=== PATIENT | male | born 1955 | race Caucasian/White ===

== ENCOUNTER → 2017-09-13 15:01 | Outpatient (POV) | payer MEDICARE, MEDICAID, SELFPAY ==
[2017-09-13 15:23] VITALS: BP 139/64; PULSE 82; RESP 20; TEMP 36.1; O2SAT 98; BMI 36.5
[2017-09-13 15:30] VITALS: BP 139/61; PULSE 82; RESP 20
[2017-09-13 15:32] VITALS: BP 140/70; PULSE 82; RESP 22
--- NOTE | 2017-09-13 15:32 | HMH.PMPROC ---
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 He is currently going treatment for his throat cancer. He is having some increasing pain. We will refill his pump and increase his infusion today. He is currently on 1.5 mg per day of intrathecal Dilaudid. We will increase him to 1.8 mg per day and leave PA boluses the same at 0.075 mg up to 3 times a day with a 3 hour lockout. He does have a normal gait. Motor strength of the lower extremities is 5/5. There is no gross sensory deficit. Procedure Details:: Informed consent was obtained and the risks and benefits of the procedure was explained to the patient. The patient was taken to the procedure room. The pump was interrogated. The area over the pump was prepped using ChloraPrep. The pump was accessed with a 22-gauge needle. Approximately 3 mL's of the intrathecal solution was withdrawn and discarded. The pump was then refilled with 20 mL's of intrathecal intrathecal Dilaudid 5 mg/mL. The pump was interrogated and the infusion was increased to 1.8 mg per day. PA boluses remain the same at 0.75 mg up to 3 times a day with a 3 hour lockout. The patient tolerated the procedure well with no complication. Plan and Disposition:: We will follow-up with this patient at his next pump refill. If he has any problems or questions he is to call me back in the pain clinic.
[2017-09-13 15:40] VITALS: BP 139/65; PULSE 80; RESP 20
== END ==
PROVIDERS: Family Provider Emergency Medicine; PCP Physician Assistant; Visit Provider Anesthesiology
DX: M46.1 Sacroiliitis, not elsewhere classified (principal)
CPT/HCPCS: 99212

== ENCOUNTER 2017-09-20 15:49 | Emergency (ER) | payer MEDICARE, MEDICAID, SELFPAY ==
[2017-09-20 16:06] VITALS: BP 150/98; PULSE 78; RESP 20; TEMP 36.7; O2SAT 94; BMI 41.8
[2017-09-20 16:26] VITALS: BP 169/78; PULSE 74; RESP 18; TEMP 36.7; O2SAT 100
[2017-09-20 16:28] LABS: Microscopic, Urine URINE MICROSCOPIC (MICROSCOPIC)
[2017-09-20 16:29] LABS: Appearance,Urine CLEAR (Clear); Bilirubin,Urine Negative (Negative); Blood, Urine Negative (Negative); Color,Urine YELLOW (Yellow); Glucose,Urine (UA) Negative (Negative); Ketones,Urine Negative (Negative); Leukocyte Esterase,Urine Negative (Negative); Nitrate,Urine Negative (Negative); PH,Urine 6.5 (5.0-8.5); Protein,Urine Negative (Negative); Specific Gravity, Urine <= 1.005 (1.005-1.030); Urobilinogen,Urine 0.2 EU/dl (0.2)
[2017-09-20 17:54] LABS: Basophils % 0.5 % (0.1-2.0); Eosinophils # 0.2 K/mm3 (0.0-0.4); Eosinophils % 2.2 % (0.1-12.0); Hematocrit 37.5 % (42.0-52.0); Hemoglobin 12.4 g/dL (14.1-18.0); Lymphocytes # 1.4 K/mm3 (0.7-4.5); Lymphocytes % 20.8 K/mm3 (10-50); Mean Corpuscular Hemoglobin 28.5 pg (27.0-31.2); Mean Corpuscular Volume 86.4 fl (80-94); Mean Platelet Volume 7.8 fl (7.4-10.4); Monocytes # 0.1 K/mm3 (0.1-1.0); Monocytes % 1.7 % (1.7-9.3); Neutrophils # 4.9 K/mm3 (1.8-7.8); Neutrophils % 74.8 % (37.0-80.0); Platelet Count 273 K/mm3 (142-424); Red Blood Count 4.33 M/mm3 (4.60-6.20); Red Cell Distribution Width 14.9 % (11.5-17.5); White Blood Count 6.6 K/mm3 (4.8-10.8)
[2017-09-20 18:00] LABS: Alanine Aminotransferase 33 U/L (12-78); Albumin Level 3.6 gm/dL (3.4-5.0); Alkaline Phosphatase 95 U/L (46-116); Anion Gap 12.4 mEq/L (5-15); Aspartate Amino Transferase 18 U/L (15-37); Bilirubin,Total 0.2 mg/dL (0.2-1.0); Blood Urea Nitrogen 15 mg/dL (7-18); Calcium 8.4 mg/dL (8.5-10.1); Carbon Dioxide 31 mmol/L (21.0-32.0); Chloride 101 mmol/L (98-107); Creatinine Clearance Estimated 82 mL/min (0-300); Creatinine,Serum 0.89 mg/dL (0.70-1.30); Estimated Glomerular Filt Rate 87 ml/min (>60); GFR (African American) 105 ML/MIN (>60); Globulin 3.5 gm/dl (1.3-3.2); Glucose 132 mg/dL (74-106); Potassium 3.4 mmoL/L (3.5-5.1); Sodium 141 mmol/L (136-145); Total Protein,Serum 7.1 gm/dL (6.4-8.2)
[2017-09-20 18:10] LABS: Lactic Acid 0.5 mmol/L (0.4-2.0)
--- NOTE | 2017-09-20 18:49 | HMH.EDGENADL ---
ED Disposition Clinical Impression: Malaise Pharyngitis Qualifiers: Pharyngitis/tonsillitis etiology: unspecified etiology Qualified Code(s): J02.9 - Acute pharyngitis, unspecified Disposition: Home, Self-Care Condition on Discharge: Good Instructions: DI for Pharyngitis/Tonsillopharyngitis -- Adult Additional Instructions: fluids and call your oncologist in am Prescriptions: Fluconazole [Diflucan 100mg tablet] 100 mg PO DAILY #7 tab Referrals: Isatu Wylie PA [Primary Care Provider] - - Critical Care Critical Care Time: No Attestation: On 09/20/17, the high probability of a clinically significant, sudden or life threatening deterioration of the following system(s) required my full and direct attention, intervention and personal management. The time I documented below is in addition to time spent performing reported procedures but includes the following listed in this critical care notation. Medical Decision Making - Medical Records Medical records reviewed: Yes: I reviewed the patient's medical records. Vital Signs: 09/20/17 16:06 09/20/17 16:26 09/20/17 19:14 Temperature 98.0 F 98.0 F Temperature Source Oral Oral Pulse Rate [Left Ulnar] 78 74 74 Respiratory Rate 20 18 16 Blood Pressure [Right Arm] 150/98 169/78 144/91 Blood Pressure Mean [Right Arm] 115 108 108 Blood Pressure Source [Right Arm] Automatic Cuff Automatic Cuff Blood Pressure Position [Right Arm] Sitting Sitting 02 Sat by Pulse Oximetry 94 L 100 97 Oxygen Delivery Method Room Air Room Air Room Air - Lab Data Lab results reviewed: Yes: I reviewed the patient's lab results. Lab Results 09/20/17 16:25: Urine Color Yellow, Urine Appearance Clear, Urine pH 6.5, Ur Specific [place] <= 1.005, Urine Protein Negative, Urine Glucose (UA) Negative, Urine Ketones Negative, Urine Blood Negative, Urine Nitrate Negative, Urine Bilirubin Negative, Urine Urobilinogen 0.2, Ur Leukocyte Esterase Negative, Urine RBC None, Urine WBC None, Ur Squamous Epith Cells None, Urine Bacteria None 09/20/17 16:25: Influenza Type A Ag Negative, Influenza Type B Ag Negative 09/20/17 17:30: WBC 6.6, RBC 4.33 L, Hgb 12.4 L, Hct 37.5 L, MCV 86.4, MCH 28.5, MCHC 33.0, RDW 14.9, Plt Count 273, MPV 7.8, Neut % (Auto) 74.8, Lymph % (Auto) 20.8, [place] % (Auto) 1.7, Eos % (Auto) 2.2, Baso % (Auto) 0.5, Neut # (Auto) 4.9, Lymph # (Auto) 1.4, [place] # (Auto) 0.1, Eos # (Auto) 0.2, Baso # (Auto) 0.0 09/20/17 17:30: Sodium 141, Potassium 3.4 L, Chloride 101, Carbon Dioxide 31, Anion Gap 12.4, BUN 15, Creatinine 0.89, Estimated Creat Clear 82, Estimated GFR 87, Est GFR ( Amer) 105, Glucose 132 H, Calcium 8.4 L, Total Bilirubin 0.2, AST 18, ALT 33, Alkaline Phosphatase 95, Total Protein 7.1, Albumin 3.6, Globulin 3.5 H, Albumin/Globulin Ratio 1.0 L 09/20/17 17:30: Lactic Acid 0.5 Result diagrams: 09/20/17 17:30 09/20/17 17:30 Orders (Tests/Meds): ED MEDICATIONS Generic Name Dose Route Start Last Admin Trade Name Freq PRN Reason Stop Dose Admin Sodium Chloride 1,000 mls @ 999 mls/hr 09/20/17 19:15 09/20/17 19:09 Sod Chloride 0.9% 1000ml Bag IV 09/20/17 20:15 999 mls/hr .Q1H1M CARLIE Administration ORDERS Category Date Time Status Chest XR 2 view (NOT portable) [XR chest 2V] Stat Exams 09/20/17 18:51 Taken Blood Culture Stat Micro 09/20/17 17:30 Received - Radiology Data #1 Image(s): Chest Image Reviewed: Yes I reviewed the patient's radiology image Preliminary Findings: Normal/NAD - [place] Inquiry Pt receiving controlled substance: No General Adult HPI - General Chief complaint: Weakness Stated complaint: Body chills, confusion, sob Time Seen by Provider: 09/20/17 18:49 Mode of Arrival: Family Vehicle Source of Information: Patient, Relative, Medical Record Limitations: No Limitations Description of Symptoms (Recalled from ER Triage Doc. by RN): PT C/O SOB,CHILLS, WEAKNESS, SWOLLEN LEGS. - History of Present Illne
--- NOTE | 2017-09-20 18:51 | XR_ITS ---
XR chest 2V HISTORY: Weakness, Hodgkin's lymphoma, leg swelling ITS.REASON: weakness ORDERING PHYSICIAN: Arash James MD PATIENT AGE: 62 years COMPARISON: 02/04/2017 FINDINGS: The cardiomediastinal silhouette and pulmonary vascularity are within normal limits. The lungs are clear without infiltrates, suspicious nodules, or pleural effusions. Left upper extremity PICC line is present with the tip in the region of the superior vena cava. No acute bony abnormalities. IMPRESSION: No acute finding
--- NOTE | 2017-09-20 18:52 | ED_ITS ---
ED Disposition Clinical Impression: Malaise Pharyngitis Qualifiers: Pharyngitis/tonsillitis etiology: unspecified etiology Qualified Code(s): J02.9 - Acute pharyngitis, unspecified Disposition: Home, Self-Care Condition on Discharge: Good Instructions: DI for Pharyngitis/Tonsillopharyngitis -- Adult Additional Instructions: fluids and call your oncologist in am Prescriptions: Fluconazole [Diflucan 100mg tablet] 100 mg PO DAILY #7 tab Referrals: Isatu Wylie PA [Primary Care Provider] - - Critical Care Critical Care Time: No Attestation: On 09/20/17, the high probability of a clinically significant, sudden or life threatening deterioration of the following system(s) required my full and direct attention, intervention and personal management. The time I documented below is in addition to time spent performing reported procedures but includes the following listed in this critical care notation. Medical Decision Making - Medical Records Medical records reviewed: Yes: I reviewed the patient's medical records. Vital Signs: 09/20/17 16:06 09/20/17 16:26 09/20/17 19:14 Temperature 98.0 F 98.0 F Temperature Source Oral Oral Pulse Rate [Left Ulnar] 78 74 74 Respiratory Rate 20 18 16 Blood Pressure [Right Arm] 150/98 169/78 144/91 Blood Pressure Mean [Right Arm] 115 108 108 Blood Pressure Source [Right Arm] Automatic Cuff Automatic Cuff Blood Pressure Position [Right Arm] Sitting Sitting 02 Sat by Pulse Oximetry 94 L 100 97 Oxygen Delivery Method Room Air Room Air Room Air - Lab Data Lab results reviewed: Yes: I reviewed the patient's lab results. Lab Results 09/20/17 16:25: Urine Color Yellow, Urine Appearance Clear, Urine pH 6.5, Ur Specific [place] <= 1.005, Urine Protein Negative, Urine Glucose (UA) Negative, Urine Ketones Negative, Urine Blood Negative, Urine Nitrate Negative, Urine Bilirubin Negative, Urine Urobilinogen 0.2, Ur Leukocyte Esterase Negative, Urine RBC None, Urine WBC None, Ur Squamous Epith Cells None, Urine Bacteria None 09/20/17 16:25: Influenza Type A Ag Negative, Influenza Type B Ag Negative 09/20/17 17:30: WBC 6.6, RBC 4.33 L, Hgb 12.4 L, Hct 37.5 L, MCV 86.4, MCH 28.5 , MCHC 33.0, RDW 14.9, Plt Count 273, MPV 7.8, Neut % (Auto) 74.8, Lymph % (Auto ) 20.8, [place] % (Auto) 1.7, Eos % (Auto) 2.2, Baso % (Auto) 0.5, Neut # (Auto) 4.9, Lymph # (Auto) 1.4, [place] # (Auto) 0.1, Eos # (Auto) 0.2, Baso # (Auto) 0.0 09/20/17 17:30: Sodium 141, Potassium 3.4 L, Chloride 101, Carbon Dioxide 31, Anion Gap 12.4, BUN 15, Creatinine 0.89, Estimated Creat Clear 82, Estimated GFR 87, Est GFR ( Amer) 105, Glucose 132 H, Calcium 8.4 L, Total Bilirubin 0.2, AST 18, ALT 33, Alkaline Phosphatase 95, Total Protein 7.1, Albumin 3.6, Globulin 3.5 H, Albumin/Globulin Ratio 1.0 L 09/20/17 17:30: Lactic Acid 0.5 Result diagrams: 09/20/17 17:30 09/20/17 17:30 Orders (Tests/Meds): ED MEDICATIONS Generic Name Dose Route Start Last Admin Trade Name Freq PRN Reason Stop Dose Admin Sodium Chloride 1,000 mls @ 999 mls/hr 09/20/17 19:15 09/20/17 19:09 Sod Chloride 0.9% 1000ml Bag IV 09/20/17 20:15 999 mls/hr .Q1H1M CARLIE Administration ORDERS Category Date Time Status Chest XR 2 view (NOT portable) [XR chest 2V] Stat Exams 09/20/17 18:51 Taken Blood Culture Stat Micro 09/20/17 17:30 Received - Radiology Data #1 Image(
[2017-09-20 19:14] VITALS: BP 144/91; PULSE 74; RESP 16; O2SAT 97
== END 2017-09-20 20:10 | disposition home or self-care (01) ==
PROVIDERS: Emergency Provider Emergency Medicine; Family Provider Emergency Medicine; PCP Physician Assistant
DX: J02.9 Acute pharyngitis, unspecified (principal); M54.5 Low back pain; F41.9 Anxiety disorder, unspecified; I10 Essential (primary) hypertension; E78.5 Hyperlipidemia, unspecified; E03.9 Hypothyroidism, unspecified; Z87.891 Personal history of nicotine dependence
CPT/HCPCS: 71046; 80053; 81001; 83605; 85025; 87040; 87275; 87276; 96365; 99284

== ENCOUNTER 2017-10-06 07:19 | Emergency (ER) | payer MEDICARE, MEDICAID, SELFPAY ==
[2017-10-06 07:25] VITALS: BP 133/102; PULSE 106; RESP 22; TEMP 36.4; O2SAT 99; BMI 40.6
--- NOTE | 2017-10-06 07:33 | XR_ITS ---
XR chest 2V HISTORY: ITS.REASON: shortness of air ORDERING PHYSICIAN: Arash James MD PATIENT AGE: 62 years COMPARISON: 09/20/2017 FINDINGS: The cardiomediastinal silhouette and pulmonary vascularity are within normal limits. The lungs are clear without infiltrates, suspicious nodules, or pleural effusions. Left upper extremity PICC line is present as before No acute bony abnormalities. IMPRESSION: No change with no acute finding
--- NOTE | 2017-10-06 07:40 | PC.NURSE ---
labs obtained by peripheal stick and sent to lab by allison
--- NOTE | 2017-10-06 08:03 | HMH.EDGENADL ---
ED Disposition Clinical Impression: Chest pain, atypical Disposition: Home, Self-Care Condition on Discharge: Good Instructions: DI for Atypical Chest Pain Additional Instructions: Additional instructions for CHEST PAIN: See your physician as soon as possible for further evaluation. Return immediately if worsening chest pain, vomiting, shortness of breath, fever, coughing of blood. 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 The time I documented below is in addition to time spent performing reported procedures but includes the following listed in this critical care notation. Medical Decision Making Vital Signs: 10/06/17 07:25 10/06/17 11:40 Temperature 97.5 F L 98.1 F Temperature Source Oral Oral Pulse Rate 87 Pulse Rate [Right Brachial] 106 H Respiratory Rate 22 20 Blood Pressure 128/22 Blood Pressure [Right Arm] 133/102 Blood Pressure Mean [Right Arm] 112 Blood Pressure Source [Right Arm] Automatic Cuff Blood Pressure Position Sitting Blood Pressure Position [Right Arm] Sitting 02 Sat by Pulse Oximetry 99 Oxygen Delivery Method Room Air Room Air - Lab Data Lab Results 10/06/17 07:30: WBC 6.6, RBC 4.24 L, Hgb 12.5 L, Hct 36.7 L, MCV 86.7, MCH 29.5, MCHC 34.0, RDW 15.5, Plt Count 342, MPV 8.1, Neut % (Auto) 76.6, Lymph % (Auto) 15.8, [place] % (Auto) 2.5, Eos % (Auto) 4.8, Baso % (Auto) 0.3, Neut # (Auto) 5.0, Lymph # (Auto) 1.0, [place] # (Auto) 0.2, Eos # (Auto) 0.3, Baso # (Auto) 0.0 10/06/17 07:30: Sodium 137, Potassium 3.5, Chloride 97 L, Carbon Dioxide 32, Anion Gap 11.5, BUN 22 H, Creatinine 1.12, Estimated Creat Clear 132, Estimated GFR 66, Est GFR ( Amer) 80, Glucose 187 H, Calcium 8.8, Total Bilirubin 0.4, AST 13 L, ALT 30, Alkaline Phosphatase 85, Total Creatine Kinase 32 L, CK-MB (CK-2) < 0.5, CK-MB (CK-2) Rel Index 1.6, Troponin I < 0.02, Total Protein 7.5, Albumin 3.4, Globulin 4.1 H, Albumin/Globulin Ratio 0.8 L 10/06/17 07:30: Lactic Acid 1.9 10/06/17 07:30: B-Natriuretic Peptide 15 10/06/17 07:30: Influenza Type A Ag Negative, Influenza Type B Ag Negative 10/06/17 10:12: Troponin I < 0.02 Result diagrams: 10/06/17 07:30 10/06/17 07:30 Orders (Tests/Meds): ED MEDICATIONS Discontinued Medications Generic Name Dose Route Start Last Admin Trade Name Freq PRN Reason Stop Dose Admin Ketorolac Tromethamine 30 mg 10/06/17 11:16 10/06/17 11:30 Toradol 30mg/Ml Vial IV 10/06/17 11:17 30 mg ONCE ONE Administration ORDERS Category Date Time Status Blood Culture Stat Micro 10/06/17 07:30 Received ECG Request by /Carmen Stat Y 10/06/17 11:09 Stop Req - Radiology Data #1 Image(s): Chest Image Reviewed: Yes I reviewed the patient's radiology results Preliminary Findings: Normal/NAD PICC line present. No change from prior. - CT Data CT Scan: Chest Time Received: 10:[address] Reviewed: Yes: I have viewed the radiologist's interpretation Findings Narrative: No PE. Mildly prominent right hilar lymph node, nonspecific. - ECG Data Tracing #1 EKG interpreted by Asif Taylor MD: Rhythm: sinus Rate: 92 [place]: normal Ectopy: none Conduction: normal ST Segment Changes: Nonspecific T Wave Changes: Nonspecific Q Waves: none No evidence of acute ischemia or injury Prior electrocardiagrams reviewed. No change from prior tracings. Tracing #2 EKG #2 interpreted by Asif Taylor MD: Rhythm: sinus Rate: 100 [place]: normal Ectopy: none Conduction: normal ST Segment Changes: Nonspecific T Wave Changes: Nonspeci
--- NOTE | 2017-10-06 08:06 | ED_ITS ---
ED Disposition Clinical Impression: Chest pain, atypical Disposition: Home, Self-Care Condition on Discharge: Good Instructions: DI for Atypical Chest Pain Additional Instructions: Additional instructions for CHEST PAIN: See your physician as soon as possible for further evaluation. Return immediately if worsening chest pain, vomiting, shortness of breath, fever, coughing of blood. 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 The time I documented below is in addition to time spent performing reported procedures but includes the following listed in this critical care notation. Medical Decision Making Vital Signs: 10/06/17 07:25 10/06/17 11:40 Temperature 97.5 F L 98.1 F Temperature Source Oral Oral Pulse Rate 87 Pulse Rate [Right Brachial] 106 H Respiratory Rate 22 20 Blood Pressure 128/22 Blood Pressure [Right Arm] 133/102 Blood Pressure Mean [Right Arm] 112 Blood Pressure Source [Right Arm] Automatic Cuff Blood Pressure Position Sitting Blood Pressure Position [Right Arm] Sitting 02 Sat by Pulse Oximetry 99 Oxygen Delivery Method Room Air Room Air - Lab Data Lab Results 10/06/17 07:30: WBC 6.6, RBC 4.24 L, Hgb 12.5 L, Hct 36.7 L, MCV 86.7, MCH 29.5 , MCHC 34.0, RDW 15.5, Plt Count 342, MPV 8.1, Neut % (Auto) 76.6, Lymph % (Auto ) 15.8, [place] % (Auto) 2.5, Eos % (Auto) 4.8, Baso % (Auto) 0.3, Neut # (Auto) 5.0, Lymph # (Auto) 1.0, [place] # (Auto) 0.2, Eos # (Auto) 0.3, Baso # (Auto) 0.0 10/06/17 07:30: Sodium 137, Potassium 3.5, Chloride 97 L, Carbon Dioxide 32, Anion Gap 11.5, BUN 22 H, Creatinine 1.12, Estimated Creat Clear 132, Estimated GFR 66, Est GFR ( Amer) 80, Glucose 187 H, Calcium 8.8, Total Bilirubin 0.4, AST 13 L, ALT 30, Alkaline Phosphatase 85, Total Creatine Kinase 32 L, CK- MB (CK-2) < 0.5, CK-MB (CK-2) Rel Index 1.6, Troponin I < 0.02, Total Protein 7.5, Albumin 3.4, Globulin 4.1 H, Albumin/Globulin Ratio 0.8 L 10/06/17 07:30: Lactic Acid 1.9 10/06/17 07:30: B-Natriuretic Peptide 15 10/06/17 07:30: Influenza Type A Ag Negative, Influenza Type B Ag Negative 10/06/17 10:12: Troponin I < 0.02 Result diagrams: 10/06/17 07:30 10/06/17 07:30 Orders (Tests/Meds): ED MEDICATIONS Discontinued Medications Generic Name Dose Route Start Last Admin Trade Name Freq PRN Reason Stop Dose Admin Ketorolac Tromethamine 30 mg 10/06/17 11:16 10/06/17 11:30 Toradol 30mg/Ml Vial IV 10/06/17 11:17 30 mg ONCE ONE Administration ORDERS Category Date Time Status Blood Culture Stat Micro 10/06/17 07:30 Received ECG Request by /Carmen Stat Y 10/06/17 11:09 Stop Req - Radiology Data #1 Image(s): Chest Image Reviewed: Yes I reviewed the patient's radiology results Preliminary Findings: Normal/NAD PICC line present. No change from prior. - CT Data CT Scan: Chest Time Received: 10:[address] Reviewed: Yes: I have viewed the radiologist's
[2017-10-06 08:07] LABS: Lactic Acid 1.9 mmol/L (0.4-2.0)
[2017-10-06 08:17] LABS: Alanine Aminotransferase 30 U/L (12-78); Albumin Level 3.4 gm/dL (3.4-5.0); Albumin/Globulin Ratio 0.8 (1.1-1.8); Alkaline Phosphatase 85 U/L (46-116); Anion Gap 11.5 mEq/L (5-15); Aspartate Amino Transferase 13 U/L (15-37); Bilirubin,Total 0.4 mg/dL (0.2-1.0); Blood Urea Nitrogen 22 mg/dL (7-18); Calcium 8.8 mg/dL (8.5-10.1); Carbon Dioxide 32 mmol/L (21.0-32.0); Chloride 97 mmol/L (98-107); Creatine Kinase 32 U/L (39-308); Creatinine Clearance Estimated 132 mL/min (0-300); Creatinine,Serum 1.12 mg/dL (0.70-1.30); Estimated Glomerular Filt Rate 66 ml/min (>60); GFR (African American) 80 ML/MIN (>60); Globulin 4.1 gm/dl (1.3-3.2); Glucose 187 mg/dL (74-106); Potassium 3.5 mmoL/L (3.5-5.1); Sodium 137 mmol/L (136-145); Total Protein,Serum 7.5 gm/dL (6.4-8.2); Troponin I < 0.02 ng/ml (0.00-0.06)
[2017-10-06 08:18] LABS: CKMB Relative Index 1.6 U/L (0-4.0); Creatine Kinase MB < 0.5 mg/ml (0.0-3.6)
--- NOTE | 2017-10-06 08:36 | CT_ITS ---
CT angio chest HISTORY: ITS.REASON: CHEST PAIN ,SOA, CANCER PATIENT, ORDERING PHYSICIAN: Asif Taylor MD PATIENT AGE: 62 years TECHNIQUE: Axial images obtained following the administration of 75 mL of Isovue 370 . Sagittal, and coronal reformatted images are also generated and reviewed. COMPARISON: None FINDINGS: No evidence of pulmonary embolus or aortic aneurysm. No mediastinal mass. Small node is present in the right hilum 2 x 2 centimeters there are small nodes in the subcarinal region. No lobar consolidation or collapse. Calcified granulomas present in the left upper lobe. Calcified nodes are present in the louise. Mild atelectatic change is present in the bases. No effusions or infiltrates. Upper abdominal images are unremarkable. IMPRESSION: No acute finding. No evidence of pulmonary embolus. Mildly prominent right hilar lymph node nonspecific
[2017-10-06 08:47] LABS: Basophils % 0.3 % (0.1-2.0); Eosinophils # 0.3 K/mm3 (0.0-0.4); Eosinophils % 4.8 % (0.1-12.0); Hematocrit 36.7 % (42.0-52.0); Hemoglobin 12.5 g/dL (14.1-18.0); Lymphocytes % 15.8 K/mm3 (10-50); Mean Corpuscular Hemoglobin 29.5 pg (27.0-31.2); Mean Corpuscular Volume 86.7 fl (80-94); Mean Platelet Volume 8.1 fl (7.4-10.4); Monocytes # 0.2 K/mm3 (0.1-1.0); Monocytes % 2.5 % (1.7-9.3); Neutrophils % 76.6 % (37.0-80.0); Platelet Count 342 K/mm3 (142-424); Red Blood Count 4.24 M/mm3 (4.60-6.20); Red Cell Distribution Width 15.5 % (11.5-17.5); White Blood Count 6.6 K/mm3 (4.8-10.8)
[2017-10-06 10:38] LABS: Troponin I < 0.02 ng/ml (0.00-0.06)
[2017-10-06 11:40] VITALS: BP 128/22; PULSE 87; RESP 20; TEMP 36.7; O2SAT 96
== END 2017-10-06 11:41 | disposition home or self-care (01) ==
PROVIDERS: Emergency Provider Emergency Medicine; Family Provider Emergency Medicine; PCP Physician Assistant
DX: R07.89 Other chest pain (principal); I10 Essential (primary) hypertension; E78.5 Hyperlipidemia, unspecified; E03.9 Hypothyroidism, unspecified; Z79.899 Other long term (current) drug therapy; Z87.891 Personal history of nicotine dependence
CPT/HCPCS: 71046; 71275; 80053; 82550; 82553; 83605; 83880; 84484; 85025; 87040; 87275; 87276; 93005; 93041; 96372; 96374; 99284

== ENCOUNTER → 2017-10-15 15:54 | Day surgery (SDC) | payer MEDICARE, MEDICAID, SELFPAY ==
[2017-10-15 16:07] VITALS: BP 115/83; PULSE 83; RESP 18; TEMP 36.8; O2SAT 94; BMI 41.1
--- NOTE | 2017-10-15 16:30 | HMH.PMPROC ---
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 He is currently undergoing treatment for his cancer. He has completed chemotherapy and is starting radiation. He is doing well with his intrathecal Dilaudid pain pump. He is currently at 1.8 mg per day. We will refill his pump today. He does have an antalgic gait. Motor strength of the upper and lower extremities is 5/5. There is no gross sensory deficit. He is needing some pain medication to help with his pain related to his cancer. We will increase his intrathecal Dilaudid infusion to 2 mg per day. Also we will start him on Honey[place]w 7.5 mg 1 tablet 2 times daily. His [place] and urine drug screen have all been appropriate. Procedure Details:: Pain pump refill Informed consent was obtained and the risks and benefits of the procedure was explained to the patient. The patient was taken to the procedure room. The pump was interrogated. The area over the pump was prepped using ChloraPrep. The pump was accessed with a 22-gauge needle. Approximately 7 mL's of the intrathecal solution was withdrawn and discarded. The pump was then refilled with 20 mL's of intrathecal Dilaudid 10 mg/mL. The pump was interrogated and the infusion was increased to 2 mg per day. The patient tolerated the procedure well with no complication. Plan and Disposition:: We will follow-up with him in 1 month to reassess his symptoms. We will also give him a prescription today for Honey[place]w 7.5 mg 2 times daily. His oncologist is also writing him Xanax to undergo his treatment for his cancer.
[2017-10-15 16:38] VITALS: BP 135/82; PULSE 72; RESP 18; O2SAT 96
[2017-10-15 16:40] VITALS: BP 141/84; PULSE 80; RESP 20; O2SAT 96
[2017-10-15 17:00] VITALS: BP 137/74; PULSE 68; RESP 20; TEMP 36.6; O2SAT 95
== END ==
PROVIDERS: Family Provider Emergency Medicine; PCP Physician Assistant; Visit Provider Anesthesiology
DX: M51.16 Intervertebral disc disorders with radiculopathy, lumbar region (principal); M96.1 Postlaminectomy syndrome, not elsewhere classified; C14.0 Malignant neoplasm of pharynx, unspecified
CPT/HCPCS: 62370

== ENCOUNTER → 2017-12-06 10:55 | Outpatient (REF) | payer MEDICARE, MEDICAID, SELFPAY ==
[2017-12-06 14:02] LABS: Basophils % 0.4 % (0.1-2.0); Eosinophils # 0.4 K/mm3 (0.0-0.4); Eosinophils % 3.5 % (0.1-12.0); Hematocrit 37.3 % (42.0-52.0); Hemoglobin 11.6 g/dL (14.1-18.0); Lymphocytes # 1.1 K/mm3 (0.7-4.5); Lymphocytes % 10.9 K/mm3 (10-50); Mean Corpuscular HGB Conc 31.1 g/dL (31.8-35.4); Mean Corpuscular Hemoglobin 29.5 pg (27.0-31.2); Mean Corpuscular Volume 94.8 fl (80-94); Mean Platelet Volume 7.7 fl (7.4-10.4); Monocytes # 0.7 K/mm3 (0.1-1.0); Monocytes % 7.1 % (1.7-9.3); Neutrophils # 7.7 K/mm3 (1.8-7.8); Neutrophils % 78.1 % (37.0-80.0); Platelet Count 496 K/mm3 (142-424); Red Blood Count 3.93 M/mm3 (4.60-6.20); Red Cell Distribution Width 15.3 % (11.5-17.5); White Blood Count 9.9 K/mm3 (4.8-10.8)
[2017-12-06 15:02] LABS: Alanine Aminotransferase 21 U/L (12-78); Albumin Level 3.7 gm/dL (3.4-5.0); Alkaline Phosphatase 102 U/L (46-116); Anion Gap 13.5 mEq/L (5-15); Aspartate Amino Transferase 17 U/L (15-37); Bilirubin,Total 0.3 mg/dL (0.2-1.0); Blood Urea Nitrogen 15 mg/dL (7-18); Calcium 9.3 mg/dL (8.5-10.1); Carbon Dioxide 28 mmol/L (21.0-32.0); Chloride 100 mmol/L (98-107); Chol/HDL Ratio 6.9 (1-3.5); Cholesterol 221 mg/dL (140-200); Creatinine,Serum 0.95 mg/dL (0.70-1.30); Estimated Glomerular Filt Rate 80 ml/min (>60); GFR (African American) 97 ML/MIN (>60); Globulin 3.7 gm/dl (1.3-3.2); Glucose 96 mg/dL (74-106); HDL Cholesterol 32 mg/dL (27-67); LDL Cholesterol 144 mg/dL (0-130); Potassium 4.5 mmoL/L (3.5-5.1); Sodium 137 mmol/L (136-145); T4 (Thyroxine) 12.6 ug/dl (4.7-13.3); Thyroid Stimulating Hormone 3.36 uIU/ml (0.358-3.740); Total Protein,Serum 7.4 gm/dL (6.4-8.2); Triglycerides 224 mg/dL (30-200); VLDL Cholesterol 45 mg/dL (0-40)
[2017-12-06 15:21] LABS: Hemoglobin A1C 5.9 % (0.0-7.0)
[2017-12-08 06:44] LABS: PSA, Free 0.13 ng/mL; Prostate Specific Ag 0.9 ng/mL (0.0-4.0)
== END ==
LOC: LAB 10:55
PROVIDERS: Visit Provider Physician Assistant
DX: E04.9 Nontoxic goiter, unspecified (principal); E16.2 Hypoglycemia, unspecified; E78.5 Hyperlipidemia, unspecified; R73.9 Hyperglycemia, unspecified; N40.0 Benign prostatic hyperplasia without lower urinary tract symptoms
CPT/HCPCS: 80053; 80061; 83036; 84153; 84154; 84436; 84443; 85025

== ENCOUNTER → 2017-12-14 10:38 | Outpatient (CLI) | payer MEDICARE, MEDICAID, SELFPAY ==
[2017-12-14 11:26] LABS: Amphetamine/Metha Screen,Urine Negative ng/mL (<1000); Barbiturates Screen,Urine Negative ng/mL (<200); Benzodiazepines Screen,Urine Negative ng/mL (200); Cannabinoid Screen,Urine Negative ng/mL (<50); Cocaine Screen,Urine Negative ng/g (<300); Methadone Screen,Urine Negative ng/mL (<300); Opiate Screen,Urine Positive ng/mL (<300); Phencyclidine Screen,Urine Negative ng/mL (<25)
[2017-12-22 17:13] LABS: Codeine Negative (Cutoff=100); Hydrocodone Positive (.); Hydromorphone Positive (.); Morphine Negative (Cutoff=100)
[2017-12-23 14:45] LABS: Opiates Positive (.)
== END ==
PROVIDERS: Visit Provider Clinical Nurse Specialist Family Health
DX: Z79.899 Other long term (current) drug therapy (principal)
CPT/HCPCS: 80305; 80361; 80365; G0480

== ENCOUNTER 2017-12-21 12:57 | Day surgery (SDC) | payer MEDICARE, MEDICAID, SELFPAY ==
[2017-12-21 13:08] VITALS: BP 154/95; PULSE 85; RESP 18; TEMP 36.4; O2SAT 94; BMI 36.5
--- NOTE | 2017-12-21 13:26 | HMH.PMPROC ---
- Procedure Date: 12/21/17 Time: 13:35 Anesthesiologist:: Mary Vivas APRN Complications:: None Pre-procedure Diagnosis:: Degenerative disc disease along spine with postlaminectomy syndrome of the lumbar spine, throat cancer Post-procedure Diagnosis:: Same Indications for Procedure:: Patient is a pleasant 62-year-old white male who presents today for intrathecal pain pump refill. Patient currently going at 2 mg of Dilaudid a day. Patient states that he is doing all right with this. Patient was receiving [place] prescription however due to failed urine drug screen we are unable to continue to prescribe this. Patient understands. Patient rates his pain a 5 out of 10 today. Patient denies any side effects to his intrathecal pain pump. Change his concentration today to 10 mg/mL of Dilaudid. 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 The patient was taken to the procedure room where noninvasive monitoring was placed including noninvasive blood pressure cuff and pulse oximeter. Patient's pump was interrogated. The area over the pump was cleansed with chlorhexidine as a cleansing solution. In sterile fashion the pump was accessed with a 22-gauge needle. Approximately 6 mL's were removed of the pump solution and discarded appropriately. The pump was then refilled with 20 mL's of Dilaudid 10 mg/mL. The infusion rate was increased from 2 g a day to 2.4 mg per day. The needle was withdrawn and a bandage was placed over the puncture site. the patient tolerated the procedure well. Plan and Disposition:: I will follow up with this patient at his next pain pump refill. Patient has been instructed to call the office if he has any issues prior to this. Again patient failed urine drug screen and we will not be able to provide oral medications to him. This note was dictated using voice recognition software and may contain errors or omissions
--- NOTE | 2017-12-21 13:30 | P.PCN_ITS ---
- Procedure Date: 12/21/17 Time: 13:35 Anesthesiologist:: Mary Vivas APRN Complications:: None Pre-procedure Diagnosis:: Degenerative disc disease along spine with postlaminectomy syndrome of the lumbar spine, throat cancer Post-procedure Diagnosis:: Same Indications for Procedure:: Patient is a pleasant 62-year-old white male who presents today for intrathecal pain pump refill. Patient currently going at 2 mg of Dilaudid a day. Patient states that he is doing all right with this. Patient was receiving Ponce prescription however due to failed urine drug screen we are unable to continue to prescribe this. Patient understands. Patient rates his pain a 5 out of 10 today. Patient denies any side effects to his intrathecal pain pump. Change his concentration today to 10 mg/mL of Dilaudid. Physical Exam General: Alert and oriented x3, no acute distress, pleasant and cooperative, [ on room air] Lungs: Resps E/U, Symmetrical chest expansion, Eyes: PERRL Musculoskeletal: Flexion and extension of lumbar spine somewhat guarded secondary to pain, deep tendon reflexes normal, strength in upper and lower extremities [5/5], [abnormal gait noted] Neurological: speech clear, chief solution architect equal, no gross sensory deficits Procedure Details:: Informed consent was obtained and the risk and benefits of the procedure were explained to the patient. The patient was taken to the procedure room where noninvasive monitoring was placed including noninvasive blood pressure cuff and pulse oximeter. Patient's pump was interrogated. The area over the pump was cleansed with chlorhexidine as a cleansing solution. In sterile fashion the pump was accessed with a 22-gauge needle. Approximately 6 mL's were removed of the pump solution and discarded appropriately. The pump was then refilled with 20 mL's of Dilaudid 10 mg/mL. The infusion rate was increased from 2 g a day to 2.4 mg per day. The needle was withdrawn and a bandage was placed over the puncture site. the patient tolerated the procedure well. Plan and Disposition:: I will follow up with this patient at his next pain pump refill. Patient has been instructed to call the office if he has any issues prior to this. Again patient failed urine drug screen and we will not be able to provide oral medications to him. This note was dictated using voice recognition software and may contain errors or omissions
[2017-12-21 13:33] VITALS: BP 131/86; PULSE 82; RESP 18; O2SAT 97
[2017-12-21 13:34] VITALS: BP 140/95; PULSE 83; RESP 18; O2SAT 97
[2017-12-21 13:46] VITALS: BP 130/80; PULSE 82; RESP 18; TEMP 36.7; O2SAT 98
== END 2017-12-21 13:49 | disposition home or self-care (01) ==
LOC: SC.PAINP 12:58
PROVIDERS: Family Provider Emergency Medicine; PCP Physician Assistant; Visit Provider Clinical Nurse Specialist Family Health
DX: M51.36 Other intervertebral disc degeneration, lumbar region (principal); M96.1 Postlaminectomy syndrome, not elsewhere classified; C14.0 Malignant neoplasm of pharynx, unspecified
CPT/HCPCS: 62370

== ENCOUNTER → 2018-04-18 15:34 | Outpatient (REF) | payer MEDICARE, MEDICAID, SELFPAY ==
[2018-04-18 18:43] LABS: Basophils % 0.5 % (0.1-2.0); Eosinophils # 0.4 K/mm3 (0.0-0.4); Eosinophils % 5.1 % (0.1-12.0); Hematocrit 38.5 % (42.0-52.0); Hemoglobin 12.4 g/dL (14.1-18.0); Lymphocytes # 1.7 K/mm3 (0.7-4.5); Lymphocytes % 21.9 K/mm3 (10-50); Mean Corpuscular HGB Conc 32.3 g/dL (31.8-35.4); Mean Corpuscular Hemoglobin 28.1 pg (27.0-31.2); Mean Platelet Volume 8.8 fl (7.4-10.4); Monocytes # 0.6 K/mm3 (0.1-1.0); Monocytes % 7.8 % (1.7-9.3); Neutrophils # 5.1 K/mm3 (1.8-7.8); Neutrophils % 64.6 % (37.0-80.0); Platelet Count 319 K/mm3 (142-424); Red Blood Count 4.43 M/mm3 (4.60-6.20); Red Cell Distribution Width 15.3 % (11.5-17.5); White Blood Count 7.8 K/mm3 (4.8-10.8)
[2018-04-18 19:05] LABS: Alanine Aminotransferase 17 U/L (12-78); Albumin Level 3.7 gm/dL (3.4-5.0); Alkaline Phosphatase 94 U/L (46-116); Anion Gap 15.6 mEq/L (5-15); Aspartate Amino Transferase 15 U/L (15-37); Bilirubin,Total 0.3 mg/dL (0.2-1.0); Blood Urea Nitrogen 12 mg/dL (7-18); Calcium 8.6 mg/dL (8.5-10.1); Carbon Dioxide 27 mmol/L (21.0-32.0); Chloride 100 mmol/L (98-107); Chol/HDL Ratio 5.5 (1-3.5); Cholesterol 187 mg/dL (140-200); Creatinine,Serum 1.05 mg/dL (0.70-1.30); Estimated Glomerular Filt Rate 72 ml/min (>60); GFR (African American) 87 ML/MIN (>60); Globulin 3.6 gm/dl (1.3-3.2); Glucose 88 mg/dL (74-106); HDL Cholesterol 34 mg/dL (27-67); LDL Cholesterol 110 mg/dL (0-130); Potassium 3.6 mmoL/L (3.5-5.1); Sodium 139 mmol/L (136-145); T4 (Thyroxine) 13.2 ug/dl (4.7-13.3); Thyroid Stimulating Hormone 1.47 uIU/ml (0.358-3.740); Total Protein,Serum 7.3 gm/dL (6.4-8.2); Triglycerides 216 mg/dL (30-200); VLDL Cholesterol 43 mg/dL (0-40)
== END ==
LOC: LAB 15:34
PROVIDERS: Visit Provider Physician Assistant
DX: E03.9 Hypothyroidism, unspecified (principal); K59.00 Constipation, unspecified; I10 Essential (primary) hypertension; E78.5 Hyperlipidemia, unspecified
CPT/HCPCS: 80053; 80061; 84436; 84443; 85025

== ENCOUNTER → 2018-09-06 14:30 | Outpatient (CLI) | payer MEDICARE, MEDICAID, SELFPAY ==
[2018-09-09 11:17] LABS: Chlordiazepoxide None Detected ug/mL (0.1-0.9)
[2018-09-09 17:15] LABS: Acetone Negative % (0.000-0.010); Butalbital None Detected ug/mL (1-10); Diazepam None Detected ug/mL (0.1-0.9); Ethanol Negative % (0.000-0.010); Isopropanol Negative % (0.000-0.010); Pentobarbital None Detected ug/mL (1-5)
== END ==
PROVIDERS: Visit Provider Clinical Nurse Specialist Family Health
DX: M51.16 Intervertebral disc disorders with radiculopathy, lumbar region (principal); M96.1 Postlaminectomy syndrome, not elsewhere classified; Z79.899 Other long term (current) drug therapy
CPT/HCPCS: 36415; 80306

== ENCOUNTER → 2018-10-18 11:13 | Outpatient (POV) | payer MEDICARE, MEDICAID, SELFPAY ==
[2018-10-18 11:31] VITALS: BP 142/79; PULSE 60; RESP 18; O2SAT 98; BMI 33.7
--- NOTE | 2018-10-18 11:35 | HMH.PAINSOAP ---
[facility] Pain Management SOAP Note Subjective:: Patient is a pleasant 63-year-old white male who presents today for discussion in regards to his left calf pain. Patient had an injury to his muscle in that area several years back. Since then been having pain and palpable trigger points. Patient has had intra-articular knee injections with little to no relief of this specific pain. I believe that he may benefit from a trigger point injection at this site. Patient has an intrathecal infusion and he is doing well with this at this time for his back pain. ROS General: no recent weight change, no fever, no sleep disturbances Respiratory: no cough, no shortness of air, no recurring pulmonary infections Cardiovascular/Peripheral Vascular: No chest pain, No palpitations, no edema, no shortness of breath. Gastrointestinal: no incontinence, normal bowel movements reported Genitourinary: no incontinence Musculoskeletal: Myofascial pain Psychiatric: normal mood/ affect Neurological: [denies weakness in extremities], [denies balance issues] Objective:: Physical Exam General: Alert and oriented x3, no acute distress, pleasant and cooperative, [on room air] Lungs: Resps E/U, Symmetrical chest expansion, Eyes: PERRL Musculoskeletal: Flexion and extension of lumbar spine somewhat guarded secondary to pain, deep tendon reflexes normal, strength in upper and lower extremities [5/5], [abnormal gait noted] palpable trigger point left lateral aspect of calf muscle Neurological: speech clear, 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 Patient's been instructed to call the office if he has any issues prior to his next appointment. I will follow-up with patient after his injection Dr. Parsons has reviewed this note and agrees with this plan of care. This note was dictated using voice recognition software and may contain errors or omissions
--- NOTE | 2018-10-18 11:38 | P.CONS_ITS ---
[facility] Pain Management SOAP Note Subjective:: Patient is a pleasant 63-year-old white male who presents today for discussion in regards to his left calf pain. Patient had an injury to his muscle in that area several years back. Since then been having pain and palpable trigger points. Patient has had intra-articular knee injections with little to no relief of this specific pain. I believe that he may benefit from a trigger point injection at this site. Patient has an intrathecal infusion and he is doing well with this at this time for his back pain. ROS General: no recent weight change, no fever, no sleep disturbances Respiratory: no cough, no shortness of air, no recurring pulmonary infections Cardiovascular/Peripheral Vascular: No chest pain, No palpitations, no edema, no shortness of breath. Gastrointestinal: no incontinence, normal bowel movements reported Genitourinary: no incontinence Musculoskeletal: Myofascial pain Psychiatric: normal mood/ affect Neurological: [denies weakness in extremities], [denies balance issues] Objective:: Physical Exam General: Alert and oriented x3, no acute distress, pleasant and cooperative, [on room air] Lungs: Resps E/U, Symmetrical chest expansion, Eyes: PERRL Musculoskeletal: Flexion and extension of lumbar spine somewhat guarded secondary to pain, deep tendon reflexes normal, strength in upper and lower extremities [5/5], [abnormal gait noted] palpable trigger point left lateral aspect of calf muscle Neurological: speech clear, 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 Patient's been instructed to call the office if he has any issues prior to his next appointment. I will follow-up with patient after his injection Dr. Parsons has reviewed this note and agrees with this plan of care. This note was dictated using voice recognition software and may contain errors or omissions
== END ==
PROVIDERS: PCP Emergency Medicine; Visit Provider Clinical Nurse Specialist Family Health
DX: M51.16 Intervertebral disc disorders with radiculopathy, lumbar region (principal); M96.1 Postlaminectomy syndrome, not elsewhere classified
CPT/HCPCS: 99213

== ENCOUNTER → 2018-12-20 17:48 | Outpatient (CLI) | payer MEDICARE, MEDICAID, SELFPAY ==
[2018-12-20 18:43] LABS: Basophils # 0.1 K/mm3 (0-0.2); Basophils % 0.8 % (0.1-2.0); Eosinophils # 0.5 K/mm3 (0.0-0.4); Hematocrit 37.8 % (42.0-52.0); Hemoglobin 12.7 g/dL (14.1-18.0); Lymphocytes # 1.6 K/mm3 (0.7-4.5); Lymphocytes % 20.4 % (10-50); Mean Corpuscular HGB Conc 33.6 g/dL (31.8-35.4); Mean Corpuscular Hemoglobin 29.4 pg (27.0-31.2); Mean Corpuscular Volume 87.5 fl (80-94); Mean Platelet Volume 8.2 fl (7.4-10.4); Monocytes # 0.5 K/mm3 (0.1-1.0); Monocytes % 6.8 % (1.7-9.3); Platelet Count 301 K/mm3 (142-424); Red Blood Count 4.32 M/mm3 (4.60-6.20); Red Cell Distribution Width 14.7 % (11.5-17.5); White Blood Count 7.6 K/mm3 (4.8-10.8)
[2018-12-20 19:35] LABS: Alanine Aminotransferase 15 U/L (12-78); Albumin Level 3.7 gm/dL (3.4-5.0); Alkaline Phosphatase 113 U/L (46-116); Anion Gap 14.8 mEq/L (5-15); Aspartate Amino Transferase 11 U/L (15-37); Bilirubin,Total 0.2 mg/dL (0.2-1.0); Blood Urea Nitrogen 25 mg/dL (7-18); Calcium 8.6 mg/dL (8.5-10.1); Carbon Dioxide 28 mmol/L (21.0-32.0); Chloride 102 mmol/L (98-107); Creatinine,Serum 0.83 mg/dL (0.70-1.30); Estimated Glomerular Filt Rate 94 ml/min (>60); Free T4 (Free Thyroxine) 1.31 ng/dl (0.76-1.46); GFR (African American) 113 ML/MIN (>60); Globulin 3.6 gm/dl (1.3-3.2); Glucose 93 mg/dL (74-106); Potassium 3.8 mmoL/L (3.5-5.1); Sodium 141 mmol/L (136-145); T4 (Thyroxine) 11.2 ug/dl (4.7-13.3); Thyroid Stimulating Hormone 1.14 uIU/ml (0.358-3.740); Total Protein,Serum 7.3 gm/dL (6.4-8.2)
== END ==
PROVIDERS: Visit Provider Nurse Practitioner Family
DX: R53.83 Other fatigue (principal)
CPT/HCPCS: 80053; 84436; 84439; 84443; 85025

== ENCOUNTER 2019-01-24 13:56 | Day surgery (SDC) | payer MEDICARE, MEDICAID, SELFPAY ==
[2019-01-24 13:58] VITALS: BP 149/80; PULSE 72; RESP 20; O2SAT 98; BMI 33.5
--- NOTE | 2019-01-24 14:04 | HMH.PMPROC ---
- Procedure Date: 01/24/19 Time: 14:04 Anesthesiologist:: Mary Vivas APRN Complications:: None Pre-procedure Diagnosis:: Degenerative disc disease lumbar spine with lumbar radiculopathy Post-procedure Diagnosis:: Same Indications for Procedure:: Is a pleasant 63-year-old white male who presents today for intrathecal pain pump refill and reprogram. Patient is currently on a Dilaudid infusion 5 mg/day. We will be changing his concentration today he rates his pain a 6 out of 10. He is using PRP to help with his knee pain he states he is doing well with it. [facility] reviewed and appropriate [facility] #[id number] Physical Exam General: Alert and oriented x3, no acute distress, pleasant and cooperative, [on room air] Lungs: Resps E/U, Symmetrical chest expansion, Eyes: PERRL Musculoskeletal: Flexion and extension of lumbar spine somewhat guarded secondary to pain, deep tendon reflexes normal, strength in upper and lower extremities [5/5], [abnormal gait noted] Neurological: speech clear, range operator equal, no gross sensory deficits Procedure Details:: Informed consent was obtained and the risk and benefits of the procedure were explained to the patient. The patient was taken to the procedure room where noninvasive monitoring was placed including noninvasive blood pressure cuff and pulse oximeter. Patient's pump was interrogated. The area over the pump was cleansed with chlorhexidine as a cleansing solution. In sterile fashion the pump was accessed with a 22-gauge needle. Approximately 2 mL's were removed of the pump solution and discarded appropriately. The pump was then refilled with 20 mL's of Dilaudid 25 mg/ml. The needle was withdrawn and a bandage was placed over the puncture site. The infusion rate was reprogrammed to increase him to 6 mg a day. The patient tolerated the procedure well. Plan and Disposition:: I will follow-up with the patient at his next intrathecal pain pump refill and reprogram. He has been told to call the office if he has any issues prior to his next appointment. Dr. Parsons has reviewed this note and agrees with this plan of care. This note was dictated using voice recognition software and may contain errors or omissions
[2019-01-24 14:05] VITALS: BP 156/83; PULSE 65; RESP 18; O2SAT 97
[2019-01-24 14:11] VITALS: BP 155/87; PULSE 65; RESP 18; O2SAT 98
--- NOTE | 2019-01-24 14:20 | P.PCN_ITS ---
- Procedure Date: 01/24/19 Time: 14:04 Anesthesiologist:: Mary Vivas APRN Complications:: None Pre-procedure Diagnosis:: Degenerative disc disease lumbar spine with lumbar radiculopathy Post-procedure Diagnosis:: Same Indications for Procedure:: Is a pleasant 63-year-old white male who presents today for intrathecal pain pump refill and reprogram. Patient is currently on a Dilaudid infusion 5 mg/day. We will be changing his concentration today he rates his pain a 6 out of 10. He is using PRP to help with his knee pain he states he is doing well with it. [facility] reviewed and appropriate [facility] #[id number] Physical Exam General: Alert and oriented x3, no acute distress, pleasant and cooperative, [on room air] Lungs: Resps E/U, Symmetrical chest expansion, Eyes: PERRL Musculoskeletal: Flexion and extension of lumbar spine somewhat guarded secondary to pain, deep tendon reflexes normal, strength in upper and lower extremities [5/5], [abnormal gait noted] Neurological: speech clear, breaker layer equal, no gross sensory deficits Procedure Details:: Informed consent was obtained and the risk and benefits of the procedure were explained to the patient. The patient was taken to the procedure room where noninvasive monitoring was placed including noninvasive blood pressure cuff and pulse oximeter. Patient's pump was interrogated. The area over the pump was cleansed with chlorhexidine as a cleansing solution. In sterile fashion the pump was accessed with a 22-gauge needle. Approximately 2 mL's were removed of the pump solution and discarded appropriately. The pump was then refilled with 20 mL's of Dilaudid 25 mg/ml. The needle was withdrawn and a bandage was placed over the puncture site. The infusion rate was reprogrammed to increase him to 6 mg a day. The patient tolerated the procedure well. Plan and Disposition:: I will follow-up with the patient at his next intrathecal pain pump refill and reprogram. He has been told to call the office if he has any issues prior to his next appointment. Dr. Parsons has reviewed this note and agrees with this plan of care. This note was dictated using voice recognition software and may contain errors or omissions
[2019-01-24 14:25] VITALS: BP 151/92; PULSE 63; RESP 18; O2SAT 98
== END 2019-01-24 14:26 | disposition home or self-care (01) ==
LOC: SC.PAINP 13:57
PROVIDERS: PCP Emergency Medicine; Visit Provider Clinical Nurse Specialist Family Health
DX: M51.16 Intervertebral disc disorders with radiculopathy, lumbar region (principal)
CPT/HCPCS: 62370

== ENCOUNTER → 2019-05-17 07:53 | Outpatient (CLI) | payer MEDICARE, SELFPAY ==
--- NOTE | 2019-05-17 07:54 | CA_ITS ---
APPROVED REPORT EXAM: Comprehensive 2D, Doppler, and color-flow Echocardiogram Office Support Assistant: Tanya Ohara RVT Ht: 5 ft 11 in Wt: 231lbs BSA: 2.24 BP: 120/66 mmHg Indications: Edema, Palpitations, Hyperlipidemia, Hypertension 2D Dimensions IVSd 1.30 cm M: 0.6-1.2 LVEF (Visual) 83.50 % PWd 1.40 cm M: 0.6 - 1.2 LVDd 3.50 cm M: 4.2 - 5.9 LVDs 1.70 cm M: 2.5 - 4.0 LVOT 2.50 cm (M/F) 1.5-2.5 M-Mode Dimensions LA Diam 3.40 cm (1.9-4.0) LVDd 7.00 cm (3.5-5.7) Ao Diam 3.20 cm (2.0-3.7) LVDs 5.20 cm (3.5-5.7) AV Cusp 2.80 cm (1.5-2.6) IVSd 1.00 cm (0.6-1.1) PWd 0.70 cm (0.6-1.1) EF (Teich) 49.00% FS 25.70% EDV (Teich) 255.00 mL ESV (Teich) 130.00 mL LV Diastology E/A Ratio 0.7 MED E' 11.20 (< 7 cm/sec) E'/MED E' Ratio 8.40 (>14) LAT E' 9.94 (<10 cm/sec) E/LAT E' Ratio 9.50 (>14) Aortic Valve AoV Peak Carlos Manuel. 142.00 (50-130 cm/s) AO Peak GR. 8.00 mmHg Mitral Valve MV E Max Carlos Manuel. 94.30 (40-130 cm/s) MV A Velocity 129.00 (40-130 cm/s) E/A Ratio 0.70 Pulmonary Valve PA Accel Time 116.00 (>120 msec) Tricuspid Valve TR P. Velocity 254.00 cm/s Left Ventricle Left atrium is mildly enlarged, left ventricle is normal size, mild concentric left ventricular hypertrophy, visually estimated ejection fraction 55% with no regional wall motion abnormality. Grade 1 diastolic dysfunction seen without tissue Doppler evidence of raise left atrial pressure. Right Ventricle Right atrium and right ventricle are normal size and contractility. Aortic Valve Aortic valve is minimally thickened and fibrosed, there is no aortic stenosis aortic insufficiency. Mitral Valve Mitral valve is grossly normal, there is no mitral stenosis, there is mild mitral regurgitation Tricuspid Valve Tricuspid valve is grossly normal, there is mild tricuspid regurgitation, tricuspid regurgitation jet velocity is inadequate for calculation of the right ventricular systolic pressure. Pulmonic Valve Pulmonic valve is poorly visualized. Great Vessels Aortic root is normal size. Pericardium No significant pericardial effusion noted. Conclusion 1. Mildly low left atrium, normal left ventricular size, mild concentric left ventricular hypertrophy, visually estimated ejection fraction 55% with no regional wall motion abnormality, grade 1 diastolic dysfunction seen without tissue Doppler evidence of raise left atrial pressure. 2. Mild mitral and tricuspid regurgitation. 3. No significant pericardial effusion noted. Electronically signed by : Yaakov Melo, 05/19/2019 12:17:52
== END ==
PROVIDERS: PCP Physician Assistant; Visit Provider Physician Assistant
DX: R60.0 Localized edema (principal)
CPT/HCPCS: 93306

== ENCOUNTER → 2019-05-18 08:02 | Outpatient (POV) | payer MEDICARE, SELFPAY ==
[2019-05-18 08:32] VITALS: BP 135/89; PULSE 77; RESP 18; O2SAT 98; BMI 32.2
--- NOTE | 2019-05-18 08:49 | HMH.PAINSOAP ---
[facility] Pain Management SOAP Note Subjective:: Date of service 08/28/2018 Patient is a pleasant 63-year-old male who presents today for complaints of left knee pain. Patient has had ongoing knee pain in 6 months. He says he routinely gets intra-articular injections to his knees for increased pain. He says that he gets about 90% relief up to 2 months following the injections. Patient says he is having difficulty ambulating, along with prolonged standing. Patient says that after the injections, he is able to ambulate for longer. He describes his pain as chronic, constant, and a dull ache. Patient is currently on antibiotic therapy for bilateral lower extremities. He says that he has 3 days left buttocks. Patient would like to pursue therapy with prolong relief. Patient says he does not want to continue to take a lot of steroids. Patient does rate his pain a 7 out of 10. Review of Systems General: No recent weight changes, no fever, no sleep disturbances Respiratory: No cough, no shortness of air, no recurring pulmonary infections Cardiovascular/peripheral vascular: No chest pain, no palpitations, no edema, no shortness of breath Gastrointestinal: No new onset incontinence, normal bowel movements reported Genitourinary: No new onset incontinence Musculoskeletal: Left knee pain Psychiatric: Normal mood/affect Neurological: [Denies weakness in extremities], [denies balance issues] Objective:: Physical exam General: Alert and oriented x3, no acute distress, pleasant and cooperative, [on room air] Lungs: Respirations even and unlabored, symmetrical chest expansion Eyes: PERRL Musculoskeletal: Range of motion to left leg somewhat guarded secondary to pain, deep tendon reflexes normal, strength in upper and lower extremities [5/5], [abnormal gait noted] Neurological: Speech clear, color blender equal, no gross sensory deficit Integumentary: Redness, edema noted to bilateral lower extremities Assessment:: Left knee pain Plan:: The patient has had numerous intra-articular injections in the past. He would like to pursue other injection therapies for pain relief. We will schedule patient for a left knee genicular block with Dr. Parsons. Patient is using ice and heat therapies, along with anti-inflammatories. He has also continue with a home stretching program. We will see the patient back in clinic following his appointment with Dr. harmon and reassess his symptoms at that time. The patient has been instructed to contact the clinic if he has any concerns before that appointment. Dr. Parsons has reviewed this note and agrees with this plan of care. This note was dictated using voice recognition software and make contain errors or omissions. [facility] History Medical History: Reports:: Anxiety, Cancer, Hyperlipidemia, Hypertension, Palpitations Denies:: Diabetes Mellitus Type 1, Diabetes Mellitus Type 2, MRSA, Pulmonary Embolism, Seizures, Transient Ischemic Attacks (TIA) *Have you ever received a pneumonia vaccine?: Yes *Have you received a flu vaccine this season?: Yes Other Medical History: Reports: Hypothyroidism. Denies: Blood Transfusion Reaction Laterality Cases: Other Surgeries: Yes: No Previous Surgery, Cancer Surgery, Cardiac Catheterization, Colonoscopy, Other Amputation: No Fractures: No - *Social History Smoking Status: Current every day smoker Tobacco Type: cigarettes # Packs/Day (cigarettes): 1 Alcohol Intake: never Substance Use Type: denies use, marijuana *Occupational Status:: employed Housing: apartment Household Members: spouse *Travel in the last 8 weeks: None - Psychiatric History Pschychiatric History:: Reports:: Anxiety Family Hx:: Thyroid Disorder, Coronary Artery Disease, Diabetes
--- NOTE | 2019-05-18 08:52 | P.CONS_ITS ---
[facility] Pain Management SOAP Note Subjective:: Date of service 08/28/2018 Patient is a pleasant 63-year-old male who presents today for complaints of left knee pain. Patient has had ongoing knee pain in 6 months. He says he routinely gets intra-articular injections to his knees for increased pain. He says that he gets about 90% relief up to 2 months following the injections. Patient says he is having difficulty ambulating, along with prolonged standing. Patient says that after the injections, he is able to ambulate for longer. He describes his pain as chronic, constant, and a dull ache. Patient is currently on antibiotic therapy for bilateral lower extremities. He says that he has 3 days left buttocks. Patient would like to pursue therapy with prolong relief. Patient says he does not want to continue to take a lot of steroids. Patient does rate his pain a 7 out of 10. Review of Systems General: No recent weight changes, no fever, no sleep disturbances Respiratory: No cough, no shortness of air, no recurring pulmonary infections Cardiovascular/peripheral vascular: No chest pain, no palpitations, no edema, no shortness of breath Gastrointestinal: No new onset incontinence, normal bowel movements reported Genitourinary: No new onset incontinence Musculoskeletal: Left knee pain Psychiatric: Normal mood/affect Neurological: [Denies weakness in extremities], [denies balance issues] Objective:: Physical exam General: Alert and oriented x3, no acute distress, pleasant and cooperative, [on room air] Lungs: Respirations even and unlabored, symmetrical chest expansion Eyes: PERRL Musculoskeletal: Range of motion to left leg somewhat guarded secondary to pain, deep tendon reflexes normal, strength in upper and lower extremities [5/5], [abnormal gait noted] Neurological: Speech clear, 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 He would like to pursue other injection therapies for pain relief. We will schedule patient for a left knee genicular block with Dr. Parsons. Patient is using ice and heat therapies, along with anti-inflammatories. He has also continue with a home stretching program. We will see the patient back in clinic following his appointment with Dr. harmon and reassess his symptoms at that time. The patient has been instructed to contact the clinic if he has any concerns before that appointment. Dr. Parsons has reviewed this note and agrees with this plan of care. This note was dictated using voice recognition software and make contain errors or omissions. [facility] History Medical History: Reports:: Anxiety, Cancer, Hyperlipidemia, Hypertension, Palpitations Denies:: Diabetes Mellitus Type 1, Diabetes Mellitus Type 2, MRSA, Pulmonary Embolism, Seizures, Transient Ischemic Attacks (TIA) *Have you ever received a pneumonia vaccine?: Yes *Have you received a flu vaccine this season?: Yes Other Medical History: Reports: Hypothyroidism. Denies: Blood Transfusion Reaction Laterality Cases: Other Surgeries: Yes: No Previous Surgery, Cancer Surgery, Cardiac Catheterization, Colonoscopy, Other Amputation: No Fractures: No - *Social History Smoking Status: Current every day smoker Tobacco Type: cigarettes # Packs/Day (cigarettes): 1 Alcohol Intake: never Substance Use Type: denies use, marijuana *Occupational Status:: employed Housing: apartment Household Members: spouse *Travel in the last 8 weeks: None
== END ==
PROVIDERS: PCP Physician Assistant; Visit Provider Clinical Nurse Specialist Family Health
DX: M25.562 Pain in left knee (principal)
CPT/HCPCS: 99212

== ENCOUNTER → 2019-06-05 09:05 | Outpatient (CLI) | payer MEDICARE, SELFPAY ==
--- NOTE | 2019-06-05 09:10 | XR_ITS ---
PROCEDURE: XR KNEE RT 4V CLINICAL INDICATION: Knee pain COMPARISON: [id number] KNEE-4 OR 5 VIEWS-LT from 11/22/2014 [id number] KNEE-4 OR 5 VIEWS-RT from 11/22/2014 [id number] KNEE-4 OR 5 VIEWS-LT from 03/03/2017 [id number] KNEE-4 OR 5 VIEWS-RT from 03/03/2017 FINDINGS: There are moderate to severe osteoarthritic changes of the medial compartment slightly worse than when compared to the previous study. Moderate osteoarthritic changes are present at the patellofemoral joint and lateral compartment. No fracture or dislocation. There are 2 small calcific densities along the posterior and medial aspect of the proximal tibial area and could be due to loose bodies within and a Luis's cyst or soft tissue calcifications. There is a small suprapatellar effusion IMPRESSION: Moderate to severe osteoarthritic changes slightly worse at the medial compartment Dictated by: Venkat Waller MD 06/05/2019 11:00 Electronically signed by Venkat Waller MD in [place] 06/05/2019 11:00
--- NOTE | 2019-06-05 09:10 | XR_ITS ---
PROCEDURE: XR KNEE LT 4V CLINICAL INDICATION: Knee pain Lateral knee pain COMPARISON: [id number] KNEE-4 OR 5 VIEWS-LT from 11/22/2014 [id number] KNEE-4 OR 5 VIEWS-RT from 11/22/2014 [id number] KNEE-4 OR 5 VIEWS-LT from 03/03/2017 [id number] KNEE-4 OR 5 VIEWS-RT from 03/03/2017 FINDINGS: Severe osteoarthritic changes are present at the medial compartment with moderate to severe osteoarthritis at the lateral compartment and patellofemoral joint. No fracture or dislocation. 2.5 x 1.5 cm loose body is present along the posterior and medial aspect of the knee joint. Other findings:No fracture or dislocation IMPRESSION: Overall no significant change in the severe osteoarthritic changes with spurring and prominent loose body versus soft tissue calcification. Dictated by: Venkat Waller MD 06/05/2019 11:44 Electronically signed by Venkat Waller MD in [place] 06/05/2019 11:44
== END ==
PROVIDERS: PCP Emergency Medicine; Visit Provider Orthopaedic Surgery
DX: M25.562 Pain in left knee (principal); M25.561 Pain in right knee
CPT/HCPCS: 73564

== ENCOUNTER → 2019-07-31 15:35 | Outpatient (CLI) | payer MEDICARE, MEDICAID, SELFPAY ==
[2019-07-31 19:04] LABS: Amphetamine/Metha Screen,Urine Negative ng/mL (<1000); Barbiturates Screen,Urine Negative ng/mL (<200); Benzodiazepines Screen,Urine Negative ng/mL (<200); Cannabinoid Screen,Urine Negative ng/mL (<50); Cocaine Screen,Urine Negative ng/mL (<300); Methadone Screen,Urine Negative ng/mL (<300); Opiate Screen,Urine Negative ng/mL (<300); Phencyclidine Screen,Urine Negative ng/mL (<25)
[2019-08-07 02:38] LABS: Opiates Negative (Cutoff=100)
== END ==
PROVIDERS: Visit Provider Clinical Nurse Specialist Family Health
DX: Z79.899 Other long term (current) drug therapy (principal)
CPT/HCPCS: 80305; 80361; 80365; G0480

== ENCOUNTER → 2020-01-08 09:26 | Outpatient (CLI) | payer MEDICARE, MEDICAID, SELFPAY ==
[2020-01-08 10:03] LABS: Basophils % 0.3 % (0.1-2.0); Eosinophils # 0.4 K/mm3 (0.0-0.4); Eosinophils % 3.3 % (0.1-12.0); Hematocrit 41.5 % (42.0-52.0); Hemoglobin 13.5 g/dL (14.1-18.0); Mean Corpuscular HGB Conc 32.7 g/dL (31.8-35.4); Mean Corpuscular Hemoglobin 29.2 pg (27.0-31.2); Mean Corpuscular Volume 89.3 fl (80-94); Mean Platelet Volume 8.2 fl (7.4-10.4); Monocytes # 0.9 K/mm3 (0.1-1.0); Monocytes % 7.5 % (1.7-9.3); Neutrophils # 8.3 K/mm3 (1.8-7.8); Neutrophils % 71.9 % (37.0-80.0); Platelet Count 275 K/mm3 (142-424); Red Blood Count 4.64 M/mm3 (4.60-6.20); Red Cell Distribution Width 14.6 % (11.5-17.5); White Blood Count 11.6 K/mm3 (4.8-10.8)
[2020-01-08 11:09] LABS: Anion Gap 10.9 mEq/L (5-15); Blood Urea Nitrogen 19 mg/dl (9-20); Calcium 9.3 mg/dl (8.4-10.2); Carbon Dioxide 25 mmol/L (22.0-30.0); Chloride 105 mmol/L (98-107); Estimated Glomerular Filt Rate 85 ml/min (>60); GFR (African American) 103 ML/MIN (>60); Glucose 90 mg/dl (74-100); Potassium 3.9 mmoL/L (3.5-5.1); Sodium 137 mmol/L (136-145)
[2020-01-10 11:02] LABS: Covid-19 Nasal PCR Sendout Lex NOT DETECTED
== END ==
PROVIDERS: Visit Provider Surgery
DX: Z01.818 Encounter for other preprocedural examination (principal); M51.36 Other intervertebral disc degeneration, lumbar region
CPT/HCPCS: 36415; 80048; 80053; 85025; U0004

== ENCOUNTER 2020-01-10 06:04 | Day surgery (SDC) | payer MEDICARE, MEDICAID, SELFPAY ==
--- NOTE | 2020-01-05 13:08 | SUR.PREOP ---
01/05/2020 @ 1300--PHONE CALL MADE TO PATIENT. PATIENT UNDERSTANDS THAT LAB WORK AND COVID TESTING NEEDS TO BE COMPLETED @ 0900 ON 01/08/2020. PATIENT UNDERSTANDS IF LAB WORK AND COVID-19 TESTS ARE NOT COMPLETED BY 12PM ON THAT DATE, THE SURGERY SCHEDULED WILL BE CANCELLED AND RESCHEDULED FOR ANOTHER TIME.
[2020-01-09 10:45] VITALS: BMI 35.6
[2020-01-10] VITALS (14 sets, daily range): BP systolic 92–144; BP diastolic 48–90; PULSE 65–88; RESP 15–21; TEMP 36.4–37.4; O2SAT 92–100
--- NOTE | 2020-01-10 07:06 | P.PN_ITS ---
[facility] Anesthesia Checklist - Patient Identification Patient Identification: Arm Band, Verbal (Name & ) - Structural Data Admitted From: Home Planned Operative Procedure/s: Removal of IT pain pump generator Consent for Planned Operative Procedure(s) Verified: Yes Verified Documents: Surgical Consent, History and Physical - NPO Status Verified Time NPO: 21:00 - Chart Verification Results Verified: CBC, BMP - Additional verifications Anesthesia Reactions: No Hx Blood Transfusions: No Blood Transfusion Reaction: No - Airway Assessment C-Spine Mobility Assessed: Yes TMJ Mobility Assessed: Yes Dentition: Edentulous - Neurological Assessment Level of Consciousness: Awake, Alert, Appropriate, Follows Commands Hx Seizures: No Numbness or tingling in extremities: No - Anesthesia Plan Anesthesia Risk discussed: Yes Anesthesia Plan: Verified ASA Class: III Anesthesia Type: General (LMA) [facility] History I have reviewed the patient's past medical history: Yes Medical History: Reports:: Anxiety, Cancer (non-hodkins lymphoma), Hyperlipidemia, Hypertension, Palpitations Denies:: Diabetes Mellitus Type 1, Diabetes Mellitus Type 2, Internal Pacemaker, MRSA, Pulmonary Embolism, Seizures, Transient Ischemic Attacks (TIA) *Have you ever received a pneumonia vaccine?: Yes *Have you received a flu vaccine this season?: Yes Other Medical History: Reports: Arthritis, Hypothyroidism. Denies: Blood Transfusion Reaction Comment:: obesity, GEORGES refused CPAP Anesthesia experience/problems:: none Laterality Cases: Left: Arthroscopy Knee, Bilateral: Carpal Tunnel Release, Tonsillectomy, Other Other Surgeries: Yes: Cancer Surgery, Cardiac Catheterization, Colonoscopy, Other. No: Pacemaker Amputation: No Fractures: No - *Social History Educational Level: Attended High School Smoking Status: Current every day smoker Tobacco Type: cigarettes # Packs/Day (cigarettes): 2 Alcohol Intake: never Substance Use Type: marijuana *Occupational Status:: employed Housing: house Household Members: spouse *Travel in the last 8 weeks: None - Psychiatric History Pschychiatric History:: Reports:: Anxiety Family Hx:: Unable to obtain
--- NOTE | 2020-01-10 08:07 | HMH.ANESI ---
[facility] Anesthesia Record Part I Intake, IV Amount: 700 Estimated blood loss (mL): 5 Urine output (mL): 0 Blood Pressure: 92/49 SaO2: 92 Pulse Rate: 72 Respiratory Rate: 16 Temperature: 98 F Patient is:: Drowsy, Stable Stable to PACU at:: 08:00
--- NOTE | 2020-01-10 08:49 | P.OP_ITS ---
Date of procedure: 01/10/20 Pre-op Diagnosis:: Desires removal of pain pump generator Post-op Diagnosis:: Same Procedure performed:: Explantation of pain pump generator Surgeon:: Keith Perdue MD BUSINESS LIAISON OFFICER:: Tyshawn Miranda, Alcides Smith, Kiko Garcia, Keaton Mayen, Boubacar Anesthesia: LMA Estimated blood loss (mL): 5 Operative findings:: Normal placement of pump Operative note:: Once adequate general anesthesia was obtained utilizing an LMA the patient was placed on his side and the area around the pump was prepped and draped in sterile fashion. Incision was made over the generator and carried down through skin and subcutaneous tissues. Generator was delivered from the incision without difficulty. Catheter divided and ligated with a silk ligature. Pocket was irrigated with antibiotic solution. Locally and incised the skin with 1% Xylocaine with epinephrine. Subcutaneous tissues closed with 2-0 Vicryl and ski n closed arm stitches of 4-0 nylon. Wound VAC dressing applied to wound as well as a binder. The patient taught procedure well taken recovery room stimulation. Upon recovery the patient be discharged home follow-up in the pain clinic in 1 week. Antibiotic x1 week per protocol. The patient tolerated procedure well Condition: stable Disposition: PACU Complications:: None
--- NOTE | 2020-01-10 16:08 | HMH.ANESII ---
[facility] Anesthesia Record Part II Discharge Time: 08:43 Destination: Surgical Day Care (OP Surgery) PACU nurse assessment reviewed?: Yes Patient Condition:: Good Anesthesia Complications:: None Swallowing reflex intact?: Yes Cyanosis?: No Blood Pressure: 119/72 Pulse Rate: 66 Temperature: 97.8 F Mental Status: Alert & Oriented Pain level:: 0 Nausea and/or vomitting:: None Intake, IV Amount: 0
== END 2020-01-10 09:50 | disposition home or self-care (01) ==
LOC: OR 06:06
PROVIDERS: PCP Physician Assistant; Visit Provider Surgery
DX: Z45.1 Encounter for adjustment and management of infusion pump (principal); T85.615A Breakdown (mechanical) of other nervous system device, implant or graft, initial encounter; M51.16 Intervertebral disc disorders with radiculopathy, lumbar region; F41.9 Anxiety disorder, unspecified; E78.5 Hyperlipidemia, unspecified; I10 Essential (primary) hypertension; R00.2 Palpitations; E03.9 Hypothyroidism, unspecified; M19.90 Unspecified osteoarthritis, unspecified site; Z87.39 Personal history of other diseases of the musculoskeletal system and connective tissue; Z72.0 Tobacco use; Z85.72 Personal history of non-Hodgkin lymphomas
CPT/HCPCS: 62365; 96374; J2405; J3370

== ENCOUNTER 2020-01-17 18:52 | Emergency (ER) | payer MEDICARE, MEDICAID, SELFPAY ==
[2020-01-17 19:01] VITALS: PULSE 89; RESP 18; TEMP 36.7; O2SAT 98; BMI 38.7
[2020-01-17 19:11] VITALS: BP 180/90; PULSE 89; RESP 18; TEMP 36.7; O2SAT 98
--- NOTE | 2020-01-17 19:11 | HMH.EDUTC ---
[facility] Disposition Clinical Impression: Encounter for management of wound VAC Disposition: Home, Self-Care Condition on Discharge: Good Instructions: How to Care for a Surgical Wound-Stitches Additional Instructions: Follow up with Dr. Parsons tomorrow as scheduled. Referrals: Arash James MD [Primary Care Provider] - Time of Disposition: 19:15 Medical Decision Making - Medical Records Medical records reviewed: No: I reviewed the patient's medical records. - [place] Inquiry Pt receiving controlled substance: No Vital Signs: 01/17/20 19:01 01/17/20 19:11 Temperature 98.0 F 98.0 F Temperature Source Oral Pulse Rate 89 Pulse Rate [Right] 89 Respiratory Rate 18 18 Blood Pressure 180/90 H 02 Sat by Pulse Oximetry 98 Oxygen Delivery Method Room Air Medical Decision Narrative: I called and discussed this case with Dr. Parsons. He is agreeable to leaving the wound vac off and seeing him as scheduled in his office tomorrow. [facility] HPI - General Stated complaint: pAIN PUMP,PULLED OUT Time Seen by Provider: 01/17/20 19:05 Mode of Arrival: Ambulatory Source of Information: Patient Limitations: No Limitations Description of Symptoms (Recalled from Triage Doc. by RN): PATIENT ACCIDENTALLY PULLED WOUND VAC OFF OF PAIN PUMP SITE TODAY HEENT Symptoms (Recalled from RN notes): No Resp Symptoms (Recalled from RN notes): No Skin Symptoms (Recalled from RN notes): Yes MS Symptoms (Recalled from RN notes): No Functional Status (Recalled from RN notes): WNL - History of Present Illness Provider Complaint: He has an implanted pain pump removed from his back on 01/[address] Parsons. A wound vac was placed over the removal site. He states that today he was walking and he tripped and the wound vac tubing got caught in a tree and it ripped the tubing off of the occlusive dressing. He was due to have the wound vac removed tomorrow in Dr. Parsons's office. - Related Data Previous Rx's Medication Instructions Recorded amlodipine 10 mg tablet 10 mg PO DAILY #90 tab 12/25/19 diazepam 2 mg tablet 2 mg PO QHS PRN #30 tab 12/25/19 gabapentin 400 mg capsule 400 mg PO TID 30 Days #90 cap 12/25/19 ketorolac 10 mg tablet 10 mg PO TID PRN 5 Days #15 tab 12/25/19 levothyroxine 200 mcg tablet 200 mcg PO DAILY #90 tab 12/25/19 pravastatin 80 mg tablet 80 mg PO QHS #90 tab 12/25/19 Sulfamethoxazole/Trimethoprim 1 each PO BID #10 tab 01/10/20 [Bactrim DS tablet] Allergies Allergy/AdvReac Type Severity Reaction Status Date / Time escitalopram [From Lexapro] Allergy Severe Hallucinati Verified 01/10/20 06:17 ng morphine [MORPHINE] Allergy Unknown RASH ON Verified 01/10/20 06:17 LEGS - Worker's Comp Is this a Worker's Comp case?: No [facility] History - Hepatitis A Screen Drug use history?: No High risk sexual behaviors?: No History of sexually transmitted infection?: No Currently employed?: No Childcare worker?: No Do you have indoor plumbing?: Yes Do you have electricity?: Yes Attestation statement:: This patient has been screened for Hepatitis A risk factors. I have reviewed the patient's past medical history: Yes Medical History: Reports:: Anxiety, Cancer (non-hodkins lymphoma), Hyperlipidemia, Hypertension, Palpitations Denies:: Diabetes Mellitus Type 1, Diabetes Mellitus Type 2, Internal Pacemaker, MRSA, Pulmonary Embolism, Seizures, Transient Ischemic Attacks (TIA) Other Medical History: Reports: Arthritis, Hypothyroidism. Denies: Blood Transfusion Reaction Comment: obesity, GEOR[place]ES refused CPAP Laterality Cases: Left: Arthroscopy Knee, Bilateral: Carpal Tunnel Release, Tonsillectomy, Other Other Surgeries: Yes: No Previous Surgery, Cancer Surgery, Cardiac Catheterization, Colonoscopy, Other. No: Pacemaker Amputation: No Fractures: No Comment: Back surgery x2, Lt knee cyst removal, Lt forearm, vasectomy, pain pump, tonsillar cancer. - Social History Smoking Status: Current every day smoker Tobacco Type: ciga
--- NOTE | 2020-01-17 19:12 | PC.NURSE ---
OK'D BY DR. NGUYEN TO LEAVE WOUND VAC OFF. DRESSING REMOVED, CLEAN NON-STICK DRESSING REAPPLIED. PATIENT INSTRUCTED TO GO TO DR. NGUYEN TOMORROW TO HAVE STITCHES REMOVED AND RETURN WOUND VAC.
== END 2020-01-17 19:18 | disposition home or self-care (01) ==
PROVIDERS: Emergency Provider Nurse Practitioner Family; PCP Emergency Medicine
DX: T85.9XXA Unspecified complication of internal prosthetic device, implant and graft, initial encounter (principal); W01.198A Fall on same level from slipping, tripping and stumbling with subsequent striking against other object, initial encounter; M51.16 Intervertebral disc disorders with radiculopathy, lumbar region; I10 Essential (primary) hypertension; E03.9 Hypothyroidism, unspecified; F17.210 Nicotine dependence, cigarettes, uncomplicated; E78.5 Hyperlipidemia, unspecified
CPT/HCPCS: G0463; 99201

== ENCOUNTER → 2020-01-18 10:59 | Outpatient (POV) | payer MEDICARE, MEDICAID, SELFPAY ==
[2020-01-18 12:05] VITALS: BP 112/98; PULSE 83; RESP 18; TEMP 36.9; O2SAT 99; BMI 37.9
--- NOTE | 2020-01-18 12:53 | HMH.PAINSOAP ---
[facility] Pain Management SOAP Note Subjective:: Patient is a pleasant 64-year-old white male who presents today for follow-up. Patient recently underwent removal of pain pump generator. He reports to not gotten any relief from his intrathecal therapy. He is being treated for low back pain with lumbar radiculopathy symptoms. Patient says that since having the intrathecal pump removed he has 0 out of 10 pain today. He does report to have intermittent low back pain that is at baseline of 3 out of 10.. He is here for follow-up today after explant. Patient is requesting a physical therapy consult to help with stretching and any residual pain he may develop. He is also here for assessment of incision site. Review of Systems General: No recent weight changes, no fever, no sleep disturbances Respiratory: No cough, no shortness of air, no recurring pulmonary infections Cardiovascular/peripheral vascular: No chest pain, no palpitations, no edema, no shortness of breath Gastrointestinal: No new onset incontinence, normal bowel movements reported Genitourinary: No new onset incontinence Musculoskeletal: Intermittent low back pain Psychiatric: Normal mood/affect Neurological: [Denies weakness in extremities], [denies balance issues] Objective:: Physical exam General: Alert and oriented x3, no acute distress, pleasant and cooperative, [on room air] Lungs: Respirations even and unlabored, symmetrical chest expansion Eyes: PERRL Musculoskeletal: Flexion and extension of lumbar spine somewhat guarded secondary to pain, deep tendon reflexes normal, strength in upper and lower extremities [5/5], [abnormal gait noted] Neurological: Speech clear, search marketing specialist equal, no gross sensory deficit Assessment:: Degenerative disc disease lumbar spine with lumbar radiculopathy symptoms Plan:: Overall the patient is doing well following explant of his intrathecal pump. We will plan to see the patient back in the clinic in 3 weeks to remove his sutures. His incision is well approximated, with no edema no redness no drainage noted to the site. He sue are intact. Patient has been instructed to contact clinic if he has any concerns before his next appointment. The patient and I specifically discussed risk factors for COVID19. These risks include, but are not limited to age greater than 60, heart or lung disease, diabetes, immunosuppression, and travel. We also discussed NSAIDs may worsen COVID19 infection or symptoms. Patient should not use NSAIDs to treat COVID19 signs or symptoms. Patient was also informed that any type of corticosteroid of any form (oral or injection) will decrease the patient's immune system response and may increase the likelihood of COVID19 infection [address] symptoms[address]. Parsons has reviewed this note and agrees with this plan of care. This note was dictated using voice recognition software and make contain errors or omissions. [facility] History I have reviewed the patient's past medical history: Yes Medical History: Reports:: Anxiety, Cancer (non-hodkins lymphoma), Hyperlipidemia, Hypertension, Palpitations Denies:: Diabetes Mellitus Type 1, Diabetes Mellitus Type 2, Internal Pacemaker, MRSA, Pulmonary Embolism, Seizures, Transient Ischemic Attacks (TIA) *Have you ever received a pneumonia vaccine?: Yes *Have you received a flu vaccine this season?: Yes Other Medical History: Reports: Arthritis, Hypothyroidism. Denies: Blood Transfusion Reaction Laterality Cases: Left: Arthroscopy Knee, Bilateral: Carpal Tunnel Release, Tonsillectomy, Other Other Surgeries: Yes: No Previous Surgery, Cancer Surgery, Cardiac Catheterization, Colonoscopy, Other. No: Pacemaker Amputation: No Fractures: No - *Social History Smoking Status: Current every day smoker Tobacco Type: cigarettes # Packs/Day (cigarettes): 2 Alcohol Intake: never Substance Use Type: marijuana *Occupational Status:: other Housing: house Household Members: spouse *Travel in the last 8
== END ==
PROVIDERS: PCP Emergency Medicine; Visit Provider Clinical Nurse Specialist Family Health
DX: M51.16 Intervertebral disc disorders with radiculopathy, lumbar region (principal)
CPT/HCPCS: 99212

== ENCOUNTER → 2020-01-30 11:05 | Outpatient (POV) | payer MEDICARE, MEDICAID, SELFPAY ==
[2020-01-30 12:18] VITALS: BP 132/85; PULSE 75; RESP 18; TEMP 36.6; O2SAT 98; BMI 35.6
--- NOTE | 2020-01-30 12:48 | HMH.PAINSOAP ---
[facility] Pain Management SOAP Note Subjective:: Patient is a pleasant 64-year-old white male who presents today for follow-up. Patient had a removal of his intrathecal pain pump generator. Patient rates his pain a 5 out of 10 today. He has intermittent low back pain with a baseline of 3 out of 10. He is continuing to work. Patient's stitches have been removed there is no sign symptoms of infection overall patient doing well ROS General: no recent weight change, no fever, no sleep disturbances Respiratory: no cough, no shortness of air, no recurring pulmonary infections Cardiovascular/Peripheral Vascular: No chest pain, No palpitations, no edema, no shortness of breath. Gastrointestinal: no new onset incontinence, normal bowel movements reported Genitourinary: no new onset incontinence Musculoskeletal: Back pain Psychiatric: normal mood/ affect Neurological: [denies new onset weakness in extremities], [denies new onset balance issues] Objective:: Physical Exam General: Alert and oriented x3, no acute distress, pleasant and cooperative, [on room air] Lungs: Resps E/U, Symmetrical chest expansion, Eyes: PERRL Musculoskeletal: Flexion and extension of lumbar spine somewhat guarded secondary to pain, deep tendon reflexes normal, strength in upper and lower extremities [5/5], [abnormal gait noted] Neurological: speech clear, bevel operator equal, no gross sensory deficits Assessment:: degenerative disc disease lumbar spine with lumbar radiculopathy Plan:: We will follow-up with the patient in 3 to 4 weeks reassess his symptoms at that time he has been instructed to call the office if he has any issues prior to his next appointment. Dr. Parsons has reviewed this note and agrees with this plan of care. This note was dictated using voice recognition software and may contain errors or omissions [facility] History I have reviewed the patient's past medical history: Yes Medical History: Reports:: Anxiety, Cancer (non-hodkins lymphoma), Hyperlipidemia, Hypertension, Palpitations Denies:: Diabetes Mellitus Type 1, Diabetes Mellitus Type 2, Internal Pacemaker, MRSA, Pulmonary Embolism, Seizures, Transient Ischemic Attacks (TIA) *Have you ever received a pneumonia vaccine?: Yes *Have you received a flu vaccine this season?: Yes Other Medical History: Reports: Arthritis, Hypothyroidism. Denies: Blood Transfusion Reaction Laterality Cases: Left: Arthroscopy Knee, Bilateral: Carpal Tunnel Release, Tonsillectomy, Other Other Surgeries: Yes: No Previous Surgery, Cancer Surgery, Cardiac Catheterization, Colonoscopy, Other. No: Pacemaker Amputation: No Fractures: No - *Social History Smoking Status: Current every day smoker Tobacco Type: cigarettes # Packs/Day (cigarettes): 2 Alcohol Intake: never Substance Use Type: marijuana *Occupational Status:: other Housing: house Household Members: spouse *Travel in the last 8 weeks: None - Psychiatric History Pschychiatric History:: Reports:: Anxiety Family Hx:: Unable to obtain
== END ==
PROVIDERS: PCP Emergency Medicine; Visit Provider Clinical Nurse Specialist Family Health
DX: M51.16 Intervertebral disc disorders with radiculopathy, lumbar region (principal)
CPT/HCPCS: 99212

== ENCOUNTER → 2020-02-09 12:48 | Outpatient (CLI) | payer MEDICARE, MEDICAID, SELFPAY ==
[2020-02-09 13:11] LABS: Basophils # 0.1 K/mm3 (0-0.2); Basophils % 0.5 % (0.1-2.0); Eosinophils # 0.4 K/mm3 (0.0-0.4); Eosinophils % 4.2 % (0.1-12.0); Hematocrit 40.1 % (42.0-52.0); Hemoglobin 13.7 g/dL (14.1-18.0); Lymphocytes # 1.3 K/mm3 (0.7-4.5); Mean Corpuscular HGB Conc 34.2 g/dL (31.8-35.4); Mean Corpuscular Volume 90.6 fl (80-94); Mean Platelet Volume 8.9 fl (7.4-10.4); Monocytes # 0.7 K/mm3 (0.1-1.0); Monocytes % 7.5 % (1.7-9.3); Neutrophils % 73.9 % (37.0-80.0); Platelet Count 236 K/mm3 (142-424); Red Blood Count 4.43 M/mm3 (4.60-6.20); Red Cell Distribution Width 14.5 % (11.5-17.5); White Blood Count 9.4 K/mm3 (4.8-10.8)
[2020-02-09 13:47] LABS: Alanine Aminotransferase 15 U/L (12-78); Albumin Level 3.9 g/dl (3.5-5.0); Albumin/Globulin Ratio 1.3 (1.1-1.8); Alkaline Phosphatase 119 U/L (38-126); Anion Gap 11.5 mEq/L (5-15); Aspartate Amino Transferase 24 U/L (17-59); Bilirubin,Total 0.3 mg/dl (0.2-1.3); Blood Urea Nitrogen 20 mg/dl (9-20); Calcium 8.8 mg/dl (8.4-10.2); Carbon Dioxide 26 mmol/L (22.0-30.0); Chloride 103 mmol/L (98-107); Chol/HDL Ratio 4.8 (1-3.5); Cholesterol 188 mg/dl (140-200); Estimated Glomerular Filt Rate 75 ml/min (>60); GFR (African American) 91 ML/MIN (>60); Glucose 131 mg/dl (74-100); HDL Cholesterol 39 mg/dl (40-60); Potassium 3.5 mmoL/L (3.5-5.1); Sodium 137 mmol/L (136-145); Total Protein,Serum 6.9 g/dl (6.3-8.2); Triglycerides 281 mg/dl (30-150); VLDL Cholesterol 56 mg/dL (0-40)
[2020-02-09 14:03] LABS: Free T4 (Free Thyroxine) 1.67 ng/dl (0.78-2.19)
[2020-02-09 14:19] LABS: Thyroid Stimulating Hormone 0.21 uIU/mL (0.465-4.68)
== END ==
PROVIDERS: Visit Provider Emergency Medicine
DX: I10 Essential (primary) hypertension (principal); E03.9 Hypothyroidism, unspecified; E78.5 Hyperlipidemia, unspecified
CPT/HCPCS: 80053; 80061; 84439; 84443; 85025

== ENCOUNTER → 2020-02-13 16:49 | Outpatient (CLI) | payer MEDICARE, MEDICAID, SELFPAY ==
[2020-02-13 19:56] LABS: Hemoglobin A1C 5.9 % (4.0-6.0)
== END ==
PROVIDERS: Visit Provider Physician Assistant
DX: R73.9 Hyperglycemia, unspecified (principal)
CPT/HCPCS: 36415; 83036

== ENCOUNTER → 2020-02-29 11:34 | Outpatient (POV) | payer MEDICARE, MEDICAID, SELFPAY ==
[2020-02-29 11:42] VITALS: BP 152/88; PULSE 70; RESP 18; TEMP 36.8; O2SAT 98; BMI 36.2
--- NOTE | 2020-02-29 11:55 | HMH.PAINSOAP ---
[facility] Pain Management SOAP Note Subjective:: Patient is a pleasant 64-year-old white male who presents today for follow-up. He is complaining of bilateral knee pain. Patient says that he did follow-up with Dr. Soliz and also a surgeon in [facility] for his knee pain. He did undergo imaging and was told that he would need injective therapy and was not a surgical candidate at this time. Patient believes that he should undergo bilateral knee surgery, however. He does rate his pain an 8 out of 10 today. Patient would like to discuss injections with us today and any other therapies that would be available for his knee pain. Patient says the pain is worse with standing and walking. He says the pain is getting to the point that it is now radiating below his knees with ambulation. Patient has undergone physical therapy in the past and continues with a home stretching program. He uses ice and heat therapies. Review of Systems General: No recent weight changes, no fever, no sleep disturbances Respiratory: No cough, no shortness of air, no recurring pulmonary infections Cardiovascular/peripheral vascular: No chest pain, no palpitations, no edema, no shortness of breath Gastrointestinal: No new onset incontinence, normal bowel movements reported Genitourinary: No new onset incontinence Musculoskeletal: Bilateral knee pain Psychiatric: Normal mood/affect Neurological: [Denies weakness in extremities], [denies balance issues] Objective:: Physical exam General: Alert and oriented x3, no acute distress, pleasant and cooperative, [on room air] Lungs: Respirations even and unlabored, symmetrical chest expansion Eyes: PERRL Musculoskeletal: Flexion and extension of lumbar spine somewhat guarded secondary to pain, deep tendon reflexes normal, strength in upper and lower extremities [5/5], [abnormal gait noted] Neurological: Speech clear, local sales associate equal, no gross sensory deficit Assessment:: Bilateral knee pain, osteoarthritis bilateral knees Plan:: We will schedule the patient for bilateral intra-articular knee injections. The patient I did discuss if he does get relief with the injections he may be a candidate for RFA of his knees. We will plan to see him back after his injections to reassess his symptoms. He has been instructed to contact the clinic if he has any concerns before his next appointment. The patient and I specifically discussed risk factors for COVID19. These risks include, but are not limited to age greater than 60, heart or lung disease, diabetes, immunosuppression, and travel. We also discussed NSAIDs may worsen COVID19 infection or symptoms. Patient should not use NSAIDs to treat COVID19 signs or symptoms. Patient was also informed that any type of corticosteroid of any form (oral or injection) will decrease the patient's immune system response and may increase the likelihood of COVID19 infection and symptoms. Given the risks and benefits of the injection, the patient would like to proceed with the injections. Dr. Parsons has reviewed this note and agrees with this plan of care. This note was dictated using voice recognition software and make contain errors or omissions. [facility] History I have reviewed the patient's past medical history: Yes Medical History: Reports:: Anxiety, Cancer, Hyperlipidemia, Hypertension, Palpitations Denies:: Diabetes Mellitus Type 1, Diabetes Mellitus Type 2, Internal Pacemaker, MRSA, Pulmonary Embolism, Seizures, Transient Ischemic Attacks (TIA) *Have you ever received a pneumonia vaccine?: Yes *Have you received a flu vaccine this season?: Yes Other Medical History: Reports: Arthritis, Hypothyroidism. Denies: Blood Transfusion Reaction Laterality Cases: Left: Arthroscopy Knee, Bilateral: Carpal Tunnel Release, Tonsillectomy, Other Other Surgeries: Yes: No Previous Surgery, Cancer Surgery, Cardiac Catheterization, Cardiac Surgery, Colonoscopy, Other. No: Pacemaker Amputation: No Fractu
== END ==
PROVIDERS: PCP Emergency Medicine; Visit Provider Clinical Nurse Specialist Family Health
DX: M17.0 Bilateral primary osteoarthritis of knee (principal)
CPT/HCPCS: 99212

== ENCOUNTER 2020-03-08 12:32 | Day surgery (SDC) | payer MEDICARE, MEDICAID, SELFPAY ==
[2020-03-08 12:54] VITALS: BP 203/104; PULSE 68; RESP 18; TEMP 36.8; O2SAT 97; BMI 35.2
--- NOTE | 2020-03-08 13:02 | HMH.PMPROC ---
- Procedure Date: 03/08/20 Time: 13:02 Anesthesiologist:: Hans Parsnos MD Complications:: None Pre-procedure Diagnosis:: Bilateral knee pain with degenerative osteoarthritis both knees Post-procedure Diagnosis:: Same Indications for Procedure:: This patient is a pleasant 64-year-old white male who we are treating for bilateral knee pain. He was told he was not a surgical candidate. We will do bilateral intra-articular knee injections today to help him with his pain symptoms. Procedure Details:: Bilateral knee injections Informed consent was obtained risk and benefits of the procedure was planed to the patient. Patient was taken to the procedure room. Both knees were prepped using fluoroscopy. A 25-gauge needle was used first medially then laterally to inject 10 mL bupivacaine 0.25% Depo-Medrol 40 mg into each knee. Patient tolerated the procedure well with no complications. Plan and Disposition:: We will follow-up with him in 2 weeks. Will reevaluate symptoms at that time. If these do not give him long-term relief he may be a candidate for genicular nerve blocks followed by RFA
[2020-03-08 13:08] VITALS: BP 174/76; PULSE 63; RESP 20; O2SAT 96
[2020-03-08 13:10] VITALS: BP 178/80; PULSE 68; RESP 20; O2SAT 96
--- NOTE | 2020-03-08 13:11 | PC.NURSE ---
Addendum entered by Maureen Rojo RN 03/08/20 13:21: Discuussed S/S darrickke, SANCHEZ, dizziness. Instructed pt to monitor own BP and report high readings to MD. Instructed pt to take BP meds as soon as got them refilled, verbalized that he would. Verbalized understanding to all info. Original Note: BP 203/104. Pt says been out of BP and cholesterol meds for 2 weeks. TC to [facility] office to request refills. To be refilled. Instructed pt to pickers material handlers new scripts this afternoon. Verbalized understanding.
[2020-03-08 13:17] VITALS: BP 184/101; PULSE 79; RESP 18; O2SAT 99
== END 2020-03-08 13:21 | disposition home or self-care (01) ==
LOC: SC.PAINP 12:33
PROVIDERS: PCP Emergency Medicine; Visit Provider Anesthesiology
DX: M17.0 Bilateral primary osteoarthritis of knee (principal); I10 Essential (primary) hypertension; E78.5 Hyperlipidemia, unspecified; J44.9 Chronic obstructive pulmonary disease, unspecified; F41.9 Anxiety disorder, unspecified; F32.9 Major depressive disorder, single episode, unspecified; Z72.0 Tobacco use; Z85.72 Personal history of non-Hodgkin lymphomas; Z87.39 Personal history of other diseases of the musculoskeletal system and connective tissue; Z79.899 Other long term (current) drug therapy; Z88.5 Allergy status to narcotic agent; Z88.8 Allergy status to other drugs, medicaments and biological substances
CPT/HCPCS: 20610; 77002; J1030

== ENCOUNTER → 2020-03-28 11:45 | Outpatient (POV) | payer MEDICARE, MEDICAID, SELFPAY ==
--- NOTE | 2020-03-28 12:15 | HMH.PAINSOAP ---
[facility] Pain Management SOAP Note Subjective:: Patient is a pleasant 64-year-old white male who presents today for follow-up after bilateral intra-articular knee injections. Patient says that he did get about 4 days of relief following the injections. He says he was more functional. He has followed up with Dr. Soliz regarding possible knee replacements, however, patient does have a history of cancer and says that he was told that he is not a surgical candidate for his knees at this time. Patient did discuss possible geniculate blocks in the past for his knees. He would like to proceed with the blocks. Does rate his pain a 6 out of 10 today. He has difficulty ambulating due to the pain in his knees. He does a lot of walking throughout the day due to his job. His pain is worse in his right knee today. Review of Systems General: No recent weight changes, no fever, no sleep disturbances Respiratory: No cough, no shortness of air, no recurring pulmonary infections Cardiovascular/peripheral vascular: No chest pain, no palpitations, no edema, no shortness of breath Gastrointestinal: No new onset incontinence, normal bowel movements reported Genitourinary: No new onset incontinence Musculoskeletal: Bilateral knee pain Psychiatric: Normal mood/affect Neurological: [Denies weakness in extremities], [denies balance issues] Objective:: Physical exam General: Alert and oriented x3, no acute distress, pleasant and cooperative, [on room air] Lungs: Respirations even and unlabored, symmetrical chest expansion Eyes: PERRL Musculoskeletal: Flexion and extension of lumbar spine somewhat guarded secondary to pain, deep tendon reflexes normal, strength in upper and lower extremities [5/5], [abnormal gait noted] Neurological: Speech clear, green building design specialist equal, no gross sensory deficit Assessment:: Osteoarthritis bilateral knees, bilateral knee pain Plan:: We will schedule the patient for a right geniculate knee block. He is not on any anticoagulation therapy. If the patient gets relief after his right knee, we will proceed to the left knee geniculate block. We will see him back in the clinic after his block to reassess his symptoms. He has been instructed to contact the clinic if he has any concerns for his next appointment. The patient and I specifically discussed risk factors for COVID19. These risks include, but are not limited to age greater than 60, heart or lung disease, diabetes, immunosuppression, and travel. We also discussed NSAIDs may worsen COVID19 infection or symptoms. Patient should not use NSAIDs to treat COVID19 signs or symptoms. Patient was also informed that any type of corticosteroid of any form (oral or injection) will decrease the patient's immune system response and may increase the likelihood of COVID19 infection [address] symptoms[address] Dr. Parsons has reviewed this note and agrees with this plan of care. This note was dictated using voice recognition software and make contain errors or omissions. [facility] History I have reviewed the patient's past medical history: Yes Medical History: Reports:: Anxiety, Cancer (non hodgkins), Hyperlipidemia, Hypertension, Palpitations Denies:: Diabetes Mellitus Type 1, Diabetes Mellitus Type 2, Internal Pacemaker, MRSA, Pulmonary Embolism, Seizures, Transient Ischemic Attacks (TIA) *Have you ever received a pneumonia vaccine?: No *Have you received a flu vaccine this season?: No Other Medical History: Reports: Arthritis, Hypothyroidism. Denies: Blood Transfusion Reaction Laterality Cases: Left: Arthroscopy Knee, Bilateral: Carpal Tunnel Release, Tonsillectomy, Other Other Surgeries: Yes: No Previous Surgery, Cancer Surgery, Cardiac Catheterization, Cardiac Surgery, Colonoscopy, Other. No: Pacemaker Amputation: No Fractures: No - *Social History Smoking Status: Current every day smoker Tobacco Type: cigarettes # Packs/Day (cigarettes): 2 Alcohol Intake: never Substance Use Type: marijuana *Occu
[2020-03-28 12:35] VITALS: BP 165/79; PULSE 79; RESP 18; O2SAT 98; BMI 34.8
== END ==
PROVIDERS: PCP Emergency Medicine; Visit Provider Clinical Nurse Specialist Family Health
DX: M17.0 Bilateral primary osteoarthritis of knee (principal)
CPT/HCPCS: 99212

== ENCOUNTER 2020-04-12 14:46 | Day surgery (SDC) | payer MEDICARE, MEDICAID, SELFPAY ==
[2020-04-12 14:50] VITALS: BP 130/79; PULSE 83; RESP 18; TEMP 36.9; O2SAT 97; BMI 35.8
[2020-04-12 15:09] VITALS: BP 140/78; PULSE 74; RESP 18
--- NOTE | 2020-04-12 15:10 | P.PCN_ITS ---
- Procedure Date: 04/12/20 Time: 15:18 Anesthesiologist:: Hans Parsons MD Complications:: None Pre-procedure Diagnosis:: Right knee pain with degenerative osteoarthritis Post-procedure Diagnosis:: Same Indications for Procedure:: Patient is a pleasant 64-year-old white male who we are treating for bilateral knee pain. He does have degenerative osteoarthritis of both knees. He is not a candidate for total knee replacement. We will do a right knee genicular nerve blocks today, superior lateral, superior medial, inferior medial genicular nerve blocks. Procedure Details:: Right knee genicular block Informed consent was obtained and the risk and benefits of the procedure was explained to the patient. The patient was taken to the procedure room. The lef t knee was prepped using ChloraPrep. I placed 22-gauge needles into the area of the right superior medial genicular nerve, right superior lateral genicular nerve and right inferior medial genicular nerve. Needle placement was confirmed in AP and lateral views with dye. We then injected bupivacaine 0.25% 3 mL's and Depo-Medrol 25 mg into each area of the right superior medial genicular nerve, right superior lateral genicular nerve and right inferior medial genicular nerve. Patient tolerated the procedure well with no complications. Plan and Disposition:: We will follow-up with him in 2 weeks. Will reevaluate symptoms at that time. If these are successful he may be a candidate for genicular nerve RFA. We will plan on left genicular nerve block if he does well with his right knee.
[2020-04-12 15:14] VITALS: BP 142/77; PULSE 74; RESP 18; O2SAT 98
[2020-04-12 15:27] VITALS: BP 141/83; PULSE 77; RESP 20; O2SAT 97
== END 2020-04-12 15:28 | disposition home or self-care (01) ==
LOC: SC.PAINP 14:46
PROVIDERS: PCP Emergency Medicine; Visit Provider Anesthesiology
DX: M17.11 Unilateral primary osteoarthritis, right knee (principal); I10 Essential (primary) hypertension; Z72.0 Tobacco use; E78.5 Hyperlipidemia, unspecified; J44.9 Chronic obstructive pulmonary disease, unspecified; E03.9 Hypothyroidism, unspecified; C81.90 Hodgkin lymphoma, unspecified, unspecified site; F41.9 Anxiety disorder, unspecified; Z88.6 Allergy status to analgesic agent; Z88.8 Allergy status to other drugs, medicaments and biological substances; Z79.899 Other long term (current) drug therapy
CPT/HCPCS: 64454; J1040; Q9966

== ENCOUNTER → 2020-06-18 08:59 | Outpatient (CLI) | payer MEDICARE, MEDICAID, SELFPAY ==
--- NOTE | 2020-06-18 09:04 | FL_ITS ---
PROCEDURE: FL BARIUM SWALLOW CLINICAL INDICATION: Dysphagia COMPARISON: No exams were available for comparison TECHNIQUE: In the upright position the patient was observed to swallow barium in both the AP and lateral view. The cervical esophagus was examined under fluoroscopy with images obtained. The patient was then placed prone in the right anterior oblique position and was observed to swallow barium with Valsalva technique . FLUOROSCOPY TIME: 1 minutes FINDINGS: There was no evidence of aspiration. There was normal peristalsis. No annular constricting lesions. There is a small sliding hiatal hernia. No constricting Schatzki's ring. There is persistent small filling defect in the anterior aspect of the cervical esophagus consistent with a small soft Jewel web. IMPRESSION: Small sliding hiatal hernia. Small anterior cervical esophageal web Dictated by: Venkat Waller MD 06/18/2020 16:48 Venkat Waller MD in [place] 06/18/2020 16:48
== END ==
PROVIDERS: PCP Physician Assistant; Visit Provider Physician Assistant
DX: R13.10 Dysphagia, unspecified (principal)
CPT/HCPCS: 74220

== ENCOUNTER → 2020-06-20 10:31 | Outpatient (CLI) | payer MEDICARE, MEDICAID, SELFPAY ==
--- NOTE | 2020-06-20 | CA_ITS ---
APPROVED REPORT Exam: Pharmacologic Technologist: Vannessa Raza, Ht: 5 ft 11 in Wt: 284 lbs BSA: 2.45 m2 HR: 71 bpm BP: 147/80 mmHg Medical History Medications: Furosemide (LASIX),,,,, Gabapentin,,,,, Diazepam,,,,, Aldactone,,,,, LevothROXINE,,,,, AtrovASTATIN,,,,, Omepazole,,,,, Metoprol,,,,, Stress Test Details Test: LEXISCAN HR Resting HR: 70 bpm Max Heart Rate (APMHR): 156 bpm Max HR Achieved: 85 bpm Target HR (85% APMHR): 132 bpm % of APMHR: 54 Recovery HR: 75 bpm BP Resting BP: 147/80 mmHg Max BP: 147/80 mmHg Recovery BP: 142.0/80.0 mmHg ECG Clinical Exercise duration: 04:00 min Highest Stage Achieved: Exercise capacity: 1.0 METs Stress ECG Conclusion Resting EKG: NSR, NS ST abns inferiorly and laterally Symptoms: Brief SOA, No CP, malaise, stomach discomfort Arrhythmias/Ectopy: None ST-T changes: No significant changes Conclusion: Unremarkable Lexiscan stress, Myoview images reported separately Electronically signed by : Yaakov Melo, 06/20/2020 14:52:07
--- NOTE | 2020-06-20 10:31 | CA_ITS ---
APPROVED REPORT EXAM: Comprehensive 2D, Doppler, and color-flow Echocardiogram Harness Installer: Tanya Ohara RVT Ht: 5 ft 11 in Wt: 284lbs BSA: 2.45 BP: 165/89 mmHg Indications: angina,cad,cp,smoker,palps,nguyen,htn,hld 2D Dimensions LVOT 2.09 cm (M/F) 1.5-2.5 M-Mode Dimensions RVDd 3.51 cm (0.9-2.6) LA Diam 4.43 cm (1.9-4.0) LVDd 5.33 cm (3.5-5.7) Ao Diam 2.97 cm (2.0-3.7) LVDs 3.65 cm (3.5-5.7) IVSd 0.66 cm (0.6-1.1) PWd 0.89 cm (0.6-1.1) EF (Teich) 58.90% FS 31.50% EDV (Teich) 137.10 mL ESV (Teich) 56.30 mL LV Diastology E Decel Time 260.00 (160-240 msec) E/A Ratio 0.7 MED E' 7.70 (< 7 cm/sec) E'/MED E' Ratio 9.25 (>14) LAT E' 12.00 (<10 cm/sec) E/LAT E' Ratio 5.93 (>14) Mitral Valve MV E Max Carlos Manuel. 71.00 (40-130 cm/s) MV A Velocity 100.00 (40-130 cm/s) E/A Ratio 0.71 MV Decel. Time 260.00 (160-240 ms) MV PHT 76.00 ms Pulmonary Valve PV Peak Velocity 79.00 (50-150 cm/s) Left Ventricle Left atrium is mildly enlarged, left ventricle is normal size, mild concentric left ventricular hypertrophy, visually estimated ejection fraction 55% with no regional wall motion abnormality, grade 1 diastolic dysfunction seen without tissue Doppler evidence of raise left atrial pressure, endocardial surfaces are poorly visualized. Right Ventricle Right atrium and right ventricle are mildly enlarged with normal contractility. Aortic Valve Aortic valve is minimally thickened and fibrosed, there is no aortic stenosis or aortic insufficiency. Mitral Valve Mitral valve is grossly normal, there is mild mitral regurgitation. Tricuspid Valve Tricuspid valve grossly normal, there is mild tricuspid regurgitation, tricuspid regurgitation jet velocity is inadequate for calculation of the right ventricular systolic pressure. Pulmonic Valve Pulmonic valve is poorly visualized. Great Vessels Aortic root is normal size. Pericardium No significant pericardial effusion noted. Conclusion 1. Mild biatrial enlargement, normal left ventricular size, mild concentric left ventricular hypertrophy, visually estimated ejection fraction 55% with no regional wall motion abnormality, grade 1 diastolic dysfunction seen without tissue Doppler evidence of raise left atrial pressure. 2. Mildly enlarged right ventricle with normal contractility. 3. Mild mitral and tricuspid regurgitation. 4. No significant pericardial effusion noted. Electronically signed by : Yaakov Melo, 06/20/2020 16:10:17
--- NOTE | 2020-06-20 11:01 | NM_ITS ---
APPROVED REPORT Exam: Nuclear Stress Test Indication: Chest pain, SOB, Fatigue, HTN, High cholesterol, Tobacco use, Family history Patient Location: Outpatient Stress Tech: Alla Figueroankson [place] Tech:Deanna Savage, MICHAELT, RT (R)(N) Ht: 5 ft 11 in Wt: 284 lbs HR: 71 bpm BP: 147/80 mmHg BSA: 2.45 m2 BMI: 39.6 History: Chest pain, SOB, Fatigue, HTN, High cholesterol, Tobacco use, Family history Procedure: Patient received a 0.4 mg of intravenous Lexiscan, resting heart rate 71 bpm, resting blood pressure 147/80 mmHg, with Lexiscan maximum heart rate achived was 85 bpm which is Less than 85 % of the maximum predicted heart rate and blood pressure was 122/71 mmHg. With Lexiscan, patient denied any complaint of chest pain. Electrocardiogram Resting electrocardiogram showed sinus rhythm, with Lexiscan less than 1.[address] segment depression noted from the baseline EKG. The EKG portion of the Lexiscan Myoview is nondiagnostic. Cardiac Stress and Resting SPECT Images: Cardiac Stress and Resting SPECT images were obtained using technetium 99m Myoview 32.5 mCi stress and 10.92 mCi at rest. Gated SPECT for analysis of segmental wall motion and calculation of the ejection fraction also done. Prone images were also obtained. Cardiac stress and resting SPECT images show uniform myocardial activity without segmental perfusion abnormality, computer derived ejection fraction is 56% with no regional wall motion abnormality, right ventricle is mildly enlarged with normal contractility. Conclusion: 1. The EKG portion of the Lexiscan Myoview is nondiagnostic. 2. No scintigraphic evidence of reversible ischemia seen, computer derived ejection fraction 56% with no regional wall motion abnormality, right ventricle is mildly enlarged with normal contractility. 3. Normal Lexiscan Myoview study. Electronically signed by : Yaakov Melo, 06/20/2020 14:58:59
--- NOTE | 2020-06-20 12:48 | HMH.ITSHM ---
Current Home Medications as stated by this patient Sean Pierson or patient accounting representative. []ATORVASTATIN OMEPRAZOLE DIAZEPAM SPIRONOLACTONE FUROSEMIDE METOPROLOL GABAPENTIN LEVOTHYROXINE
== END ==
PROVIDERS: PCP Physician Assistant; Visit Provider Internal Medicine Cardiovascular Disease
DX: E78.5 Hyperlipidemia, unspecified (principal); I10 Essential (primary) hypertension; R06.00 Dyspnea, unspecified; R60.0 Localized edema; I25.10 Atherosclerotic heart disease of native coronary artery without angina pectoris
CPT/HCPCS: 78452; 93306; A9502; J2785

== ENCOUNTER → 2020-07-25 08:45 | Outpatient (CLI) | payer MEDICARE, SELFPAY ==
[2020-07-25 09:05] LABS: Chloride 103 mmol/L (98-107); Potassium 3.6 mmoL/L (3.5-5.1); Sodium 141 mmol/L (136-145)
[2020-07-25 09:08] LABS: Anion Gap 9.6 mEq/L (5-15); Blood Urea Nitrogen 23 mg/dl (9-20); Carbon Dioxide 32 mmol/L (22.0-30.0); Estimated Glomerular Filt Rate 61 ml/min (>60); GFR (African American) 74 ML/MIN (>60)
[2020-07-25 09:09] LABS: Calcium 7.5 mg/dl (8.4-10.2); Glucose 122 mg/dl (74-100)
[2020-07-25 09:18] LABS: NT Pro Brain Natriuretic Pep. 101 pg/mL (0-125)
== END ==
PROVIDERS: Visit Provider Internal Medicine Cardiovascular Disease
DX: R07.9 Chest pain, unspecified; R06.00 Dyspnea, unspecified; R60.0 Localized edema; E78.5 Hyperlipidemia, unspecified; I10 Essential (primary) hypertension; I20.9 Angina pectoris, unspecified
CPT/HCPCS: 36415; 80048; 83880

== ENCOUNTER → 2020-09-26 16:54 | Outpatient (CLI) | payer MEDICARE, MEDICAID, SELFPAY ==
[2020-09-26 17:12] LABS: Basophils # 0.1 K/mm3 (0-0.2); Basophils % 0.8 % (0.1-2.0); Eosinophils # 0.4 K/mm3 (0.0-0.4); Eosinophils % 4.3 % (0.1-12.0); Hematocrit 43.2 % (42.0-52.0); Hemoglobin 13.6 g/dL (14.1-18.0); Lymphocytes # 1.7 K/mm3 (0.7-4.5); Lymphocytes % 20.4 % (10-50); Mean Corpuscular HGB Conc 31.6 g/dL (31.8-35.4); Mean Corpuscular Hemoglobin 27.7 pg (27.0-31.2); Mean Corpuscular Volume 87.7 fl (80-94); Mean Platelet Volume 8.4 fl (7.4-10.4); Monocytes # 0.7 K/mm3 (0.1-1.0); Monocytes % 8.1 % (1.7-9.3); Neutrophils # 5.5 K/mm3 (1.8-7.8); Neutrophils % 66.3 % (37.0-80.0); Platelet Count 293 K/mm3 (142-424); Red Blood Count 4.93 M/mm3 (4.60-6.20); Red Cell Distribution Width 14.7 % (11.5-17.5); White Blood Count 8.3 K/mm3 (4.8-10.8)
[2020-09-26 17:17] LABS: Alanine Aminotransferase 49 U/L (12-78); Albumin Level 4.3 g/dl (3.5-5.0); Albumin/Globulin Ratio 1.2 (1.1-1.8); Alkaline Phosphatase 138 U/L (38-126); Anion Gap 11.6 mEq/L (5-15); Aspartate Amino Transferase 45 U/L (17-59); Bilirubin,Total 0.4 mg/dl (0.2-1.3); Blood Urea Nitrogen 23 mg/dl (9-20); Calcium 9.2 mg/dl (8.4-10.2); Carbon Dioxide 30 mmol/L (22.0-30.0); Chloride 104 mmol/L (98-107); Chol/HDL Ratio 5.5 (1-3.5); Cholesterol 166 mg/dl (140-200); Estimated Glomerular Filt Rate 55 ml/min (>60); GFR (African American) 67 ML/MIN (>60); Globulin 3.5 g/dL (1.3-3.2); Glucose 113 mg/dl (74-100); HDL Cholesterol 30 mg/dl (40-60); Potassium 4.6 mmoL/L (3.5-5.1); Sodium 141 mmol/L (136-145); Total Protein,Serum 7.8 g/dl (6.3-8.2); Triglycerides 250 mg/dl (30-150); VLDL Cholesterol 50 mg/dL (0-40)
[2020-09-26 17:28] LABS: Direct LDL Cholesterol 96.48 mg/dL (100-129)
[2020-09-26 17:48] LABS: Prostate Specific Ag Screen 0.7 ng/ml (0.0-4.0); Thyroid Stimulating Hormone 0.18 uIU/mL (0.465-4.68)
== END ==
PROVIDERS: Visit Provider Physician Assistant
DX: E03.9 Hypothyroidism, unspecified (principal); E78.5 Hyperlipidemia, unspecified; M48.062 Spinal stenosis, lumbar region with neurogenic claudication; R73.9 Hyperglycemia, unspecified; Z12.5 Encounter for screening for malignant neoplasm of prostate; I20.9 Angina pectoris, unspecified; R06.00 Dyspnea, unspecified
CPT/HCPCS: 80053; 80061; 84439; 84443; 85025; G0103

== ENCOUNTER → 2020-10-11 08:37 | Outpatient (CLI) | payer MEDICARE, MEDICAID, SELFPAY ==
--- NOTE | 2020-10-11 08:37 | MR_ITS ---
PROCEDURE: MR LUMBAR SPINE WO CON CLINICAL INDICATION: neurogenic claudication Neck pain, history of multiple lumbar surgeries. Previous pain pump that was removed 1 year ago. COMPARISON: MR ASSOCIATE QUALITY ENGINEER/O MRI-L-SPINE W/O from 01/11/2015 CT ABDPELW/O CT ABD PELVIS W/O CONTRAST from 02/03/2016 TECHNIQUE: Standard multiplanar multiecho sequences are performed without contrast. 3-D MIP and myelographic images are also rendered and reviewed FINDINGS: There is straightening of the normal lordosis of the lumbar spine which is more pronounced than CT from 2016 which suggests muscle spasm. There are no focal areas of malalignment. There are scattered degenerative signal changes. No suspicious area of abnormal signal. The vertebral bodies demonstrate normal height and otherwise normal signal intensity. There is severe L5-S1 disc space narrowing. Remaining disc spaces are normal. Spinal cord terminates at a normal level with a normal appearance of the conus. Minimal visualization of the surrounding structures is normal. L1-2: Normal, no significant degenerative change or narrowing. L2-3: Mild diffuse endplate osteophyte disc bulge. No additional degenerative change or significant narrowing. L3-4: No significant degenerative change or narrowing. L4-5: There is mild diffuse endplate osteophyte disc bulge. No significant narrowing of the spinal canal. There is degenerative change of the facet joints. There is moderate narrowing of the left neural foramen. There is mild right foraminal narrowing. L5-S1: There is right posterior lateral prominent diffuse endplate osteophyte which contributes to narrowing of the right neural foramen. There is moderate bilateral foraminal narrowing. There is a superficial fluid collection at the L4-5 level, likely a postsurgical seroma. IMPRESSION: 1. Scattered degenerative change and foraminal narrowing. 2. Superficial soft tissue fluid collection. Dictated by: Idalia Luis MD 10/11/2020 12:58 Idalia Luis MD in [place] 10/11/2020 12:58
== END ==
PROVIDERS: PCP Physician Assistant; Visit Provider Physician Assistant
DX: M48.062 Spinal stenosis, lumbar region with neurogenic claudication (principal)
CPT/HCPCS: 72148; 76376

== ENCOUNTER → 2020-10-28 11:19 | Outpatient (POV) | payer MEDICARE, MEDICAID, SELFPAY ==
[2020-10-28 11:30] VITALS: BP 142/71; PULSE 77; RESP 18; O2SAT 99; BMI 37.9
--- NOTE | 2020-10-28 12:03 | HMH.PAINSOAP ---
[facility] Pain Management SOAP Note Subjective:: Patient is a pleasant 65-year-old white male here today as a referral from Dr. Isatu Wylie's office. With complaint of low back, hip and bilateral knee pain. He has been seen in our in the past for back injections as well as bilateral knee injections. Today he is complaining of lateral hip, groin pain as well as numbness to the left thigh. 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 He rates his pain today a 7 out of 10. He continues to have increasing pain in the left hip as well as groin and low back. ROS General: no recent weight change, no fever, no sleep disturbances Respiratory: no cough, no shortness of air, no recurring pulmonary infections Cardiovascular/Peripheral Vascular: No chest pain, No palpitations, no edema, no shortness of breath. Gastrointestinal: no new onset incontinence, normal bowel movements reported Genitourinary: no new onset incontinence Musculoskeletal: Back, bilateral hip, and numbness to left thigh Psychiatric: normal mood/ affect, [denies depression], [denies anxiety] Neurological: [denies new onset weakness in extremities], [denies new onset balance issues] Objective:: Physical Exam General: Alert and oriented x3, no acute distress, pleasant and cooperative, [on room air] Lungs: Resps E/U, Symmetrical chest expansion, [CTA bilateral] Eyes: PERRL Musculoskeletal: Flexion and extension of lumbar spine somewhat guarded secondary to pain, deep tendon reflexes normal, strength in upper and lower extremities [5/5], [abnormal gait noted] also did Patrick's, compression, distraction exam bilaterally, tenderness with palpation over bilateral SI joint Neurological: speech clear, supervisor grounds equal, no gross sensory deficits Assessment:: Generative disc disease lumbar spine, bilateral sacroiliitis, osteoarthritis bilateral knees Plan:: Since his symptoms relate with SI joint inflammation, recommend bilateral SI joint injections. Procedure, risks, benefits were all discussed with the patient, he would like to proceed with the injections. For the bilateral knee pain we will prescribe diclofenac 75 mg twice daily. He is welcome to contact the clinic prior to his injection appointment if he has any concerns. Dr. Parsons has reviewed this note and agrees with this plan of care. This note was dictated using voice recognition software and may contain errors or omissions [facility] History I have reviewed the patient's past medical history: Yes Medical History: Reports:: Anxiety, Cancer, Hyperlipidemia, Hypertension, Palpitations Denies:: Diabetes Mellitus Type 1, Diabetes Mellitus Type 2, Internal Pacemaker, MRSA, Pulmonary Embolism, Seizures, Transient Ischemic Attacks (TIA) *Have you ever received a pneumonia vaccine?: Yes *Have you received a flu vaccine this season?: Yes Other Medical History: Reports: Arthritis, Hypothyroidism. Denies: Blood Transfusion Reaction Laterality Cases: Left: Arthroscopy Knee, Bilateral: Carpal Tunnel Release, Tonsillectomy, Other Other Surgeries: Yes: No Previous Surgery, Cancer Surgery, Cardiac Catheterization, Cardiac Surgery, Colonoscopy, Other. No: Pacemaker Amputation: No Fractures: No - *Social History Smoking Status: Current every day smoker Tobacco Type: cigarettes # Packs/Day (cigarettes): 2 Alcohol Intake: never Substance Use Type: former substance user *Occupational Status:: other Housing: house Household Members: spouse *Travel in the last 8 weeks: None - Psychiatric History Pschychiatric History:: Reports:: Anxiety Family Hx:: Cancer
== END ==
PROVIDERS: PCP Physician Assistant; Visit Provider Clinical Nurse Specialist Family Health
DX: M51.16 Intervertebral disc disorders with radiculopathy, lumbar region (principal); M46.1 Sacroiliitis, not elsewhere classified; M17.0 Bilateral primary osteoarthritis of knee
CPT/HCPCS: 99212; G0463

== ENCOUNTER 2020-11-01 11:53 | Day surgery (SDC) | payer MEDICARE, MEDICAID, SELFPAY ==
[2020-11-01 12:25] VITALS: BP 144/74; PULSE 54; RESP 18; TEMP 36.7; O2SAT 98; BMI 38.3
[2020-11-01 13:07] VITALS: BP 155/78; PULSE 85; RESP 18; O2SAT 98
[2020-11-01 13:08] VITALS: BP 158/78; PULSE 85; RESP 18; O2SAT 99
--- NOTE | 2020-11-01 13:09 | HMH.PMPROC ---
- Procedure Date: 11/01/20 Time: 13:09 Anesthesiologist:: Hans Parsons MD Complications:: None Pre-procedure Diagnosis:: Sacroiliitis Post-procedure Diagnosis:: Same Indications for Procedure:: Patient is a pleasant 65-year-old white male who we are treating for bilateral hip pain. He is tender over both SI joints. He has a positive Patrick's test bilaterally. He has a positive SI joint compression test bilaterally. Has a positive distraction test bilaterally. We will do bilateral SI joint injections under fluoroscopy today to help him with his pain symptoms. Procedure Details:: B/L SI joint injection under fluoroscopy Informed consent was obtained and the risks and benefits of the procedure was explained to the patient. The patient was taken to the procedure room and placed prone on the procedure table. The patient was prepped using ChloraPrep. The skin and subcutaneous tissues overlying the SI joints were anesthetized using lidocaine. I placed a 22-gauge needle first in the left SI joint and second in the right SI joint. Needle placement was confirmed with dye. After this we injected 5 mL bupivacaine 0.25% and Depo-Medrol 40 mg into each SI joint. Patient tolerated the procedure well with no complication. Plan and Disposition:: We will follow-up with him in 2 weeks. Will reevaluate symptoms at that time.
[2020-11-01 13:14] VITALS: BP 143/56; PULSE 50; RESP 20; O2SAT 98
== END 2020-11-01 13:15 | disposition home or self-care (01) ==
LOC: SC.PAINP 11:58
PROVIDERS: PCP Physician Assistant; Visit Provider Anesthesiology
DX: M46.1 Sacroiliitis, not elsewhere classified (principal); I25.10 Atherosclerotic heart disease of native coronary artery without angina pectoris; I10 Essential (primary) hypertension; E78.5 Hyperlipidemia, unspecified; K21.9 Gastro-esophageal reflux disease without esophagitis; Z72.0 Tobacco use; N40.0 Benign prostatic hyperplasia without lower urinary tract symptoms; E07.9 Disorder of thyroid, unspecified; Z88.5 Allergy status to narcotic agent; Z88.8 Allergy status to other drugs, medicaments and biological substances; Z79.899 Other long term (current) drug therapy
CPT/HCPCS: 27096; G0260; J1030; Q9966

== ENCOUNTER → 2020-11-04 14:30 | Outpatient (CLI) | payer MEDICARE, MEDICAID, SELFPAY ==
--- NOTE | 2020-11-04 14:38 | XR_ITS ---
PROCEDURE: XR KNEE RT 3V CLINICAL INDICATION: PATRICIA KNEE PAIN COMPARISON: CR [id number] KNEE-4 OR 5 VIEWS-LT from 03/03/2017 CR [id number] KNEE-4 OR 5 VIEWS-RT from 03/03/2017 CR XR KNEE RT 4V from 06/05/2019 CR XR KNEE LT 4V from 06/05/2019 FINDINGS: There are moderate to severe osteoarthritic changes the medial compartment with mild osteoarthritis of lateral compartment and patellofemoral joint. Fracture or dislocation. No lytic or blastic change. Coarse calcifications in the proximal area not significantly changed IMPRESSION: Moderate to severe osteoarthritis. Dictated by: Veknat Waller MD 11/04/2020 16:06 Venkat Waller MD in [place] 11/04/2020 16:06
--- NOTE | 2020-11-04 14:38 | XR_ITS ---
PROCEDURE: XR KNEE LT 3V CLINICAL INDICATION: PATRICIA KNEE PAIN COMPARISON: CR [id number] KNEE-4 OR 5 VIEWS-LT from 03/03/2017 CR [id number] KNEE-4 OR 5 VIEWS-RT from 03/03/2017 CR XR KNEE RT 4V from 06/05/2019 CR XR KNEE LT 4V from 06/05/2019 FINDINGS: There are moderate to severe osteoarthritic changes of the medial significantly changed. Osteoarthritis lateral and patellofemoral joint. A 2 cm partially calcified soft tissue density is present in the popliteal region and may be due to a loose body within a Luis's cyst. Density of this loose body is somewhat less than when compared to the previous exam. The overall size is not significantly changed. IMPRESSION: Moderate to severe osteoarthritis not significantly changed. Popliteal fossa soft tissue calcification once again noted which may represent a loose body within a Luis's cyst. Overall density of the loose body is less on today's exam which is of questionable clinical significance Dictated by: Venkat Waller MD 11/04/2020 16:08 Venkat Waller MD in [place] 11/04/2020 16:08
== END ==
PROVIDERS: PCP Emergency Medicine; Visit Provider Clinical Nurse Specialist Family Health
DX: M25.561 Pain in right knee (principal); M25.562 Pain in left knee
CPT/HCPCS: 73562

== ENCOUNTER → 2020-11-28 14:17 | Outpatient (POV) | payer MEDICARE, MEDICAID, SELFPAY ==
[2020-11-28 14:42] VITALS: BP 153/71; PULSE 65; RESP 18; O2SAT 98; BMI 36.8
--- NOTE | 2020-11-28 15:14 | HMH.PAINSOAP ---
[facility] Pain Management SOAP Note Subjective:: Pleasant 65-year-old white male who presents today for follow-up after bilateral SI joint injections. He is doing much better however his knees are bothering him. He did not get his Orth appointment stating that he cannot afford to have surgery at this time. He does want to move forward with bilateral intra-articular knee injections he states he had this in the past with good relief. He rates his pain today an 8 out of 10. He is failed over 6 weeks of medication management and conservative therapy. ROS General: no recent weight change, no fever, no sleep disturbances Respiratory: no cough, no shortness of air, no recurring pulmonary infections Cardiovascular/Peripheral Vascular: No chest pain, No palpitations, no edema, no shortness of breath. Gastrointestinal: no new onset incontinence, normal bowel movements reported Genitourinary: no new onset incontinence Musculoskeletal: Bilateral knee pain Psychiatric: normal mood/ affect Neurological: [denies new onset weakness in extremities], [denies new onset balance issues] Objective:: Physical Exam General: Alert and oriented x3, no acute distress, pleasant and cooperative, [on room air] Lungs: Resps E/U, Symmetrical chest expansion, Eyes: PERRL Musculoskeletal: Range of motion bilateral knees somewhat guarded secondary to pain, deep tendon reflexes normal, strength in upper and lower extremities [5/5], [abnormal gait noted] Neurological: speech clear, consultant in ergonomics and safety equal, no gross sensory deficits Assessment:: Bilateral knee osteoarthritis Plan:: We will plan a bilateral intra-articular knee injections for the patient. Patient's been instructed to call the office if he has any issues prior to his next appointment. Dr. Parsons has reviewed this note and agrees with this plan of care. This note was dictated using voice recognition software and may contain errors or omissions [facility] History I have reviewed the patient's past medical history: Yes Medical History: Reports:: Anxiety, Coronary Artery Disease, Hyperlipidemia, Hypertension, Palpitations Denies:: Cancer, Diabetes Mellitus Type 1, Diabetes Mellitus Type 2, Internal Pacemaker, MRSA, Pulmonary Embolism, Seizures, Transient Ischemic Attacks (TIA) *Have you ever received a pneumonia vaccine?: No *Have you received a flu vaccine this season?: Yes Other Medical History: Reports: Arthritis, Hypothyroidism, Thyroid Disease. Denies: Blood Transfusion Reaction Laterality Cases: Left: Arthroscopy Knee, Bilateral: Carpal Tunnel Release, Tonsillectomy, Other Other Surgeries: Yes: No Previous Surgery, Cancer Surgery, Cardiac Catheterization, Cardiac Surgery, Colonoscopy, Other (pain pump removal,S-1-L5 sx). No: Pacemaker Amputation: No Fractures: No - *Social History Smoking Status: Current every day smoker Tobacco Type: cigarettes # Packs/Day (cigarettes): 1 Alcohol Intake: never Substance Use Type: former substance user *Occupational Status:: employed Housing: house Household Members: spouse *Travel in the last 8 weeks: None - Psychiatric History Pschychiatric History:: Reports:: Anxiety Family Hx:: Cancer
== END ==
PROVIDERS: PCP Physician Assistant; Visit Provider Clinical Nurse Specialist Family Health
DX: M17.0 Bilateral primary osteoarthritis of knee (principal)
CPT/HCPCS: 99212; G0463

== ENCOUNTER 2020-12-06 11:24 | Day surgery (SDC) | payer MEDICARE, MEDICAID, SELFPAY ==
[2020-12-06 11:27] VITALS: BP 99/49; PULSE 75; RESP 20; TEMP 36.4; O2SAT 96; BMI 36.5
--- NOTE | 2020-12-06 11:38 | HMH.PMPROC ---
- Procedure Date: 12/06/20 Time: 11:38 Anesthesiologist:: Hans Parsons MD Complications:: None Pre-procedure Diagnosis:: Bilateral knee pain. Degenerative osteoarthritis both knees Post-procedure Diagnosis:: Same Indications for Procedure:: This patient is a pleasant 65-year-old white male who we are treating for bilateral knee pain with degenerative osteoarthritis of both knees. We will do bilateral intra-articular knee injections today to see if this gives him relief of his pain symptoms. Procedure Details:: Bilateral intra-articular knee injection Informed consent was obtained the risk and benefits of the procedure were explained the patient. Patient was taken the procedure room. Both knees were prepped using ChloraPrep. 25-gauge needle was used first medially then laterally to inject 10 mL bupivacaine 0.25% and Depo-Medrol 40 mg into each knee. We used total of 80 mg Depo-Medrol for both knees. Patient tolerated procedure well with no complications. Plan and Disposition:: We will follow-up with him in 2 weeks. Will reevaluate symptoms at that time.
[2020-12-06 11:42] VITALS: BP 142/78; PULSE 85; RESP 18; O2SAT 98
[2020-12-06 11:43] VITALS: BP 148/89; PULSE 85; RESP 18; O2SAT 98
[2020-12-06 11:46] VITALS: BP 120/77; PULSE 77; RESP 20; O2SAT 96
== END 2020-12-06 11:47 | disposition home or self-care (01) ==
LOC: SC.PAINP 11:27
PROVIDERS: PCP Physician Assistant; Visit Provider Anesthesiology
DX: M17.0 Bilateral primary osteoarthritis of knee (principal); F41.9 Anxiety disorder, unspecified; E03.9 Hypothyroidism, unspecified; G47.33 Obstructive sleep apnea (adult) (pediatric); I25.10 Atherosclerotic heart disease of native coronary artery without angina pectoris; I10 Essential (primary) hypertension; E78.5 Hyperlipidemia, unspecified; J44.9 Chronic obstructive pulmonary disease, unspecified; K21.9 Gastro-esophageal reflux disease without esophagitis; Z88.5 Allergy status to narcotic agent; Z88.8 Allergy status to other drugs, medicaments and biological substances; Z72.0 Tobacco use
CPT/HCPCS: 20610; J1030

== ENCOUNTER → 2020-12-16 08:47 | Outpatient (POV) | payer MEDICARE, MEDICAID, SELFPAY ==
[2020-12-16 09:01] VITALS: BP 140/75; PULSE 53; RESP 18; O2SAT 98; BMI 36.5
--- NOTE | 2020-12-16 09:14 | HMH.PAINSOAP ---
[facility] Pain Management SOAP Note Subjective:: Patient is a pleasant 65-year-old white male who presents today for follow-up after bilateral intra-articular knee injections. Patient rates his pain today an 8 out of 10. Patient did not get much relief from his injections. Patient is finally wanting to move forward with a potential knee replacement. Patient has been seen by Ortho at [facility] however he is interested in a second opinion. We will set him to for second opinion. ROS General: no recent weight change, no fever, no sleep disturbances Respiratory: no cough, no shortness of air, no recurring pulmonary infections Cardiovascular/Peripheral Vascular: No chest pain, No palpitations, no edema, no shortness of breath. Gastrointestinal: no new onset incontinence, normal bowel movements reported Genitourinary: no new onset incontinence Musculoskeletal: Bilateral knee pain Psychiatric: normal mood/ affect Neurological: [denies new onset weakness in extremities], [denies new onset balance issues] Objective:: Physical Exam General: Alert and oriented x3, no acute distress, pleasant and cooperative, [on room air] Lungs: Resps E/U, Symmetrical chest expansion, Eyes: PERRL Musculoskeletal: Range of motion bilateral knees guarded secondary to pain, deep tendon reflexes normal, strength in upper and lower extremities [5/5], [abnormal gait noted] Neurological: speech clear, respiratory tech equal, no gross sensory deficits Assessment:: Degenerative osteoarthritis bilateral knee Plan:: We will send the patient to for consultation in regards to potential knee replacement. Patient's been instructed to call the office if he has any issues prior to his next appointment if he has any issues. We will follow up with the patient after his consultation. Dr. Parsons has reviewed this note and agrees with this plan of care. This note was dictated using voice recognition software and may contain errors or omissions [facility] History I have reviewed the patient's past medical history: Yes Medical History: Reports:: Anxiety, Coronary Artery Disease, Hyperlipidemia, Hypertension, Palpitations Denies:: Cancer, Diabetes Mellitus Type 1, Diabetes Mellitus Type 2, Internal Pacemaker, MRSA, Pulmonary Embolism, Seizures, Transient Ischemic Attacks (TIA) *Have you ever received a pneumonia vaccine?: Yes *Have you received a flu vaccine this season?: Yes Other Medical History: Reports: Arthritis, Hypothyroidism, Thyroid Disease. Denies: Blood Transfusion Reaction Laterality Cases: Left: Arthroscopy Knee, Bilateral: Carpal Tunnel Release, Tonsillectomy, Other Other Surgeries: Yes: No Previous Surgery, Cancer Surgery, Cardiac Catheterization, Cardiac Surgery, Colonoscopy, Other (pain pump removal,S-1-L5 sx). No: Pacemaker Amputation: No Fractures: No - *Social History Smoking Status: Current every day smoker Tobacco Type: cigarettes # Packs/Day (cigarettes): 1 Alcohol Intake: never Substance Use Type: former substance user *Occupational Status:: employed Housing: house Household Members: spouse *Travel in the last 8 weeks: None - Psychiatric History Pschychiatric History:: Reports:: Anxiety Family Hx:: Cancer
== END ==
PROVIDERS: PCP Physician Assistant; Visit Provider Clinical Nurse Specialist Family Health
DX: M17.0 Bilateral primary osteoarthritis of knee (principal)
CPT/HCPCS: 99212; G0463

== ENCOUNTER → 2021-02-03 08:10 | Outpatient (POV) | payer MEDICARE, MEDICAID, SELFPAY ==
[2021-02-03 08:20] VITALS: BP 198/86; PULSE 61; RESP 18; O2SAT 97; BMI 37.6
--- NOTE | 2021-02-03 08:24 | HMH.PAINSOAP ---
[facility] Pain Management SOAP Note Subjective:: Patient is a 65-year-old white male who presents today for follow-up. He is being treated for bilateral knee pain. He does have degenerative osteoarthritis bilateral knees. Patient has been seen in the clinic in the past for knee pain and did undergo injective therapy. He was referred out to orthopedics with [facility] as well as [facility]. Dr. Conn did recommend bilateral knee replacements, however, the patient has decided to defer on surgery. Patient does have a history of having a pain pump for which he had severe constipation and as result had the pump removed. He is requesting physical therapy to aid in his chronic back pain and his bilateral knee pain. He is also requesting bilateral intra-articular knee injections. Patient has had these in the past and is gotten between 2 to 3 weeks of relief up to 70 to 80%. Review of Systems General: No recent weight changes, no fever, no sleep disturbances Respiratory: No cough, no shortness of air, no recurring pulmonary infections Cardiovascular/peripheral vascular: No chest pain, no palpitations, no edema, no shortness of breath Gastrointestinal: No new onset incontinence, normal bowel movements reported Genitourinary: No new onset incontinence Musculoskeletal: Bilateral knee pain Psychiatric: Normal mood/affect Neurological: [Denies weakness in extremities], [denies balance issues] Objective:: Physical exam General: Alert and oriented x3, no acute distress, pleasant and cooperative, [on room air] Lungs: Respirations even and unlabored, symmetrical chest expansion Eyes: PERRL Musculoskeletal: Flexion and extension of bilateral lower extremities somewhat guarded secondary to pain, deep tendon reflexes normal, strength in upper and lower extremities [4/5], [abnormal gait noted] Neurological: Speech clear, banking services clerk equal, no gross sensory deficit Assessment:: Degenerative osteoarthritis bilateral knees, bilateral knee pain Plan:: We will schedule the patient for bilateral intra-articular knee injections. We will also send the patient for physical therapy. We will see him back in the clinic after his bilateral knee injections to reevaluate his symptoms. Risks and benefits of the procedure have been explained to the patient. Patient would like to proceed with the procedure. Patient has been instructed to contact the clinic with any concerns before the next appointment. Dr. Robles has reviewed this note and agrees with this plan of care. This note was dictated using voice recognition software and make contain errors or omissions. [facility] History I have reviewed the patient's past medical history: Yes Medical History: Reports:: Anxiety, Coronary Artery Disease, Hyperlipidemia, Hypertension, Palpitations Denies:: Cancer, Diabetes Mellitus Type 1, Diabetes Mellitus Type 2, Internal Pacemaker, MRSA, Pulmonary Embolism, Seizures, Transient Ischemic Attacks (TIA) *Have you ever received a pneumonia vaccine?: Yes *Have you received a flu vaccine this season?: Yes Other Medical History: Reports: Arthritis, Hypothyroidism, Thyroid Disease. Denies: Blood Transfusion Reaction Laterality Cases: Left: Arthroscopy Knee, Bilateral: Carpal Tunnel Release, Tonsillectomy, Other Other Surgeries: Yes: No Previous Surgery, Cancer Surgery, Cardiac Catheterization, Cardiac Surgery, Colonoscopy, Other (pain pump removal,S-1-L5 sx). No: Pacemaker Amputation: No Fractures: No - *Social History Smoking Status: Current every day smoker Tobacco Type: cigarettes # Packs/Day (cigarettes): 1 Alcohol Intake: never Substance Use Type: former substance user *Occupational Status:: employed Housing: house Household Members: spouse *Travel in the last 8 weeks: None - Psychiatric History Pschychiatric History:: Reports:: Anxiety Family Hx:: Cancer
== END ==
PROVIDERS: Visit Provider Clinical Nurse Specialist Family Health
DX: M17.0 Bilateral primary osteoarthritis of knee (principal)
CPT/HCPCS: 99212; G0463

== ENCOUNTER → 2021-02-03 11:43 | Outpatient (CLI) | payer MEDICARE, MEDICAID, SELFPAY ==
[2021-02-03 12:18] LABS: Basophils % 0.4 % (0.1-2.0); Eosinophils # 0.4 K/mm3 (0.0-0.4); Eosinophils % 4.3 % (0.1-12.0); Hemoglobin 13.1 g/dL (14.1-18.0); Lymphocytes # 1.9 K/mm3 (0.7-4.5); Lymphocytes % 19.5 % (10-50); Mean Corpuscular HGB Conc 33.6 g/dL (31.8-35.4); Mean Corpuscular Hemoglobin 30.1 pg (27.0-31.2); Mean Corpuscular Volume 89.5 fl (80-94); Mean Platelet Volume 8.3 fl (7.4-10.4); Monocytes # 0.5 K/mm3 (0.1-1.0); Monocytes % 5.4 % (1.7-9.3); Neutrophils # 6.7 K/mm3 (1.8-7.8); Neutrophils % 70.3 % (37.0-80.0); Platelet Count 220 K/mm3 (142-424); Red Blood Count 4.36 M/mm3 (4.60-6.20); Red Cell Distribution Width 16.4 % (11.5-17.5); White Blood Count 9.6 K/mm3 (4.8-10.8)
[2021-02-03 13:31] LABS: Alanine Aminotransferase 23 U/L (12-78); Albumin Level 3.9 g/dl (3.5-5.0); Albumin/Globulin Ratio 1.4 (1.1-1.8); Alkaline Phosphatase 101 U/L (38-126); Anion Gap 12.1 mEq/L (5-15); Aspartate Amino Transferase 31 U/L (17-59); Bilirubin,Total 0.4 mg/dl (0.2-1.3); Blood Urea Nitrogen 20 mg/dl (9-20); Calcium 8.1 mg/dl (8.4-10.2); Carbon Dioxide 26 mmol/L (22.0-30.0); Chloride 110 mmol/L (98-107); Chol/HDL Ratio 3.8 (1-3.5); Cholesterol 132 mg/dl (140-200); Estimated Glomerular Filt Rate 85 ml/min (>60); GFR (African American) 102 ML/MIN (>60); Globulin 2.8 g/dL (1.3-3.2); Glucose 85 mg/dl (74-100); HDL Cholesterol 35 mg/dl (40-60); Potassium 4.1 mmoL/L (3.5-5.1); Sodium 144 mmol/L (136-145); Total Protein,Serum 6.7 g/dl (6.3-8.2); Triglycerides 63 mg/dl (30-150); VLDL Cholesterol 13 mg/dL (0-40)
[2021-02-03 13:43] LABS: Direct LDL Cholesterol 76.55 mg/dL (100-129)
[2021-02-03 13:48] LABS: 25-OH Vitamin D, Total 41.6 ng/mL (30-100)
[2021-02-03 14:22] LABS: Vitamin B12 314 pg/mL (239-931)
[2021-02-03 15:16] LABS: Amphetamine/Metha Screen,Urine Negative ng/ml (<1000); Barbiturates Screen,Urine Negative ng/ml (<200)
[2021-02-03 15:17] LABS: Benzodiazepines Screen,Urine Positive ng/ml (<200); Cannabinoid Screen,Urine Negative ng/ml (<50)
[2021-02-03 15:18] LABS: Cocaine Screen,Urine Negative ng/ml (<300)
[2021-02-03 15:19] LABS: Methadone Screen,Urine Negative ng/ml (<300); Opiate Screen,Urine Negative ng/ml (<300)
[2021-02-03 15:20] LABS: Phencyclidine Screen,Urine Negative ng/ml (<25)
[2021-02-04 04:08] LABS: Testosterone,Total 444 ng/dL (264-916)
[2021-02-04 14:06] LABS: Thyroid Stimulating Hormone 0.15 uIU/mL (0.465-4.68)
== END ==
PROVIDERS: Internal Medicine Cardiovascular Disease; Visit Provider Physician Assistant
DX: M51.16 Intervertebral disc disorders with radiculopathy, lumbar region; R53.83 Other fatigue; Z79.899 Other long term (current) drug therapy; R21 Rash and other nonspecific skin eruption; E55.9 Vitamin D deficiency, unspecified
CPT/HCPCS: 80053; 80061; 80305; 82306; 82607; 84403; 84443; 85025; 99212; G0463

== ENCOUNTER 2021-02-10 08:56 | Outpatient (RCR) | payer MEDICARE, MEDICAID, SELFPAY ==
--- NOTE | 2021-02-10 09:56 | HMH.PTOPEV ---
PT Outpatient Evaluation Rehab PT Outpatient Evaluation Start: 02/10/21 09:18 Freq: Status: Active Protocol: Document 02/10/21 09:18 ISATU (Rec: 02/10/21 09:30 ISATU [id number]) Electronically Signed By Luis Roa, PT 02/10/21 09:18 Outpatient Therapy Subjective History Subjective History Pt reports h/o chronic bilateral knee pain for ~20+ yrs. Pt reports Xrays have revealed severe OA in both knees, 'injections have helped some, but I'm trying to hold off on replacements'. Pt reports prolonged standing and walking are very painful. Chief Complaint Pain,Stiff,Swelling,Weakness Symptom Type Ache,Throb,Sharp,Dull Symptoms Relieved By Rest/Positioning,OTC Meds Symptoms Aggravated By Standing,Physical Activity, Walking Prior Functional Limitations Standing,Squatting,Walking, Stairs Current Functional Limitations Standing,Squatting,Walking, Stairs Symptom Description Constant but Variable Level of pain today (0-10) 7 Pain scale - at its best (0-10) 6 Pain scale - at its worst (0-10) 9 Hip/Knee Eval Gait Observation General Gait Pattern Observation Antalgic Gait Assistive Device Assistive Devices None / NA Palpation Tenderness bilateral Knee Palpation Finding Tenderness Knee Palpation Overall Comment jt line globally 3/4 MMT Hip Flexion Strength Grade 4 Good Hip Abduction Strength Grade 4- Good- Hip Adduction Strength Grade 4- Good- Hip Extension Strength Grade 4- Good- Hip External Rotation Strength Grade 4- Good- Hip Internal Rotation Strength Grade 4 Good Knee Extension Strength Grade 4 Good Knee Flexion Strength Grade 4- Good- ROM Knee Flexion Active Range of Motion ( 3-125 degrees) Knee ROM Limitations Soft Tissue Tightness,Bony Restriction,Pain Special Tests Knee Valgus Stress Test Negative Left,Negative Right Knee Varus Stress Test Negative Left,Negative Right Knee Frida Test Negative Left,Negative Right Outpatient Therapy Assessment Impairments Problems/Impairmments Palpation Tenderness,Impaired Range of Motion,Impaired Strength,Impaired Gait Pattern ,Impaired Walking,Impaired Standing,Impaired Household Care,Impaired Stair Climbing, Impa
== END 2021-02-10 08:58 | disposition home or self-care (01) ==
LOC: PT 08:56
PROVIDERS: PCP Physician Assistant; Visit Provider Clinical Nurse Specialist Family Health
DX: M25.562 Pain in left knee (principal); M25.561 Pain in right knee; M54.5 Low back pain
CPT/HCPCS: 97163

== ENCOUNTER → 2021-02-14 09:05 | Day surgery (SDC) | payer MEDICARE, MEDICAID, SELFPAY ==
[2021-02-14 09:13] VITALS: BP 148/83; PULSE 52; RESP 20; TEMP 36.6; O2SAT 96; BMI 38.3
[2021-02-14 10:01] VITALS: BP 146/90; PULSE 52; RESP 20; O2SAT 96
--- NOTE | 2021-02-14 11:13 | HMH.PMPROC ---
- Procedure Date: 02/14/21 Time: 11:13 Anesthesiologist:: Stephanie Robles MD Complications:: None Pre-procedure Diagnosis:: Knee osteoarthritis, bilateral knee pain Post-procedure Diagnosis:: Same Indications for Procedure:: Is a very pleasant 65-year-old male with bilateral knee pain related to bilateral knee osteoarthritis. He has been undergoing multiple intra-articular corticosteroid injections to the bilateral knees with appropriate pain relief. He states that he has been getting pretty good long-term relief however more recently he states that they are typically lasting for about a week or week and a half. He has trialed and failed conservative treatment including oral pain medications, home stretching program, and other injection therapies such as viscosupplementation. The plan for today is for him to undergo intra-articular corticosteroid injections to bilateral knees Procedure Details:: Bilateral intra-articular knee injection Informed consent was obtained the risk and benefits of the procedure were explained the patient. Patient was taken the procedure room. Both knees were prepped using ChloraPrep. 25-gauge needle was used first medially then laterally to inject 10 mL bupivacaine 0.25% and Depo-Medrol 40 mg into each knee. We used total of 80 mg Depo-Medrol for both knees. Patient tolerated procedure well with no complications. Plan and Disposition:: We will follow-up with this patient in 2 weeks. Will reevaluate pain symptoms at that time. Discussed with the patient that if he gets short-term pain relief with these corticosteroid injections again we may consider switching to doing repeat intra-articular steroid injections to bilateral knees under fluoroscopy. Also has undergone lumbar epidural steroid injections for degenerative disc disease with lumbar radiculopathy symptoms in the past with significant pain relief, he did 90% for a 2-3 months. He reports that his neck low back pain is returning. I discussed with him that we can evaluate his chronic low back as well as the next visit and should he desire we can can schedule him for repeat lumbar epidural steroid injections.
== END | disposition home or self-care (01) ==
PROVIDERS: PCP Physician Assistant; Visit Provider Anesthesiology Pain Medicine
DX: M17.0 Bilateral primary osteoarthritis of knee (principal); E03.9 Hypothyroidism, unspecified; I25.10 Atherosclerotic heart disease of native coronary artery without angina pectoris; E78.5 Hyperlipidemia, unspecified; R00.2 Palpitations; I10 Essential (primary) hypertension; G47.33 Obstructive sleep apnea (adult) (pediatric); M19.90 Unspecified osteoarthritis, unspecified site; F41.9 Anxiety disorder, unspecified; Z72.0 Tobacco use; Z88.5 Allergy status to narcotic agent; Z88.8 Allergy status to other drugs, medicaments and biological substances
CPT/HCPCS: 20610; 77002; J1030

== ENCOUNTER → 2021-03-03 12:28 | Outpatient (CLI) | payer MEDICARE, MEDICAID, OTHER, SELFPAY ==
[2021-03-03 13:17] LABS: Basophils # 0.1 K/mm3 (0-0.2); Basophils % 0.7 % (0.1-2.0); Eosinophils # 0.5 K/mm3 (0.0-0.4); Hematocrit 39.9 % (42.0-52.0); Hemoglobin 13.4 g/dL (14.1-18.0); Lymphocytes # 1.6 K/mm3 (0.7-4.5); Lymphocytes % 17.8 % (10-50); Mean Corpuscular HGB Conc 33.5 g/dL (31.8-35.4); Mean Corpuscular Volume 89.7 fl (80-94); Mean Platelet Volume 8.3 fl (7.4-10.4); Monocytes # 0.6 K/mm3 (0.1-1.0); Monocytes % 6.1 % (1.7-9.3); Neutrophils # 6.5 K/mm3 (1.8-7.8); Neutrophils % 70.4 % (37.0-80.0); Platelet Count 210 K/mm3 (142-424); Red Blood Count 4.45 M/mm3 (4.60-6.20); Red Cell Distribution Width 15.4 % (11.5-17.5); White Blood Count 9.2 K/mm3 (4.8-10.8)
[2021-03-03 13:52] LABS: Chloride 110 mmol/L (98-107)
[2021-03-03 13:53] LABS: Potassium 4.2 mmoL/L (3.5-5.1); Sodium 143 mmol/L (136-145)
[2021-03-03 13:55] LABS: Alanine Aminotransferase 18 U/L (12-78); Albumin Level 3.7 g/dl (3.5-5.0); Albumin/Globulin Ratio 1.4 (1.1-1.8); Alkaline Phosphatase 98 U/L (38-126); Anion Gap 13.2 mEq/L (5-15); Aspartate Amino Transferase 22 U/L (17-59); Bilirubin,Total 0.3 mg/dl (0.2-1.3); Blood Urea Nitrogen 19 mg/dl (9-20); Carbon Dioxide 24 mmol/L (22.0-30.0); Estimated Glomerular Filt Rate 67 ml/min (>60); GFR (African American) 81 ML/MIN (>60); Globulin 2.7 g/dL (1.3-3.2); Total Protein,Serum 6.4 g/dl (6.3-8.2)
[2021-03-03 13:56] LABS: Calcium 7.8 mg/dl (8.4-10.2); Chol/HDL Ratio 5.1 (1-3.5); Cholesterol 192 mg/dl (140-200); Glucose 110 mg/dl (74-100); HDL Cholesterol 38 mg/dl (40-60); Triglycerides 118 mg/dl (30-150); VLDL Cholesterol 24 mg/dL (0-40)
[2021-03-03 14:26] LABS: Thyroid Stimulating Hormone 0.04 uIU/mL (0.465-4.68)
[2021-03-05 12:33] LABS: Peripheral Smear Review Scanned Result
== END ==
PROVIDERS: Visit Provider Physician Assistant
DX: C81.90 Hodgkin lymphoma, unspecified, unspecified site (principal); I20.9 Angina pectoris, unspecified; R40.0 Somnolence
CPT/HCPCS: 36415; 80053; 80061; 84443; 85025

== ENCOUNTER → 2021-03-06 13:53 | Outpatient (POV) | payer MEDICARE, MEDICAID, SELFPAY ==
[2021-03-06 14:17] VITALS: BP 142/70; PULSE 76; RESP 18; O2SAT 96; BMI 38.3
--- NOTE | 2021-03-06 16:59 | HMH.PAINSOAP ---
[facility] Pain Management SOAP Note Subjective:: Patient is a 65-year-old white male who presents today for follow-up after intra-articular bilateral knee injections. Patient says that he got excellent relief with the injections, up to 90% relief and is still getting relief. He is complaining today, however, bilateral low back pain and bilateral buttock and groin pain. He says the pain does radiate into his bilateral hips and legs. He has undergone bilateral SI injections in the past and is gotten between 70 to 80% relief. He says he had those injections approximately 8 months ago. The pain has now returned. He says that he has tried physical therapy in the past which did not give him much relief. He has also tried oral pain medications, home stretching, and other injections. He says that the bilateral SI injections do give him significant relief. He would like to undergo repeat injections. He is tender to palpation to bilateral SI joints today with a positive Patrick's, compression, distraction test. Review of Systems General: No recent weight changes, no fever, no sleep disturbances Respiratory: No cough, no shortness of air, no recurring pulmonary infections Cardiovascular/peripheral vascular: No chest pain, no palpitations, no edema, no shortness of breath Gastrointestinal: No new onset incontinence, normal bowel movements reported Genitourinary: No new onset incontinence Musculoskeletal: Low back pain with radiation into bilateral groin bilateral hips and bilateral legs Psychiatric: Normal mood/affect Neurological: [Denies weakness in extremities], [denies balance issues] Objective:: Physical exam General: Alert and oriented x3, no acute distress, pleasant and cooperative, [on room air] Lungs: Respirations even and unlabored, symmetrical chest expansion Eyes: PERRL Musculoskeletal: Flexion and extension of [], lumbar spine somewhat guarded secondary to pain, deep tendon reflexes normal, strength in upper and lower extremities [5/5], [abnormal gait noted], positive Patrick's test, positive distraction test, positive compression test Neurological: Speech clear, mirror polisher equal, no gross sensory deficit Assessment:: Sacroiliitis bilateral, low back pain Plan:: We will schedule the patient for bilateral SI joint injections. He has had these injections in the past and got significant relief. He will continue with home stretching. We will see him back in clinic after his SI injections for reevaluation of symptoms. Patient does have a positive Patrick's, compression, distraction test along with tenderness to bilateral SI joints. Risks and benefits of the procedure have been explained to the patient. Patient would like to proceed with the procedure. Possible side effects of corticosteroids have been discussed with the patient. Patient has been instructed to contact the clinic with any concerns before the next appointment. Dr. Parsons has reviewed this note and agrees with this plan of care. This note was dictated using voice recognition software and make contain errors or omissions. [facility] History I have reviewed the patient's past medical history: Yes Medical History: Reports:: Anxiety, Cancer, Coronary Artery Disease, Diabetes Mellitus Type 2, Hyperlipidemia, Hypertension, Palpitations Denies:: Diabetes Mellitus Type 1, Internal Pacemaker, MRSA, Pulmonary Embolism, Seizures, Transient Ischemic Attacks (TIA) *Have you ever received a pneumonia vaccine?: Yes *Have you received a flu vaccine this season?: Yes Other Medical History: Reports: Arthritis, Hypothyroidism, Thyroid Disease. Denies: Blood Transfusion Reaction Laterality Cases: Left: Arthroscopy Knee, Bilateral: Carpal Tunnel Release, Tonsillectomy, Other Other Surgeries: Yes: No Previous Surgery, Cancer Surgery, Cardiac Catheterization, Cardiac Surgery, Colonoscopy, EGD, Other. No: Pacemaker Amputation: No Fractures: No - *Social History Smoking Status: Current every day sm
== END ==
PROVIDERS: PCP Physician Assistant; Visit Provider Clinical Nurse Specialist Family Health
DX: M46.1 Sacroiliitis, not elsewhere classified (principal); M54.5 Low back pain
CPT/HCPCS: 99212; G0463

== ENCOUNTER 2021-03-21 11:42 | Day surgery (SDC) | payer MEDICARE, MEDICAID, SELFPAY ==
[2021-03-21 11:48] VITALS: BP 135/76; PULSE 76; RESP 18; TEMP 36.4; O2SAT 98; BMI 38.3
[2021-03-21 12:20] VITALS: BP 123/75; PULSE 64; RESP 18; O2SAT 96
[2021-03-21 12:28] VITALS: BP 119/95; PULSE 57; RESP 18; O2SAT 96
[2021-03-21 12:50] VITALS: BP 137/72; PULSE 59; RESP 20; O2SAT 98
--- NOTE | 2021-03-21 12:54 | HMH.PMPROC ---
- Procedure Date: 03/21/21 Time: 12:55 Anesthesiologist:: Stephanie Robles MD Complications:: None Pre-procedure Diagnosis:: Bilateral sacroiliitis, chronic low back pain, chronic bilateral hip pain Post-procedure Diagnosis:: Same Indications for Procedure:: Patient is a very pleasant 65-year-old white male who presents today with chronic low back pain and chronic hip pain bilaterally related to the above diagnosis. He has trialed and failed conservative treatment including oral pain medication and home stretching program for greater than 6 weeks. He has previously undergone bilateral SI joint injections in the past and reports 70 to 80% pain relief for approximately 6 months. He states that the pain has since returned and would like repeat injections. Of note, he also has undergone bilateral intra-articular knee injections and states that he got 90% pain relief that is ongoing. The plan for today is for the patient to undergo repeat bilateral SI joint injections under fluoroscopy. Procedure Details:: B/L SI joint injection under fluoroscopy Informed consent was obtained and the risks and benefits of the procedure was explained to the patient. The patient was taken to the procedure room and placed prone on the procedure table. The patient was prepped using ChloraPrep. The skin and subcutaneous tissues overlying the SI joints were anesthetized using lidocaine. I placed a 22-gauge needle first in the left SI joint and second in the right SI joint. Needle placement was confirmed with dye. After this we injected 5 mL bupivacaine 0.25% and Depo-Medrol 40 mg into each SI joint. Patient tolerated the procedure well with no complication. Plan and Disposition:: We will follow-up with this patient in 2 weeks. Will reevaluate pain symptoms at that time.
== END 2021-03-21 12:50 | disposition home or self-care (01) ==
LOC: SC.PAINP 11:45
PROVIDERS: PCP Physician Assistant; Visit Provider Anesthesiology Pain Medicine
DX: M46.1 Sacroiliitis, not elsewhere classified (principal); M54.5 Low back pain; G89.29 Other chronic pain; M25.551 Pain in right hip; M25.552 Pain in left hip
CPT/HCPCS: 27096; G0260; J1030; Q9966

== ENCOUNTER → 2021-05-12 08:47 | Outpatient (CLI) | payer MEDICARE, MEDICAID, SELFPAY ==
--- NOTE | 2021-05-12 08:48 | FL_ITS ---
PROCEDURE: FL BARIUM SWALLOW CLINICAL INDICATION: dysphagia COMPARISON: No exams were available for comparison TECHNIQUE: In the upright position the patient was observed to swallow barium in both the AP and lateral view. The cervical esophagus was examined under fluoroscopy with images obtained. The patient was then placed prone in the right anterior oblique position and was observed to swallow barium with Valsalva technique . FLUOROSCOPY TIME: 1.34 minutes FINDINGS: There was no evidence of aspiration. There was normal peristalsis. No filling defects or mucosal abnormalities. No masses or strictures. There is a small sliding hiatal hernia. No obvious esophageal webs IMPRESSION: Small sliding hiatal hernia otherwise negative barium swallow. Dictated by: Venkat Waller MD 05/12/2021 12:48 Venkat Waller MD in OV 05/12/2021 12:48
== END ==
PROVIDERS: PCP Physician Assistant; Visit Provider Physician Assistant
DX: R13.10 Dysphagia, unspecified (principal)
CPT/HCPCS: 74220

== ENCOUNTER → 2021-05-20 12:51 | Outpatient (POV) | payer MEDICARE, MEDICAID, SELFPAY ==
[2021-05-20 13:05] VITALS: BP 137/96; PULSE 70; RESP 18; O2SAT 97; BMI 37.6
--- NOTE | 2021-05-20 13:15 | HMH.PAINSOAP ---
[facility] Pain Management SOAP Note Subjective:: Patient is a 65-year-old white male who presents today for follow-up. He has been treated for bilateral sacroiliitis and bilateral hip pain. He has undergone bilateral SI joint injections on 03/21/2021. Patient has a history of having an intrathecal pain pump for which he had complications and has advised explanted. He is complaining today of low back pain with radiation into bilateral buttock and hips as well as bilateral knee pain. He does report that his on 04/25/2021 due to sarcoidosis and lung disease. He says that he has had increased pain since then. He rates his pain a 8 out of 10. Patient says the pain is worse to his bilateral knees at this time in comparison to his low back. He has tried and failed conservative therapies of physical therapy for more than 6 weeks and continued home stretching. He has also tried oral medications with no significant relief. He does use ice and heat therapies. He also uses [id number] topical remedies for pain. Review of Systems General: No recent weight changes, no fever, no sleep disturbances Respiratory: No cough, no shortness of air, no recurring pulmonary infections Cardiovascular/peripheral vascular: No chest pain, no palpitations, no edema, no shortness of breath Gastrointestinal: No new onset incontinence, normal bowel movements reported Genitourinary: No new onset incontinence Musculoskeletal: Low back pain with radiation into bilateral buttock, hips, and bilateral knees Psychiatric: [Normal mood/affect] Neurological: [Denies weakness in extremities], [denies balance issues] Objective:: Physical exam General: Alert and oriented x3, no acute distress, pleasant and cooperative, [on room air] Lungs: Respirations even and unlabored, symmetrical chest expansion Eyes: PERRL Musculoskeletal: Flexion and extension of lumbar [spine] and bilateral lower extremities somewhat guarded secondary to pain, [antalgic gait noted], positive Patrick's, distraction, compression test, positive Jack's test Neurological: Speech clear, [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 He also has a positive Jack's test. He is complaining, however, and his worst pain being bilateral knees. We will schedule the patient for bilateral intra-articular knee injections. Following these injections he will likely need to undergo repeat bilateral SI joint injections. We will see him back afterwards for reevaluation of symptoms. He will continue with ice and heat therapies as well as home stretching. Possible side effects of corticosteroids have been discussed with the patient. Risks and benefits of the procedure have been explained to the patient. Patient would like to proceed with the procedure. Patient has been instructed to contact the clinic with any concerns before the next appointment. Dr. Parsons has reviewed this note and agrees with this plan of care. This note was dictated using voice recognition software and make contain errors or omissions. [facility] History Medical History: Reports:: Anxiety, Cancer, Coronary Artery Disease, Diabetes Mellitus Type 2, Hyperlipidemia, Hypertension, Palpitations Denies:: Diabetes Mellitus Type 1, Internal Pacemaker, MRSA, Pulmonary Embolism, Seizures, Transient Ischemic Attacks (TIA) *Have you ever received a pneumonia vaccine?: No *Have you received a flu vaccine this season?: No Other Medical History: Reports: Arthritis, Hypothyroidism, Thyroid Disease. Denies: Blood Transfusion Reaction Laterality Cases: Left: Arthroscopy Knee, Bilateral: Carpal Tunnel Release, Tonsillectomy, Other Other Surgeries: Yes: No Previous Surgery, Cancer Surgery, Cardiac Catheterization, Cardiac Surgery, Colonoscopy, EGD, Other. No: Pacemaker A
== END ==
PROVIDERS: PCP Emergency Medicine; Visit Provider Clinical Nurse Specialist Family Health
DX: M46.1 Sacroiliitis, not elsewhere classified (principal); M17.0 Bilateral primary osteoarthritis of knee; M54.5 Low back pain; G89.29 Other chronic pain
CPT/HCPCS: 99212; G0463

== ENCOUNTER 2021-06-02 11:21 | Emergency (ER) | payer MEDICARE, MEDICAID, SELFPAY ==
[2021-06-02 11:23] VITALS: BP 141/83; PULSE 72; RESP 20; TEMP 36.8; O2SAT 98; BMI 34.5
--- NOTE | 2021-06-02 11:37 | XR_ITS ---
PROCEDURE: XR CHEST PORTABLE CLINICAL HISTORY: cough COMPARISON: CR CXR CHEST(2 VIEWS-NOT PORTABLE) from 02/04/2017 CR CXR2V XR chest 2V from 09/20/2017 CR CXR2V XR chest 2V from 10/06/[address] angio chest from 10/06/2017 FINDINGS: There is mild cardiomegaly without failure. Minimal atelectatic change left lung base. The remaining lungs are clear. No acute bony abnormalities. IMPRESSION: Minimal left basilar atelectasis Dictated by: Venkat Waller MD 06/02/2021 12:27 Venkat Waller MD in [place] 06/02/2021 12:27
--- NOTE | 2021-06-02 11:38 | CT_ITS ---
PROCEDURE INFORMATION: Exam: CT Angiography Head With Contrast, Arteries Exam date and time: 06/02/2021 11:38 AM Age: 65 years old Clinical indication: Vertigo; Additional info: Dizzy, vertigo TECHNIQUE: Imaging protocol: Computed tomography angiography of the head with intravenous contrast. 3D rendering (Not supervised by radiologist): MIP and/or 3D reconstructed images were created by the technologist. Radiation optimization: All CT scans at this facility use at least one of these dose optimization techniques: automated exposure control; mA and/or kV adjustment per patient size (includes targeted exams where dose is matched to clinical indication); or iterative reconstruction. Contrast material: ISOVUE; Contrast volume: 100 ml; Contrast route: INTRAVENOUS (IV); COMPARISON: CT HEAD/BRAIN WO CON 06/02/2021 12:40 PM FINDINGS: ANTERIOR CIRCULATION: Right internal carotid artery: Atherosclerotic calcifications are seen involving the right cavernous internal carotid artery. There is no significant stenosis. Right middle cerebral artery: Unremarkable. No occlusion or significant stenosis. No aneurysm. Right anterior cerebral artery: Unremarkable. No occlusion or significant stenosis. No aneurysm. Left internal carotid artery: Atherosclerotic calcifications are seen involving the left cavernous internal carotid artery. There is no significant stenosis. Left middle cerebral artery: Unremarkable. No occlusion or significant stenosis. No aneurysm. Left anterior cerebral artery: Unremarkable. No occlusion or significant stenosis. No aneurysm. POSTERIOR CIRCULATION: Right vertebral artery: Unremarkable. No occlusion or significant stenosis. No aneurysm. Left vertebral artery: Unremarkable. No occlusion or significant stenosis. No aneurysm. Basilar artery: Unremarkable. No occlusion or significant stenosis. No aneurysm. Right posterior cerebral artery: A dominant right posterior cerebral artery is present. There is no stenosis. Left posterior cerebral artery: There is persistent origin of the left posterior cerebral artery. There is no significant stenosis. Veins: The venous sinuses are patent. Brain: No definite mass, mass effect, or midline shift. Cerebral ventricles: No ventriculomegaly. Bones/joints: Unremarkable. No acute fracture. Soft tissues: Unremarkable. IMPRESSION: 1. No acute abnormality. No large vessel occlusion. 2. Chronic findings as discussed above.
--- NOTE | 2021-06-02 11:38 | CT_ITS ---
PROCEDURE INFORMATION: Exam: CT Angiography Neck With Contrast Exam date and time: 06/02/2021 11:38 AM Age: 65 years old Clinical indication: Vertigo; Additional info: Dizzy, vertigo TECHNIQUE: Imaging protocol: Computed tomography angiography of the neck with contrast. 3D rendering (Not supervised by radiologist): MIP and/or 3D reconstructed images were created by the technologist. Radiation optimization: All CT scans at this facility use at least one of these dose optimization techniques: automated exposure control; mA and/or kV adjustment per patient size (includes targeted exams where dose is matched to clinical indication); or iterative reconstruction. Contrast material: ISOVUE; Contrast volume: 100 ml; Contrast route: INTRAVENOUS (IV); COMPARISON: RF FL BARIUM SWALLOW 05/12/2021 9:14 AM FINDINGS: Right common carotid artery: No stenosis. No dissection or occlusion. Right internal carotid artery: Calcified and noncalcified atherosclerotic plaque is present within the proximal/mid right internal carotid artery. This is causing approximately 35% stenosis of the proximal right internal carotid artery. Right external carotid artery: No occlusion or stenosis of the origin. Left common carotid artery: No stenosis. No dissection or occlusion. Left internal carotid artery: Mild calcified and noncalcified atherosclerotic plaque is present at the left carotid bifurcation and within the proximal left internal carotid artery. There is less than 10% stenosis. Left external carotid artery: No occlusion or stenosis of the origin. Right vertebral artery: The proximal right vertebral artery is obscured by adjacent dense venous contrast. The remaining right vertebral artery is unremarkable. Left vertebral artery: No stenosis. No dissection or occlusion. Aorta: Atherosclerotic calcifications are noted within the aortic arch. Soft tissues: Normal. No significant soft tissue swelling. Bones/joints: No acute fracture. Lungs: Calcified granulomas are present in the left upper lobe. IMPRESSION: 1. No acute abnormality. 2. Chronic findings as discussed above. REFERENCES: NASCET CRITERIA. The degree of internal carotid artery stenosis is based on NASCET criteria. Normal is no stenosis. Mild is less than 50% stenosis. Moderate is 50-69% stenosis. Severe is 70% to 99% stenosis. Total occlusion is no detectable patent lumen.
--- NOTE | 2021-06-02 12:10 | HMH.EDGENADL ---
ED Disposition Clinical Impression: BPV (benign positional vertigo) Qualifiers: Laterality: unspecified laterality Qualified Code(s): H81.10 - Benign paroxysmal vertigo, unspecified ear Disposition: Home, Self-Care Condition on Discharge: Good Instructions: DI for Vertigo Prescriptions: Meclizine HCl 25 mg PO BID #20 tab Transmission Status: Pending to [id number] Referrals: Arash James MD [Primary Care Provider] - - Critical Care Critical Care Time: No Attestation: On 06/02/21, the high probability of a clinically significant, sudden or life threatening deterioration of the following system(s) required my full and direct attention, intervention and personal management. The time I documented below is in addition to time spent performing reported procedures but includes the following listed in this critical care notation. Medical Decision Making - Medical Records Medical records reviewed: Yes: I reviewed the patient's medical records. - [place] Inquiry Pt receiving controlled substance: No Vital Signs: 06/02/21 11:23 Temperature 98.3 F Temperature Source Oral Pulse Rate [Radial] 72 Respiratory Rate 20 Blood Pressure [Right Arm] 141/83 H Blood Pressure Mean [Right Arm] 102 Blood Pressure Position [Right Arm] Sitting 02 Sat by Pulse Oximetry 98 Oxygen Delivery Method Room Air - Lab Data Lab Results 06/02/21 12:10: WBC 9.9, RBC 4.37 L, Hgb 13.6 L, Hct 41.3 L, MCV 94.4 H, MCH 31.1, MCHC 32.9, RDW 15.0, Plt Count 231, MPV 8.3, Neut % (Auto) 77.0, Lymph % (Auto) 10.6, [place] % (Auto) 6.3, Eos % (Auto) 5.2, Baso % (Auto) 0.8, Neut # (Auto) 7.6, Lymph # (Auto) 1.1, [place] # (Auto) 0.6, Eos # (Auto) 0.5 H, Baso # (Auto) 0.1 06/02/21 12:10: Sodium 140, Potassium 3.9, Chloride 104, Carbon Dioxide 29, Anion Gap 10.9, BUN 24 H, Creatinine 1.10, Estimated Creat Clear 113, Estimated GFR 67, Est GFR ( Amer) 81, Glucose 93, Calcium 7.2 L, Troponin I < 0.01, TSH 0.19 L Result diagrams: 06/02/21 12:10 06/02/21 12:10 Orders (Tests/Meds): ED MEDICATIONS Discontinued Medications Generic Name Dose Route Start Last Admin Trade Name Devyn PRN Reason Stop Dose Admin Iopamidol 100 ml 06/02/21 12:54 06/02/21 12:55 Iopamidol-370 (76%);100ml Bottle IV 06/02/21 12:55 100 ml ONCE ONE Administration Meclizine HCl 25 mg 06/02/21 11:38 06/02/21 12:26 Meclizine 25mg Tablet PO 06/02/21 11:39 25 mg ONCE ONE Administration Sodium Chloride 40 ml 06/02/21 12:54 06/02/21 12:55 0.9 % Sodium Chloride 50 Ml Vial IV 06/02/21 12:55 40 ml ONCE ONE Administration Sodium Chloride 10 ml 06/02/21 12:54 06/02/21 12:55 Sodium Chloride 0.9% 10ml Syr (Rad Only) IV 06/02/21 12:55 10 ml ONCE ONE Administration ORDERS Category Date Time Status Troponin I Q3H Lab 06/02/21 14:45 Ordered Troponin I Q3H Lab 06/02/21 17:45 Ordered - Radiology Data #1 Image(s): Chest Image Reviewed: Yes I reviewed the patient's radiology results, Yes I reviewed the patient's radiology image, Yes I have reviewed radiologist's interpretation Preliminary Findings: Normal/NAD, No Fracture Seen - CT Data CT Scan: Head, C-Spine Time Received: 14:[address] Reviewed: Yes: I have reviewed the patient's CT results, I have viewed the radiologist's interpretation Findings Narrative: IMPRESSION: 1. No acute abnormality. No large vessel occlusion. 2. Chronic findings as discussed above. IMPRESSION: 1. No acute intracranial abnormality. 2. [place] Stroke Program Early CT Score (ASPECTS) = 10 - Reevaluation(s) Time: 14:08 Reevaluation #1: On reevaluation, patient is feeling much better. Repeat neurologic exam is normal. Patient is able to tolerate oral intake without any discomfort. I do believe his vertigo appears to be positional and peripheral in nature. Patient be discharged with short course of medications. Needs follow-up with PCP in 48 hours. Given strict return precau
[2021-06-02 12:16] LABS: Basophils # 0.1 K/mm3 (0-0.2); Basophils % 0.8 % (0.1-2.0); Eosinophils # 0.5 K/mm3 (0.0-0.4); Eosinophils % 5.2 % (0.1-12.0); Hematocrit 41.3 % (42.0-52.0); Hemoglobin 13.6 g/dL (14.1-18.0); Lymphocytes # 1.1 K/mm3 (0.7-4.5); Lymphocytes % 10.6 % (10-50); Mean Corpuscular HGB Conc 32.9 g/dL (31.8-35.4); Mean Corpuscular Hemoglobin 31.1 pg (27.0-31.2); Mean Corpuscular Volume 94.4 fl (80-94); Mean Platelet Volume 8.3 fl (7.4-10.4); Monocytes # 0.6 K/mm3 (0.1-1.0); Monocytes % 6.3 % (1.7-9.3); Neutrophils # 7.6 K/mm3 (1.8-7.8); Platelet Count 231 K/mm3 (142-424); Red Blood Count 4.37 M/mm3 (4.60-6.20); White Blood Count 9.9 K/mm3 (4.8-10.8)
--- NOTE | 2021-06-02 12:22 | CT_ITS ---
PROCEDURE INFORMATION: Exam: CT Head Without Contrast Exam date and time: 06/02/2021 12:22 PM Age: 65 years old Clinical indication: Dizziness; Additional info: Vertigo TECHNIQUE: Imaging protocol: Computed tomography of the head without contrast. Radiation optimization: All CT scans at this facility use at least one of these dose optimization techniques: automated exposure control; mA and/or kV adjustment per patient size (includes targeted exams where dose is matched to clinical indication); or iterative reconstruction. COMPARISON: [facility] CTA-HEAD 02/18/2015 9:30 AM FINDINGS: Brain: There is no acute intracranial hemorrhage, cerebral edema, or midline shift. A chronic lacunar infarct is noted within the right basal ganglia. Cerebral ventricles: No hydrocephalus. Paranasal sinuses: There is no acute sinusitis. Mastoid air cells: Visualized mastoid air cells are well aerated. Orbital cavity: Unremarkable as visualized. Bones/joints: No acute fracture. Soft tissues: Unremarkable. IMPRESSION: 1. No acute intracranial abnormality. 2. [place] Stroke Program Early CT Score (ASPECTS) = 10
[2021-06-02 12:25] LABS: Anion Gap 10.9 mEq/L (5-15); Blood Urea Nitrogen 24 mg/dl (9-20); Calcium 7.2 mg/dl (8.4-10.2); Carbon Dioxide 29 mmol/L (22.0-30.0); Chloride 104 mmol/L (98-107); Creatinine Clearance Estimated 113 mL/min (50-200); Estimated Glomerular Filt Rate 67 ml/min (>60); GFR (African American) 81 ML/MIN (>60); Glucose 93 mg/dl (74-100); Potassium 3.9 mmoL/L (3.5-5.1); Sodium 140 mmol/L (136-145)
[2021-06-02 12:39] LABS: Troponin I < 0.01 ng/ml (0.00-0.034)
[2021-06-02 12:56] LABS: Thyroid Stimulating Hormone 0.19 uIU/mL (0.465-4.68)
--- NOTE | 2021-06-02 14:01 | PC.NURSE ---
pt up to restroom
[2021-06-02 14:15] VITALS: BP 145/74; PULSE 74; RESP 16; TEMP 36.6; O2SAT 98
== END 2021-06-02 14:16 | disposition home or self-care (01) ==
PROVIDERS: Emergency Provider Emergency Medicine; PCP Emergency Medicine
DX: H81.10 Benign paroxysmal vertigo, unspecified ear (principal); E11.9 Type 2 diabetes mellitus without complications; E78.5 Hyperlipidemia, unspecified; I10 Essential (primary) hypertension; E03.9 Hypothyroidism, unspecified; F17.210 Nicotine dependence, cigarettes, uncomplicated; Z79.899 Other long term (current) drug therapy
CPT/HCPCS: 70450; 70496; 70498; 71045; 80048; 84443; 84484; 85025; 99282; Q9967

== ENCOUNTER 2021-06-06 13:04 | Day surgery (SDC) | payer MEDICARE, SELFPAY ==
[2021-06-06 13:26] VITALS: BP 146/86; PULSE 65; RESP 18; TEMP 36.4; O2SAT 97; BMI 36.6
[2021-06-06 13:53] VITALS: BP 110/79; PULSE 60; RESP 18; O2SAT 97
[2021-06-06 13:55] VITALS: BP 127/82; PULSE 64; RESP 18; O2SAT 97
--- NOTE | 2021-06-06 14:01 | HMH.PMPROC ---
- Procedure Date: 06/06/21 Time: 14:01 Anesthesiologist:: Hans Parsons MD Complications:: None Pre-procedure Diagnosis:: Bilateral knee pain with degenerative osteoarthritis Post-procedure Diagnosis:: Same Indications for Procedure:: Patient is a pleasant 65-year-old white male who we have been treating for low back pain and bilateral knee pain. Pain is worse in both knees. He presents today for bilateral intra-articular knee injections to help him with his bilateral knee pain. Procedure Details:: Bilateral knee injection intra-articular Informed consent was obtained risk and benefits of the procedure were explained to the patient. Patient was taken the procedure room. Both knees were prepped using ChloraPrep. A 25-gauge needle was used first medially then laterally to inject 10 mL bupivacaine 0.25% and Depo-Medrol 40 mg into each knee. We used a total of 80 mg Depo-Medrol for both knees. Patient tolerated the procedure well with no complications. Plan and Disposition:: Follow-up with him in 2 weeks. Will reevaluate symptoms at that time.
[2021-06-06 14:12] VITALS: BP 138/81; PULSE 63; RESP 20; O2SAT 98
== END 2021-06-06 14:13 | disposition home or self-care (01) ==
LOC: SC.PAINP 13:06
PROVIDERS: PCP Emergency Medicine; Visit Provider Anesthesiology
DX: M17.0 Bilateral primary osteoarthritis of knee (principal); E03.9 Hypothyroidism, unspecified; I25.10 Atherosclerotic heart disease of native coronary artery without angina pectoris; E78.5 Hyperlipidemia, unspecified; R00.2 Palpitations; I10 Essential (primary) hypertension; E11.9 Type 2 diabetes mellitus without complications; G47.33 Obstructive sleep apnea (adult) (pediatric); F41.9 Anxiety disorder, unspecified; Z72.0 Tobacco use; J44.9 Chronic obstructive pulmonary disease, unspecified; K21.9 Gastro-esophageal reflux disease without esophagitis
CPT/HCPCS: 20610; J1040

== ENCOUNTER → 2021-06-19 09:46 | Outpatient (POV) | payer MEDICARE, SELFPAY ==
[2021-06-19 10:06] VITALS: BP 172/96; PULSE 70; RESP 18; O2SAT 96; BMI 36.5
--- NOTE | 2021-06-19 10:37 | HMH.PAINSOAP ---
[facility] Pain Management SOAP Note Subjective:: Patient is a 65-year-old male who presents today for follow-up. The patient was last seen in the clinic on 06/06/2021 and underwent bilateral intra-articular knee injections at that time. Patient says he got little relief with those injections. He is continuing to have significant pain in his knees. He is complaining of worsening pain today, however, to his low back area and into his bilateral groin and buttock. He has had bilateral SI joint injections in the past and gets approximately 80 to 90% relief for greater than 2 to 3 months. He does rate his pain an 8 out of 10 today. The pain is worse with standing and walking and does improve with sitting. The patient is continuing with home stretching. Is also continuing with anti-inflammatories. The patient has tried failed conservative therapies of physical therapy for more than 6 weeks in the past and ice and heat therapies. Review of Systems General: No recent weight changes, no fever, no sleep disturbances Respiratory: No cough, no shortness of air, no recurring pulmonary infections Cardiovascular/peripheral vascular: No chest pain, no palpitations, no edema, no shortness of breath Gastrointestinal: No new onset incontinence, normal bowel movements reported Genitourinary: No new onset incontinence Musculoskeletal: Low back pain with radiation into bilateral buttock and groin Psychiatric: [Normal mood/affect] Neurological: [Denies weakness in extremities], [denies balance issues] Objective:: Physical exam General: Alert and oriented x3, no acute distress, pleasant and cooperative Lungs: Respirations even and unlabored, symmetrical chest expansion Eyes: PERRL Musculoskeletal: Flexion and extension of lumbar [spine] somewhat guarded secondary to pain, [antalgic gait noted], positive Patrick's test, positive distraction test, positive compression test, positive Gaenslen test, positive Derrick test, positive Jack's test Neurological: Speech clear, no gross sensory deficit Assessment:: Sacroiliitis bilateral, bilateral knee pain, osteoarthritis bilateral knees Plan:: We will schedule the patient for bilateral SI joint injections and plan to see him back afterwards for reevaluation of symptoms. He is not diabetic. Following the SI injections, he may benefit from genicular blocks in his knees. He says that he does not want an orthopedic referral. He has been told in the past that he is not likely a candidate for surgical intervention. We will see him back after his SI injections for reevaluation symptoms. Possible side effects of corticosteroids have been discussed with the patient. Risks and benefits of the procedure have been explained to the patient. Patient would like to proceed with the procedure. Patient has been instructed to contact the clinic with any concerns before the next appointment. Dr. Parsons has reviewed this note and agrees with this plan of care. This note was dictated using voice recognition software and make contain errors or omissions. [facility] History I have reviewed the patient's past medical history: Yes Medical History: Reports:: Anxiety, Coronary Artery Disease, Diabetes Mellitus Type 2, Hyperlipidemia, Hypertension, Palpitations Denies:: Cancer, Diabetes Mellitus Type 1, Internal Pacemaker, MRSA, Pulmonary Embolism, Seizures, Transient Ischemic Attacks (TIA) *Have you ever received a pneumonia vaccine?: Yes *Have you received a flu vaccine this season?: Yes Other Medical History: Reports: Arthritis, Hypothyroidism, Thyroid Disease. Denies: Blood Transfusion Reaction Laterality Cases: Left: Arthroscopy Knee, Bilateral: Carpal Tunnel Release, Tonsillectomy, Other Other Surgeries: Yes: No Previous Surgery, Cancer Surgery, Cardiac Catheterization, Cardiac Surgery, Colonoscopy, EGD, Other. No: Pacemaker Amputation: No Fractures: No - *Social History Smoking Status: Current every day smoker Tobacco Type
== END ==
PROVIDERS: Visit Provider Clinical Nurse Specialist Family Health
DX: M46.1 Sacroiliitis, not elsewhere classified (principal); M17.0 Bilateral primary osteoarthritis of knee
CPT/HCPCS: 99212; G0463

== ENCOUNTER 2021-06-27 10:54 | Day surgery (SDC) | payer MEDICARE, MEDICAID, SELFPAY ==
[2021-06-27 11:07] VITALS: BP 178/86; PULSE 62; RESP 18; TEMP 35.4; O2SAT 98; BMI 36.2
[2021-06-27 11:35] VITALS: BP 168/85; PULSE 66; RESP 18; O2SAT 98
[2021-06-27 11:36] VITALS: BP 168/85; RESP 18; O2SAT 96
--- NOTE | 2021-06-27 11:40 | HMH.PMPROC ---
- Procedure Date: 06/27/21 Time: 11:40 Anesthesiologist:: Hans Parsons MD Complications:: None Pre-procedure Diagnosis:: Sacroiliitis Post-procedure Diagnosis:: Same Indications for Procedure:: Patient is a pleasant 65-year-old white male who we are treating for bilateral hip pain. He is tender over both SI joints. He does have a positive Patrick's test bilaterally. He is positive Derrick test bilaterally. Is positive SI joint compression test bilaterally. He previously had SI joint injections and gets 80 to 90% relief in pain symptoms for 2 to 3 months. Procedure Details:: B/L SI joint injection under fluoroscopy Informed consent was obtained and the risks and benefits of the procedure was explained to the patient. The patient was taken to the procedure room and placed prone on the procedure table. The patient was prepped using ChloraPrep. The skin and subcutaneous tissues overlying the SI joints were anesthetized using lidocaine. I placed a 22-gauge needle first in the left SI joint and second in the right SI joint. Needle placement was confirmed with dye. After this we injected 5 mL bupivacaine 0.25% and Depo-Medrol 40 mg into each SI joint. Patient tolerated the procedure well with no complication. Plan and Disposition:: We will follow-up with him in 2 weeks. Will reevaluate symptoms at that time.
[2021-06-27 11:50] VITALS: BP 172/81; PULSE 57; RESP 20; O2SAT 99
== END 2021-06-27 11:50 | disposition home or self-care (01) ==
LOC: SC.PAINP 10:55
PROVIDERS: PCP Emergency Medicine; Visit Provider Anesthesiology
DX: M46.1 Sacroiliitis, not elsewhere classified (principal); E78.5 Hyperlipidemia, unspecified; I10 Essential (primary) hypertension; G47.33 Obstructive sleep apnea (adult) (pediatric); E11.9 Type 2 diabetes mellitus without complications; E03.9 Hypothyroidism, unspecified; F41.9 Anxiety disorder, unspecified; Z72.0 Tobacco use; I25.10 Atherosclerotic heart disease of native coronary artery without angina pectoris; K21.9 Gastro-esophageal reflux disease without esophagitis; F32.9 Major depressive disorder, single episode, unspecified; Z88.6 Allergy status to analgesic agent
CPT/HCPCS: 27096; G0260; J1040; Q9966

== ENCOUNTER → 2021-08-11 12:49 | Outpatient (POV) | payer MEDICARE, MEDICAID, SELFPAY ==
[2021-08-11 12:55] VITALS: BP 164/80; PULSE 64; RESP 18; O2SAT 96; BMI 22.3
--- NOTE | 2021-08-11 13:25 | HMH.PAINSOAP ---
[facility] Pain Management SOAP Note Subjective:: Patient is a 65-year-old white male who presents today for bilateral knee pain. He has been seen in the clinic in the past for bilateral SI joint injections and got up to 70 to 80% relief. He has had injections in the past to bilateral SI joints with 2 to 3 months of relief. Today, he is complaining of bilateral knee pain rating his pain a 9 out of 10. He is having difficulty standing and walking due to pain in bilateral knees. The patient was seen by Dr. Soliz in the past and was informed that he is not a knee replacement candidate due to a history of cancer?non-Hodgkin's lymphoma. Patient says he would like to discuss possible knee replacements if the knee injections do not give him significant relief. He has had bilateral knee hospital injections in the past which gave him 2 to 3 months of relief. He does continue with home stretching has tried and failed physical therapy for more than 6 weeks in the past. He has tried anti-inflammatories with minimal relief. He is not diabetic and is not on any anticoagulation therapy. Review of Systems General: No recent weight changes, no fever, no sleep disturbances Respiratory: No cough, no shortness of air, no recurring pulmonary infections Cardiovascular/peripheral vascular: No chest pain, no palpitations, no edema, no shortness of breath Gastrointestinal: No new onset incontinence, normal bowel movements reported Genitourinary: No new onset incontinence Musculoskeletal: Bilateral knee pain right worse with standing walking, swelling bilateral knees Psychiatric: [Normal mood/affect] Neurological: [Denies weakness in extremities], [denies balance issues] Objective:: Physical exam General: Alert and oriented x3, no acute distress, pleasant and cooperative Lungs: Respirations even and unlabored, symmetrical chest expansion Eyes: PERRL Musculoskeletal: Flexion and extension of bilateral knees somewhat guarded secondary to pain, [antalgic gait noted],generalized swelling bilateral knees Neurological: Speech clear, no gross sensory deficit Assessment:: Osteoarthritis bilateral knees, bilateral knee pain Plan:: We will schedule patient for bilateral intra-articular knee injections. He has had these injections in the past and has gotten significant relief. He will continue with home stretching and anti-inflammatories. We will see him back in clinic afterwards for further evaluation. Possible side effects of corticosteroids have been discussed with the patient. Risks and benefits of the procedure have been explained to the patient. Patient would like to proceed with the procedure. Patient has been instructed to contact the clinic with any concerns before the next appointment. Dr. Parsons has reviewed this note and agrees with this plan of care. This note was dictated using voice recognition software and make contain errors or omissions. [facility] History I have reviewed the patient's past medical history: Yes Medical History: Reports:: Anxiety, Coronary Artery Disease, Hyperlipidemia, Hypertension, Palpitations Denies:: Cancer, Diabetes Mellitus Type 1, Diabetes Mellitus Type 2, Internal Pacemaker, MRSA, Pulmonary Embolism, Seizures, Transient Ischemic Attacks (TIA) *Have you ever received a pneumonia vaccine?: Yes *Have you received a flu vaccine this season?: Yes Other Medical History: Reports: Arthritis, Hypothyroidism, Thyroid Disease. Denies: Blood Transfusion Reaction Laterality Cases: Left: Arthroscopy Knee, Bilateral: Carpal Tunnel Release, Tonsillectomy, Other Other Surgeries: Yes: No Previous Surgery, Cancer Surgery, Cardiac Catheterization, Cardiac Surgery, Colonoscopy, EGD, Other. No: Pacemaker Amputation: No Fractures: No - *Social History Smoking Status: Current every day smoker Tobacco Type: cigarettes # Packs/Day (cigarettes): 1 Alcohol Intake: never Substance Use Type: former substance user *Occupational Status:: e
== END ==
PROVIDERS: Visit Provider Clinical Nurse Specialist Family Health
DX: M17.0 Bilateral primary osteoarthritis of knee (principal)
CPT/HCPCS: 99212; G0463

== ENCOUNTER 2021-09-19 11:04 | Day surgery (SDC) | payer MEDICARE, SELFPAY ==
[2021-09-19 11:17] VITALS: BP 148/106; PULSE 52; RESP 18; TEMP 36.8; O2SAT 98
[2021-09-19 11:50] VITALS: BP 145/68; PULSE 74; RESP 18; O2SAT 97
[2021-09-19 11:51] VITALS: PULSE 89; RESP 18; O2SAT 97
--- NOTE | 2021-09-19 11:52 | HMH.PMPROC ---
- Procedure Date: 09/19/21 Time: 11:52 Anesthesiologist:: Hans Parsons MD Complications:: None Pre-procedure Diagnosis:: Degenerative osteoarthritis bilateral knees with bilateral knee pain. Post-procedure Diagnosis:: Same Indications for Procedure:: Patient is a pleasant 66-year-old white male who we are treating for bilateral knee pain. He has degenerative osteoarthritis of both knees. Left is greater than right. We will plan on bilateral intra-articular injections to both knees today to help him with his pain symptoms. Procedure Details:: Intra-articular knee injection bilateral Informed consent was obtained risk and benefits of the procedure were explained to the patient. Patient was taken the procedure room. Both knees were prepped using ChloraPrep. A 25-gauge needle was used first medially then laterally to inject 10 mL bupivacaine 0.25% and Depo-Medrol 40 mg into each knee. Patient tolerated the procedure well with no complications. Plan and Disposition:: We will refer him to Dr. Tao for evaluation of his bilateral knee pain. We will follow-up with him in 2 weeks. Will reevaluate his symptoms at that time.
[2021-09-19 11:53] VITALS: BP 178/100; PULSE 61; RESP 20; O2SAT 99
== END 2021-09-19 11:54 | disposition home or self-care (01) ==
LOC: SC.PAINP 11:08
PROVIDERS: PCP Physician Assistant; Visit Provider Anesthesiology
DX: M17.0 Bilateral primary osteoarthritis of knee (principal); I25.10 Atherosclerotic heart disease of native coronary artery without angina pectoris; E78.5 Hyperlipidemia, unspecified; R00.2 Palpitations; I10 Essential (primary) hypertension; G47.33 Obstructive sleep apnea (adult) (pediatric); E03.9 Hypothyroidism, unspecified; Z72.0 Tobacco use
CPT/HCPCS: 20610; J1040

== ENCOUNTER → 2021-10-13 11:10 | Outpatient (POV) | payer MEDICARE, SELFPAY ==
[2021-10-13 11:39] VITALS: BP 186/83; PULSE 67; RESP 18; O2SAT 96; BMI 35.5
--- NOTE | 2021-10-13 13:06 | P.CONS_ITS ---
[facility] Pain Management SOAP Note Subjective:: Patient is a very pleasant 66-year-old white male who presents today for follow- up. He is currently being treated for bilateral knee pain related to degenerative osteoarthritis. He recently underwent bilateral intra-articular knee injections on September 19, 2021 and states that he got 50 to 60% pain relief for few weeks. However, he states that the pain has since returned. He states that the left knee is significantly more painful than the right knee. He states that he has been recommended by his orthopedic surgeon to undergo total knee replacements however he would like to hold off for as long as possible. He rates his pain today as a 8 out of 10. Objective:: General: Alert and oriented x3, no acute distress, pleasant and cooperative Lungs: Resps E/U, symmetric chest expansion Eyes: PERRL Musculoskeletal: limited flexion and extension of the lumbar spine secondary to pain. Deep tendon reflexes were normal in bilateral lower extremities. Motor exam was grossly intact in the bilateral lower extremities, antalgic gait noted. Medial greater than lateral joint line tenderness to palpation in both knees. 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 We will schedule him for the left diagnostic genicular nerve block #1 to be performed under fluoroscopy in the next 2 to 3 weeks. We will subsequently get to him for the right genicular nerve block injections as well. [place] #[id number] was reviewed and appropriate. ORT was performed on this patient and the patient was deemed to be low risk. [facility] History Medical History: Reports:: Anxiety, Cancer (throat), Coronary Artery Disease, Hyperlipidemia, Hypertension, Palpitations Denies:: Diabetes Mellitus Type 1, Diabetes Mellitus Type 2, Internal Pacemaker, MRSA, Pulmonary Embolism, Seizures, Transient Ischemic Attacks (TIA) *Have you ever received a pneumonia vaccine?: Yes *Have you received a flu vaccine this season?: Yes Other Medical History: Reports: Arthritis, Hypothyroidism, Thyroid Disease. Denies: Blood Transfusion Reaction Laterality Cases: Left: Arthroscopy Knee, Bilateral: Carpal Tunnel Release, Tonsillectomy, Other Other Surgeries: Yes: No Previous Surgery, Cancer Surgery, Cardiac Catheterization, Cardiac Surgery, Colonoscopy, EGD, Other. No: Pacemaker Amputation: No Fractures: No - *Social History Smoking Status: Current every day smoker Tobacco Type: cigarettes # Packs/Day (cigarettes): 2 Alcohol Intake: never Substance Use Type: former substance user *Occupational Status:: unemployed Housing: house Household Members: spouse *Travel in the last 8 weeks: None - Psychiatric History Pschychiatric History:: Reports:: Anxiety Family Hx:: Other
== END ==
PROVIDERS: Visit Provider Anesthesiology Pain Medicine
DX: M17.0 Bilateral primary osteoarthritis of knee (principal)
CPT/HCPCS: 99212; G0463

== ENCOUNTER → 2021-10-22 18:04 | Outpatient (CLI) | payer MEDICARE, SELFPAY ==
[2021-10-22 14:05] LABS: Basophils # 0.1 K/mm3 (0-0.2); Basophils % 0.9 % (0.1-2.0); Eosinophils # 0.4 K/mm3 (0.0-0.4); Hematocrit 45.6 % (42.0-52.0); Hemoglobin 14.4 g/dL (14.1-18.0); Lymphocytes # 1.6 K/mm3 (0.7-4.5); Lymphocytes % 25.8 % (10-50); Mean Corpuscular HGB Conc 31.7 g/dL (31.8-35.4); Mean Corpuscular Hemoglobin 30.5 pg (27.0-31.2); Mean Corpuscular Volume 96.4 fl (80-94); Mean Platelet Volume 9.4 fl (7.4-10.4); Monocytes # 0.5 K/mm3 (0.1-1.0); Monocytes % 8.2 % (1.7-9.3); Neutrophils # 3.7 K/mm3 (1.8-7.8); Neutrophils % 59.2 % (37.0-80.0); Platelet Count 245 K/mm3 (142-424); Red Blood Count 4.73 M/mm3 (4.60-6.20); White Blood Count 6.3 K/mm3 (4.8-10.8)
[2021-10-22 14:15] LABS: Alanine Aminotransferase 22 U/L (12-78); Albumin Level 3.8 g/dl (3.5-5.0); Albumin/Globulin Ratio 1.4 (1.1-1.8); Alkaline Phosphatase 84 U/L (38-126); Anion Gap 9.1 mEq/L (5-15); Aspartate Amino Transferase 40 U/L (17-59); Bilirubin,Total 0.5 mg/dl (0.2-1.3); Blood Urea Nitrogen 19 mg/dl (9-20); Calcium 8.3 mg/dl (8.4-10.2); Carbon Dioxide 27 mmol/L (22.0-30.0); Chloride 110 mmol/L (98-107); Chol/HDL Ratio 5.9 (1-3.5); Cholesterol 223 mg/dl (140-200); Estimated Glomerular Filt Rate 84 ml/min (>60); GFR (African American) 102 ML/MIN (>60); Globulin 2.8 g/dL (1.3-3.2); Glucose 93 mg/dl (74-100); HDL Cholesterol 38 mg/dl (40-60); Potassium 4.1 mmoL/L (3.5-5.1); Sodium 142 mmol/L (136-145); Total Protein,Serum 6.6 g/dl (6.3-8.2); Triglycerides 88 mg/dl (30-150); VLDL Cholesterol 18 mg/dL (0-40)
[2021-10-22 14:26] LABS: Direct LDL Cholesterol 145.31 mg/dL (100-129)
[2021-10-22 14:33] LABS: 25-OH Vitamin D, Total 35.6 ng/mL (30-100)
[2021-10-22 14:46] LABS: Prostate Specific Ag Screen 0.7 ng/ml (0.0-4.0); Thyroid Stimulating Hormone 0.04 uIU/mL (0.465-4.68)
[2021-10-22 15:31] LABS: Amphetamine/Metha Screen,Urine Negative ng/ml (<1000); Benzodiazepines Screen,Urine Positive ng/ml (<200)
[2021-10-22 15:32] LABS: Barbiturates Screen,Urine Negative ng/ml (<200)
[2021-10-22 15:33] LABS: Cannabinoid Screen,Urine Negative ng/ml (<50); Cocaine Screen,Urine Negative ng/ml (<300)
[2021-10-22 15:34] LABS: Methadone Screen,Urine Negative ng/ml (<300); Opiate Screen,Urine Negative ng/ml (<300)
[2021-10-22 15:35] LABS: Phencyclidine Screen,Urine Negative ng/ml (<25)
== END ==
PROVIDERS: Visit Provider Physician Assistant
DX: I20.9 Angina pectoris, unspecified (principal); R40.0 Somnolence; R53.83 Other fatigue; Z12.5 Encounter for screening for malignant neoplasm of prostate; H81.10 Benign paroxysmal vertigo, unspecified ear; I10 Essential (primary) hypertension; Z79.899 Other long term (current) drug therapy; E66.9 Obesity, unspecified; Z68.37 Body mass index [BMI] 37.0-37.9, adult
CPT/HCPCS: 80053; 80061; 80305; 82306; 84443; 85025; G0103

== ENCOUNTER 2021-10-31 10:37 | Day surgery (SDC) | payer MEDICARE, SELFPAY ==
[2021-10-31 10:50] VITALS: BP 152/70; BP 153/72; BP 179/92; PULSE 53; PULSE 54; PULSE 56; RESP 18; RESP 20; TEMP 37.1; O2SAT 96; O2SAT 98; BMI 37.2
[2021-10-31 11:49] VITALS: BP 179/90; PULSE 53; RESP 20; O2SAT 98
--- NOTE | 2021-10-31 12:19 | P.PCN_ITS ---
- Procedure Date: 10/31/21 Time: 12:19 Anesthesiologist:: Hans Parsons MD Complications:: None Pre-procedure Diagnosis:: Right knee pain with degenerative osteoarthritis Post-procedure Diagnosis:: Same Indications for Procedure:: Patient is a pleasant 66-year-old white male who we are treating for bilateral knee pain. He did have bilateral intra-articular injection which helped 50 to 6 0%. He was scheduled to undergo right total knee replacement however he is decided to hold off. He has continued right knee pain. We will do a right genicular nerve block today to see if this gives him some relief of his symptoms. Procedure Details:: Right knee genicular block Informed consent was obtained and the risk and benefits of the procedure was explained to the patient. The patient was taken to the procedure room. The left knee was prepped using ChloraPrep. I placed 22-gauge needles into the area of the right superior medial genicular nerve, right superior lateral genicular nerve and right inferior medial genicular nerve. Needle placement was confirmed in AP and lateral views with dye. We then injected bupivacaine 0.25% 3 mL's and Depo-Medrol 25 mg into each area of the right superior medial genicular nerve, right superior lateral genicular nerve and right inferior medial genicular nerve. Patient tolerated the procedure well with no complications. Plan and Disposition:: We will follow-up with him in 2 weeks. Will reevaluate symptoms at that time. If these do give him great relief he may be candidate for RF ablation to the genicular nerves of the right knee.
== END 2021-10-31 11:50 | disposition home or self-care (01) ==
LOC: SC.PAINP 10:38
PROVIDERS: PCP Physician Assistant; Visit Provider Anesthesiology
DX: M17.11 Unilateral primary osteoarthritis, right knee (principal); I25.10 Atherosclerotic heart disease of native coronary artery without angina pectoris; I10 Essential (primary) hypertension; E78.5 Hyperlipidemia, unspecified; E03.9 Hypothyroidism, unspecified; Z72.0 Tobacco use; J44.9 Chronic obstructive pulmonary disease, unspecified; F41.9 Anxiety disorder, unspecified; Z88.5 Allergy status to narcotic agent; Z88.8 Allergy status to other drugs, medicaments and biological substances
CPT/HCPCS: 64454; J1040; Q9966

== ENCOUNTER → 2021-11-27 14:49 | Outpatient (POV) | payer MEDICARE, SELFPAY ==
[2021-11-27 14:58] VITALS: BP 168/93; PULSE 60; RESP 20; O2SAT 98; BMI 37.9
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
== END ==
PROVIDERS: Visit Provider Student in an Organized Health Care Education/Training Program
DX: M17.0 Bilateral primary osteoarthritis of knee (principal)
CPT/HCPCS: 99212; G0463

== ENCOUNTER 2021-12-04 12:25 | Emergency (ER) | payer MEDICARE, SELFPAY ==
[2021-12-04 12:29] VITALS: BP 164/90; PULSE 67; RESP 16; TEMP 36.7; O2SAT 94; BMI 37.9
--- NOTE | 2021-12-04 12:45 | XR_ITS ---
FINAL REPORT CLINICAL HISTORY: laceration to 4th and 5th digit COMPARISON: August 14, 2019 FINDINGS: 3 views of the right hand were obtained. There is no acute fracture or dislocation. The joint spaces are intact. There is no soft tissue abnormality. IMPRESSION: No acute process. Reviewed, Interpreted and Dictated by Jovanni Broderick MD Transcribed by Israel De La Cruz Authenticated by Jovanni Broderick MD on 12/04/2021 02:20:[address] [facility]
--- NOTE | 2021-12-04 12:46 | PC.NURSE ---
notified rad of xray order
--- NOTE | 2021-12-04 12:51 | PC.NURSE ---
ED MD at
[2021-12-04 13:01] VITALS: BP 149/93
--- NOTE | 2021-12-04 13:16 | PC.NURSE ---
JANELLE CLAUDIO at to suture
--- NOTE | 2021-12-04 13:23 | HMH.EDWNDL ---
ED Disposition Clinical Impression: Laceration of right little finger Qualifiers: Encounter type: initial encounter Damage to nail status: without damage Foreign body presence: without foreign body Qualified Code(s): S61.216A - Laceration without foreign body of right little finger without damage to nail, initial encounter Disposition: Home, Self-Care Condition on Discharge: Good Instructions: DI for Laceration Repair Additional Instructions: Suture removal in 10 days Referrals: Isatu Wylie PA [Primary Care Provider] - - Critical Care Critical Care Time: No Attestation: On 12/04/21, the high probability of a clinically significant, sudden or life threatening deterioration of the following system(s) required my full and direct attention, intervention and personal management. The time I documented below is in addition to time spent performing reported procedures but includes the following listed in this critical care notation. Medical Decision Making - Medical Records Medical records reviewed: Yes: I reviewed the patient's medical records. - [place] Inquiry Pt receiving controlled substance: No Vital Signs: 12/04/21 12:29 Temperature 98.0 F Temperature Source Oral Pulse Rate [Left Radial] 67 Respiratory Rate 16 Blood Pressure [Left Arm] 164/90 H Blood Pressure Mean [Left Arm] 114 Blood Pressure Source [Left Arm] Automatic Cuff Blood Pressure Position [Left Arm] Sitting 02 Sat by Pulse Oximetry 94 L Oxygen Delivery Method Room Air Orders (Tests/Meds): ED MEDICATIONS Discontinued Medications Generic Name Dose Route Start Last Admin Trade Name Freq PRN Reason Stop Dose Admin Ibuprofen 800 mg 12/04/21 12:55 Ibuprofen 400 Mg Tablet PO 12/04/21 12:56 ONCE ONE Tetanus/Reduced Diphtheria/Acell Pertussis 0.5 ml 12/04/21 12:46 Tet/Diphth/Pert-Adult 0.5ml Syringe IM 12/04/21 12:47 .ONCE ONE ORDERS Category Date Time Status XR hand RT min 3V Stat Exams 12/04/21 12:45 Taken - Radiology Data #1 Image(s): Hand Image Reviewed: Yes I reviewed the patient's radiology results, Yes I reviewed the patient's radiology image Preliminary Findings: Normal/NAD, No Fracture Seen - Reevaluation(s) Time: 13:25 Reevaluation #1: Patient tolerated procedure well. No complications. Need suture removal in 10 days. Given strict return precautions. Verbalized understanding. Medical Decision Narrative: 66-year-old male presenting with a laceration to the right hand. Patient will require suture repair. Tetanus updated. Imaging obtained. Wound/Laceration HPI - General Chief Complaint: Wound/Laceration Stated Complaint: right hand finger lacerations Time Seen by Provider: 12/04/21 12:35 Mode of Arrival: Ambulatory Limitations: No Limitations Description of Symptoms (Recalled from ER Triage Doc. by RN): Pt has laceration to R pinky finger with possible nail involvement. Laceration to R ring finger also. Pt reports cut them on a mower motor. Pt reports altered sensation in R pinky finger. - History of Present Illness HPI narrative: 66-year-old male presented to the emergency department with a laceration to his right fingers. Patient states that he was trying to fix his lawnmower when it cut his hand. He was able to move his hand out. He has lacerations to the fifth digit of the right hand. Very superficial in nature. Patient is unsure of his tetanus status. Some mild pain. Denies any other injuries. No headache or change in vision. No focal weakness. No chest pain or shortness of breath. - Related Data Home Medications Medication Instructions Recorded Confirmed Ferrous Sulfate [Slow Fe] 142 mg PO DAILY 03/21/21 10/31/21 Atorvastatin Calcium [Lipitor 10mg 10 mg PO DAILY 10/31/21 10/31/21 Tab] Previous Rx's Medication Instructions Recorded furosemide 40 mg tablet 40 mg PO DAILY #90 tab 08/29/21 losartan 25 mg tablet 25 mg PO ORIN
[2021-12-04 13:30] VITALS: BP 168/99
[2021-12-04 13:35] VITALS: BP 149/93; PULSE 60; RESP 16; TEMP 36.7; O2SAT 94
== END 2021-12-04 13:35 | disposition home or self-care (01) ==
PROVIDERS: Emergency Provider Emergency Medicine; PCP Physician Assistant
DX: S61.216A Laceration without foreign body of right little finger without damage to nail, initial encounter (principal); M51.16 Intervertebral disc disorders with radiculopathy, lumbar region; R00.2 Palpitations; M25.562 Pain in left knee; M25.561 Pain in right knee; R42 Dizziness and giddiness; K59.00 Constipation, unspecified; I10 Essential (primary) hypertension; I25.10 Atherosclerotic heart disease of native coronary artery without angina pectoris; E78.5 Hyperlipidemia, unspecified; E03.9 Hypothyroidism, unspecified; E04.9 Nontoxic goiter, unspecified; G47.33 Obstructive sleep apnea (adult) (pediatric); M19.90 Unspecified osteoarthritis, unspecified site; N40.0 Benign prostatic hyperplasia without lower urinary tract symptoms; E66.9 Obesity, unspecified; F41.9 Anxiety disorder, unspecified; F17.210 Nicotine dependence, cigarettes, uncomplicated; Z79.1 Long term (current) use of non-steroidal anti-inflammatories (NSAID); Z79.899 Other long term (current) drug therapy; Z88.5 Allergy status to narcotic agent; Z88.8 Allergy status to other drugs, medicaments and biological substances; Z68.32 Body mass index [BMI] 32.0-32.9, adult; Z23 Encounter for immunization
CPT/HCPCS: 12001; 73130; 90471; 90715; 99284

== ENCOUNTER 2021-12-05 08:01 | Day surgery (SDC) | payer MEDICARE, SELFPAY ==
[2021-12-05 08:15] VITALS: BP 206/121; PULSE 65; RESP 18; TEMP 36.6; O2SAT 97; BMI 37.9
[2021-12-05 08:44] VITALS: BP 160/78; PULSE 56; RESP 20; O2SAT 97
[2021-12-05 09:03] VITALS: BP 160/78; PULSE 55; RESP 20; O2SAT 96
[2021-12-05 09:05] VITALS: BP 198/98; PULSE 55; RESP 18; O2SAT 97
--- NOTE | 2021-12-05 09:47 | HMH.PMPROC ---
- Procedure Date: 12/05/21 Time: 09:47 Anesthesiologist:: Gerson Terry CRNA Complications:: None Pre-procedure Diagnosis:: osteo arthritis right knee Post-procedure Diagnosis:: Same Indications for Procedure:: Patient is very pleasant 66-year-old white male that responded very well to right genicular diagnostic nerve block. They presents for right genicular nerve RFA. He has done well with genicular nerve blocks and presents for genicular RFA today we will do this today to help with some long-term relief of his pain symptoms Procedure Details:: Right knee genicular RFA superior medial, superior lateral and inferior medial RFA. Informed consent was obtained and the risks and benefits of the procedure were explained to the patient. The patient was taken to the procedure room. The right knee was prepped with ChloraPrep. I placed a 22-gauge needles into the area of the right superior medial genicular nerve right superior lateral genicular nerve and right inferior medial genicular nerve. Needle placement was confirmed in AP views. We then injected bupivacaine quarter percent 2 mL, lidocaine 1% 2 mL, and Depo-Medrol 25 mg into each area. We then burned each nerve at 80 ?C for 4 minutes. The patient tolerated the procedure well with no complications. Plan and Disposition:: We will follow up with the patient in 2 weeks. We will will reevaluate the symptoms at this time
== END 2021-12-05 09:06 | disposition home or self-care (01) ==
LOC: SC.PAINP 08:02
PROVIDERS: PCP Physician Assistant; Visit Provider Nurse Anesthetist, Certified Registered
DX: M17.11 Unilateral primary osteoarthritis, right knee (principal); I25.10 Atherosclerotic heart disease of native coronary artery without angina pectoris; E78.5 Hyperlipidemia, unspecified; I10 Essential (primary) hypertension; R00.2 Palpitations; E03.9 Hypothyroidism, unspecified; Z72.0 Tobacco use; F19.11 Other psychoactive substance abuse, in remission; Z88.5 Allergy status to narcotic agent; Z88.8 Allergy status to other drugs, medicaments and biological substances
CPT/HCPCS: 64624; J1040

== ENCOUNTER 2021-12-15 09:33 | Emergency (ER) | payer MEDICARE, SELFPAY ==
[2021-12-15 09:33] VITALS: BP 141/86; PULSE 76; RESP 18; TEMP 37; O2SAT 99; BMI 35.8
[2021-12-15 10:18] VITALS: BP 141/86; PULSE 76; RESP 18; TEMP 37; O2SAT 99
== END 2021-12-15 10:18 | disposition home or self-care (01) ==
LOC: UTC 09:35
PROVIDERS: Emergency Provider Nurse Practitioner; PCP Physician Assistant
DX: S61.216D Laceration without foreign body of right little finger without damage to nail, subsequent encounter (principal)

== ENCOUNTER 2021-12-18 09:38 | Emergency (ER) | payer MEDICARE, SELFPAY ==
[2021-12-18 10:44] VITALS: BP 141/71; PULSE 68; RESP 18; TEMP 36.6
[2021-12-18 10:47] VITALS: BMI 36.3
== END 2021-12-18 10:48 | disposition home or self-care (01) ==
PROVIDERS: Emergency Provider Nurse Practitioner Family; PCP Physician Assistant
DX: Z48.02 Encounter for removal of sutures (principal); I10 Essential (primary) hypertension; E78.5 Hyperlipidemia, unspecified; E03.9 Hypothyroidism, unspecified; E04.1 Nontoxic single thyroid nodule; N40.0 Benign prostatic hyperplasia without lower urinary tract symptoms; K59.00 Constipation, unspecified; F41.9 Anxiety disorder, unspecified; R42 Dizziness and giddiness; Z85.71 Personal history of Hodgkin lymphoma; B02.29 Other postherpetic nervous system involvement; M51.16 Intervertebral disc disorders with radiculopathy, lumbar region; Z79.1 Long term (current) use of non-steroidal anti-inflammatories (NSAID); Z79.899 Other long term (current) drug therapy; Z88.5 Allergy status to narcotic agent; Z88.8 Allergy status to other drugs, medicaments and biological substances

== ENCOUNTER → 2022-01-13 12:21 | Outpatient (POV) | payer MEDICARE, SELFPAY ==
[2022-01-13 12:51] VITALS: BP 146/63; PULSE 56; RESP 18; TEMP 36.7; O2SAT 95; BMI 40.2
--- NOTE | 2022-01-13 12:57 | HMH.PAINSOAP ---
[facility] Pain Management SOAP Note Subjective:: This patient is a pleasant 66-year-old male who returns our clinic after receiving a right genicular nerve RFA. He reports no relief. Also, reports knee seems to be a little more sore since having the RFA. Patient has a longstanding history of bilateral knee osteoarthritis. Patient informs me today he was told in 1993 that he would need knee replacements sooner than later. I discussed in detail with the patient regarding knee replacements. Gave him all the information that I had regarding this procedure. We will refer him to orthopedics here at [facility]. Patient describes his bilateral knee pain is constant, dull, aching, sharp and stabbing at times. Patient has difficulty ambulating any length of distance. He rates the pain 9/10. Objective:: Patient is awake alert oriented x3. In no acute distress. Flexion-extension lumbar spine normal. Deep tendon reflexes upper and lower extremities normal. Motor strength upper and lower extremities normal. There is no gross sensory deficit. Gait is antalgic due to bilateral knee pain. Assessment:: Degenerative osteoarthritis bilateral knees. Plan:: I will refer the patient to orthopedic surgery at [facility]. [facility] History Medical History: Reports:: Anxiety, Coronary Artery Disease, Hyperlipidemia, Hypertension, Palpitations Denies:: Cancer, Diabetes Mellitus Type 1, Diabetes Mellitus Type 2, Internal Pacemaker, MRSA, Pulmonary Embolism, Seizures, Transient Ischemic Attacks (TIA) *Have you ever received a pneumonia vaccine?: Yes *Have you received a flu vaccine this season?: Yes Other Medical History: Reports: Arthritis, Hypothyroidism, Thyroid Disease. Denies: Blood Transfusion Reaction Laterality Cases: Left: Arthroscopy Knee, Bilateral: Carpal Tunnel Release, Tonsillectomy, Other Other Surgeries: Yes: No Previous Surgery, Cancer Surgery, Cardiac Catheterization, Cardiac Surgery, Colonoscopy, EGD, Other. No: Pacemaker Amputation: No Fractures: No - *Social History Smoking Status: Current every day smoker Tobacco Type: cigarettes # Packs/Day (cigarettes): 1 Alcohol Intake: never Substance Use Type: former substance user *Occupational Status:: employed Housing: house Household Members: spouse *Travel in the last 8 weeks: None - Psychiatric History Pschychiatric History:: Reports:: Anxiety Family Hx:: No significant family history
== END ==
PROVIDERS: Visit Provider Nurse Anesthetist, Certified Registered
DX: M17.0 Bilateral primary osteoarthritis of knee (principal)
CPT/HCPCS: 99212; G0463

== ENCOUNTER → 2022-01-30 08:09 | Outpatient (CLI) | payer MEDICARE, SELFPAY ==
--- NOTE | 2022-01-30 08:15 | XR_ITS ---
FINAL REPORT CLINICAL HISTORY: knee pain/ OA COMPARISON: November 04, 2020 FINDINGS: RIGHT KNEE: 4 views of the right knee obtained. There is no acute fracture or dislocation. There are moderate and severe degenerative changes. There is severe medial compartment narrowing. There are stable mild vascular calcifications seen. There are soft tissue calcifications posteriorly. IMPRESSION: Degenerative change with no acute fracture. Reviewed, Interpreted and Dictated by Westley Marie III, MD Transcribed by Maureen Gordon Authenticated and [facility]
--- NOTE | 2022-01-30 08:15 | XR_ITS ---
FINAL REPORT CLINICAL HISTORY: knee pain/ OA COMPARISON: November 04, 2020 FINDINGS: LEFT KNEE: 4 views of the left knee obtained. There is no acute fracture or dislocation. There are moderate and severe degenerative changes. There is severe medial compartment narrowing. There are stable mild vascular calcifications. IMPRESSION: Stable degenerative changes with no acute fracture Reviewed, Interpreted and Dictated by Westley Marie III, MD Transcribed by Maureen Gordon Authenticated and [facility]
== END ==
PROVIDERS: PCP Emergency Medicine; Visit Provider Orthopaedic Surgery
DX: M25.561 Pain in right knee (principal); M25.562 Pain in left knee
CPT/HCPCS: 73564

== ENCOUNTER → 2022-03-27 09:29 | Outpatient (CLI) | payer MEDICARE, SELFPAY ==
--- NOTE | 2022-03-27 09:40 | ECG_ITS ---
APPROVED REPORT Exam: Resting ECG HR:50 bpm ECG Measurements Heart Rate [address] 175 P 60 QRSd 101 QRS 41 QT 422 T 47 QTc 396 Conclusion SINUS BRADYCARDIA BORDERLINE ECG UNCONFIRMED REPORT Electronically signed by : Alcides Nixon MD 03/28/2022 09:32:33
--- NOTE | 2022-03-27 10:00 | XR_ITS ---
FINAL REPORT CLINICAL HISTORY: PRE OP , SHORT OF BREATH COMPARISON: 06/02/2021 FINDINGS: Two views of the chest were obtained. The heart size and pulmonary vascularity are within normal limits. The mediastinum is normal. There is mild atelectasis or scarring at the left lung base. There is no pneumothorax. The bony thorax is intact. IMPRESSION: Mild atelectasis or scarring at the left lung base. Reviewed, Interpreted and Dictated by Westley Marie III, MD Transcribed by Isabel Aden Authenticated and [facility]
[2022-03-27 10:08] LABS: Basophils # 0.1 K/mm3 (0-0.2); Basophils % 0.8 % (0.1-2.0); Eosinophils # 0.4 K/mm3 (0.0-0.4); Eosinophils % 5.8 % (0.1-12.0); Hematocrit 45.3 % (42.0-52.0); Hemoglobin 13.8 g/dL (14.1-18.0); Lymphocytes # 1.7 K/mm3 (0.7-4.5); Lymphocytes % 21.7 % (10-50); Mean Corpuscular HGB Conc 30.5 g/dL (31.8-35.4); Mean Corpuscular Hemoglobin 29.7 pg (27.0-31.2); Mean Corpuscular Volume 97.3 fl (80-94); Mean Platelet Volume 8.4 fl (7.4-10.4); Monocytes # 0.6 K/mm3 (0.1-1.0); Monocytes % 7.4 % (1.7-9.3); Neutrophils # 4.9 K/mm3 (1.8-7.8); Neutrophils % 64.3 % (37.0-80.0); Platelet Count 226 K/mm3 (142-424); Red Blood Count 4.66 M/mm3 (4.60-6.20); Red Cell Distribution Width 15.2 % (11.5-17.5); White Blood Count 7.6 K/mm3 (4.8-10.8)
[2022-03-27 10:34] LABS: Alanine Aminotransferase 16 U/L (12-78); Albumin Level 3.6 g/dl (3.5-5.0); Albumin/Globulin Ratio 1.3 (1.1-1.8); Alkaline Phosphatase 101 U/L (38-126); Anion Gap 7.9 mEq/L (5-15); Aspartate Amino Transferase 28 U/L (17-59); Blood Urea Nitrogen 18 mg/dl (9-20); Calcium 8.2 mg/dl (8.4-10.2); Carbon Dioxide 30 mmol/L (22.0-30.0); Chloride 108 mmol/L (98-107); Estimated Glomerular Filt Rate 67 ml/min (>60); GFR (African American) 81 ML/MIN (>60); Globulin 2.8 g/dL (1.3-3.2); Glucose 80 mg/dl (74-100); Potassium 3.9 mmoL/L (3.5-5.1); Sodium 142 mmol/L (136-145); Total Protein,Serum 6.4 g/dl (6.3-8.2)
[2022-03-27 10:35] LABS: Bilirubin,Total < 0.1 mg/dl (0.2-1.3)
== END ==
PROVIDERS: PCP Emergency Medicine; Visit Provider Orthopaedic Surgery
DX: H81.10 Benign paroxysmal vertigo, unspecified ear (principal); M17.0 Bilateral primary osteoarthritis of knee; Z01.810 Encounter for preprocedural cardiovascular examination
CPT/HCPCS: 36415; 71046; 80053; 85025; 93005

== ENCOUNTER → 2022-03-29 14:18 | Outpatient (CLI) | payer MEDICARE, SELFPAY | PROVIDERS: PCP Emergency Medicine; Visit Provider Orthopaedic Surgery | DX: M17.0 Bilateral primary osteoarthritis of knee (principal); Z01.812 Encounter for preprocedural laboratory examination; Z20.822 Contact with and (suspected) exposure to COVID-19 | CPT/HCPCS: C9803; U0003; U0005 ==

== ENCOUNTER 2022-03-31 09:01 | Observation (INO) | payer MEDICARE, SELFPAY ==
[2022-03-26 13:27] VITALS: BMI 36.3
[2022-03-31] VITALS (21 sets, daily range): BP systolic 114–181; BP diastolic 56–92; PULSE 50–70; RESP 16–20; TEMP 36.2–43; O2SAT 96–99; BMI 36.8
[2022-03-31 06:50] LABS: Coronavirus 19, PCR Not Detected (NotDetected); Influenza A, PCR Not Detected (NotDetected); Influenza B, PCR Not Detected (NotDetected)
--- NOTE | 2022-03-31 08:44 | P.PN_ITS ---
[facility] Anesthesia Checklist - Structural Data Admitted From: Home (=) Consent for Planned Operative Procedure(s) Verified: Yes Verified Documents: Surgical Consent, Pathology Report - Additional verifications Anesthesia Reactions: Yes (slow to awaken) Hx Blood Transfusions: No Blood Transfusion Reaction: No [facility] History Medical History: Reports:: Anxiety, Coronary Artery Disease, Hyperlipidemia, Hypertension, Palpitations Denies:: Cancer, Diabetes Mellitus Type 1, Diabetes Mellitus Type 2, Internal Pacemaker, MRSA, Pulmonary Embolism, Seizures, Transient Ischemic Attacks (TIA) *Have you ever received a pneumonia vaccine?: Yes *Have you received a flu vaccine this season?: Yes Other Medical History: Reports: Arthritis, Hypothyroidism, Thyroid Disease. Denies: Blood Transfusion Reaction Laterality Cases: Left: Arthroscopy Knee, Bilateral: Carpal Tunnel Release, Tonsillectomy, Other Other Surgeries: Yes: No Previous Surgery, Cancer Surgery, Cardiac Catheterization, Cardiac Surgery, Colonoscopy, EGD, Other. No: Pacemaker Amputation: No Fractures: No - *Social History Last grade of school completed: 9th or 10th Smoking Status: Current every day smoker Tobacco Type: cigarettes # Packs/Day (cigarettes): 1 Alcohol Intake: never Substance Use Type: former substance user *Occupational Status:: employed Housing: house Household Members: spouse *Travel in the last 8 weeks: None - Psychiatric History Pschychiatric History:: Reports:: Anxiety Family Hx:: No significant family history
--- NOTE | 2022-03-31 08:48 | HMH.ANESCL ---
[facility] Anesthesia Checklist - Structural Data Admitted From: Direct Admit Consent for Planned Operative Procedure(s) Verified: Yes Verified Documents: Surgical Consent - Additional verifications Anesthesia Reactions: Yes (slow to awaken) Hx Blood Transfusions: No Blood Transfusion Reaction: No Cephalosporin Allergy: No Previous Colonoscopy: Yes (diverticulosis) - Cardiovascular Assessment Heart Sounds: S1 & S2 Pulse Strength: Strong Pulse Rhythm: Regular Peripheral Edema: No - Neurological Assessment Level of Consciousness: Alert, Appropriate, Follows Commands Hx Seizures: No Numbness or tingling in extremities: No [facility] History Medical History: Reports:: Anxiety, Coronary Artery Disease, Hyperlipidemia, Hypertension, Palpitations Denies:: Cancer, Diabetes Mellitus Type 1, Diabetes Mellitus Type 2, Internal Pacemaker, MRSA, Pulmonary Embolism, Seizures, Transient Ischemic Attacks (TIA) *Have you ever received a pneumonia vaccine?: Yes *Have you received a flu vaccine this season?: Yes Other Medical History: Reports: Arthritis, Hypothyroidism, Thyroid Disease. Denies: Blood Transfusion Reaction Laterality Cases: Left: Arthroscopy Knee, Bilateral: Carpal Tunnel Release, Tonsillectomy, Other Other Surgeries: Yes: No Previous Surgery, Cancer Surgery, Cardiac Catheterization, Cardiac Surgery, Colonoscopy, EGD, Other. No: Pacemaker Amputation: No Fractures: No - *Social History Last grade of school completed: 9th or 10th Smoking Status: Current every day smoker Tobacco Type: cigarettes # Packs/Day (cigarettes): 1 Alcohol Intake: never Substance Use Type: former substance user *Occupational Status:: employed Housing: house Household Members: spouse *Travel in the last 8 weeks: None - Psychiatric History Pschychiatric History:: Reports:: Anxiety Family Hx:: No significant family history
--- NOTE | 2022-03-31 09:55 | XR_ITS ---
FINAL REPORT CLINICAL HISTORY: post op COMPARISON: January 30, 2022 FINDINGS: Three views of the right knee reveal no evidence of fracture or dislocation. Postoperative changes are seen from right knee arthroplasty. There is soft tissue air. Posterior soft tissue calcifications of uncertain etiology are stable. IMPRESSION: Post knee arthroplasty without evidence of complication. Reviewed, Interpreted and Dictated by Westley Marie III, MD Transcribed by Israel De La Cruz Authenticated and [facility]
--- NOTE | 2022-03-31 10:06 | HMH.OPNOTE ---
Date of procedure: 03/31/22 Pre-op Diagnosis:: Right knee osteoarthritis Post-op Diagnosis:: Right knee osteoarthritis Procedure performed:: Right total knee arthroplasty Surgeon:: Med Hutchinson MD Equipment Service Associate(s):: ARLETTE Craig Anesthesia: spinal Estimated blood loss (mL): 5 Clinical Note:: Mr. Pierson is a very pleasant 66-year-old male with activity limiting right knee pain secondary to osteoarthritis that is affecting his quality of life. History of a left knee scope with no prior history on the right knee. No relief with recent injections by Dr. Parsons. He uses diclofenac gel, gabapentin and tramadol for pain. X-rays in January revealed severe tricompartmental degenerative changes of both knees with complete loss of medial joint space and marginal osteophyte formation with varus deformity. He is in remission from non-Hodgkin's lymphoma. History of peripheral vascular disease. We have counseled him that he needs to quit smoking. We discussed all the risks, benefits alternatives to right total knee replacement and he agrees to proceed. Operative findings:: Right knee severe tricompartmental degenerative changes Operative note:: The patient was seen in the preoperative holding area. The right knee was marked to confirm the correct operative site. He was seen by anesthesia. He received Ancef 2 g IV prophylactic antibiotics within 1 hour of incision time. He was brought back to the operating room. Spinal was performed without difficulty and he was given sedation throughout the case. He was placed in supine position and all bony prominences were well-padded. A bump was placed underneath the right hip. Nonsterile tourniquet applied to the right thigh. Right lower extremity was prepped and draped in usual sterile fashion and timeout performed to confirm right total knee arthroplasty for Sean Pierson. The right lower extremity was exsanguinated with the Esmarch. Tourniquet was inflated to 300 mmHg. With the knee flexed a midline incision was made with a 10 blade scalpel. Adequate hemostasis maintained with Bovie electrocautery. Full-thickness medial and lateral flaps were elevated. We then made a medial parapatellar arthrotomy. The patella was everted. Patella fat pad and anterior femoral fat pads were excised. Marginal osteophytes were removed. Medial release was performed for this varus knee using the Bovie. Z retractors were placed medially and laterally. The distal femur was then drilled and intramedullary distal femoral cutting guide was pinned in place set at 5 degrees valgus cut for a 9-1/2 mm cut. This cut was then made with the oscillating saw. The femur was then sized to a size 7 set at 3 degrees of external rotation. The 4-in-1 cutting guide was pinned in place. Anterior and posterior cuts were made as were the chamfer cuts. Cut bone was removed. We then turned our attention to the tibia. The tibia was subluxed anteriorly. PCL retractor was placed as were medial and lateral Hohmann retractors. We used the extra medullary tibial cutting guide set at 3 degrees posterior slope for the proximal tibial cut. 5 mm of bone was removed from the low medial side and a centimeter from the high lateral side. Medial and lateral menisci were then excised as were the posterior osteophytes. Flexion and extension gaps were then checked and with a 9 mm block we achieved full extension and flexion with excellent alignment. The tibia was sized to a size 6 tibial tray centered off the medial third of the tibial tubercle. The tray was pinned in place. We then impacted the tibial fins. The size 7 trial femur was then placed we made the box cut with the reamer and punch. We trialed with a size 9 poly-, 7 femur and 6 tibia. With these trial components in place we achieved full extension and flexion with excellent alignment and stable throughout. We then turned our attention to the patella. The patella was sized to 26 mm in t
--- NOTE | 2022-03-31 10:32 | PC.NURSE ---
Pt arrived to the floor at this time
--- NOTE | 2022-03-31 10:45 | PC.NURSE ---
Notified Kary about Physician Consult on pt for Dr. James.
--- NOTE | 2022-03-31 11:44 | HMH.OTEV ---
OT Inpatient Evaluation Rehab OT IP Evaluation Start: 03/31/22 10:18 Freq: ONCE Status: Complete Protocol: Document 03/31/22 11:38 ORINFARRAH (Rec: 03/31/22 11:44 PEGABRAHAM [id number]) Rehab OT IP Assessment Subjective History Mr. Pierson is a very pleasant 66-year-old male with activity limiting right knee pain secondary to osteoarthritis that is affecting his quality of life. History of a left knee scope with no prior history on the right knee. No relief with recent injections by Dr. Parsons. He uses diclofenac gel, gabapentin and tramadol for pain. X-rays in January revealed severe tricompartmental degenerative changes of both knees with complete loss of medial joint space and marginal osteophyte formation with varus deformity . He is in remission from non -Hodgkin's lymphoma. History of peripheral vascular disease . We have counseled him that he needs to quit smoking. We discussed all the risks, benefits alternatives to right total knee replacement and he agrees to proceed. Operative findings:: Right knee severe tricompartmental degenerative changes Patient lives alone in 1 story apartment with 1 CHI. Patient was independent with ADLs and fx'l mobility prior to surgery. Patient continues to drive. Patient will have nephew staying with him during healing process. Subjective My legs are still pretty numb but I can try to sit up on the edge of the bed. Instructed Patient on proper hand and foot placement to complete supine->sit @ EOB requiring Min A. Patient
--- NOTE | 2022-03-31 13:32 | P.CONPHA_ITS ---
[facility] Pharmacy VTE Monitoring - Patient Demographics Admission date: 03/31/22 Report Date: 03/31/22 Time: 13:32 Allergies/Adverse Reactions: Patient Allergies escitalopram [From Lexapro] Allergy (Severe, Verified 03/31/22 06:15) Hallucinating morphine [MORPHINE] Allergy (Unknown, Verified 03/31/22 06:15) RASH ON LEGS Height: 1.8 m Weight: 120.004 kg - VTE Risk VTE Risk Level: Moderate Risk Clinical Trial Participant: No - Prophylaxis VTE Prophylaxis Ordered?: Yes Types of VTE Prophylaxis: IPCS Knee High (POST OP)
--- NOTE | 2022-03-31 13:39 | PC.NURSE ---
rounded on patient. no questions noted. new admission this shift. stated he was starting to feel some pain in his knee and requested a pain pill. polar pack in place, resting in bed. encouraged him to ring out as needed
--- NOTE | 2022-03-31 14:04 | HMH.PTEV ---
Physical Therapy Evaluation Rehab PT IP Evaluation Start: 03/31/22 10:25 Freq: .once Status: Active Protocol: Document 03/31/22 13:23 LAINEMARY ANN (Rec: 03/31/22 14:04 LAINEYASMINECLIF [id number]) Subjective/History History History Mr. Pierson is a 66-yo male s/p R TKR 03/31/22. Pt had failed conservative non-surgical intervention for R knee. Pt has history of peripheral vascular disease and is a current smoker Subjective Subjective Pt reports R knee pain post surgery. [facility], and is checked-in on by neighbors nearly every evening. Rehab PT IP Eval Objective Appearance Patient Behavior Appropriate,Cooperative Patient Orientation Person,Place,Year,Situation Difficulty following instructions none Speech Pattern Clear,Appropriate,Coherent Ambulation Patient Able to Ambulate Yes Ambulation Observation IP General Gait Pattern Observation Antalgic Gait Ambulation Distance (feet) 20 Ambulation Assistive Device Rolling Walker Ambulation Ability Contact Guard/Hand Hold, Minimal x 1 (25% assist) Balance Ability to Arise Able, uses arms to help Sitting Balance Steady, safe Standing Balance Steady, wide stance Dynamic Sitting Balance Ability Normal Dynamic Standing Balance Ability Fair Transfers Bed Transfer Ability Supervision/Stand by Sit to Stand Bed Transfer Ability Contact Guard/Hand Hold Pain R knee Pain Intensity 5 ROM RLE PT ROM Status ABN Abnormal ROM Comment AROM 0-90 by MMT RLE PT MMT ABN Abnormal MMT Grade 3/5 in available ROM Rehab PT IP prob,goals,plan Problems Date of Evaluation: 03/31/22 PT IP Problems Transfers,Gait,Balance Rehab Potential Rehab Potential Good Equipment Needs Assistive Devices Rolling / Wheeled Walker Plan PT Intervention Plan Transfers,Gait,Balance,Self care,Safety,Therapeutic Exercise PT Plan Frequency BID Duration LOS Discharge Goals Bed Transfer Ability Independent,Supervision/Stand by Sit to Stand Chair Transfer Ability Independent,Supervision/Stand by
--- NOTE | 2022-03-31 14:31 | SUR.PHASEI ---
0945-Pt to pacu via bed. Very alert and awake talking. It is reported the patient was awake during the majority of his procedure. HOB raised to 20 degrees at pt requested. Warm blanket placed on pt. 1000-R.Feeback @ bs doing block to right leg. Pt is awake and talking. VSS 1005-Xray @ bs for 3 views of the right knee. 1020-detailed report called to Florence DE JESUS. Pt transported via bed to 2nd floor per Errol DE JESUS and Artem DE JESUS. Pt placed on datascope and given pepsi to drink. Son was called and left message about father being out of surgery at pt request. Left in care of Audie DE JESUS. VSS.
--- NOTE | 2022-03-31 15:45 | PC.NURSE ---
PT IS AOX4, ABLE TO MAKE NEEDS KNOWN TO STAFF, IS AWAKE AND ALERT POST OP TOTAL KNEE ARTHROPLASTY. DSG AND POLAR PACK IN PLACE. C/O PAIN X1. WAS MEDICATED PER MAR WITH PRN DILAUDID WITH GOOD EFFECTIVENESS NOTED. DOES NOT REQUIRE O2 SUPPORT. DENIES N/V/D.
--- NOTE | 2022-03-31 22:01 | HMH.HP ---
*Admission Date: 03/31/22 *Chief complaint: knee pain/surg *History of present illness: this patient had recent rt knee replacement surg - pt is very pleasant 66-year-old male with activity limiting right knee pain secondary to osteoarthritis that is affecting his quality of life. History of a left knee scope with no prior history on the right knee. No relief with recent injections by Dr. Parsons. He uses diclofenac gel, gabapentin and tramadol for pain. X-rays in January revealed severe tricompartmental degenerative changes of both knees with complete loss of medial joint space and marginal osteophyte formation with varus deformity. He is in remission from non-Hodgkin's lymphoma. History of peripheral vascular disease. We have counseled him that he needs to quit smoking. We discussed all the risks, benefits alternatives to right total knee replacement and he agrees to proceed. [facility] History I have reviewed the patient's past medical history: Yes Medical History: Reports:: Anxiety, Coronary Artery Disease, Hyperlipidemia, Hypertension, Palpitations Denies:: Cancer, Diabetes Mellitus Type 1, Diabetes Mellitus Type 2, Internal Pacemaker, MRSA, Pulmonary Embolism, Seizures, Transient Ischemic Attacks (TIA) *Have you ever received a pneumonia vaccine?: No *Have you received a flu vaccine this season?: No Other Medical History: Reports: Arthritis, Hypothyroidism, Thyroid Disease. Denies: Blood Transfusion Reaction Laterality Cases: Left: Arthroscopy Knee, Bilateral: Carpal Tunnel Release, Tonsillectomy, Other Other Surgeries: Yes: No Previous Surgery, Cancer Surgery, Cardiac Catheterization, Cardiac Surgery, Colonoscopy, EGD, Other. No: Pacemaker Amputation: No Fractures: No - *Social History Last grade of school completed: 9th or 10th Smoking Status: Current every day smoker Tobacco Type: cigarettes # Packs/Day (cigarettes): 1 Alcohol Intake: never Substance Use Type: former substance user *Occupational Status:: employed Housing: house Household Members: spouse *Travel in the last 8 weeks: None - Psychiatric History Pschychiatric History:: Reports:: Anxiety Family Hx:: No significant family history Review of Systems - Review of Systems Review of systems:: pertinent systems reviewed and negative unless documented below - Constitutional Denies fever(s) - Eyes Denies change in vision - ENT Denies sore throat - *Cardiovascular Denies chest pain at rest - *Respiratory Denies cough - *Gastrointestinal Denies abdominal pain - *Genitourinary Denies urinary frequency - *Musculoskeletal Reports abnormal walking, Reports joint pain, Reports limited joint movement - Integumentary/Breasts Denies rash - *Neurologic Denies localized weakness, Denies seizure-like activity - Psychiatric Denies depression Meds Home Medications Medication Instructions Recorded Confirmed Type furosemide 40 mg tablet 40 mg PO DAILY #90 tab 08/29/21 03/31/22 Rx gabapentin 600 mg tablet 600 mg PO TID #90 tab 12/30/21 03/31/22 Rx atorvastatin 10 mg tablet 10 mg PO DAILY #90 tab 03/02/22 03/31/22 Rx ferrous sulfate 142 mg (45 mg 142 mg PO DAILY #90 tab 03/02/22 03/31/22 Rx iron) tablet,extended release losartan 25 mg tablet 25 mg PO DAILY #90 tab 03/02/22 03/31/22 Rx metoprolol succinate 50 mg 50 mg PO DAILY #90 tab 03/02/22 03/31/22 Rx tablet,extended release 24 hr diazepam 5 mg tablet 5 mg PO BID PRN 03/27/22 03/31/22 History diclofenac sodium 1 % topical gel 2 gm TP QID 03/27/22 03/31/22 History Aspirin [Aspirin EC 325mg Tab] 325 mg PO DAILY #28 tab 03/31/22 Rx Levothyroxine Sodium 100 mcg PO DAILY 03/31/22 03/31/22 History [Levothyroxine 100mcg (0.1MG) Tab] Levothyroxine Sodium [Synthroid 88 mcg PO DAILY 03/31/22 03/31/22 History 88mcg (0.088mg) tablet] Mupirocin [Centany] 1 applic TP TID 03/31/22 03/31/22 History Omeprazole 40 mg PO DAILY 03/31/22 03/31/22 History Oxycodone HCl [Oxycodone 5mg tab 5 mg PO Q4-6H #30
[2022-04-01 03:59] VITALS: BP 155/75; PULSE 64; RESP 16; TEMP 36.8; O2SAT 97
--- NOTE | 2022-04-01 04:08 | PC.NURSE ---
pt has requested pain medication t/o the night, and pain was relieved, see oct. dressing, bandage, and polar pack in place to right knee. c/d/i. he is a&oX4. lung sounds clear t/o. pt remains on RA with o2 sats 96-97% SBP has been 114-155. voids per urinal. no bm so far this shift. SCD thigh-high in place to left leg, removed for skin assessment. call light within reach no needs at this time.
[2022-04-01 04:48] VITALS: BMI 37.2
[2022-04-01 07:06] LABS: Chloride 109 mmol/L (98-107)
[2022-04-01 07:07] LABS: Potassium 3.7 mmoL/L (3.5-5.1); Sodium 136 mmol/L (136-145)
[2022-04-01 07:09] LABS: Basophils % 0.3 % (0.1-2.0); Blood Urea Nitrogen 23 mg/dl (9-20); Creatinine Clearance Estimated 124 mL/min (50-200); Eosinophils # 0.2 K/mm3 (0.0-0.4); Eosinophils % 1.8 % (0.1-12.0); Estimated Glomerular Filt Rate 84 ml/min (>60); GFR (African American) 102 ML/MIN (>60); Hematocrit 36.1 % (42.0-52.0); Hemoglobin 11.5 g/dL (14.1-18.0); Lymphocytes # 0.9 K/mm3 (0.7-4.5); Lymphocytes % 8.2 % (10-50); Mean Corpuscular HGB Conc 31.9 g/dL (31.8-35.4); Mean Corpuscular Hemoglobin 30.6 pg (27.0-31.2); Mean Corpuscular Volume 95.7 fl (80-94); Mean Platelet Volume 8.8 fl (7.4-10.4); Monocytes % 9.5 % (1.7-9.3); Neutrophils # 8.6 K/mm3 (1.8-7.8); Neutrophils % 80.2 % (37.0-80.0); Platelet Count 173 K/mm3 (142-424); Red Blood Count 3.78 M/mm3 (4.60-6.20); Red Cell Distribution Width 15.6 % (11.5-17.5); White Blood Count 10.8 K/mm3 (4.8-10.8)
[2022-04-01 07:10] LABS: Anion Gap 5.7 mEq/L (5-15); Calcium 7.5 mg/dl (8.4-10.2); Carbon Dioxide 25 mmol/L (22.0-30.0); Glucose 129 mg/dl (74-100)
[2022-04-01 08:00] VITALS: BP 156/87; PULSE 77; RESP 17; TEMP 37.3; O2SAT 94
--- NOTE | 2022-04-01 09:30 | HMH.DCSUM ---
General - General Admission date:: 03/31/22 Discharge date: 04/01/22 HPI HPI: this patient had recent rt knee replacement surg - pt is very pleasant 66-year-old male with activity limiting right knee pain secondary to osteoarthritis that is affecting his quality of life. History of a left knee scope with no prior history on the right knee. No relief with recent injections by Dr. Parsons. He uses diclofenac gel, gabapentin and tramadol for pain. X-rays in January revealed severe tricompartmental degenerative changes of both knees with complete loss of medial joint space and marginal osteophyte formation with varus deformity. He is in remission from non-Hodgkin's lymphoma. History of peripheral vascular disease. We have counseled him that he needs to quit smoking. We discussed all the risks, benefits alternatives to right total knee replacement and he agrees to proceed. Hospital Course Hospital Course: 66-year-old male patient with recent rt knee replacement surg - pt is very pleasant 66-year-old male with activity limiting right knee pain secondary to osteoarthritis that is affecting his quality of life. History of a left knee scope with no prior history on the right knee. No relief with recent injections by Dr. Parsons. He uses diclofenac gel, gabapentin and tramadol for pain. X-rays in January revealed severe tricompartmental degenerative changes of both knees with complete loss of medial joint space and marginal osteophyte formation with varus deformity. He is in remission from non-Hodgkin's lymphoma. History of peripheral vascular disease. We have counseled him that he needs to quit smoking. We discussed all the risks, benefits alternatives to right total knee replacement and he agrees to proceed. 03/31/2022 orthopedics performed Right total knee arthroplasty 03/31/2022 right knee x-ray: FINDINGS: Three views of the right knee reveal no evidence of fracture or dislocation. Postoperative changes are seen from right knee arthroplasty. There is soft tissue air. Posterior soft tissue calcifications of uncertain etiology are stable. IMPRESSION: Post knee arthroplasty without evidence of complication. Reviewed, Interpreted and Dictated by Westley Marie III, MD Ortho has seen and recommends: I have discussed the clinical findings and diagnostic imaging with the patient. Overall he is doing well from an orthopedic standpoint this morning and may be discharged when medically appropriate. I have removed his surgical dressings and the surgical incision is healthy and healing well; there is a Dermabond Prineo skin closure system in place, I have given the patient appropriate care instructions. Do not remove the Dermabond Prineo; after showering, pat the incision dry and do not apply any lotions or creams. Continue PT/OT; patient may ambulate weight bearing as tolerated on the right lower extremity. Continue DVT prophylaxis with 325 mg aspirin for 4 weeks postoperatively. Continue rest, ice, elevation, and as needed pain medication. All questions were answered and the patient verbalized a good understanding. We will plan to see him for his first postoperative follow-up visit in the office in approximately 2 weeks; the patient has an appointment scheduled with me on 04/14/2022 at 10:15 AM. Case management team coordinating discharge planning; patient lives alone in a handicap accessible residence, however, expressed that he may have difficulty with transportation to outpatient therapy as he will not be able to drive postoperatively. May benefit from home health services. Continue medical management as per Dr. James's team. 66-year-old male patient resting in bed quietly with eyes open, he reports pain is tolerable level. Dermabond Prineo dressing in place there is no redness, warmth, drainage to right knee incision. He will be discharged home today he reports he has a grandson that will be staying with him and help with his care as
--- NOTE | 2022-04-01 09:45 | SW/DCPLANNER ---
Addendum entered by Marialuisa Justice 04/01/22 11:13: Jesika em/ [facility] stated that services will begin tomorrow. Original Note: The plan for this patient is to discharge home today. PT/OT has recommended home health services at time of discharge. Patient is agreeable to home health services and prefers to use [facility]. Patient information/order has been faxed to [facility]. I will follow up once patient information/order is reviewed.
--- NOTE | 2022-04-01 09:59 | HMH.ORTHPN ---
Subjective Date: 04/01/22 Time: 08:20 Principal diagnosis: s/p right total knee arthroplasty Interval history: Mr. Pierson is a 66-year-old male patient admitted to the inpatient service following an uneventful right primary total knee arthroplasty performed by Dr. Hutchinson yesterday 03/31/2022. Today the patient is postop day #1. This morning he is lying comfortably in bed. He reports some right knee pain as to be expected, he states that he had difficulty sleeping last night. He reports that he has been eating and drinking well denies any episodes of nausea or vomiting. He reports that he ambulated yesterday evening with the assistance of physical therapy using a walker. No history of any fevers, chills, rigors, or distal tingling/numbness. He denies any other symptoms or concerns at this time. PN: Obj Ex Vital signs: Temp Pulse Resp BP Pulse Ox 99.2 F 77 17 156/87 H 94 L 04/01/22 08:00 04/01/22 08:00 04/01/22 08:00 04/01/22 08:00 04/01/22 08:00 - Constitutional no acute distress, cooperative - Routine HEENT Exam Head: Present: normocephalic, atraumatic Eye: Present: EOMI, PERRL ENT: Present: mucous membranes moist - Routine Neck Exam Present: supple, full ROM, trachea midline. Absent: JVD, lymphadenopathy - Routine Respiratory Exam Absent: accessory muscle use, respiratory distress Comments: Symmetric chest movement, able to speak in complete sentences - Routine Cardiovascular Exam Present: RRR Comments: Normal peripheral pulses - Routine Abdominal Exam Present: soft. Absent: tenderness - Routine Extremities Exam Comments: Upon examination of the right knee: Dressings present are clean, dry, and intact. No evidence of drainage or bleeding noted. Out of the dressings, the surgical incision is healthy and healing well. No erythema, induration, purulent drainage, bleeding, or other signs of infection noted. There is a Dermabond Prineo skin closure system in place. Attempted movements of the right knee are painful. Thigh and calf are soft nontender; no clinical evidence of DVT or compartment syndrome noted. Posterior tibial pulse 2+; capillary refill is brisk. Sensation to light touch is grossly intact throughout. Patient is actively mobilizing the foot, ankle, and toes. Diagnostic imaging: Postoperative x-ray performed at [facility] yesterday 03/31/2022 reviewed along with radiologist report. X-ray of the right knee demonstrates a total knee arthroplasty with orthopedic components in satisfactory alignment. No evidence of orthopedic complications noted. Radiologist report is as follows: FINDINGS: Three views of the right knee reveal no evidence of fracture or dislocation. Postoperative changes are seen from right knee arthroplasty. There is soft tissue air. Posterior soft tissue calcifications of uncertain etiology are stable. IMPRESSION: Post knee arthroplasty without evidence of complication. Reviewed, Interpreted and Dictated by Westley Marie III, MD Transcribed by Israel De La Cruz Authenticated and [facility] - Routine Skin Exam Present: intact, warm, normal turgor. Absent: cyanosis, erythema, lesions, jaundice - Routine Neurological Exam Present: alert, oriented X3, CN II-XII intact, moving all extremities, normal tone, normal speech. Absent: sensory deficit, motor deficit, altered mental status - Routine Psychiatric Exam Present: normal affect, cooperative Progress Note: A&P (1) Obesity (BMI 30-39.9) Status: Acute (2) CAD (coronary artery disease) Status: Acute (3) Anxiety Status: Chronic (4) BPH (benign prostatic hyperplasia) Status: Chronic (5) History of Hodgkin's lymphoma Status: Chronic (6) Hypertension Status: Chronic (7) Hypothyroidism Status: Chronic (8) DJD (degenerative joint disease) of knee Status: Acute Assessment a
[2022-04-01 12:00] VITALS: BP 170/87; PULSE 80; RESP 17; TEMP 36.9; O2SAT 96
--- NOTE | 2022-04-02 14:20 | CARE MANAGER ---
Contacted patient related to discharge from the hospital. He states he thinks home health is there now. He did get his medication and is aware of follow up appointments. NEAL Moreno
--- NOTE | 2022-04-03 10:58 | P.PN_ITS ---
[facility] Anesthesia Checklist - Patient Identification Patient Identification: Arm Band - Structural Data Admitted From: Home Planned Operative Procedure/s: Right TKA Consent for Planned Operative Procedure(s) Verified: Yes Verified Documents: Surgical Consent - NPO Status Verified Time NPO: 00:00 - Additional verifications Anesthesia Reactions: Yes (slow to awaken) Hx Blood Transfusions: No Blood Transfusion Reaction: No - Airway Assessment C-Spine Mobility Assessed: Yes TMJ Mobility Assessed: Yes Dentition: Good Dentition - Neurological Assessment Level of Consciousness: Awake, Alert Hx Seizures: No Numbness or tingling in extremities: No - Genitourinary Assessment Voided regional 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 History I have reviewed the patient's past medical history: Yes Medical History: Reports:: Anxiety, Coronary Artery Disease, Hyperlipidemia, Hypertension, Palpitations Denies:: Cancer, Diabetes Mellitus Type 1, Diabetes Mellitus Type 2, Internal Pacemaker, MRSA, Pulmonary Embolism, Seizures, Transient Ischemic Attacks (TIA) *Have you ever received a pneumonia vaccine?: No *Have you received a flu vaccine this season?: No Other Medical History: Reports: Arthritis, Hypothyroidism, Thyroid Disease. Denies: Blood Transfusion Reaction Anesthesia experience/problems:: no problems Laterality Cases: Left: Arthroscopy Knee, Bilateral: Carpal Tunnel Release, Tonsillectomy, Other Other Surgeries: Yes: No Previous Surgery, Cancer Surgery, Cardiac Catheterization, Cardiac Surgery, Colonoscopy, EGD, Other. No: Pacemaker Amputation: No Fractures: No - *Social History Last grade of school completed: 9th or 10th Smoking Status: Current every day smoker Tobacco Type: cigarettes # Packs/Day (cigarettes): 1 Alcohol Intake: never Substance Use Type: former substance user *Occupational Status:: employed Housing: house Household Members: spouse *Travel in the last 8 weeks: None - Psychiatric History Pschychiatric History:: Reports:: Anxiety Family Hx:: No significant family history
--- NOTE | 2022-04-03 11:04 | P.PN_ITS ---
[facility] Anesthesia Record Part I Intake, IV Amount: 300 Estimated blood loss (mL): 30 Urine output (mL): 0 Blood Products used (#): none Blood Pressure: 114/61 SaO2: 96 Pulse Rate: 96 Respiratory Rate: 22 Temperature: 97.4 F Patient is:: Awake, Somnolent
[2022-04-03 11:06] VITALS: BP 114/61; PULSE 96; RESP 22; TEMP 36.3; O2SAT 96
--- NOTE | 2022-04-03 11:47 | P.PN_ITS ---
[facility] Anesthesia Record Part II Discharge Time: 10:20 Destination: Medical Surgical Department PACU nurse assessment reviewed?: Yes Patient Condition:: Good Anesthesia Complications:: None Swallowing reflex intact?: Yes Cyanosis?: No Blood Pressure: 116/60 Pulse Rate: 56 Temperature: 97.7 F Mental Status: Alert & Oriented Pain level:: 0 Nausea and/or vomitting:: None Intake, IV Amount: 0
[2022-04-03 11:48] VITALS: BP 116/60; PULSE 56; TEMP 36.5
== END 2022-04-01 13:32 | disposition home health service (06) ==
LOC: OR 09:03 → 2ND 09:03
PROVIDERS: Admitting Provider Orthopaedic Surgery; PCP Emergency Medicine; Visit Provider Emergency Medicine
PROC: (CPT 27447; principal; 2022-03-31 07:30)
DX: M17.11 Unilateral primary osteoarthritis, right knee (principal); E03.9 Hypothyroidism, unspecified; Z79.899 Other long term (current) drug therapy; I25.10 Atherosclerotic heart disease of native coronary artery without angina pectoris; I10 Essential (primary) hypertension; N40.0 Benign prostatic hyperplasia without lower urinary tract symptoms; F17.200 Nicotine dependence, unspecified, uncomplicated; M25.561 Pain in right knee; Z85.71 Personal history of Hodgkin lymphoma; Z20.822 Contact with and (suspected) exposure to COVID-19
CPT/HCPCS: 27447; G0378; 36415; 73562; 80048; 85025; 86850; 96374; 97110; 97116; 97161; 97165; 97530; C1713; C1776; C9803; J2704; U0003; U0005

== ENCOUNTER 2022-04-06 17:57 | Emergency (ER) | payer MEDICARE, SELFPAY ==
--- NOTE | 2022-04-06 | XR_ITS ---
PROCEDURE INFORMATION: Exam: XR Right Knee Exam date and time: 04/06/22 06:47 PM Age: 66 years old Clinical indication: Pain; Knee; Right; Prior surgery; Surgery date: 3-7 days post-operative; Surgery type: Tkr 03/31/22 TECHNIQUE: Imaging protocol: Radiologic exam of the Right knee. Views: 1 or 2 views. COMPARISON: CR XR KNEE RT 3V 04/06/22 06:24 PM FINDINGS: Bones/joints: Right total knee arthroplasty. Soft tissues: Prepatellar soft tissue swelling. IMPRESSION: 1. Postsurgical changes. 2. Prepatellar soft tissue swelling.
[2022-04-06 17:59] VITALS: BP 116/64; PULSE 82; RESP 20; TEMP 37.2; O2SAT 96; BMI 36.8
[2022-04-06 18:06] VITALS: BP 116/64; PULSE 81; O2SAT 95
--- NOTE | 2022-04-06 18:16 | PC.NURSE ---
ED MD AT BEDSIDE FOR EVALUATION
--- NOTE | 2022-04-06 18:21 | XR_ITS ---
PROCEDURE INFORMATION: Exam: XR Right Knee Exam date and time: 04/06/22 06:24 PM Age: 66 years old Clinical indication: Pain; Knee; Right; Prior surgery; Surgery date: 3-7 days post-operative; Surgery type: Had tkr 03/31/22 TECHNIQUE: Imaging protocol: Radiologic exam of the Right knee. Views: 3 views. COMPARISON: CR XR KNEE RT 3V 03/31/22 09:57 AM FINDINGS: Bones/joints: Right total knee arthroplasty in good position unchanged. Soft tissues: Normal. IMPRESSION: Right total knee arthroplasty in good position unchanged.
--- NOTE | 2022-04-06 18:29 | PC.NURSE ---
PT GOING OVER FOR XRAYS
--- NOTE | 2022-04-06 18:36 | HMH.EDEXTP ---
ED Disposition Clinical Impression: Cellulitis Qualifiers: Site of cellulitis: extremity Site of cellulitis of extremity: lower extremity Laterality: right Qualified Code(s): L03.115 - Cellulitis of right lower limb Disposition: Home, Self-Care Condition on Discharge: Good Instructions: DI for Cellulitis -- Adult Prescriptions: Sulfamethoxazole/Trimethoprim [Bactrim DS tablet] 1 each PO BID #20 tab [facility] Status[email or web address] cephALEXin [Cephalexin 500mg Tab] 500 mg PO QID #40 tab Transmission Status: Pending to [facility] Referrals: Arash James MD [Primary Care Provider] - Med Hutchinson MD [Physician] - - Critical Care Critical Care Time: No Attestation: On 04/06/22, the high probability of a clinically significant, sudden or life threatening deterioration of the following system(s) required my full and direct attention, intervention and personal management. The time I documented below is in addition to time spent performing reported procedures but includes the following listed in this critical care notation. Medical Decision Making - Medical Records Medical records reviewed: Yes: I reviewed the patient's medical records. - [place] Inquiry Pt receiving controlled substance: No Vital Signs: 04/06/22 17:59 04/06/22 18:06 Temperature 98.9 F Temperature Source Oral Pulse Rate 81 Pulse Rate [Radial] 82 Respiratory Rate 20 Blood Pressure 116/64 Blood Pressure [Right Arm] 116/64 Blood Pressure Mean 76 Blood Pressure Mean [Right Arm] 81 Blood Pressure Source [Right Arm] Automatic Cuff Blood Pressure Position [Right Arm] Sitting 02 Sat by Pulse Oximetry 96 95 Oxygen Delivery Method Room Air - Lab Data Lab Results 04/06/22 18:20: WBC 11.3 H, RBC 3.48 L, Hgb 10.4 L, Hct 33.1 L, MCV 95.0 H, MCH 30.0, MCHC 31.5 L, RDW 15.3, Plt Count 402, MPV 8.1, Neut % (Auto) 76.3, Lymph % (Auto) 14.5, [place] % (Auto) 6.4, Eos % (Auto) 2.3, Baso % (Auto) 0.6, Neut # (Auto) 8.6 H, Lymph # (Auto) 1.6, [place] # (Auto) 0.7, Eos # (Auto) 0.3, Baso # (Auto) 0.1 04/06/22 18:20: Sodium 135 L, Potassium 3.5, Chloride 98, Carbon Dioxide 33 H, Anion Gap 7.5, BUN 17, Creatinine 1.00, Estimated Creat Clear 123, Estimated GFR 75, Est GFR ( Amer) 90, Glucose 114 H, Calcium 7.8 L, Total Bilirubin 1.9 H, AST 46, ALT 26, Alkaline Phosphatase 187 H, Total Protein 6.7, Albumin 3.4 L, Globulin 3.3 H, Albumin/Globulin Ratio 1.0 L Result diagrams: 04/06/22 18:20 04/06/22 18:20 Orders (Tests/Meds): ED MEDICATIONS Generic Name Dose Route Start Last Admin Trade Name Freq PRN Reason Stop Dose Admin Ceftriaxone Sodium 1 gm/ 50 mls @ 100 mls/hr 04/06/22 19:30 04/06/22 19:37 Sodium Chloride IV 04/20/22 19:29 100 mls/hr Q24H CARLIE Administration - Radiology Data #1 Image(s): Knee Image Reviewed: Yes I reviewed the patient's radiology results, Yes I reviewed the patient's radiology image, Yes I have reviewed radiologist's interpretation IMPRESSION: Right total knee arthroplasty in good position unchanged. - Reevaluation(s) Time: 19:38 Reevaluation #1: On reevaluation, the patient is feeling better. I do believe his symptoms are consistent with a small seroma and some minor cellulitis of the skin. Patient is nontoxic-appearing. No evidence of sepsis. I did discuss evaluation by orthopedics and observation in the hospital, however the patient declined. He is requesting home antibiotics and dressing changes. We did thoroughly clean the wound and placed a sterile dressing. Patient was placed on dual antibiotic therapy. He is to call his orthopedic surgeon in the morning for a follow-up. He needs reexamination within 48 hours. Given strict return precautions. Verbalized understanding. Medical Decision Narrative: 66-year-old male presented to the emergency department with some right knee pain. Patient had a recent total knee replacement. Findings are consi
[2022-04-06 18:51] LABS: Basophils # 0.1 K/mm3 (0-0.2); Basophils % 0.6 % (0.1-2.0); Eosinophils # 0.3 K/mm3 (0.0-0.4); Eosinophils % 2.3 % (0.1-12.0); Hematocrit 33.1 % (42.0-52.0); Hemoglobin 10.4 g/dL (14.1-18.0); Lymphocytes # 1.6 K/mm3 (0.7-4.5); Lymphocytes % 14.5 % (10-50); Mean Corpuscular HGB Conc 31.5 g/dL (31.8-35.4); Mean Platelet Volume 8.1 fl (7.4-10.4); Monocytes # 0.7 K/mm3 (0.1-1.0); Monocytes % 6.4 % (1.7-9.3); Neutrophils # 8.6 K/mm3 (1.8-7.8); Neutrophils % 76.3 % (37.0-80.0); Platelet Count 402 K/mm3 (142-424); Red Blood Count 3.48 M/mm3 (4.60-6.20); Red Cell Distribution Width 15.3 % (11.5-17.5); White Blood Count 11.3 K/mm3 (4.8-10.8)
[2022-04-06 18:59] LABS: Alanine Aminotransferase 26 U/L (12-78); Albumin Level 3.4 g/dl (3.5-5.0); Alkaline Phosphatase 187 U/L (38-126); Anion Gap 7.5 mEq/L (5-15); Aspartate Amino Transferase 46 U/L (17-59); Bilirubin,Total 1.9 mg/dl (0.2-1.3); Blood Urea Nitrogen 17 mg/dl (9-20); Calcium 7.8 mg/dl (8.4-10.2); Carbon Dioxide 33 mmol/L (22.0-30.0); Chloride 98 mmol/L (98-107); Creatinine Clearance Estimated 123 mL/min (50-200); Estimated Glomerular Filt Rate 75 ml/min (>60); GFR (African American) 90 ML/MIN (>60); Globulin 3.3 g/dL (1.3-3.2); Glucose 114 mg/dl (74-100); Potassium 3.5 mmoL/L (3.5-5.1); Sodium 135 mmol/L (136-145); Total Protein,Serum 6.7 g/dl (6.3-8.2)
[2022-04-06 19:54] VITALS: BP 116/65; PULSE 81; RESP 18; TEMP 36.8; O2SAT 99
[2022-04-06 19:55] VITALS: BP 126/80; PULSE 79; RESP 18; TEMP 37.2; O2SAT 97
== END 2022-04-06 19:56 | disposition home or self-care (01) ==
PROVIDERS: Emergency Provider Emergency Medicine; PCP Emergency Medicine
DX: L03.115 Cellulitis of right lower limb (principal); Z96.651 Presence of right artificial knee joint
CPT/HCPCS: 73560; 73562; 80053; 85025; 96374; 99284; J0696

== ENCOUNTER 2022-04-10 11:17 | Inpatient (IN) | payer MEDICARE, SELFPAY ==
[2022-04-10 11:43] VITALS: BMI 36.8
[2022-04-10 12:00] VITALS: BP 112/77; PULSE 70; RESP 16; TEMP 36.7; O2SAT 98
[2022-04-10 12:17] LABS: Coronavirus 19, PCR Not Detected (NotDetected); Influenza A, PCR Not Detected (NotDetected); Influenza B, PCR Not Detected (NotDetected)
--- NOTE | 2022-04-10 13:05 | CT_ITS ---
FINAL REPORT CLINICAL HISTORY: infection, RT KNEE REPLACEMENT 10 DAYS AGO FINDINGS: CT RIGHT KNEE WITH CONTRAST Axial CT images were performed through the right knee with contrast. Coronal and sagittal reformatted images were submitted. This study was performed with techniques to keep radiation doses as low as reasonably achievable (ALARA). Individualized dose reduction techniques using automated exposure control or adjustment of mA and/or kV according to the patient's size were employed. FINDINGS: There are postoperative changes from knee arthroplasty. There is no acute bony abnormality. There is a moderate amount of joint fluid. There are small foci of air within the joint that may be iatrogenic or from gas-forming organisms. There is prepatellar fluid may represent prepatellar bursitis, seroma, or abscess. There is no abnormal contrast enhancement. IMPRESSION: Moderate joint fluid with small foci of air could be iatrogenic or from gas-forming organisms. Prepatellar fluid may represent prepatellar bursitis, seroma, or abscess. Reviewed, Interpreted and Dictated by Westley Marie III, MD Transcribed by Israel De La Cruz Authenticated and [facility]
[2022-04-10 14:29] LABS: Basophils # 0.1 K/mm3 (0-0.2); Basophils % 0.8 % (0.1-2.0); Eosinophils # 0.4 K/mm3 (0.0-0.4); Eosinophils % 3.9 % (0.1-12.0); Hemoglobin 9.5 g/dL (14.1-18.0); Lymphocytes # 0.9 K/mm3 (0.7-4.5); Lymphocytes % 8.5 % (10-50); Mean Corpuscular HGB Conc 31.7 g/dL (31.8-35.4); Mean Corpuscular Hemoglobin 30.6 pg (27.0-31.2); Mean Corpuscular Volume 96.4 fl (80-94); Mean Platelet Volume 8.8 fl (7.4-10.4); Monocytes # 0.6 K/mm3 (0.1-1.0); Monocytes % 5.8 % (1.7-9.3); Neutrophils # 8.3 K/mm3 (1.8-7.8); Platelet Count 600 K/mm3 (142-424); Red Blood Count 3.11 M/mm3 (4.60-6.20); Red Cell Distribution Width 15.5 % (11.5-17.5); White Blood Count 10.2 K/mm3 (4.8-10.8)
[2022-04-10 14:31] LABS: Alanine Aminotransferase 20 U/L (12-78); Alkaline Phosphatase 133 U/L (38-126); Anion Gap 6.6 mEq/L (5-15); Aspartate Amino Transferase 38 U/L (17-59); Bilirubin,Total 0.6 mg/dl (0.2-1.3); Blood Urea Nitrogen 9 mg/dl (9-20); Calcium 7.2 mg/dl (8.4-10.2); Carbon Dioxide 31 mmol/L (22.0-30.0); Chloride 99 mmol/L (98-107); Creatinine Clearance Estimated 120 mL/min (50-200); Estimated Glomerular Filt Rate 84 ml/min (>60); GFR (African American) 102 ML/MIN (>60); Globulin 3.1 g/dL (1.3-3.2); Glucose 116 mg/dl (74-100); Potassium 3.6 mmoL/L (3.5-5.1); Sodium 133 mmol/L (136-145); Total Protein,Serum 6.1 g/dl (6.3-8.2)
[2022-04-10 14:36] LABS: C-Reactive Protein 69.3 mg/L (0-4)
[2022-04-10 15:56] VITALS: BP 118/62; PULSE 72; RESP 18; TEMP 37.1; O2SAT 94
[2022-04-10 16:25] LABS: Erythrocyte Sedimentation Rate 137 mm/hr (0-20)
--- NOTE | 2022-04-10 18:16 | PC.NURSE ---
Patient admitted, IV 20 LAC, had CT of Knee, pain medication x 1, VSS, A&O x4, Nicotine patch applied, resting with eyes closed, RLE swelling noted, positive pedal pulse, surgical incision has small amount of serosanguinus drainage on kerlex wrap, incision clean and redressed with ABD and Kerlex with tape. Ambulates with standby assitance using walker. Shows no s/s of acute distress noted at this time, call light within reach, bed at lowest level for safety; will continue to monitor.
[2022-04-10 20:00] VITALS: BP 130/66; PULSE 77; RESP 18; TEMP 37.2; O2SAT 94
--- NOTE | 2022-04-10 20:24 | HMH.HP ---
*Admission Date: 04/10/22 *Chief complaint: knee pain *History of present illness: pt with recent knee surg and was seen by ortho today and felt needed to be admitted and have surg in am for possible infection -66-year-old male 10 days status post right total knee arthroplasty with persistent serosanguineous drainage. Duplex ultrasound is negative for DVT. Given his persistent drainage and cellulitis, I plan to have him admitted to the hospital. Anticipate need for seroma evacuation with possible polyethylene liner exchange. I discussed this at length with recon colleague. If arthrotomy is well-healed and no drainage, would not perform polyethylene exchange. If the arthrotomy is not intact, would plan for polyethylene liner exchange as well. N.p.o. at midnight. I spoke to Dr. James who plans to admit him. [facility] History I have reviewed the patient's past medical history: Yes Medical History: Reports:: Anxiety, Coronary Artery Disease, Hyperlipidemia, Hypertension, Palpitations Denies:: Cancer, Diabetes Mellitus Type 1, Diabetes Mellitus Type 2, Internal Pacemaker, MRSA, Pulmonary Embolism, Seizures, Transient Ischemic Attacks (TIA) *Have you ever received a pneumonia vaccine?: Yes *Have you received a flu vaccine this season?: Yes Other Medical History: Reports: Arthritis, Chemotherapy, Hypothyroidism, Thyroid Disease. Denies: Blood Transfusion Reaction Laterality Cases: Left: Arthroscopy Knee, Right: Total Knee Replacement, Bilateral: Carpal Tunnel Release, Tonsillectomy, Other Other Surgeries: Yes: No Previous Surgery, Cancer Surgery, Cardiac Catheterization, Cardiac Surgery, Colonoscopy, EGD, Other. No: Pacemaker Amputation: No Fractures: No - *Social History Last grade of school completed: 9th or 10th Smoking Status: Current every day smoker Tobacco Type: cigarettes # Packs/Day (cigarettes): 1 Alcohol Intake: former Substance Use Type: former substance user *Occupational Status:: retired Housing: apartment Household Members: spouse *Travel in the last 8 weeks: None - Psychiatric History Pschychiatric History:: Reports:: Anxiety Family Hx:: Cancer, Diabetes Review of Systems - Review of Systems Review of systems:: pertinent systems reviewed and negative unless documented below - Constitutional Denies fever(s) - Eyes Denies change in vision - ENT Denies sore throat - *Cardiovascular Denies chest pain - *Respiratory Denies cough - *Gastrointestinal Denies abdominal pain - *Genitourinary Denies side pain - *Musculoskeletal Reports joint pain, Reports joint swelling, Reports limited joint movement - Integumentary/Breasts Denies rash - *Neurologic Denies seizure-like activity - Psychiatric Denies behavioral changes Meds Home Medications Medication Instructions Recorded Confirmed Type furosemide 40 mg tablet 40 mg PO DAILY #90 tab 08/29/21 04/11/22 Rx gabapentin 600 mg tablet 600 mg PO TID #90 tab 12/30/21 04/10/22 Rx losartan 25 mg tablet 25 mg PO DAILY #90 tab 03/02/22 04/10/22 Rx metoprolol succinate 50 mg 50 mg PO DAILY #90 tab 03/02/22 04/10/22 Rx tablet,extended release 24 hr Levothyroxine Sodium 100 mcg PO DAILY 03/31/22 04/10/22 History [Levothyroxine 100mcg (0.1MG) Tab] Levothyroxine Sodium [Synthroid 88 mcg PO DAILY 03/31/22 04/10/22 History 88mcg (0.088mg) tablet] Omeprazole 40 mg PO DAILY 03/31/22 04/10/22 History Potassium Chloride 8 meq PO DAILY 03/31/22 04/10/22 History Atorvastatin Calcium [Lipitor 10mg 10 mg PO HS 04/10/22 04/10/22 History Tab] Oxycodone HCl [Oxycodone 5mg tab 5 mg PO Q4-6H PRN 04/10/22 04/10/22 History (IR)] Rivaroxaban [Xarelto] 10 mg PO DAILY 04/10/22 04/10/22 History Sulfamethoxazole/Trimethoprim 1 each PO BID 04/10/22 04/10/22 History [Bactrim DS tablet] cephALEXin [Cephalexin 500mg Tab] 500 mg PO QID 04/10/22 04/10/22 History diazePAM [Valium 5mg tablets] 5 mg PO BID PRN 04/10/22 04/10/22 History Allergies Allergy
[2022-04-11] VITALS (23 sets, daily range): BP systolic 118–157; BP diastolic 64–87; PULSE 66–88; RESP 12–18; TEMP 36.5–37.2; O2SAT 94–98; BMI 37.8
--- NOTE | 2022-04-11 04:23 | PC.NURSE ---
pt has not rested well this shift, has pain when repositioning, has complained of pain 2 times so far and was treated per OCT, RLE noticeably red and swollen, pedal pulse felt in RLE, pt has been NPO since 0000 in anticipation of surgery this morning
[2022-04-11 07:19] LABS: Chloride 97 mmol/L (98-107); Potassium 3.8 mmoL/L (3.5-5.1); Sodium 132 mmol/L (136-145)
[2022-04-11 07:22] LABS: Alanine Aminotransferase 21 U/L (12-78); Albumin Level 3.2 g/dl (3.5-5.0); Albumin/Globulin Ratio 1.1 (1.1-1.8); Alkaline Phosphatase 137 U/L (38-126); Anion Gap 6.8 mEq/L (5-15); Aspartate Amino Transferase 36 U/L (17-59); Bilirubin,Total 0.5 mg/dl (0.2-1.3); Blood Urea Nitrogen 9 mg/dl (9-20); Carbon Dioxide 32 mmol/L (22.0-30.0); Creatinine Clearance Estimated 123 mL/min (50-200); Estimated Glomerular Filt Rate 75 ml/min (>60); GFR (African American) 90 ML/MIN (>60); Total Protein,Serum 6.2 g/dl (6.3-8.2)
[2022-04-11 07:23] LABS: Calcium 7.4 mg/dl (8.4-10.2); Glucose 129 mg/dl (74-100)
[2022-04-11 07:28] LABS: Basophils # 0.1 K/mm3 (0-0.2); Basophils % 0.9 % (0.1-2.0); Eosinophils # 0.5 K/mm3 (0.0-0.4); Eosinophils % 5.5 % (0.1-12.0); Hematocrit 30.5 % (42.0-52.0); Hemoglobin 9.6 g/dL (14.1-18.0); Lymphocytes % 10.6 % (10-50); Mean Corpuscular HGB Conc 31.3 g/dL (31.8-35.4); Mean Corpuscular Hemoglobin 30.1 pg (27.0-31.2); Mean Corpuscular Volume 96.1 fl (80-94); Mean Platelet Volume 7.8 fl (7.4-10.4); Monocytes # 0.7 K/mm3 (0.1-1.0); Monocytes % 7.1 % (1.7-9.3); Neutrophils # 7.3 K/mm3 (1.8-7.8); Platelet Count 609 K/mm3 (142-424); Red Blood Count 3.18 M/mm3 (4.60-6.20); Red Cell Distribution Width 15.5 % (11.5-17.5); White Blood Count 9.6 K/mm3 (4.8-10.8)
--- NOTE | 2022-04-11 08:28 | HMH.PHAVTE ---
[facility] Pharmacy VTE Monitoring - Patient Demographics Admission date: 04/11/22 Report Date: 04/11/22 Time: 08:28 Allergies/Adverse Reactions: Patient Allergies escitalopram [From Lexapro] Allergy (Severe, Verified 04/10/22 09:01) Hallucinating morphine [MORPHINE] Allergy (Unknown, Verified 04/10/22 09:01) RASH ON LEGS Height: 1.78 m Weight: 119.794 kg Patient Problems: Current Active Problems Obesity (BMI 30-39.9) (Acute) Post op infection (Acute) - VTE Risk Labs: VTE Related Lab Results Hgb 9.6 g/dL (14.1-18.0) L 04/11/22 06:41 Hct 30.5 % (42.0-52.0) L 04/11/22 06:41 Plt Count 609 K/mm3 (142-424) H 04/11/22 06:41 BUN 9 mg/dl (9-20) 04/11/22 06:41 Creatinine 1.00 mg/dl (0.66-1.25) 04/11/22 06:41 Estimated Creat Clear 123 mL/min (50-200) 04/11/22 06:41 VTE Risk Level: Low Risk Clinical Trial Participant: No - Prophylaxis VTE Prophylaxis Ordered?: Yes Types of VTE Prophylaxis: Pharmacological Pharmacologic Type: Other (XARELTO)
--- NOTE | 2022-04-11 09:18 | HMH.PHAINT ---
HOME MEDICATION LIST [facility]IF[facility]
--- NOTE | 2022-04-11 11:18 | HMH.ACPN2 ---
Internal Medicine - PN: Subj *Date: 04/11/22 *Time: 11:35 Interval history: currently npo plan going to surgery later this afternoon ct reviewed bc pending elev crp good sats on ra Exam Vital signs and Labs for Last 24 Hours: Temp Pulse Resp BP Pulse Ox 98.5 F 66 16 157/71 H 96 04/11/22 07:45 04/11/22 07:45 04/11/22 07:45 04/11/22 07:45 04/11/22 07:45 Laboratory Results - last 24 hr 04/10/22 12:00: SARS-CoV-2 (PCR) Not detected, Influenza A Untype (PCR) Not detected, Influenza Type B (PCR) Not detected 04/10/22 12:30: WBC 10.2, RBC 3.11 L, Hgb 9.5 L, Hct 30.0 L, MCV 96.4 H, MCH 30.6, MCHC 31.7 L, RDW 15.5, Plt Count 600 H D, MPV 8.8, Neut % (Auto) 81.0 H, Lymph % (Auto) 8.5 L, [place] % (Auto) 5.8, Eos % (Auto) 3.9, Baso % (Auto) 0.8, Neut # (Auto) 8.3 H, Lymph # (Auto) 0.9, [place] # (Auto) 0.6, Eos # (Auto) 0.4, Baso # (Auto) 0.1 04/10/22 12:30: Sodium 133 L, Potassium 3.6, Chloride 99, Carbon Dioxide 31 H, Anion Gap 6.6, BUN 9, Creatinine 0.90, Estimated Creat Clear 120, Estimated GFR 84, Est GFR ( Amer) 102, Glucose 116 H, Calcium 7.2 L, Total Bilirubin 0.6, AST 38, ALT 20, Alkaline Phosphatase 133 H, C-Reactive Protein 69.3 H, Total Protein 6.1 L, Albumin 3.0 L, Globulin 3.1, Albumin/Globulin Ratio 1.0 L 04/10/22 12:30: ESR 137 H 04/11/22 06:41: WBC 9.6, RBC 3.18 L, Hgb 9.6 L, Hct 30.5 L, MCV 96.1 H, MCH 30.1, MCHC 31.3 L, RDW 15.5, Plt Count 609 H, MPV 7.8, Neut % (Auto) 76.0, Lymph % (Auto) 10.6, [place] % (Auto) 7.1, Eos % (Auto) 5.5, Baso % (Auto) 0.9, Neut # (Auto) 7.3, Lymph # (Auto) 1.0, [place] # (Auto) 0.7, Eos # (Auto) 0.5 H, Baso # (Auto) 0.1 04/11/22 06:41: Sodium 132 L, Potassium 3.8, Chloride 97 L, Carbon Dioxide 32 H, Anion Gap 6.8, BUN 9, Creatinine 1.00, Estimated Creat Clear 123, Estimated GFR 75, Est GFR ( Amer) 90, Glucose 129 H, Calcium 7.4 L, Total Bilirubin 0.5, AST 36, ALT 21, Alkaline Phosphatase 137 H, Total Protein 6.2 L, Albumin 3.2 L, Globulin 3.0, Albumin/Globulin Ratio 1.1 I & O for Last 24 hours: Intake & Output 04/08/22 04/09/22 04/10/22 04/11/22 23:59 23:59 23:59 23:59 Intake Total 2880 / 3120 240 / 240 Output Total 1500 / 1800 640 / 640 Balance 1380 / 1320 -400 / -400 Weight 256 lb 11.2 oz 264 lb 1.6 oz - Constitutional no acute distress - *Routine HEENT Exam Head: Present: normocephalic Eye: Present: EOMI, PERRL ENT: Present: mucous membranes moist - *Routine Neck Exam Present: supple. Absent: lymphadenopathy - *Routine Respiratory Exam Present: CTA bilaterally - *Routine Cardiovascular Exam Present: RRR - *Routine Abdominal Exam Present: soft, normoactive bowel sounds. Absent: tenderness - *Routine Extremities Exam Present: edema, tenderness. Absent: cyanosis - *Routine Skin Exam Present: erythema - *Routine Neurological Exam Present: alert, oriented X3 Assessment and Plan (1) Post op infection Status: Acute Qualifiers: Encounter type: subsequent encounter Postoperative infection type: unspecified type Qualified Code(s): T81.40XD - Infection following a procedure, unspecified, subsequent encounter Category: Medical Code(s): T81.40XA - Infection following a procedure, unspecified, initial encounter (2) Obesity (BMI 30-39.9) Status: Acute Category: Medical Code(s): E66.9 - Obesity, unspecified - Assessment and plan all Dx Assessment and Plan for all problems:: going to or today will initiate broad coverage w/vancomycin and cefepime lovenox post-op discussed with clinical pharmacist
--- NOTE | 2022-04-11 11:44 | HMH.ANESCL ---
[facility] Anesthesia Checklist - Structural Data Admitted From: Inpatient Planned Operative Procedure/s: Left Knee I&D Consent for Planned Operative Procedure(s) Verified: Yes Verified Documents: Surgical Consent - NPO Status Verified Time NPO: 00:00 - Chart Verification Results Verified: CBC - Additional verifications Anesthesia Reactions: Yes (slow to awaken) Hx Blood Transfusions: No Blood Transfusion Reaction: No - Airway Assessment C-Spine Mobility Assessed: Yes TMJ Mobility Assessed: Yes - Neurological Assessment Level of Consciousness: Awake, Appropriate - Anesthesia Plan Anesthesia Risk discussed: Yes ASA Class: III Anesthesia Type: General [facility] History I have reviewed the patient's past medical history: Yes Medical History: Reports:: Anxiety, Coronary Artery Disease, Hyperlipidemia, Hypertension, Palpitations Denies:: Cancer, Diabetes Mellitus Type 1, Diabetes Mellitus Type 2, Internal Pacemaker, MRSA, Pulmonary Embolism, Seizures, Transient Ischemic Attacks (TIA) *Have you ever received a pneumonia vaccine?: Yes *Have you received a flu vaccine this season?: Yes Other Medical History: Reports: Arthritis, Chemotherapy, Hypothyroidism, Thyroid Disease. Denies: Blood Transfusion Reaction Anesthesia experience/problems:: none Laterality Cases: Left: Arthroscopy Knee, Right: Total Knee Replacement, Bilateral: Carpal Tunnel Release, Tonsillectomy, Other Other Surgeries: Yes: No Previous Surgery, Cancer Surgery, Cardiac Catheterization, Cardiac Surgery, Colonoscopy, EGD, Other. No: Pacemaker Amputation: No Fractures: No - *Social History Last grade of school completed: 9th or 10th Smoking Status: Current every day smoker Tobacco Type: cigarettes # Packs/Day (cigarettes): 1 Alcohol Intake: former Substance Use Type: former substance user *Occupational Status:: retired Housing: apartment Household Members: spouse *Travel in the last 8 weeks: None - Psychiatric History Pschychiatric History:: Reports:: Anxiety Family Hx:: Cancer, Diabetes
--- NOTE | 2022-04-11 12:05 | HMH.PHACONS ---
- Pharmacy Consult Date: 04/11/22 Time: 12:06 Referring provider: DR. BRAXTON Reason for Consult:: VANCOMYCIN DOSING Allergies and ADEs:: Allergies Allergy/AdvReac Type Severity Reaction Status Date / Time escitalopram [From Lexapro] Allergy Severe Hallucinati Verified 04/10/22 09:01 ng morphine [MORPHINE] Allergy Unknown RASH ON Verified 04/10/22 09:01 LEGS Home Medications:: Home Medications Medication Instructions Recorded Confirmed Type furosemide 40 mg tablet 40 mg PO DAILY #90 tab 08/29/21 04/11/22 Rx gabapentin 600 mg tablet 600 mg PO TID #90 tab 12/30/21 04/10/22 Rx losartan 25 mg tablet 25 mg PO DAILY #90 tab 03/02/22 04/10/22 Rx metoprolol succinate 50 mg 50 mg PO DAILY #90 tab 03/02/22 04/10/22 Rx tablet,extended release 24 hr Levothyroxine Sodium 100 mcg PO DAILY 03/31/22 04/10/22 History [Levothyroxine 100mcg (0.1MG) Tab] Levothyroxine Sodium [Synthroid 88 mcg PO DAILY 03/31/22 04/10/22 History 88mcg (0.088mg) tablet] Omeprazole 40 mg PO DAILY 03/31/22 04/10/22 History Potassium Chloride 8 meq PO DAILY 03/31/22 04/10/22 History Atorvastatin Calcium [Lipitor 10mg 10 mg PO HS 04/10/22 04/10/22 History Tab] Oxycodone HCl [Oxycodone 5mg tab 5 mg PO Q4-6H PRN 04/10/22 04/10/22 History (IR)] Rivaroxaban [Xarelto] 10 mg PO DAILY 04/10/22 04/10/22 History Sulfamethoxazole/Trimethoprim 1 each PO BID 04/10/22 04/10/22 History [Bactrim DS tablet] cephALEXin [Cephalexin 500mg Tab] 500 mg PO QID 04/10/22 04/10/22 History diazePAM [Valium 5mg tablets] 5 mg PO BID PRN 04/10/22 04/10/22 History Height: 1.78 m Weight: 119.794 kg Laboratory Results:: Laboratory Results - last 24 hr 04/10/22 12:00: SARS-CoV-2 (PCR) Not detected, Influenza A Untype (PCR) Not detected, Influenza Type B (PCR) Not detected 04/10/22 12:30: WBC 10.2, RBC 3.11 L, Hgb 9.5 L, Hct 30.0 L, MCV 96.4 H, MCH 30.6, MCHC 31.7 L, RDW 15.5, Plt Count 600 H D, MPV 8.8, Neut % (Auto) 81.0 H, Lymph % (Auto) 8.5 L, [place] % (Auto) 5.8, Eos % (Auto) 3.9, Baso % (Auto) 0.8, Neut # (Auto) 8.3 H, Lymph # (Auto) 0.9, [place] # (Auto) 0.6, Eos # (Auto) 0.4, Baso # (Auto) 0.1 04/10/22 12:30: Sodium 133 L, Potassium 3.6, Chloride 99, Carbon Dioxide 31 H, Anion Gap 6.6, BUN 9, Creatinine 0.90, Estimated Creat Clear 120, Estimated GFR 84, Est GFR ( Amer) 102, Glucose 116 H, Calcium 7.2 L, Total Bilirubin 0.6, AST 38, ALT 20, Alkaline Phosphatase 133 H, C-Reactive Protein 69.3 H, Total Protein 6.1 L, Albumin 3.0 L, Globulin 3.1, Albumin/Globulin Ratio 1.0 L 04/10/22 12:30: ESR 137 H 04/11/22 06:41: WBC 9.6, RBC 3.18 L, Hgb 9.6 L, Hct 30.5 L, MCV 96.1 H, MCH 30.1, MCHC 31.3 L, RDW 15.5, Plt Count 609 H, MPV 7.8, Neut % (Auto) 76.0, Lymph % (Auto) 10.6, [place] % (Auto) 7.1, Eos % (Auto) 5.5, Baso % (Auto) 0.9, Neut # (Auto) 7.3, Lymph # (Auto) 1.0, [place] # (Auto) 0.7, Eos # (Auto) 0.5 H, Baso # (Auto) 0.1 04/11/22 06:41: Sodium 132 L, Potassium 3.8, Chloride 97 L, Carbon Dioxide 32 H, Anion Gap 6.8, BUN 9, Creatinine 1.00, Estimated Creat Clear 123, Estimated GFR 75, Est GFR ( Amer) 90, Glucose 129 H, Calcium 7.4 L, Total Bilirubin 0.5, AST 36, ALT 21, Alkaline Phosphatase 137 H, Total Protein 6.2 L, Albumin 3.2 L, Globulin 3.0, Albumin/Globulin Ratio 1.1 Medical History: Reports:: Anxiety, Coronary Artery Disease, Hyperlipidemia, Hypertension, Palpitations Denies:: Cancer, Diabetes Mellitus Type 1, Diabetes Mellitus Type 2, Internal Pacemaker, MRSA, Pulmonary Embolism, Seizures, Transient Ischemic Attacks (TIA) Assessment and Plan (1) Post op infection Status: Acute Qualifiers: Encounter type: subsequent encounter Postoperative infection type: unspecified type Qualified Code(s): T81.40XD - Infection following a procedure, unspecified, subsequent encounter Category: Medical Code(s): T81.40XA - Infection following a procedure, unspecified, initial encounter (2) Obesity (BMI 30-39.9) Status: Acute Category: Medical Cod
--- NOTE | 2022-04-11 14:11 | HMH.ORTHOCON ---
*Admission Date: 04/11/22 *Reason for consult:: Right knee surgical site infection, concern for prosthetic joint infection *History of present illness: 66-year-old male 10 days status post right total knee arthroplasty by my partner Dr. Hutchinson, presented to clinic yesterday with redness and drainage from his incision. I had a discussion with him regarding further management. Ultimately, I felt 10 days out from surgery with copious drainage, and minimal him he would benefit from seroma versus hematoma evacuation. He was admitted to the hospital, made NPO. [facility] History Medical History: Reports:: Anxiety, Coronary Artery Disease, Hyperlipidemia, Hypertension, Palpitations Denies:: Cancer, Diabetes Mellitus Type 1, Diabetes Mellitus Type 2, Internal Pacemaker, MRSA, Pulmonary Embolism, Seizures, Transient Ischemic Attacks (TIA) *Have you ever received a pneumonia vaccine?: Yes *Have you received a flu vaccine this season?: Yes Other Medical History: Reports: Arthritis, Chemotherapy, Hypothyroidism, Thyroid Disease. Denies: Blood Transfusion Reaction Anesthesia experience/problems:: none Laterality Cases: Left: Arthroscopy Knee, Right: Total Knee Replacement, Bilateral: Carpal Tunnel Release, Tonsillectomy, Other Other Surgeries: Yes: No Previous Surgery, Cancer Surgery, Cardiac Catheterization, Cardiac Surgery, Colonoscopy, EGD, Other. No: Pacemaker Amputation: No Fractures: No - *Social History Last grade of school completed: 9th or 10th Smoking Status: Current every day smoker Tobacco Type: cigarettes # Packs/Day (cigarettes): 1 Alcohol Intake: former Substance Use Type: former substance user *Occupational Status:: retired Housing: apartment Household Members: spouse *Travel in the last 8 weeks: None - Psychiatric History Pschychiatric History:: Reports:: Anxiety Family Hx:: Cancer, Diabetes Review of Systems - Constitutional Reports fatigue - Eyes Denies change in vision - ENT Denies abnormal hearing - *Cardiovascular Denies chest pain - *Respiratory Denies shortness of breath - *Gastrointestinal Denies abdominal pain - *Genitourinary Denies difficulty urinating - *Musculoskeletal Reports abnormal walking, Reports joint pain - *Neurologic Denies behavioral changes, Denies seizure-like activity Meds Home Medications Medication Instructions Recorded Confirmed Type furosemide 40 mg tablet 40 mg PO DAILY #90 tab 08/29/21 04/11/22 Rx gabapentin 600 mg tablet 600 mg PO TID #90 tab 12/30/21 04/10/22 Rx losartan 25 mg tablet 25 mg PO DAILY #90 tab 03/02/22 04/10/22 Rx metoprolol succinate 50 mg 50 mg PO DAILY #90 tab 03/02/22 04/10/22 Rx tablet,extended release 24 hr Levothyroxine Sodium 100 mcg PO DAILY 03/31/22 04/10/22 History [Levothyroxine 100mcg (0.1MG) Tab] Levothyroxine Sodium [Synthroid 88 mcg PO DAILY 03/31/22 04/10/22 History 88mcg (0.088mg) tablet] Omeprazole 40 mg PO DAILY 03/31/22 04/10/22 History Potassium Chloride 8 meq PO DAILY 03/31/22 04/10/22 History Atorvastatin Calcium [Lipitor 10mg 10 mg PO HS 04/10/22 04/10/22 History Tab] Oxycodone HCl [Oxycodone 5mg tab 5 mg PO Q4-6H PRN 04/10/22 04/10/22 History (IR)] Rivaroxaban [Xarelto] 10 mg PO DAILY 04/10/22 04/10/22 History Sulfamethoxazole/Trimethoprim 1 each PO BID 04/10/22 04/10/22 History [Bactrim DS tablet] cephALEXin [Cephalexin 500mg Tab] 500 mg PO QID 04/10/22 04/10/22 History diazePAM [Valium 5mg tablets] 5 mg PO BID PRN 04/10/22 04/10/22 History Allergies Allergy/AdvReac Type Severity Reaction Status Date / Time escitalopram [From Lexapro] Allergy Severe Hallucinati Verified 04/10/22 09:01 ng morphine [MORPHINE] Allergy Unknown RASH ON Verified 04/10/22 09:01 LEGS Exam Vital signs and Labs for Last 24 Hours: Temp Pulse Resp BP Pulse Ox 98.5 F 66 16 157/71 H 96 04/11/22 07:45 04/11/22 07:45 04/11/22 07:45 04/11/22 07:45 04/11/22 07:45 Laboratory Results - last 24
--- NOTE | 2022-04-11 15:25 | P.OP_ITS ---
Date of procedure: 04/11/22 Pre-op Diagnosis:: Right knee wound dehiscence, hematoma/seroma with concern for surgical site infection, prosthetic joint infection. Post-op Diagnosis:: Same Procedure performed:: 40437: Incision and drainage, right prepatellar hematoma 93833: Wound vacuum-assisted closure Surgeon:: Kenneth Tao JR, MD Anesthesia: GETA Estimated blood loss (mL): 30 Clinical Note:: 66-year-old male with right knee surgical wound dehiscence with persistent drainage 10 days postoperatively. He had elevated CRP. I had a discussion with him regarding further management. After discussion of risk, benefits, alternatives, he wished to proceed with right knee debridement irrigation, possible polyethylene insert exchange. We discussed the risk and benefits of surgery. Risks included but were not limited to pain, bleeding, infection, damage to adjacent structures, need for further surgery, wound healing complications, loss of limb, . Patient expressed verbal consent and written consent was obtained for the above procedure. Operative findings:: No gross purulence in the prepatellar subcutaneous layer. The arthrotomy a ppeared well-healed with no fluid able to be expressed. Operative note:: Patient was identified in preoperative holding. Operative site was marked in indelible ink. History, physical, consent were reviewed and updated. Patient was surrendered to the anesthesia team, taken to the operative suite, placed supine on a well-padded operative table. Ipsilateral hip bump was placed as was a nonsterile thigh tourniquet. Anesthesia was induced. The operative extremity was prepped and draped in the usual sterile fashion. The operative team donned sterile gowns and gloves and a timeout was called. All in attendance agreed regarding the patient's identity, procedure, operative site. Weight-based dose of antibiotics was given prior to incision. I elevated the operative extremity and the tourniquet was inflated to 300 mmHg. I opened his previous incision. There was turbid appearing bloody fluid but no gross purulence in the subcutaneous layer. I took swab specimens of the prepatellar fluid which I sent for culture. I sent what appeared to be hematoma for culture as well. I removed all of the subcutaneous suture, evacuated the hematoma, thoroughly irrigated with Pulsavac, Irrisept, and Pulsavac again. I examined the knee arthrotomy which appeared to be healed. No fluid could be expressed from the knee arthrotomy. After copiously irrigating the wound once again, using a 20- gauge spinal needle, I aspirated the right knee, yielding bloody appearing fluid with no purulence. I sent this for cell count and culture. I closed the wound after leaving a drain exiting superior laterally with 2-0 PDS suture and 2-0 nylon. An incisional wound VAC was placed. This was noted to have good seal. Sterile Sof-Rol and Candido wrap was placed. The knee was left in extension. Polar plaque was applied as well as a knee immobilizer. Counts were correct x2. There were no apparent complications. I was present and scrubbed for the entire case. Condition: stable Disposition: PACU Complications:: None apparent
--- NOTE | 2022-04-11 15:28 | P.PN_ITS ---
[facility] Anesthesia Record Part I Intake, IV Amount: 300 Estimated blood loss (mL): 5 Urine output (mL): 0 Blood Pressure: 134/76 SaO2: 94 Pulse Rate: 88 Respiratory Rate: 18 Temperature: 97.7 F Patient is:: Drowsy Stable to PACU at:: 15:21
--- NOTE | 2022-04-11 16:08 | SUR.PHASEI ---
1550- detailed report called to arabella badillo in [facility]. 1552- pt left in stable condition with arabella badillo on [facility].
--- NOTE | 2022-04-11 17:26 | PC.NURSE ---
PT ALERT X4. C/O PAIN TO R KNEE, RELIEVED BY PRESCRIBED PAIN MEDS. WENT DOWN TO SURGERY AROUND 1420, WASH OUT OF R KNEE. WOUND VAC AND CHAYA DRAIN IN PLACE, DSG CDI TO SURGICAL SITE AND POLAR PACK BROUGHT FROM HOME. SINCE COMING BACK TO FLOOR FROM SURGERY PT HAS BEEN DROWSY AND REPORTS SOME PAIN TO R KNEE, 04/01. VSS. LUNGS CLEAR/DIMINISHED. PT EATING SUPPER, TOLERATING WELL. CB PERSONAL ITEMS WITHIN REACH.
[2022-04-12] VITALS: BP 113/71; PULSE 89; RESP 20; TEMP 37.2; O2SAT 93
[2022-04-12 04:00] VITALS: BP 126/74; PULSE 73; RESP 18; TEMP 36.9; O2SAT 94
--- NOTE | 2022-04-12 04:20 | PC.NURSE ---
Pt is alert and oriented x4, pt has complained of pain three times this shift, treated prn per oct. Pt lung sounds are clear. Pt abdomen is soft and nontender, bowel sounds active. Pt is using urinal independently. Polar pack in place to right knee under knee immobilizer, dressing is CDI. CHAYA drain in place and draining, bright red drainage. Wound vac in place and functioning, no draining noted to the tubing. 2+ pitting edema to RLE. Pt has had no other complaints this shift. Call light in reach and working.
[2022-04-12 04:43] VITALS: BMI 38.9
--- NOTE | 2022-04-12 05:45 | P.PN_ITS ---
Subjective Date: 04/12/22 Time: 05:45 Interval history: Pain improved from preoperatively. He has been resting comfortably. No adverse events. PN: Obj Ex Vital signs: Temp Pulse Resp BP Pulse Ox 98.5 F 73 18 126/74 94 L 04/12/22 04:00 04/12/22 04:00 04/12/22 04:00 04/12/22 04:00 04/12/22 04:00 - Constitutional no acute distress - Routine HEENT Exam Head: Present: normocephalic, atraumatic Eye: Present: EOMI ENT: Present: mucous membranes moist - Routine Neck Exam Present: supple - Routine Respiratory Exam Absent: respiratory distress - Routine Cardiovascular Exam Present: RRR - Routine Abdominal Exam Present: soft. Absent: distended - Detailed Lower Extremity Exam Knee: Right wound (Right lower extremity knee immobilizer/dressing clean, dry, intact. Drain with serosanguineous output. No output from wound vacuum- assisted closure. Palpable dorsalis pedis/posterior tibial pulse. Sensation intact to light touch deep peroneal, superficial peroneal, tibial, sural, saphenous nerve distribution. 5/5 motor function intact to extensor hallicus longus, flexor hallicus longus, tibialis anterior, gastroc/soleus, posterior tibialis, foot eversion.) Progress Note: A&P (1) Post op infection Status: Acute (2) Obesity (BMI 30-39.9) Status: Acute Assessment and Plan for All Diagnoses:: ,66-year-old male with right knee wound dehiscence, hematoma / seroma status post hematoma evacuation, debridement, irrigation, wound vacuum-assisted closure placement April 11, 2022. Plan for nonweightbearing right lower extremity. Plan to keep knee immobilizer in place with wound vacuum-assisted closure for 5 days. We will likely leave drain for that entire time. Plan to follow intraoperative cultures from subcutaneous wound as well as intra-articular aspiration. Both Gram stain demonstrated few gram-positive cocci. If intra-articular aspirate culture is positive, would anticipate need for repeat debridement irrigation with polyethylene insert exchange. Will follow.
[2022-04-12 07:23] LABS: Chloride 100 mmol/L (98-107); Potassium 4.2 mmoL/L (3.5-5.1)
[2022-04-12 07:24] LABS: Basophils # 0.1 K/mm3 (0-0.2); Basophils % 0.6 % (0.1-2.0); Eosinophils # 0.6 K/mm3 (0.0-0.4); Eosinophils % 5.2 % (0.1-12.0); Hematocrit 28.5 % (42.0-52.0); Hemoglobin 9.1 g/dL (14.1-18.0); Lymphocytes # 1.5 K/mm3 (0.7-4.5); Lymphocytes % 12.1 % (10-50); Mean Corpuscular HGB Conc 31.8 g/dL (31.8-35.4); Mean Corpuscular Hemoglobin 30.1 pg (27.0-31.2); Mean Corpuscular Volume 94.6 fl (80-94); Mean Platelet Volume 7.7 fl (7.4-10.4); Monocytes # 0.6 K/mm3 (0.1-1.0); Monocytes % 5.3 % (1.7-9.3); Neutrophils # 9.3 K/mm3 (1.8-7.8); Neutrophils % 76.8 % (37.0-80.0); Platelet Count 634 K/mm3 (142-424); Red Blood Count 3.01 M/mm3 (4.60-6.20); Red Cell Distribution Width 15.5 % (11.5-17.5); White Blood Count 12.1 K/mm3 (4.8-10.8)
[2022-04-12 07:26] LABS: Alanine Aminotransferase 17 U/L (12-78); Albumin Level 2.9 g/dl (3.5-5.0); Alkaline Phosphatase 124 U/L (38-126); Aspartate Amino Transferase 34 U/L (17-59); Bilirubin,Total 0.2 mg/dl (0.2-1.3); Carbon Dioxide 28 mmol/L (22.0-30.0); Globulin 2.9 g/dL (1.3-3.2); Glucose 112 mg/dl (74-100); Total Protein,Serum 5.8 g/dl (6.3-8.2)
[2022-04-12 07:54] VITALS: BP 113/55; PULSE 60; RESP 18; TEMP 36.7; O2SAT 96
[2022-04-12 08:05] LABS: Blood Urea Nitrogen 13 mg/dl (9-20); Creatinine Clearance Estimated 127 mL/min (50-200); Estimated Glomerular Filt Rate 84 ml/min (>60); GFR (African American) 102 ML/MIN (>60)
[2022-04-12 08:09] LABS: Anion Gap 8.2 mEq/L (5-15); Sodium 132 mmol/L (136-145)
--- NOTE | 2022-04-12 11:03 | HMH.ACPN2 ---
Internal Medicine - PN: Subj *Date: 04/12/22 *Time: 11:06 Interval history: resting in relative comfort pain well controlled op note and ortho note reviewed Exam Vital signs and Labs for Last 24 Hours: Temp Pulse Resp BP Pulse Ox 98.0 F 60 18 113/55 L 96 04/12/22 07:54 04/12/22 07:54 04/12/22 07:54 04/12/22 07:54 04/12/22 07:54 Laboratory Results - last 24 hr 04/12/22 07:07: WBC 12.1 H D, RBC 3.01 L, Hgb 9.1 L, Hct 28.5 L, MCV 94.6 H, MCH 30.1, MCHC 31.8, RDW 15.5, Plt Count 634 H, MPV 7.7, Neut % (Auto) 76.8, Lymph % (Auto) 12.1, [place]ren % (Auto) 5.3, Eos % (Auto) 5.2, Baso % (Auto) 0.6, Neut # (Auto) 9.3 H, Lymph # (Auto) 1.5, Barren # (Auto) 0.6, Eos # (Auto) 0.6 H, Baso # (Auto) 0.1 04/12/22 07:07: Sodium 132 L, Potassium 4.2, Chloride 100, Carbon Dioxide 28, Anion Gap 8.2, BUN 13 D, Creatinine 0.90, Estimated Creat Clear 127, Estimated GFR 84, Est GFR ( Amer) 102, Glucose 112 H, Calcium 7.0 L, Total Bilirubin 0.2, AST 34, ALT 17, Alkaline Phosphatase 124, Total Protein 5.8 L, Albumin 2.9 L, Globulin 2.9, Albumin/Globulin Ratio 1.0 L I & O for Last 24 hours: Intake & Output 04/09/22 04/10/22 04/11/22 04/12/22 23:59 23:59 23:59 23:59 Intake Total 2880 / 3120 900 / 900 910 / 910 Output Total 1500 / 1800 890 / 890 3730 / 3730 Balance 1380 / 1320 -2820 / -2820 Weight 256 lb 11.2 oz 264 lb 1.6 oz 271 lb 11.2 oz Microbiology Reports for the Last 24 Hours: Microbiology 04/11/22 14:40 Knee,Right - Abscess Gram Stain - Final 04/11/22 14:40 Knee,Right - Abscess Gram Stain - Final 04/11/22 14:40 Knee,Right - Abscess - Final Not Reportable 04/11/22 14:40 Knee,Right - Abscess - Final Not Reportable 04/11/22 14:40 Knee,Right - Abscess - Final Not Reportable 04/11/22 14:40 Knee,Right - Abscess - Final Not Reportable 04/11/22 14:40 Knee,Right - Abscess - Final Not Reportable 04/11/22 14:40 Knee,Right - Abscess - Final Not Reportable 04/11/22 14:40 Knee,Right - Abscess - Final Not Reportable 04/11/22 14:40 Knee,Right - Abscess - Final Not Reportable 04/11/22 14:40 Knee,Right - Abscess - Final Not Reportable 04/11/22 14:40 Knee,Right - Abscess Gram Stain Comment - Final Not Reportable - Constitutional no acute distress - *Routine HEENT Exam Head: Present: normocephalic Eye: Present: EOMI, PERRL ENT: Present: mucous membranes moist - *Routine Neck Exam Present: supple. Absent: lymphadenopathy - *Routine Respiratory Exam Present: CTA bilaterally - *Routine Cardiovascular Exam Present: RRR - *Routine Abdominal Exam Present: soft, normoactive bowel sounds. Absent: tenderness - *Routine Extremities Exam Present: tenderness - *Routine Skin Exam Present: warm. Absent: rash - *Routine Neurological Exam Present: alert, oriented X3 Assessment and Plan (1) Post op infection Status: Acute Qualifiers: Encounter type: subsequent encounter Postoperative infection type: unspecified type Qualified Code(s): T81.40XD - Infection following a procedure, unspecified, subsequent encounter Category: Medical Code(s): T81.40XA - Infection following a procedure, unspecified, initial encounter (2) Obesity (BMI 30-39.9) Status: Acute Category: Medical Code(s): E66.9 - Obesity, unspecified - Assessment and plan all Dx Assessment and Plan for all problems:: vanc/cefepime pending cultures drain/mobilize per ortho recommendations
[2022-04-12 11:41] VITALS: BP 141/68; PULSE 62; RESP 18; TEMP 37.1; O2SAT 97
[2022-04-12 15:29] VITALS: BP 144/73; PULSE 65; RESP 18; TEMP 37.2; O2SAT 96
--- NOTE | 2022-04-12 17:30 | PC.NURSE ---
SINCE RECEIVING REPORT ON PT, HES DONE WELL, ALERT X4. C/O PAIN X1, RELIEVED BY PRESCRIBED PAIN MEDS AND PROPPING R LEG UP ON PILLOW. POLAR PACK AND DSG CDI TO R KNEE. FAMILY CURRENTLY AT BEDSIDE, CB & PERSONAL ITEMS W/I REACH, NO CONCERNS AT THIS TIME.
[2022-04-12 19:39] VITALS: BP 147/63; PULSE 64; RESP 17; TEMP 37.1; O2SAT 94
[2022-04-13] VITALS (7 sets, daily range): BP systolic 111–142; BP diastolic 66–78; PULSE 61–78; RESP 17–18; TEMP 36.5–37.2; O2SAT 95–97; BMI 35.9
[2022-04-13 05:05] LABS: Basophils # 0.1 K/mm3 (0-0.2); Basophils % 0.7 % (0.1-2.0); Eosinophils # 0.7 K/mm3 (0.0-0.4); Eosinophils % 5.4 % (0.1-12.0); Hematocrit 31.8 % (42.0-52.0); Hemoglobin 9.9 g/dL (14.1-18.0); Lymphocytes # 1.4 K/mm3 (0.7-4.5); Lymphocytes % 11.3 % (10-50); Mean Corpuscular HGB Conc 31.3 g/dL (31.8-35.4); Mean Corpuscular Hemoglobin 30.2 pg (27.0-31.2); Mean Corpuscular Volume 96.7 fl (80-94); Mean Platelet Volume 7.6 fl (7.4-10.4); Monocytes # 0.6 K/mm3 (0.1-1.0); Monocytes % 4.9 % (1.7-9.3); Neutrophils # 9.4 K/mm3 (1.8-7.8); Neutrophils % 77.7 % (37.0-80.0); Red Blood Count 3.29 M/mm3 (4.60-6.20); Red Cell Distribution Width 15.6 % (11.5-17.5); White Blood Count 12.1 K/mm3 (4.8-10.8)
[2022-04-13 05:09] LABS: Platelet Count 717 K/mm3 (142-424)
[2022-04-13 05:26] LABS: Alanine Aminotransferase 22 U/L (12-78); Albumin Level 3.1 g/dl (3.5-5.0); Alkaline Phosphatase 120 U/L (38-126); Anion Gap 6.9 mEq/L (5-15); Aspartate Amino Transferase 31 U/L (17-59); Bilirubin,Total 0.5 mg/dl (0.2-1.3); Blood Urea Nitrogen 11 mg/dl (9-20); Calcium 8.1 mg/dl (8.4-10.2); Carbon Dioxide 29 mmol/L (22.0-30.0); Chloride 100 mmol/L (98-107); Creatinine Clearance Estimated 127 mL/min (50-200); Estimated Glomerular Filt Rate 84 ml/min (>60); GFR (African American) 102 ML/MIN (>60); Globulin 3.1 g/dL (1.3-3.2); Potassium 3.9 mmoL/L (3.5-5.1); Sodium 132 mmol/L (136-145); Total Protein,Serum 6.2 g/dl (6.3-8.2)
--- NOTE | 2022-04-13 05:28 | PC.NURSE ---
Pt has rested intermittently throughout shift. Pt has reported pain x2 to right knee, medicated per MAR with relief. Around 04:00, pt was found to be sitting up on the side of the bed with his wound vac alarming. Pt reported he was getting back in bed from the bathroom. Pt states he walked independently to the bathroom cause he heard his dad yelling for him. When asked orientation questions, Name, , Place, and time, pt was fully alert and orientated. Removed right knee immobilizer, CHAYA drain and wound vac remain in place/ Dressing to right knee is C/D/I, no signs of bleeding present. Pt was aware that he is nonweight bearing to that right leg and never attempted to get up out of the bed until now. Bed alarm on for safety and explained to patient. Pt uses urinal independently. Requires no O2 throughout shift. reported Vanc trough 14.87, Nicole at night watch gave okay to give next dose.
[2022-04-13 05:29] LABS: Glucose 147 mg/dl (74-100)
[2022-04-13 05:31] LABS: Vancomycin,Trough 14.8 ug/mL (5.0-10.0)
--- NOTE | 2022-04-13 06:37 | HMH.ORTHPN ---
Subjective Date: 04/13/22 Time: 06:37 Interval history: Pain is tolerable. Had some confusion overnight, thought he heard his father calling to him while he was sleeping. He stood up, try to leave his bed but was intercepted by nursing. He fortunately did not pull his drain. PN: Obj Ex Vital signs: Temp Pulse Resp BP Pulse Ox 98.3 F 68 18 142/70 H 96 04/13/22 04:00 04/13/22 04:00 04/13/22 04:00 04/13/22 04:00 04/13/22 04:00 - Constitutional no acute distress - Routine HEENT Exam Head: Present: normocephalic, atraumatic Eye: Present: EOMI ENT: Present: mucous membranes moist - Routine Neck Exam Present: supple - Routine Respiratory Exam Absent: respiratory distress - Routine Cardiovascular Exam Present: RRR - Routine Abdominal Exam Present: soft. Absent: distended - Detailed Lower Extremity Exam Knee: Right wound (Right lower extremity knee immobilizer/dressing clean, dry, intact. Drain with serosanguineous output. No output from wound vacuum-assisted closure. Palpable dorsalis pedis/posterior tibial pulse. Sensation intact to light touch deep peroneal, superficial peroneal, tibial, sural, saphenous nerve distribution. 5/5 motor function intact to extensor hallicus longus, flexor hallicus longus, tibialis anterior, gastroc/soleus, posterior tibialis, foot eversion.) Progress Note: A&P (1) Post op infection Status: Acute (2) Obesity (BMI 30-39.9) Status: Acute Assessment and Plan for All Diagnoses:: 66-year-old male with right knee wound dehiscence, hematoma / seroma status post hematoma evacuation, debridement, irrigation, wound vacuum-assisted closure placement April 11, 2022. Plan for nonweightbearing right lower extremity. Plan to keep knee immobilizer in place with wound vacuum-assisted closure for 5 days. We will likely leave drain for that entire time. Plan to follow intraoperative cultures from subcutaneous wound as well as intra-articular aspiration. Both Gram stain demonstrated few gram-positive cocci. At this point I think he would likely benefit from repeat I&D with polyethylene insert exchange. Will discuss with recon specialist and Dr. Hutchinson. Likely surgery tomorrow. NPO at midnight.
--- NOTE | 2022-04-13 09:24 | P.PN_ITS ---
[facility] Anesthesia Record Part II Discharge Time: 15:51 Destination: Second Floor PACU nurse assessment reviewed?: Yes Patient Condition:: Good Anesthesia Complications:: None Swallowing reflex intact?: Yes Cyanosis?: No Blood Pressure: 134/78 Pulse Rate: 78 Temperature: 97.7 F Mental Status: Alert & Oriented Pain level:: 6 Nausea and/or vomitting:: None Intake, IV Amount: 0
[2022-04-13 09:35] LABS: Vancomycin,Peak 30.9 ug/ml (11-39)
--- NOTE | 2022-04-13 10:39 | HMH.PHACONS ---
- Pharmacy Consult Date: 04/13/22 Time: 10:45 Referring provider: DR. BRAXTON Reason for Consult:: VANCOMYCIN LEVELS Allergies and ADEs:: Allergies Allergy/AdvReac Type Severity Reaction Status Date / Time escitalopram [From Lexapro] Allergy Severe Hallucinati Verified 04/10/22 09:01 ng morphine [MORPHINE] Allergy Unknown RASH ON Verified 04/10/22 09:01 LEGS Home Medications:: Home Medications Medication Instructions Recorded Confirmed Type furosemide 40 mg tablet 40 mg PO DAILY #90 tab 08/29/21 04/11/22 Rx gabapentin 600 mg tablet 600 mg PO TID #90 tab 12/30/21 04/10/22 Rx losartan 25 mg tablet 25 mg PO DAILY #90 tab 03/02/22 04/10/22 Rx metoprolol succinate 50 mg 50 mg PO DAILY #90 tab 03/02/22 04/10/22 Rx tablet,extended release 24 hr Levothyroxine Sodium 100 mcg PO DAILY 03/31/22 04/10/22 History [Levothyroxine 100mcg (0.1MG) Tab] Levothyroxine Sodium [Synthroid 88 mcg PO DAILY 03/31/22 04/10/22 History 88mcg (0.088mg) tablet] Omeprazole 40 mg PO DAILY 03/31/22 04/10/22 History Potassium Chloride 8 meq PO DAILY 03/31/22 04/10/22 History Atorvastatin Calcium [Lipitor 10mg 10 mg PO HS 04/10/22 04/10/22 History Tab] Oxycodone HCl [Oxycodone 5mg tab 5 mg PO Q4-6H PRN 04/10/22 04/10/22 History (IR)] Rivaroxaban [Xarelto] 10 mg PO DAILY 04/10/22 04/10/22 History Sulfamethoxazole/Trimethoprim 1 each PO BID 04/10/22 04/10/22 History [Bactrim DS tablet] cephALEXin [Cephalexin 500mg Tab] 500 mg PO QID 04/10/22 04/10/22 History diazePAM [Valium 5mg tablets] 5 mg PO BID PRN 04/10/22 04/10/22 History Height: 1.78 m Weight: 113.85 kg Laboratory Results:: Laboratory Results - last 24 hr 04/13/22 04:40: WBC 12.1 H, RBC 3.29 L, Hgb 9.9 L, Hct 31.8 L, MCV 96.7 H, MCH 30.2, MCHC 31.3 L, RDW 15.6, Plt Count 717 H, MPV 7.6, Neut % (Auto) 77.7, Lymph % (Auto) 11.3, Lares % (Auto) 4.9, Eos % (Auto) 5.4, Baso % (Auto) 0.7, Neut # (Auto) 9.4 H, Lymph # (Auto) 1.4, Lares # (Auto) 0.6, Eos # (Auto) 0.7 H, Baso # (Auto) 0.1 04/13/22 04:40: Sodium 132 L, Potassium 3.9, Chloride 100, Carbon Dioxide 29, Anion Gap 6.9, BUN 11, Creatinine 0.90, Estimated Creat Clear 127, Estimated GFR 84, Est GFR ( Amer) 102, Glucose 147 H D, Calcium 8.1 L, Total Bilirubin 0.5, AST 31, ALT 22 D, Alkaline Phosphatase 120, Total Protein 6.2 L, Albumin 3.1 L, Globulin 3.1, Albumin/Globulin Ratio 1.0 L 04/13/22 04:40: Vancomycin Trough 14.8 H 04/13/22 09:10: Vancomycin Peak 30.9 Medical History: Reports:: Anxiety, Coronary Artery Disease, Hyperlipidemia, Hypertension, Palpitations Denies:: Cancer, Diabetes Mellitus Type 1, Diabetes Mellitus Type 2, Internal Pacemaker, MRSA, Pulmonary Embolism, Seizures, Transient Ischemic Attacks (TIA) Assessment and Plan (1) Post op infection Status: Acute Qualifiers: Encounter type: subsequent encounter Postoperative infection type: unspecified type Qualified Code(s): T81.40XD - Infection following a procedure, unspecified, subsequent encounter Category: Medical Code(s): T81.40XA - Infection following a procedure, unspecified, initial encounter (2) Obesity (BMI 30-39.9) Status: Acute Category: Medical Code(s): E66.9 - Obesity, unspecified - Assessment and plan all Dx Assessment and Plan for all problems:: PATIENT'S VANCOMYCIN TROUGH AND PEAK LEVELS WERE 14.8 MCG/ML AND 30.9 MCG/ML, RESPECTIVELY. RECOMMEND CONTINUING WITH VANCOMYCIN 1750 MG Q12H AT THIS TIME.
--- NOTE | 2022-04-13 12:52 | HMH.ACPN2 ---
Internal Medicine - PN: Subj *Date: 04/14/22 *Time: 06:55 Interval history: pt doing ok but has pain to rt knee - had surg over weekend - surg also today Exam Vital signs and Labs for Last 24 Hours: Temp Pulse Resp BP Pulse Ox 98.9 F 68 17 118/67 95 04/13/22 11:04 04/13/22 11:04 04/13/22 11:04 04/13/22 11:04 04/13/22 11:04 Laboratory Results - last 24 hr 04/13/22 04:40: WBC 12.1 H, RBC 3.29 L, Hgb 9.9 L, Hct 31.8 L, MCV 96.7 H, MCH 30.2, MCHC 31.3 L, RDW 15.6, Plt Count 717 H, MPV 7.6, Neut % (Auto) 77.7, Lymph % (Auto) 11.3, Schleicher % (Auto) 4.9, Eos % (Auto) 5.4, Baso % (Auto) 0.7, Neut # (Auto) 9.4 H, Lymph # (Auto) 1.4, Schleicher # (Auto) 0.6, Eos # (Auto) 0.7 H, Baso # (Auto) 0.1 04/13/22 04:40: Sodium 132 L, Potassium 3.9, Chloride 100, Carbon Dioxide 29, Anion Gap 6.9, BUN 11, Creatinine 0.90, Estimated Creat Clear 127, Estimated GFR 84, Est GFR ( Amer) 102, Glucose 147 H D, Calcium 8.1 L, Total Bilirubin 0.5, AST 31, ALT 22 D, Alkaline Phosphatase 120, Total Protein 6.2 L, Albumin 3.1 L, Globulin 3.1, Albumin/Globulin Ratio 1.0 L 04/13/22 04:40: Vancomycin Trough 14.8 H 04/13/22 09:10: Vancomycin Peak 30.9 I & O for Last 24 hours: Intake & Output 04/11/22 04/12/22 04/13/22 04/14/22 11:59 11:59 11:59 11:59 Intake Total 3120 / 3120 2050 / 2050 1390 / 1390 Output Total 1490 / 1490 4230 / 4230 5485 / 5485 Balance 1630 / 1630 -2180 / -2180 -4095 / -4095 Weight 264 lb 1.6 oz 271 lb 11.2 oz 250 lb 15.94 oz Microbiology Reports for the Last 24 Hours: Microbiology 04/11/22 14:40 Knee,Right - Right Gram Stain - Final 04/11/22 14:40 Knee,Right - Right Surgical Biopsy Culture - Preliminary NO GROWTH AFTER 24 HOURS 04/11/22 14:40 Knee,Right - Abscess Gram Stain - Final 04/11/22 14:40 Knee,Right - Abscess Abscess Culture - Preliminary NO GROWTH AFTER 24 HOURS 04/11/22 14:40 Knee,Right - Abscess Gram Stain - Final 04/11/22 14:40 Knee,Right - Abscess Abscess Culture - Preliminary NO GROWTH AFTER 24 HOURS 04/10/22 12:30 Blood Blood Culture - Preliminary NO GROWTH AFTER 48 HOURS 04/10/22 12:30 Blood Blood Culture - Preliminary NO GROWTH AFTER 48 HOURS - Constitutional no acute distress - *Routine HEENT Exam Head: Present: normocephalic Eye: Present: EOMI, PERRL ENT: Present: mucous membranes dry - *Routine Neck Exam Present: supple. Absent: JVD - *Routine Respiratory Exam Present: CTA bilaterally - *Routine Cardiovascular Exam Present: RRR - *Routine Abdominal Exam Present: soft - *Routine Extremities Exam Absent: calf tenderness - *Routine Skin Exam Present: intact - *Routine Neurological Exam Present: alert, CN II-XII intact - Routine Psychiatric Exam Present: normal affect Assessment and Plan (1) Post op infection Status: Acute Qualifiers: Encounter type: subsequent encounter Postoperative infection type: unspecified type Qualified Code(s): T81.40XD - Infection following a procedure, unspecified, subsequent encounter Category: Medical Code(s): T81.40XA - Infection following a procedure, unspecified, initial encounter (2) Obesity (BMI 30-39.9) Status: Acute Category: Medical Code(s): E66.9 - Obesity, unspecified
--- NOTE | 2022-04-13 14:39 | PC.NURSE ---
rounded on patient. no concerns or questions. eager to feel better some pain to knee noted. immobilizer and wound vac in place. encouraged him to ring out with any needs or concerns.
--- NOTE | 2022-04-13 15:30 | PC.NURSE ---
Patient VSS, new IV place in RAC x 1 attempt. Patient went outside with family member stating he wanted to see his grandson, appropriate form signed; provider notified. Patient went in wheelchair with right leg brace on and leg elevated. No acute distress noted, call light within reach bed at lowest level for safety; will continue to monitor.
[2022-04-13 18:28] LABS: Color,Fluid Red (Yellow); Eosinophils,Fluid 0 % (Not Estab.); Lymphocytes,Fluid 8 % (Not Estab.); Macrophages,Fluid 6 % (Not Estab.); Nucleated cells, Syn. Fluid 3430 cells/uL (0-200); Polys,Fluid 86 % (Not Estab.); RBC,Fluid 146000 /uL (Not Estab.)
[2022-04-14] VITALS (23 sets, daily range): BP systolic 119–169; BP diastolic 53–94; PULSE 51–75; RESP 15–20; TEMP 36.1–43; O2SAT 93–100; BMI 29.3
--- NOTE | 2022-04-14 05:21 | PC.NURSE ---
pt with complaints of pain 8/10 to right knee, knee immobilizer intact through the night, dressing cdi, j/p to bulb suction to right knee, wound vac to right knee in place, +pedal pulses noted, skin pwd, pt a+o x4; VSS, pt remains npo for possible surgery today, pt rested well through the night, no other issues or concerns noted at this time.
--- NOTE | 2022-04-14 09:09 | HMH.ORTHPN ---
Subjective Date: 04/14/22 Time: 09:09 Interval history: Pain is tolerable. No adverse events overnight. PN: Obj Ex Vital signs: Temp Pulse Resp BP Pulse Ox 98.7 F 68 17 124/53 L 97 04/14/22 07:42 04/14/22 07:42 04/14/22 07:42 04/14/22 07:42 04/14/22 08:00 - Constitutional no acute distress - Routine HEENT Exam Head: Present: normocephalic, atraumatic Eye: Present: EOMI ENT: Present: mucous membranes moist - Routine Neck Exam Present: supple - Routine Respiratory Exam Absent: respiratory distress - Routine Cardiovascular Exam Present: RRR - Routine Abdominal Exam Present: soft. Absent: distended - Detailed Lower Extremity Exam Knee: Right wound (Right knee with wound vacuum-assisted closure device, drain in place. Palpable dorsalis pedis/posterior tibial pulse. Sensation intact to light touch deep peroneal, superficial peroneal, tibial, sural, saphenous nerve distribution. 5/5 motor function intact to extensor hallicus longus, flexor hallicus longus, tibialis anterior, gastroc/soleus, posterior tibialis, foot eversion.) Progress Note: A&P (1) Post op infection Status: Acute (2) Obesity (BMI 30-39.9) Status: Acute Assessment and Plan for All Diagnoses:: 66-year-old male status post right total knee arthroplasty with wound dehiscence status postdebridement irrigation, wound vacuum-assisted closure. His superficial and deep Gram stain was positive for gram-positive cocci. His cultures have been negative x48 hours. I had a discussion with Sean and his son regarding further management. Also sought guidance from residency mentor specializing in reconstruction regarding further management. We discussed expectant management, following cultures with IV antibiotics versus repeat debridement irrigation with polyethylene insert exchange. At this point, given the positive Gram stain, I think the safest course would be for repeat right knee debridement and irrigation with polyethylene insert exchange. Sean is amenable with the plan. We discussed the risk and benefits of surgery. Risks included but were not limited to pain, bleeding, infection, damage to adjacent structures, need for further surgery, wound healing complications, loss of limb, . Patient expressed verbal consent and written consent was obtained for the above procedure.
--- NOTE | 2022-04-14 09:54 | P.PN_ITS ---
[facility] Anesthesia Checklist - Patient Identification Patient Identification: Arm Band, Verbal (Name & ) - Structural Data Admitted From: Home Planned Operative Procedure/s: Revision of right knee, Polyethylene liner REPLACEMENT Consent for Planned Operative Procedure(s) Verified: Yes Verified Documents: Surgical Consent - NPO Status Verified Time NPO: 00:00 - Additional verifications Anesthesia Reactions: Yes (slow to awaken) Hx Blood Transfusions: No Blood Transfusion Reaction: No - Airway Assessment C-Spine Mobility Assessed: Yes TMJ Mobility Assessed: Yes Dentition: Good Dentition - Neurological Assessment Level of Consciousness: Awake, Alert, Appropriate - Anesthesia Plan Anesthesia Risk discussed: Yes ASA Class: III Anesthesia Type: MAC w/Spinal [facility] History I have reviewed the patient's past medical history: Yes Medical History: Reports:: Anxiety, Coronary Artery Disease, Hyperlipidemia, Hypertension, Palpitations Denies:: Cancer, Diabetes Mellitus Type 1, Diabetes Mellitus Type 2, Internal Pacemaker, MRSA, Pulmonary Embolism, Seizures, Transient Ischemic Attacks (TIA) *Have you ever received a pneumonia vaccine?: Yes *Have you received a flu vaccine this season?: Yes Other Medical History: Reports: Arthritis, Chemotherapy, Hypothyroidism, Thyroid Disease. Denies: Blood Transfusion Reaction Anesthesia experience/problems:: none Laterality Cases: Left: Arthroscopy Knee, Right: Total Knee Replacement, Bilateral: Carpal Tunnel Release, Tonsillectomy, Other Other Surgeries: Yes: No Previous Surgery, Cancer Surgery, Cardiac Catheterization, Cardiac Surgery, Colonoscopy, EGD, Other. No: Pacemaker Amputation: No Fractures: No - *Social History Last grade of school completed: 9th or 10th Smoking Status: Current every day smoker Tobacco Type: cigarettes # Packs/Day (cigarettes): 1 Alcohol Intake: former Substance Use Type: former substance user *Occupational Status:: retired Housing: apartment Household Members: spouse *Travel in the last 8 weeks: None - Psychiatric History Pschychiatric History:: Reports:: Anxiety Family Hx:: Cancer, Diabetes
--- NOTE | 2022-04-14 11:48 | HMH.ANESI ---
[facility] Anesthesia Record Part I Intake, IV Amount: 1,200 Estimated blood loss (mL): 10 Urine output (mL): 0 Blood Pressure: 119/53 SaO2: 95 Pulse Rate: 57 Respiratory Rate: 18 Temperature: 97.0 F Patient is:: Drowsy Stable to PACU at:: 11:46
--- NOTE | 2022-04-14 12:41 | XR_ITS ---
FINAL REPORT CLINICAL HISTORY: postop COMPARISON: April 06, 2022 FINDINGS: RIGHT KNEE Three views of the right knee were obtained. There is an overlying splint and a surgical drain. There is no acute fracture or dislocation. The patient is status post total knee prosthesis. Soft tissues are unremarkable. IMPRESSION: Postoperative changes with no acute bony abnormality. Reviewed, Interpreted and Dictated by Jovanni Broderick MD Transcribed by Darlene Esquivel Authenticated and [facility]
--- NOTE | 2022-04-14 12:44 | HMH.ACPN2 ---
Internal Medicine - PN: Subj *Date: 04/14/22 *Time: 15:25 Interval history: uneventful night going to or later today ortho notes reviewed Exam Vital signs and Labs for Last 24 Hours: Temp Pulse Resp BP Pulse Ox 97.0 F L 57 L 18 119/53 L 95 04/14/22 11:49 04/14/22 11:49 04/14/22 11:49 04/14/22 11:49 04/14/22 11:46 Laboratory Results - last 24 hr 04/11/22 14:40: Fluid Clarity Bloody. A, Fluid Lining Cell TNP, Synovial Color Red A, Synovial RBC 101713, Synovial Tot Nuc Cell 3430 H, Synovial Eosinophils% 0, Synovial Polynuclear % 86, Synovial Lymphocytes % 8, Synovial Macrophages % 6, Synovial Fluid Comment TNP I & O for Last 24 hours: Intake & Output 04/11/22 04/12/22 04/13/22 04/14/22 23:59 23:59 23:59 23:59 Intake Total 900 / 900 2230 / 2230 2420 / 2420 1750 / 1750 Output Total 890 / 890 7780 / 8280 5935 / 5935 700 / 700 Balance -5550 / -6050 -3515 / -3515 1050 / 1050 Weight 264 lb 1.6 oz 271 lb 11.2 oz 250 lb 15.94 oz 205 lb 2 oz Microbiology Reports for the Last 24 Hours: Microbiology 04/11/22 14:40 Knee,Right - Right Gram Stain - Final 04/11/22 14:40 Knee,Right - Right Surgical Biopsy Culture - Preliminary NO GROWTH AFTER 48 HOURS 04/11/22 14:40 Knee,Right - Abscess Gram Stain - Final 04/11/22 14:40 Knee,Right - Abscess Abscess Culture - Preliminary NO GROWTH AFTER 48 HOURS 04/11/22 14:40 Knee,Right - Abscess Gram Stain - Final 04/11/22 14:40 Knee,Right - Abscess Abscess Culture - Preliminary NO GROWTH AFTER 48 HOURS - Constitutional no acute distress - *Routine HEENT Exam Head: Present: normocephalic Eye: Present: EOMI, PERRL ENT: Present: mucous membranes moist - *Routine Neck Exam Present: supple. Absent: lymphadenopathy - *Routine Respiratory Exam Present: CTA bilaterally - *Routine Cardiovascular Exam Present: RRR - *Routine Abdominal Exam Present: soft, normoactive bowel sounds. Absent: tenderness - *Routine Extremities Exam Present: tenderness. Absent: full ROM - *Routine Skin Exam Present: warm. Absent: rash - *Routine Neurological Exam Present: alert, oriented X3 Assessment and Plan (1) Post op infection Status: Acute Qualifiers: Encounter type: subsequent encounter Postoperative infection type: unspecified type Qualified Code(s): T81.40XD - Infection following a procedure, unspecified, subsequent encounter Category: Medical Code(s): T81.40XA - Infection following a procedure, unspecified, initial encounter (2) Obesity (BMI 30-39.9) Status: Acute Category: Medical Code(s): E66.9 - Obesity, unspecified - Assessment and plan all Dx Assessment and Plan for all problems:: await findings in or
--- NOTE | 2022-04-14 12:51 | SUR.PHASEI ---
LATE ENTRY 1240 called and gave detailed report to jonathon Kathleen/surgical scrub tech 1243 transported via bed. vital signs stable. rates pain at a level 8. pain medication has been administered. no more pain medications administered and pt is okay to take to room per anesthesia. see MAR for pain med administration. pt left in stable condition with jonathon Kathleen/surgical scrub tech at bedside.
--- NOTE | 2022-04-14 13:05 | PC.NURSE ---
LATE ENTRY 1236 Pt appears to be resting comfortably. Dozes off easily but rates pain at a level 10 upon arousal.
--- NOTE | 2022-04-14 13:06 | PC.NURSE ---
LATE ENTRY 1243 pt dozes into a light sleep easily. upon arousal, states pain is a level 8. pt also states that he is ready to go to med/surg room. pt transported to room via bed.
--- NOTE | 2022-04-14 13:10 | HMH.ACPN ---
Internal Medicine - PN: Subj *Date: 04/14/22 *Time: 13:10 Exam Vital signs and Labs for Last 24 Hours: Temp Pulse Resp BP Pulse Ox 97.5 F L 62 15 140/59 L 95 04/14/22 12:43 04/14/22 12:43 04/14/22 12:43 04/14/22 12:43 04/14/22 12:43 Laboratory Results - last 24 hr 04/11/22 14:40: Fluid Clarity Bloody. A, Fluid Lining Cell TNP, Synovial Color Red A, Synovial RBC [id number], Synovial Tot Nuc Cell 3430 H, Synovial Eosinophils% 0, Synovial Polynuclear % 86, Synovial Lymphocytes % 8, Synovial Macrophages % 6, Synovial Fluid Comment TNP I & O for Last 24 hours: Intake & Output 04/11/22 04/12/22 04/13/22 04/14/22 23:59 23:59 23:59 23:59 Intake Total 900 / 900 2230 / 2230 2420 / 2420 1750 / 1750 Output Total 890 / 890 7780 / 8280 5935 / 5935 720 / 720 Balance -5550 / -6050 -3515 / -3515 1030 / 1030 Weight 119.794 kg 123.241 kg 113.85 kg 93.043 kg Microbiology Reports for the Last 24 Hours: Microbiology 04/11/22 14:40 Knee,Right - Right Gram Stain - Final 04/11/22 14:40 Knee,Right - Right Surgical Biopsy Culture - Preliminary NO GROWTH AFTER 48 HOURS 04/11/22 14:40 Knee,Right - Abscess Gram Stain - Final 04/11/22 14:40 Knee,Right - Abscess Abscess Culture - Preliminary NO GROWTH AFTER 48 HOURS 04/11/22 14:40 Knee,Right - Abscess Gram Stain - Final 04/11/22 14:40 Knee,Right - Abscess Abscess Culture - Preliminary NO GROWTH AFTER 48 HOURS Assessment and Plan (1) Post op infection Status: Acute Qualifiers: Encounter type: subsequent encounter Postoperative infection type: unspecified type Qualified Code(s): T81.40XD - Infection following a procedure, unspecified, subsequent encounter Category: Medical Code(s): T81.40XA - Infection following a procedure, unspecified, initial encounter (2) Obesity (BMI 30-39.9) Status: Acute Category: Medical Code(s): E66.9 - Obesity, unspecified The patient's infection will respond to the chosen ABx?: Yes (EMPIRIC THERAPY) Is the patient receiving the right drug, dose, and route?: Yes Could a more targeted ABx be ordered?: No (CULTURES PENDING)
--- NOTE | 2022-04-14 13:25 | HMH.OPNOTE ---
Date of procedure: 04/14/22 Pre-op Diagnosis:: right prosthetic knee infection Post-op Diagnosis:: same Procedure performed:: 52367: single component revision total knee arthroplasty Surgeon:: Kenneth Tao JR, MD Anesthesia: spinal Estimated blood loss (mL): 30 Clinical Note:: 66-year-old male status post right total knee arthroplasty presented to clinic last Wednesday with drainage from his surgical site that had persisted since surgery. He was admitted to the hospital and underwent hematoma evacuation with wound vacuum-assisted closure on Wednesday. The deep arthrotomy repair appeared intact at that time and I did not perform polyethylene insert exchange at that time. I did aspirate the joint after copiously debriding and irrigating the superficial wound. Gram stain for that aspiration demonstrated gram-positive cocci. Cultures have been negative x48 hours. I had a discussion with he, his son, and recon mentor from residency regarding further management. Given the positive Gram stain, I felt it was safest to debride and irrigate a second time with planned polyethylene insert exchange. Sean was amenable with the plan. We discussed the risk and benefits of surgery. Risks included but were not limited to pain, bleeding, infection, damage to adjacent structures, need for further surgery, wound healing complications, loss of limb, . Patient expressed verbal consent and written consent was obtained for the above procedure. Operative findings:: No gross purulence noted within the knee joint. Operative note:: Patient was identified in preoperative holding. Operative site was marked in indelible ink. History, physical, consent were reviewed and updated. Patient was surrendered to the anesthesia team, taken to the operative suite, placed supine on a well-padded operative table. Ipsilateral hip bump was placed as was a nonsterile thigh tourniquet. Anesthesia was induced. The operative extremity was prepped and draped in the usual sterile fashion. The operative team donned sterile gowns and gloves and a timeout was called. All in attendance agreed regarding the patient's identity, procedure, operative site. Weight-based dose of antibiotics was given prior to incision. Open his midline incision, dissected through skin and subcutaneous tissue. The subcutaneous tissue appeared healthy with no reaccumulated hematoma and no purulence. I opened his medial parapatellar arthrotomy, noted dark bloody fluid with associated hematoma, swab specimens and tissue specimens of which I sent for culture. I remove the polyethylene insert, performed a synovectomy of the knee joint using Bovie electrocautery and a rongeur. I used Pulsavac lavage to irrigate the wound, then placed Betadine infused saline into the knee joint and superficial wound, let this sit for 3 minutes. Next, I remove the Betadine solution, soaked the deep and superficial wound again with Irrisept for 3 minutes. I then copiously irrigated the wound once again with Pulsavac lavage, normal saline. Once the knee had been copiously irrigated, I reinserted a new polyethylene insert of appropriate size. I placed a deep drain as well as superficial drain exiting superior laterally. I closed the wound in anatomic layers utilizing monofilament suture. I placed a Prevena incisional wound vacuum-assisted closure device over the incision, sutured the superior lateral drains in place. Sterile dressings and knee immobilizer was applied. Counts were correct x2. There were no apparent complications. I was present and scrubbed for the entire case. Condition: stable Disposition: PACU Specimens:: Ultimate swab specimens sent for culture. Tissue sent for culture. Explanted polyethylene insert sent for pathology. Complications:: None apparent
--- NOTE | 2022-04-14 14:28 | PC.NURSE ---
Patient arrived from 1231 states he is still hurting from groin area down leg through the knee and asks how can I not feel my leg but still hurt so bad. Patient states pain 10/10. Surgeon office notified 1239 order was put in for Morphine and patient has allergy to this medication - called surgeon office back to notify of allergy; called again 1254 & 1310; have given patient oral Oxycodone states pain is still 8/10.
--- NOTE | 2022-04-14 20:30 | PC.NURSE ---
Patient right knee surgery today. Returned with 2 CHAYA drains and wound vac. Patient had block and unable to move toes with c/o pain from groin down through knee. Administered IV & oral pain medication per OCT, patient refused ice stating it makes his knee hurt worse. CHAYA drainage 130mL combined. Patient VSS, no acute distress noted, call light within reach bed at lowest level for safety; will continue to monitor.
[2022-04-15] VITALS: BP 180/86; PULSE 67; RESP 18; TEMP 36.6; O2SAT 95
[2022-04-15 08:00] VITALS: BP 151/80; PULSE 77; RESP 16; TEMP 37.6; O2SAT 94
[2022-04-15 08:20] LABS: Anion Gap 8.7 mEq/L (5-15); Calcium 8.1 mg/dl (8.4-10.2); Carbon Dioxide 29 mmol/L (22.0-30.0); Chloride 98 mmol/L (98-107); Glucose 134 mg/dl (74-100); Potassium 4.7 mmoL/L (3.5-5.1); Sodium 131 mmol/L (136-145)
[2022-04-15 08:39] LABS: MANUAL DIFFERENTIAL MANUAL DIFFERENTIAL (MANUAL DIFF)
[2022-04-15 09:00] LABS: Blood Urea Nitrogen 8 mg/dl (9-20); Creatinine Clearance Estimated 96 mL/min (50-200); Estimated Glomerular Filt Rate 97 ml/min (>60); GFR (African American) 117 ML/MIN (>60)
[2022-04-15 10:37] LABS: Hematocrit 29.5 % (42.0-52.0); Mean Corpuscular HGB Conc 33.7 g/dL (31.8-35.4); Mean Corpuscular Hemoglobin 30.3 pg (27.0-31.2); Mean Corpuscular Volume 89.8 fl (80-94); Red Blood Count 3.29 M/mm3 (4.60-6.20); Red Cell Distribution Width 14.5 % (11.5-17.5); White Blood Count 13.6 K/mm3 (4.8-10.8)
[2022-04-15 10:38] LABS: Basophils % 0.6 % (0.1-2.0); Eosinophils % 2.8 % (0.1-12.0); Mean Platelet Volume 6.9 fl (7.4-10.4); Monocytes % 6.9 % (1.7-9.3); Neutrophils % 81.2 % (37.0-80.0); Platelet Count 716 K/mm3 (142-424)
[2022-04-15 10:39] LABS: Basophils # 0.1 K/mm3 (0-0.2); Eosinophils # 0.4 K/mm3 (0.0-0.4); Lymphocytes # 1.1 K/mm3 (0.7-4.5); Lymphocytes % 8.4 % (10-50); Monocytes # 0.9 K/mm3 (0.1-1.0); Neutrophils # 11.1 K/mm3 (1.8-7.8)
[2022-04-15 11:51] LABS: Lymphocytes % 11 % (10-50); Monocytes % 3 % (2-9); Neutrophils % 86 % (42-76); Platelet Estimate Normal; RBC Morphology Normal; Total Cells Counted 100
[2022-04-15 12:00] VITALS: BP 153/87; PULSE 76; RESP 17; TEMP 37.3; O2SAT 93
--- NOTE | 2022-04-15 14:28 | HMH.OTEV ---
OT Inpatient Evaluation Rehab OT IP Evaluation Start: 04/15/22 13:06 Freq: ONCE Status: Complete Protocol: Document 04/15/22 14:03 [facility] (Rec: 04/15/22 14:28 [facility] [id number]) Rehab OT IP Assessment Subjective History Pt oriented x 3 on arrival. Pt agreeable to engage in therapy evaluation. Pt was admitted on 04/10/22 due to a possible infection following a Right TKA 10 days prior. Pt required 2 operations, 04/11/22 (Incision and drainage, right prepatellar hematoma, and wound vacuum-assisted closure) and 04/14/33 (R TKA revision). Prior to initial surgery, pt lived at home alone. He was completely independent with all ADLs and IADLs. Since surgery he has been home and family has assisted when needed. He has also been using a walker during ambulation. Subjective I can do anything, it just hurts. Pt sat up to eob with min assist. Pt stood from eob with cga. Pt engaged in functional transfer from bed to bathroom, and back to chair with cga and rolling walker. Pt sat down in chair with call pitt and all other needs in reach. Objective Patient Orientation Person,Place,Birthday Upper Extremity Gross ROM WFL Bed Mobility bed mobility-scooting,bed mobility - supine/sit,bed mobility - rolling Assist Level Contact Guard/Hand Hold Transfer Training Sit/Stand Transfer Assist Level Contact Guard/Hand Hold Chair Transfer Ability Contact Guard/Hand Hold Chair Transfer Technique Sit to/from Ambulatory Chair Transfer Assistive Devices Rolling Walker Rehab OT IP prob,goals,plan Problems Date of Evaluation: 04/15/22 OT IP Problems Bed Mobility,Transfers,Gait, Balance,Self care,Safety Rehab Potential Rehab Potential Good Equipment Needs Assistive Devices Rolling / Wheeled Walker
--- NOTE | 2022-04-15 14:51 | HMH.PTEV ---
Physical Therapy Evaluation Rehab PT IP Evaluation Start: 04/15/22 13:05 Freq: ONCE Status: Active Protocol: Document 04/15/22 14:24 [facility] (Rec: 04/15/22 14:51 [facility] [id number]) Subjective/History History History This is the physical therapy IP IE for Sean Pierson, a 66 y/o male 2 wks s/p R knee arthroplasty who was admitted for I&D and revision after suspected infection following the procedure. Pt has h/o coronary artery disease, hyperlipidemia, and hypertension. Pt is also a chronic smoker. Written by Jennifer Purdy, SPT Subjective Subjective Pt lives alone in single-story apartment w/o steps. Pt reports he has neighbors that he visits w/ regularly and his son and daughter in live live with him. Prior to readmission, pt was getting home health therapy that he noted was going really well . Pt is using a FWW that he brought from home. Rehab PT IP Eval Objective Appearance Patient Behavior Appropriate,Cooperative Patient Orientation Person,Place,Name,Situation Speech Pattern Clear,Appropriate,Coherent Ambulation Patient Able to Ambulate Yes Ambulation Observation IP General Gait Pattern Observation Antalgic Gait,Wide Based Gait Ambulation Distance (feet) 75 Ambulation Assistive Device Rolling Walker Ambulation Ability Supervision/Stand by Balance Ability to Arise Able, uses arms to help Sitting Balance Steady, safe Standing Balance Steady, wide stance Dynamic Sitting Balance Ability Good Dynamic Standing Balance Ability Fair Transfers Bed Transfer Ability Supervision/Stand by Sit to Stand Bed Transfer Ability Supervision/Stand by,Contact Guard/Hand Hold ROM RLE PT ROM Status ABN Abnormal ROM Comment ABN 2nd to sx, pn, knee immobilizer MMT RLE PT MMT ABN Abnormal MMT Grade ABN 2nd to sx, pn, knee immobilizer Rehab PT IP prob,goals,plan Problems Date of Evaluation: 04/15/22 PT IP Problems Transfers,Gait,Balance,Self
--- NOTE | 2022-04-15 14:57 | PC.NURSE ---
rounded on patient, melissa baer at bedside. she states patient only need immobilizer on when up walking, can leave it off in bed. patient continues to have pain. has been up with pt. now further questions or concerns.
--- NOTE | 2022-04-15 15:11 | EXP.ORTH.PN ---
Subjective *Date: 04/16/22 *Time: 12:25 Interval history: Patient is a 66 year old male patient who underwent a right knee debridement, irrigation, and polyethylene insert exchange performed Dr. Tao yesterday 04/14/2022. Today the patient is postop day #1. This afternoon he is lying comfortably in bed and in the patient's family is at the bedside. He reports right knee pain as to be expected but states it is well controlled with as needed pain medication and rest. He states that he is ambulated with the assistance of physical therapy and the use of the knee immobilizer. He states that he is eating and drinking well and denies any episodes of nausea or vomiting. No history of any distal tingling/numbness, chills, rigors, or fevers. He denies any other symptoms or concerns at this time. Ortho Exam (Inpt) Vital signs and Labs for Last 24 Hours: Temp Pulse Resp BP Pulse Ox 99.1 F 76 17 153/87 H 93 L 04/15/22 12:00 04/15/22 12:00 04/15/22 12:00 04/15/22 12:00 04/15/22 12:00 Laboratory Results - last 24 hr 04/15/22 05:57: WBC 13.6 H, RBC 3.29 L, Hgb 10.0 L, Hct 29.5 L, MCV 89.8, MCH 30.3, MCHC 33.7, RDW 14.5, Plt Count 716 H, MPV 6.9 L, Neut % (Auto) 81.2 H, Lymph % (Auto) 8.4 L, [place] % (Auto) 6.9, Eos % (Auto) 2.8, Baso % (Auto) 0.6, Neut # (Auto) 11.1 H, Lymph # (Auto) 1.1, [place] # (Auto) 0.9, Eos # (Auto) 0.4, Baso # (Auto) 0.1, Total Counted 100, Neutrophils % (Manual) 86 H, Lymphocytes % (Manual) 11, Monocytes % (Manual) 3, Platelet Estimate Normal, RBC Morphology Normal 04/15/22 05:57: Sodium 131 L, Potassium 4.7 D, Chloride 98, Carbon Dioxide 29, Anion Gap 8.7, BUN 8 L D, Creatinine 0.80, Estimated Creat Clear 96, Estimated GFR 97, Est GFR ( Amer) 117, Glucose 134 H, Calcium 8.1 L I & O for Labs for Last 24 Hours: Intake & Output 04/12/22 04/13/22 04/14/22 04/15/22 23:59 23:59 23:59 23:59 Intake Total 2230 / 2230 2420 / 2420 4313 / 4913 2500 / 2500 Output Total 7780 / 8280 5935 / 5935 840 / 1340 3105 / 3105 Balance -5550 / -6050 -3515 / -3515 3473 / 3573 -605 / -605 Weight 271 lb 11.2 oz 250 lb 15.94 oz 205 lb 2 oz Microbiology Reports for the Last 24 Hours: Microbiology 04/14/22 10:15 Knee,Right - Right Gram Stain - Final 04/14/22 10:15 Knee,Right - Right Wound Culture - Preliminary NO GROWTH AFTER 24 HOURS 04/14/22 10:15 Knee,Right Gram Stain - Final 04/14/22 10:15 Knee,Right Wound Culture - Preliminary NO GROWTH AFTER 24 HOURS 04/14/22 10:15 Knee,Right - Right Surgical Biopsy Culture - Preliminary NO GROWTH AFTER 24 HOURS 04/10/22 12:30 Blood Blood Culture - Final NO GROWTH AFTER 5 DAYS 04/10/22 12:30 Blood Blood Culture - Final NO GROWTH AFTER 5 DAYS 04/11/22 14:40 Knee,Right - Abscess Gram Stain - Final 04/11/22 14:40 Knee,Right - Abscess Abscess Culture - Preliminary NO GROWTH AFTER 72 HOURS 04/11/22 14:40 Knee,Right - Right Gram Stain - Final 04/11/22 14:40 Knee,Right - Right Surgical Biopsy Culture - Preliminary NO GROWTH AFTER 72 HOURS 04/11/22 14:40 Knee,Right - Abscess Gram Stain - Final 04/11/22 14:40 Knee,Right - Abscess Abscess Culture - Preliminary NO GROWTH AFTER 72 HOURS Head: normocephalic and atraumatic Eyes: as per HPI ENT: normal exam Neck: normal inspection, full ROM and trachea midline Respiratory: accessory muscle use, respiratory distress, normal respiratory effort, able to speak in complete sentences and symmetric chest movement Cardiac: Reg Rate and Rhythm GI: soft and tenderness Rectal (male): deferred (male): deferred Comment:: Upon examination of the right knee: Dressings present over the right knee are clean, dry, and intact. There are two surgical drains and a wound vacuum assisted closur
--- NOTE | 2022-04-15 15:16 | EXP.ACUTE.PN ---
Subjective *Date: 04/16/22 *Time: 08:10 Interval history: pt doing some better but has stil sig pain rt knee - Medical Exam Vital signs and Labs for Last 24 Hours: Temp Pulse Resp BP Pulse Ox 99.1 F 76 17 153/87 H 93 L 04/15/22 12:00 04/15/22 12:00 04/15/22 12:00 04/15/22 12:00 04/15/22 12:00 Laboratory Results - last 24 hr 04/15/22 05:57: WBC 13.6 H, RBC 3.29 L, Hgb 10.0 L, Hct 29.5 L, MCV 89.8, MCH 30.3, MCHC 33.7, RDW 14.5, Plt Count 716 H, MPV 6.9 L, Neut % (Auto) 81.2 H, Lymph % (Auto) 8.4 L, [place] % (Auto) 6.9, Eos % (Auto) 2.8, Baso % (Auto) 0.6, Neut # (Auto) 11.1 H, Lymph # (Auto) 1.1, [place] # (Auto) 0.9, Eos # (Auto) 0.4, Baso # (Auto) 0.1, Total Counted 100, Neutrophils % (Manual) 86 H, Lymphocytes % (Manual) 11, Monocytes % (Manual) 3, Platelet Estimate Normal, RBC Morphology Normal 04/15/22 05:57: Sodium 131 L, Potassium 4.7 D, Chloride 98, Carbon Dioxide 29, Anion Gap 8.7, BUN 8 L D, Creatinine 0.80, Estimated Creat Clear 96, Estimated GFR 97, Est GFR ( Amer) 117, Glucose 134 H, Calcium 8.1 L I & O for Labs for Last 24 Hours: Intake & Output 04/13/22 04/14/22 04/15/22 04/16/22 11:59 11:59 11:59 11:59 Intake Total 1390 / 1390 3620 / 3620 4703 / 4703 360 / 360 Output Total 5485 / 6035 4950 / 4950 1645 / 2345 1600 / 1600 Balance -4095 / -4645 -1330 / -1330 3058 / 2358 -1240 / -1240 Weight 250 lb 15.94 oz 205 lb 2 oz Microbiology Reports for the Last 24 Hours: Microbiology 04/14/22 10:15 Knee,Right - Right Gram Stain - Final 04/14/22 10:15 Knee,Right - Right Wound Culture - Preliminary NO GROWTH AFTER 24 HOURS 04/14/22 10:15 Knee,Right Gram Stain - Final 04/14/22 10:15 Knee,Right Wound Culture - Preliminary NO GROWTH AFTER 24 HOURS 04/14/22 10:15 Knee,Right - Right Surgical Biopsy Culture - Preliminary NO GROWTH AFTER 24 HOURS 04/10/22 12:30 Blood Blood Culture - Final NO GROWTH AFTER 5 DAYS 04/10/22 12:30 Blood Blood Culture - Final NO GROWTH AFTER 5 DAYS 04/11/22 14:40 Knee,Right - Abscess Gram Stain - Final 04/11/22 14:40 Knee,Right - Abscess Abscess Culture - Preliminary NO GROWTH AFTER 72 HOURS 04/11/22 14:40 Knee,Right - Right Gram Stain - Final 04/11/22 14:40 Knee,Right - Right Surgical Biopsy Culture - Preliminary NO GROWTH AFTER 72 HOURS 04/11/22 14:40 Knee,Right - Abscess Gram Stain - Final 04/11/22 14:40 Knee,Right - Abscess Abscess Culture - Preliminary NO GROWTH AFTER 72 HOURS Head: atraumatic Eyes: as per HPI ENT: mucous membranes moist Neck: trachea midline Respiratory: CTA bilaterally Cardiac: Reg Rate and Rhythm GI: soft Comment:: rt knee pain Skin: erythema Neuro: Cranial Nerve 2-12 Intact Assessment and Plan Assessment and plan all Dx Plan of Treatment: I have discussed the clinical findings and progress with the patient and his family. Dressings present over the right knee are clean, dry, and intact. Surgical drains and wound vacuum-assisted closure devices are in place with good seal; minimal serosanguineous output present in the surgical drains. Continue PT/OT; patient may ambulate weightbearing as tolerated on the right lower extremity with the use of the knee immobilizer when ambulating/weightbearing. Continue IV antibiotics; wound cultures show no growth after 48 hours, final results still pending. Continue rest, ice, elevation, and pain medication as needed. Continue medical management as per primary team.
[2022-04-15 16:00] VITALS: BP 153/79; PULSE 71; RESP 18; TEMP 37.8; O2SAT 96
[2022-04-15 17:42] LABS: Vancomycin,Trough 18.5 ug/mL (5.0-10.0)
--- NOTE | 2022-04-15 18:38 | PC.NURSE ---
PT HAS C/O R KNEE PAIN AT A 9/10 T/O SHIFT, REQUESTING PAIN MEDS Q4HRS. CALLED DR BANSAL AT 1030 REGARDING PTS PAIN LEVEL DESPITE ALREADY HAVING BOTH PRESCRIBED PAIN MEDS, HE INCREASED DILAUDID TO 2MG IV Q4HR. CALLED DR SAPP OFFICE FOR AN UPDATE ON pt AND ORDER FOR PT & OT. ORDER FOR THERAPY WAS PUT IN, PT TOLERATED THERAPY WELL. WILL ATTEMPT TO REACH [place] TOMORROW. IMMOBILIZER AND DSG TO R KNEE WITH 2 CHAYA DRAINS AND WOUND VAC IN PLACE. PT CURENTLY SITIING UP TO CHAIR AT BEDSIDE TO RELIEVE PRESSURE OFF BOTTOM. CB WITHIN REACH.
[2022-04-15 19:48] VITALS: BP 133/77; PULSE 80; RESP 18; TEMP 37.3; O2SAT 94
[2022-04-15 23:35] VITALS: BP 148/81; PULSE 73; RESP 20; TEMP 37.2; O2SAT 94
[2022-04-16] VITALS (7 sets, daily range): BP systolic 118–158; BP diastolic 53–71; PULSE 62–70; RESP 18–20; TEMP 36.8–37.2; O2SAT 93–98; BMI 37.2
--- NOTE | 2022-04-16 03:54 | PC.NURSE ---
pt is A&OX4. reports of pain in right knee, medicated per oct. dressing in place to right knee, wound vac in place and [address]. pt has had some confusion this shift but was reoriented to surroundings. call light is in reach, bed alarm is on and functioning.
--- NOTE | 2022-04-16 08:42 | EXP.PHA.CONS ---
Pharmacy Consult Date: 04/16/22 Time: 08:43 Referring provider: DR. BRAXTON Reason for Consult:: VANCOMYCIN LEVEL Allergies Allergy/AdvReac Type Severity Reaction Status Date / Time escitalopram [From Lexapro] Allergy Severe Hallucinati Verified 04/10/22 09:01 ng morphine [MORPHINE] Allergy Unknown RASH ON Verified 04/10/22 09:01 LEGS Home Medications Medication Instructions Recorded Confirmed Type furosemide 40 mg tablet 40 mg PO DAILY diuretic #90 tabs 08/29/21 04/11/22 Rx gabapentin 600 mg tablet 600 mg PO TID Pain #90 tabs 12/30/21 04/10/22 Rx losartan 25 mg tablet 25 mg PO DAILY blood pressure #90 03/02/22 04/10/22 Rx tabs metoprolol succinate 50 mg 50 mg PO DAILY blood pressure #90 03/02/22 04/10/22 Rx tablet,extended release 24 hr tabs levothyroxine 100 mcg tablet 100 mcg PO DAILY hypothyroidism 03/31/22 04/10/22 History levothyroxine 88 mcg tablet 88 mcg PO DAILY hypothyroidism 03/31/22 04/10/22 History omeprazole 40 mg capsule,delayed 40 mg PO DAILY acid reflux 03/31/22 04/10/22 History release potassium chloride 8 mEq 8 meq PO DAILY potassium supplement 03/31/22 04/10/22 History tablet,extended release atorvastatin 10 mg tablet 10 mg PO HS High cholesterol 04/10/22 04/10/22 History cephalexin 500 mg tablet 500 mg PO QID post surgical 04/10/22 04/10/22 History infection diazepam 5 mg tablet 5 mg PO BID PRN Anxiety 04/10/22 04/10/22 History oxycodone 5 mg tablet 5 mg PO Q4-6H PRN pain 04/10/22 04/10/22 History rivaroxaban 10 mg tablet 10 mg PO DAILY dvt prophylaxis 04/10/22 04/10/22 History sulfamethoxazole 800 1 each PO BID post surgical 04/10/22 04/10/22 History mg-trimethoprim 160 mg tablet infection New Prescriptions to Start Prescriptions: Height: 1.78 m Weight: 117.934 kg Laboratory Results:: Laboratory Results - last 24 hr 04/15/22 05:57: WBC 13.6 H, RBC 3.29 L, Hgb 10.0 L, Hct 29.5 L, MCV 89.8, MCH 30.3, MCHC 33.7, RDW 14.5, Plt Count 716 H, MPV 6.9 L, Neut % (Auto) 81.2 H, Lymph % (Auto) 8.4 L, [place] % (Auto) 6.9, Eos % (Auto) 2.8, Baso % (Auto) 0.6, Neut # (Auto) 11.1 H, Lymph # (Auto) 1.1, [place] # (Auto) 0.9, Eos # (Auto) 0.4, Baso # (Auto) 0.1, Total Counted 100, Neutrophils % (Manual) 86 H, Lymphocytes % (Manual) 11, Monocytes % (Manual) 3, Platelet Estimate Normal, RBC Morphology Normal 04/15/22 05:57: Sodium 131 L, Potassium 4.7 D, Chloride 98, Carbon Dioxide 29, Anion Gap 8.7, BUN 8 L D, Creatinine 0.80, Estimated Creat Clear 96, Estimated GFR 97, Est GFR ( Amer) 117, Glucose 134 H, Calcium 8.1 L 04/15/22 16:40: Vancomycin Trough 18.5 H Medical History: Reports: Anxiety, Coronary Artery Disease, Hyperlipidemia, Hypertension and Palpitations; Denies: Cancer, Diabetes Mellitus Type 1, Diabetes Mellitus Type 2, Internal Pacemaker, MRSA, Pulmonary Embolism, Seizures or Transient Ischemic Attacks (TIA) Assessment and Plan Assessment and plan all Dx Plan of Treatment: VANCOMYCIN TROUGH LEVEL WAS 18.5 OVERNIGHT. RECOMMEND CONTINUING WITH VANCOMYCIN 1750 MG Q12H AT THIS TIME.
--- NOTE | 2022-04-16 10:59 | PC.NURSE ---
Rounded on pt, cleaned and straightened room. Pt up to chair watching tv. No needs voiced at this time.
--- NOTE | 2022-04-16 13:20 | EXP.ORTH.PN ---
Subjective *Date: 04/16/22 *Time: 13:20 Interval history: Resting comfortably. Has worsened pain after his second surgery that he did after his surgery last Wednesday. He has begun ambulating with PT. Ortho Exam (Inpt) Vital signs and Labs for Last 24 Hours: Temp Pulse Resp BP Pulse Ox 99 F 70 18 118/62 93 L 04/16/22 11:45 04/16/22 11:45 04/16/22 11:45 04/16/22 11:45 04/16/22 11:45 Laboratory Results - last 24 hr 04/15/22 16:40: Vancomycin Trough 18.5 H I & O for Labs for Last 24 Hours: Intake & Output 04/13/22 04/14/22 04/15/22 04/16/22 23:59 23:59 23:59 23:59 Intake Total 2420 / 2420 4313 / 4913 3870 / 3870 520 / 520 Output Total 5935 / 5935 840 / 1340 4555 / 4555 4350 / 4350 Balance -3515 / -3515 3473 / 3573 -685 / -685 -3830 / -3830 Weight 250 lb 15.94 oz 205 lb 2 oz 260 lb Microbiology Reports for the Last 24 Hours: Microbiology 04/11/22 14:40 Knee,Right - Abscess Gram Stain - Final 04/11/22 14:40 Knee,Right - Abscess Abscess Culture - Preliminary NO GROWTH AFTER 4 DAYS 04/11/22 14:40 Knee,Right - Abscess Gram Stain - Final 04/11/22 14:40 Knee,Right - Abscess Abscess Culture - Preliminary NO GROWTH AFTER 4 DAYS 04/11/22 14:40 Knee,Right - Right Gram Stain - Final 04/11/22 14:40 Knee,Right - Right Surgical Biopsy Culture - Preliminary NO GROWTH AFTER 4 DAYS 04/14/22 10:15 Knee,Right - Right Gram Stain - Final 04/14/22 10:15 Knee,Right - Right Wound Culture - Preliminary NO GROWTH AFTER 24 HOURS 04/14/22 10:15 Knee,Right Gram Stain - Final 04/14/22 10:15 Knee,Right Wound Culture - Preliminary NO GROWTH AFTER 24 HOURS 04/14/22 10:15 Knee,Right - Right Surgical Biopsy Culture - Preliminary NO GROWTH AFTER 24 HOURS 04/10/22 12:30 Blood Blood Culture - Final NO GROWTH AFTER 5 DAYS 04/10/22 12:30 Blood Blood Culture - Final NO GROWTH AFTER 5 DAYS Head: normocephalic and atraumatic ENT: mucous membranes moist Neck: normal inspection Respiratory: respiratory distress Cardiac: Reg Rate and Rhythm GI: soft and distention Rectal (male): deferred (male): deferred Knee: right: normal inspection (5/5 motor function intact to extensor hallicus longus, flexor hallicus longus, tibialis anterior, gastroc/soleus, posterior tibialis, foot eversion.) and right: wound (Right lower extremity: Drains with serosanguineous output, wound VAC in place with good seal. Dressing clean, dry, intact. Palpable dorsalis pedis/posterior tibial pulse. Sensation intact to light touch deep peroneal, superficial peroneal, tibial, sural, saphenous nerve distribution.) Assessment and Plan Assessment and plan all Dx Plan of Treatment: VANCOMYCIN TROUGH LEVEL WAS 18.5 OVERNIGHT. RECOMMEND CONTINUING WITH VANCOMYCIN 1750 MG Q12H AT THIS TIME. Weightbearing as tolerated right lower extremity, limit knee flexion until Wednesday. Plan to leave superficial drain / VAC until Wednesday. Okay for WBAT in knee immobilizer to protect incision. Will pull deep drain when output < 30 mL per shift. Continue antibiotics / follow cultures. Plan for outpatient follow up with Liu Faustin MD -- Infectious Disease in [place] upon discharge. Follow up clinic the first Wednesday following discharge.
--- NOTE | 2022-04-16 13:38 | EXP.PN ---
Subjective *Date: 04/17/22 *Time: 16:58 Interval history: uneventful night ongoing discomfort knee ortho notes reviewed Exam Data for Last 24 hours Vital signs and Labs for Last 24 Hours: Temp Pulse Resp BP Pulse Ox 99 F 70 18 118/62 93 L 04/16/22 11:45 04/16/22 11:45 04/16/22 11:45 04/16/22 11:45 04/16/22 11:45 Laboratory Results - last 24 hr 04/15/22 16:40: Vancomycin Trough 18.5 H I & O for Last 24 hours: Intake & Output 04/13/22 04/14/22 04/15/22 04/16/22 23:59 23:59 23:59 23:59 Intake Total 2420 / 2420 4313 / 4913 3870 / 3870 520 / 520 Output Total 5935 / 5935 840 / 1340 4555 / 4555 4350 / 4350 Balance -3515 / -3515 3473 / 3573 -685 / -685 -3830 / -3830 Weight 250 lb 15.94 oz 205 lb 2 oz 260 lb Microbiology Reports for the Last 24 Hours: Microbiology 04/11/22 14:40 Knee,Right - Abscess Gram Stain - Final 04/11/22 14:40 Knee,Right - Abscess Abscess Culture - Preliminary NO GROWTH AFTER 4 DAYS 04/11/22 14:40 Knee,Right - Abscess Gram Stain - Final 04/11/22 14:40 Knee,Right - Abscess Abscess Culture - Preliminary NO GROWTH AFTER 4 DAYS 04/11/22 14:40 Knee,Right - Right Gram Stain - Final 04/11/22 14:40 Knee,Right - Right Surgical Biopsy Culture - Preliminary NO GROWTH AFTER 4 DAYS 04/14/22 10:15 Knee,Right - Right Gram Stain - Final 04/14/22 10:15 Knee,Right - Right Wound Culture - Preliminary NO GROWTH AFTER 24 HOURS 04/14/22 10:15 Knee,Right Gram Stain - Final 04/14/22 10:15 Knee,Right Wound Culture - Preliminary NO GROWTH AFTER 24 HOURS 04/14/22 10:15 Knee,Right - Right Surgical Biopsy Culture - Preliminary NO GROWTH AFTER 24 HOURS 04/10/22 12:30 Blood Blood Culture - Final NO GROWTH AFTER 5 DAYS 04/10/22 12:30 Blood Blood Culture - Final NO GROWTH AFTER 5 DAYS Constitutional Constitutional: no acute distress *Routine HEENT Exam Head: Present normocephalic Eye: Present EOMI ENT: Present mucous membranes moist *Routine Respiratory Exam Respiratory: Present CTA bilaterally; Absent accessory muscle use *Routine Cardiovascular Exam Cardiovascular: Present RRR *Routine Abdominal Exam Abdominal: Present soft; Absent tenderness *Routine Extremities Exam Extremities: Present tenderness *Routine Skin Exam Skin: Absent jaundice *Routine Neurological Exam Neurological: Present alert and oriented X3 Assessment and Plan *Assessment and plan (1) Post op infection: Status: Acute Qualifiers: Encounter type: subsequent encounter Postoperative infection type: unspecified type Qualified Code(s): T81.40XD - Infection following a procedure, unspecified, subsequent encounter Category: Medical Code(s): T81.40XA - Infection following a procedure, unspecified, initial encounter Plan continue current regimen, following with ortho Assessment and plan all Dx Plan of Treatment: Rounded with Dr. Tao; patient may continue weightbearing as tolerated on the right lower extremity, limit knee flexion until Wednesday. Plan to leave superficial drain/wound VAC until Wednesday. Continue use of knee immobilizer when weightbearing/ambulating to protect incision. Plan to continue antibiotics/follow culture results. Plan for outpatient follow-up with Liu Faustin MD, infectious disease specialist in [place] upon discharge. Follow-up in clinic first Wednesday following discharge. I spoke to Dr. Faustin. Despite negative cultures to date, plan for PICC, vancomycin infusion until follow up with him as an outpatient. Anticipate drain / VAC removal Wednesday, possible discharge Wednesday, follow up next Wednesday.
--- NOTE | 2022-04-16 13:52 | PC.NURSE ---
rounded on patient. at this time appears to be resting soundly with eyes closed. bed alarm in place. call light within reach
--- NOTE | 2022-04-16 17:37 | PC.NURSE ---
PT HAS DONE BETTER THIS SHIFT THAN YESTERDAY. PT HAS COMPLAINED OF PAIN BUT HAS BEEN MANAGED WITH PRESCRIBED OXYCODONE 7.5. C/O PAIN X2 TO R KNEE AND ONCE FOR SANCHEZ. PT HAS BEEN UP TO CHAIR AT BEDSIDE FOR ABOUT 3-4 HRS, TOLERATED WELL. PT STILL ANXIOUS AT TIME. DODIE ROUNDED ON PT TODAY. SUGGESTED TO KEEP KNEE IMMOBILIZER ON WHEN TRANSFERING/WALKING. PT WILL BE HERE TILL AT LEAST WEDNESDAY.
[2022-04-17 03:41] VITALS: BP 140/69; PULSE 71; RESP 18; TEMP 37.1; O2SAT 94
--- NOTE | 2022-04-17 04:00 | PC.NURSE ---
pt slept well through the night, pt complaint of pain at times but did not want any pain medication when offered, valium given for anxiety and pt stated relief, RLE with cirilo wrap dressing intact with wound vac to closed system intact, and j/p drains x2 to bulb suction noted with blood tinged drainage, pt is alert and oriented x4, VSS, +pedal pulses noted to BLE, mild swelling noted to RLE, pt wears immobilizer when out of bed, no other issues or concerns noted at this time.
[2022-04-17 05:00] VITALS: BMI 36.3
[2022-04-17 08:00] VITALS: BP 144/73; PULSE 77; RESP 20; TEMP 36.9; O2SAT 100; O2SAT 97
--- NOTE | 2022-04-17 08:42 | EXP.ORTH.PN ---
Subjective *Date: 04/17/22 *Time: 15:17 Interval history: Patient is a 66 year old male patient who underwent a right knee debridement, irrigation, and polyethylene insert exchange performed Dr. Tao on 04/14/2022. Today the patient is postop day #3. This afternoon he is lying comfortably in bed. He reports right knee pain as to be expected but states it is well controlled with as needed pain medication and rest. He states that he has ambulated very little with the assistance of physical therapy and the use of the knee immobilizer, he states that his knee pain has been worse following his third surgery. He states that he is eating and drinking well and denies any episodes of nausea or vomiting. No history of any distal tingling/numbness, chills, rigors, or fevers. He denies any other symptoms or concerns at this time. Ortho Exam (Inpt) Vital signs and Labs for Last 24 Hours: Temp Pulse Resp BP Pulse Ox 98.8 F 71 18 140/69 94 L 04/17/22 03:41 04/17/22 03:41 04/17/22 03:41 04/17/22 03:41 04/17/22 03:41 I & O for Labs for Last 24 Hours: Intake & Output 04/14/22 04/15/22 04/16/22 04/17/22 23:59 23:59 23:59 23:59 Intake Total 4313 / 4913 3870 / 3870 2403 / 2403 1396 / 1396 Output Total 840 / 1340 4555 / 4555 7525 / 7525 1415 / 1415 Balance 3473 / 3573 -685 / -685 -5122 / -5122 -19 / -19 Weight 205 lb 2 oz 260 lb 254 lb 1 oz Microbiology Reports for the Last 24 Hours: Microbiology 04/14/22 10:15 Knee,Right - Right Gram Stain - Final 04/14/22 10:15 Knee,Right - Right Surgical Biopsy Culture - Preliminary NO GROWTH AFTER 48 HOURS 04/11/22 14:40 Knee,Right - Abscess Gram Stain - Final 04/11/22 14:40 Knee,Right - Abscess Abscess Culture - Final NO GROWTH AFTER 5 DAYS 04/11/22 14:40 Knee,Right - Abscess Gram Stain - Final 04/11/22 14:40 Knee,Right - Abscess Abscess Culture - Final NO GROWTH AFTER 5 DAYS 04/11/22 14:40 Knee,Right - Right Gram Stain - Final 04/11/22 14:40 Knee,Right - Right Surgical Biopsy Culture - Final NO GROWTH AFTER 5 DAYS 04/14/22 10:15 Knee,Right Gram Stain - Final 04/14/22 10:15 Knee,Right Wound Culture - Preliminary NO GROWTH AFTER 48 HOURS 04/14/22 10:15 Knee,Right - Right Gram Stain - Final 04/14/22 10:15 Knee,Right - Right Wound Culture - Preliminary NO GROWTH AFTER 48 HOURS Head: normocephalic and atraumatic Eyes: as per HPI ENT: normal exam Neck: normal inspection, full ROM, trachea midline and lymphadenopathy Respiratory: accessory muscle use, normal respiratory effort, able to speak in complete sentences and symmetric chest movement Cardiac: Reg Rate and Rhythm GI: soft and tenderness Comment:: Upon examination of the right knee: Dressings present over the right knee are clean, dry, and intact. There are two surgical drains and a wound vacuum assisted closure device in place. There is minimal serosanguineous output from both drains. Attempted movements of the right knee are somewhat painful. Thigh and calf are soft and nontender; Homans' sign is negative. No clinical evidence of DVT noted. Posterior tibial pulse 1+; capillary refill is brisk. Sensation to light touch is grossly intact throughout. Patient is actively mobilizing the foot, ankle, and toes. Skin: intact, cyanosis, erythema, warm, lesions, jaundice, normal turgor and wounds Neuro: Cranial Nerve 2-12 Intact, Motor Function Intact, Tingling, Sensory Function Intact, Grossly Intact, alert, awake, oriented x 3, tone normal and moves all extremities Assessment and Plan Assessment and plan all Dx Plan of Treatment: Rounded with Dr. Tao; patient may continue weightbearing as tolerated on the right lower extremity, limit knee flexion until Wednesday. Plan to leave superficial drain/wound VAC until Wednesday. Contin
--- NOTE | 2022-04-17 10:45 | PC.NURSE ---
Addendum entered by Micki Tan 04/17/22 10:49: please fax attention Katey Original Note: please fax discharge summary to Dr. Liu Faustin's office upon discharge. [phone]
[2022-04-17 12:00] VITALS: BP 121/72; PULSE 72; RESP 18; TEMP 36.8; O2SAT 93
--- NOTE | 2022-04-17 15:14 | XR_ITS ---
PROCEDURE INFORMATION: Exam: XR Chest Exam date and time: 04/17/2022 5:16 PM Age: 66 years old Clinical indication: Device placement; Picc; Additional info: Confirm picc line placement; Picc placed in right side TECHNIQUE: Imaging protocol: Radiologic exam of the chest. Views: 1 view. COMPARISON: CR XR CHEST 2V 03/27/2022 10:03 AM FINDINGS: Tubes, catheters and devices: Right-sided PICC line with the tip approximately at the level atrial caval junction. Lungs: Unremarkable. No consolidation. Pleural spaces: Unremarkable. No pleural effusion. No pneumothorax. Heart/Mediastinum: Unremarkable. No cardiomegaly. Bones/joints: Unremarkable. Other findings: This is 4.8 cm beneath the tracheal bifurcation. IMPRESSION: Right-sided PICC line with the tip approximately at the level atrial caval junction.
--- NOTE | 2022-04-17 15:25 | PC.NURSE ---
rounded on patient. patient sat up on bsc and giving self bath. no needs or concerns noted. encouraged him ring out if needed.
--- NOTE | 2022-04-17 16:27 | CARE MANAGER ---
Spoke with patient regarding the need for prolonged IV antibiotics. Discussed his options as far as coming back to outpatient, someone administering at home, or going to SNF. He states he has a neighbor that will help him at home and he could get them there. Plan for home health with IV antibiotics on Wednesday if discharged. NEAL Moreno
--- NOTE | 2022-04-17 17:13 | EXP.PN ---
Subjective *Date: 04/17/22 *Time: 17:13 Interval history: uneventful night ortho notes reviewed Exam Data for Last 24 hours Vital signs and Labs for Last 24 Hours: Temp Pulse Resp BP Pulse Ox 98.2 F 72 18 121/72 93 L 04/17/22 12:00 04/17/22 12:00 04/17/22 12:00 04/17/22 12:00 04/17/22 12:00 I & O for Last 24 hours: Intake & Output 04/14/22 04/15/22 04/16/22 04/17/22 23:59 23:59 23:59 23:59 Intake Total 4313 / 4913 3870 / 3870 2403 / 2403 2356 / 2356 Output Total 840 / 1340 4555 / 4555 7525 / 7525 2565 / 2565 Balance 3473 / 3573 -685 / -685 -5122 / -5122 -209 / -209 Weight 205 lb 2 oz 260 lb 254 lb 1 oz Microbiology Reports for the Last 24 Hours: Microbiology 04/14/22 10:15 Knee,Right - Right Gram Stain - Final 04/14/22 10:15 Knee,Right - Right Wound Culture - Preliminary NO GROWTH AFTER 72 HOURS 04/14/22 10:15 Knee,Right Gram Stain - Final 04/14/22 10:15 Knee,Right Wound Culture - Preliminary NO GROWTH AFTER 72 HOURS 04/14/22 10:15 Knee,Right - Right Gram Stain - Final 04/14/22 10:15 Knee,Right - Right Surgical Biopsy Culture - Preliminary NO GROWTH AFTER 72 HOURS 04/11/22 14:40 Knee,Right - Abscess Gram Stain - Final 04/11/22 14:40 Knee,Right - Abscess Abscess Culture - Final NO GROWTH AFTER 5 DAYS 04/11/22 14:40 Knee,Right - Abscess Gram Stain - Final 04/11/22 14:40 Knee,Right - Abscess Abscess Culture - Final NO GROWTH AFTER 5 DAYS 04/11/22 14:40 Knee,Right - Right Gram Stain - Final 04/11/22 14:40 Knee,Right - Right Surgical Biopsy Culture - Final NO GROWTH AFTER 5 DAYS Constitutional Constitutional: no acute distress *Routine HEENT Exam Head: Present normocephalic Eye: Present EOMI ENT: Present mucous membranes moist *Routine Respiratory Exam Respiratory: Present CTA bilaterally *Routine Cardiovascular Exam Cardiovascular: Present RRR *Routine Abdominal Exam Abdominal: Present soft; Absent tenderness *Routine Extremities Exam Extremities: Present tenderness; Absent cyanosis or full ROM *Routine Skin Exam Skin: Present intact; Absent cyanosis *Routine Neurological Exam Neurological: Present alert and oriented X3 Assessment and Plan *Assessment and plan (1) Post op infection: Status: Acute Qualifiers: Encounter type: subsequent encounter Postoperative infection type: unspecified type Qualified Code(s): T81.40XD - Infection following a procedure, unspecified, subsequent encounter Category: Medical Code(s): T81.40XA - Infection following a procedure, unspecified, initial encounter Plan continue regimen, following with surgery Assessment and plan all Dx Plan of Treatment: Rounded with Dr. Tao; patient may continue weightbearing as tolerated on the right lower extremity, limit knee flexion until Wednesday. Plan to leave superficial drain/wound VAC until Wednesday. Continue use of knee immobilizer when weightbearing/ambulating to protect incision. Plan to continue antibiotics/follow culture results. Plan for outpatient follow-up with Liu Faustin MD, infectious disease specialist in [place] upon discharge. Follow-up in clinic first Wednesday following discharge. I spoke to Dr. Faustin. Despite negative cultures to date, plan for PICC, vancomycin infusion until follow up with him as an outpatient. Anticipate drain / VAC removal Wednesday, possible discharge Wednesday, follow up next Wednesday.
[2022-04-17 17:51] LABS: Anion Gap 9.9 mEq/L (5-15); Blood Urea Nitrogen 10 mg/dl (9-20); Calcium 8.3 mg/dl (8.4-10.2); Carbon Dioxide 30 mmol/L (22.0-30.0); Chloride 99 mmol/L (98-107); Creatinine Clearance Estimated 118 mL/min (50-200); Estimated Glomerular Filt Rate 75 ml/min (>60); GFR (African American) 90 ML/MIN (>60); Glucose 109 mg/dl (74-100); Potassium 3.9 mmoL/L (3.5-5.1); Sodium 135 mmol/L (136-145)
[2022-04-17 17:59] LABS: Vancomycin,Trough 20.5 ug/mL (5.0-10.0)
--- NOTE | 2022-04-17 18:45 | PC.NURSE ---
1800-reported critical vanc trough level to leona wills who adjusted dose. order sheet [facility]ed [facility]
--- NOTE | 2022-04-17 19:23 | PC.NURSE ---
pain treated per mar this shift with good effectiveness. has not required o2 support. tolerating diet well. sat up to chair and participated with PT/OT.
[2022-04-17 20:00] VITALS: BP 133/68; PULSE 77; RESP 19; TEMP 37.2; O2SAT 95
[2022-04-18 04:00] VITALS: BP 127/69; PULSE 68; RESP 18; TEMP 36.7; O2SAT 98
[2022-04-18 04:04] VITALS: BMI 36.9
--- NOTE | 2022-04-18 04:53 | PC.NURSE ---
Patient a&o x4. Patient medicated for pain per MAR. Dressing to Rt leg is CDI with wound vac intact. Miguelito drains x2 noted with blood tinged drainage. VSS. +pedal pulses noted to BLE, mild swelling noted to RLE, pt wears immobilizer when out of bed, no other issues or concerns noted at this time.
[2022-04-18 08:00] VITALS: BP 157/70; PULSE 76; RESP 16; TEMP 36.9; O2SAT 98
--- NOTE | 2022-04-18 10:11 | EXP.ACUTE.PN ---
Subjective *Date: 04/20/22 *Time: 13:39 Interval history: better but still with sig pain rt knee Medical Exam Vital signs and Labs for Last 24 Hours: Temp Pulse Resp BP Pulse Ox 98.4 F 76 16 157/70 H 98 04/18/22 08:00 04/18/22 08:00 04/18/22 08:00 04/18/22 08:00 04/18/22 08:00 Laboratory Results - last 24 hr 04/17/22 17:25: Vancomycin Trough 20.5 H 04/17/22 17:25: Sodium 135 L, Potassium 3.9, Chloride 99, Carbon Dioxide 30, Anion Gap 9.9, BUN 10, Creatinine 1.00 D, Estimated Creat Clear 118, Estimated GFR 75, Est GFR ( Amer) 90 D, Glucose 109 H, Calcium 8.3 L I & O for Labs for Last 24 Hours: Intake & Output 04/15/22 04/16/22 04/17/22 04/18/22 11:59 11:59 11:59 11:59 Intake Total 4703 / 4703 2250 / 2250 3999 / 3999 3332 / 3332 Output Total 1645 / 2345 7400 / 7400 6490 / 6690 2210 / 2210 Balance 3058 / 2358 -5150 / -5150 -2491 / -2691 1122 / 1122 Weight 260 lb 254 lb 1 oz 258 lb Microbiology Reports for the Last 24 Hours: Microbiology 04/14/22 10:15 Knee,Right - Right Gram Stain - Final 04/14/22 10:15 Knee,Right - Right Wound Culture - Preliminary NO GROWTH AFTER 72 HOURS 04/14/22 10:15 Knee,Right Gram Stain - Final 04/14/22 10:15 Knee,Right Wound Culture - Preliminary NO GROWTH AFTER 72 HOURS 04/14/22 10:15 Knee,Right - Right Gram Stain - Final 04/14/22 10:15 Knee,Right - Right Surgical Biopsy Culture - Preliminary NO GROWTH AFTER 72 HOURS Head: atraumatic Eyes: as per HPI ENT: normal exam Neck: trachea midline Respiratory: CTA bilaterally Cardiac: Reg Rate and Rhythm GI: soft Comment:: rt knee in drain Skin: intact Neuro: Cranial Nerve 2-12 Intact Assessment and Plan Assessment and plan all Dx Plan of Treatment: Patient may continue weightbearing as tolerated on the right lower extremity, range of motion as tolerated. VAC/drains removed. Plan to continue antibiotics/follow culture results. Plan for outpatient follow-up with Liu Faustin MD, infectious disease specialist in [place] upon discharge. Follow-up in clinic first Wednesday following discharge. I spoke to Dr. Faustin. Despite negative cultures to date, plan for PICC, vancomycin infusion until follow up with him as an outpatient. Under sterile conditions I aspirated the left knee yielding cloudy appearing yellow fluid. Plan to send this for cell count, crystals, gram stain, culture. Continue PT/OT. Will follow.
[2022-04-18 10:28] LABS: Basophils # 0.1 K/mm3 (0-0.2); Basophils % 0.6 % (0.1-2.0); Eosinophils # 0.7 K/mm3 (0.0-0.4); Eosinophils % 5.6 % (0.1-12.0); Hematocrit 29.9 % (42.0-52.0); Hemoglobin 9.4 g/dL (14.1-18.0); Lymphocytes # 1.2 K/mm3 (0.7-4.5); Lymphocytes % 9.9 % (10-50); Mean Corpuscular HGB Conc 31.4 g/dL (31.8-35.4); Mean Corpuscular Hemoglobin 29.3 pg (27.0-31.2); Mean Corpuscular Volume 93.3 fl (80-94); Mean Platelet Volume 7.8 fl (7.4-10.4); Monocytes # 0.9 K/mm3 (0.1-1.0); Monocytes % 7.4 % (1.7-9.3); Neutrophils # 9.1 K/mm3 (1.8-7.8); Neutrophils % 76.5 % (37.0-80.0); Platelet Count 645 K/mm3 (142-424); Red Cell Distribution Width 15.1 % (11.5-17.5); White Blood Count 11.9 K/mm3 (4.8-10.8)
[2022-04-18 10:30] LABS: Alanine Aminotransferase 29 U/L (12-78); Albumin/Globulin Ratio 0.9 (1.1-1.8); Alkaline Phosphatase 119 U/L (38-126); Anion Gap 9.7 mEq/L (5-15); Aspartate Amino Transferase 44 U/L (17-59); Bilirubin,Total 0.2 mg/dl (0.2-1.3); Blood Urea Nitrogen 9 mg/dl (9-20); Calcium 8.1 mg/dl (8.4-10.2); Carbon Dioxide 28 mmol/L (22.0-30.0); Chloride 101 mmol/L (98-107); Creatinine Clearance Estimated 120 mL/min (50-200); Estimated Glomerular Filt Rate 97 ml/min (>60); GFR (African American) 117 ML/MIN (>60); Globulin 3.2 g/dL (1.3-3.2); Glucose 126 mg/dl (74-100); Potassium 3.7 mmoL/L (3.5-5.1); Sodium 135 mmol/L (136-145); Total Protein,Serum 6.2 g/dl (6.3-8.2)
--- NOTE | 2022-04-18 10:32 | EXP.PHA.CONS ---
Pharmacy Consult Date: 04/18/22 Time: 10:32 Referring provider: DR BRAXTON Reason for Consult:: VANCOMYCIN LEVEL OBTAINED Allergies Allergy/AdvReac Type Severity Reaction Status Date / Time escitalopram [From Lexapro] Allergy Severe Hallucinati Verified 04/10/22 09:01 ng morphine [MORPHINE] Allergy Unknown RASH ON Verified 04/10/22 09:01 LEGS Home Medications Medication Instructions Recorded Confirmed Type furosemide 40 mg tablet 40 mg PO DAILY diuretic #90 tabs 08/29/21 04/11/22 Rx gabapentin 600 mg tablet 600 mg PO TID Pain #90 tabs 12/30/21 04/10/22 Rx losartan 25 mg tablet 25 mg PO DAILY blood pressure #90 03/02/22 04/10/22 Rx tabs metoprolol succinate 50 mg 50 mg PO DAILY blood pressure #90 03/02/22 04/10/22 Rx tablet,extended release 24 hr tabs levothyroxine 100 mcg tablet 100 mcg PO DAILY hypothyroidism 03/31/22 04/10/22 History levothyroxine 88 mcg tablet 88 mcg PO DAILY hypothyroidism 03/31/22 04/10/22 History omeprazole 40 mg capsule,delayed 40 mg PO DAILY acid reflux 03/31/22 04/10/22 History release potassium chloride 8 mEq 8 meq PO DAILY potassium supplement 03/31/22 04/10/22 History tablet,extended release atorvastatin 10 mg tablet 10 mg PO HS High cholesterol 04/10/22 04/10/22 History cephalexin 500 mg tablet 500 mg PO QID post surgical 04/10/22 04/10/22 History infection diazepam 5 mg tablet 5 mg PO BID PRN Anxiety 04/10/22 04/10/22 History oxycodone 5 mg tablet 5 mg PO Q4-6H PRN pain 04/10/22 04/10/22 History rivaroxaban 10 mg tablet 10 mg PO DAILY dvt prophylaxis 04/10/22 04/10/22 History sulfamethoxazole 800 1 each PO BID post surgical 04/10/22 04/10/22 History mg-trimethoprim 160 mg tablet infection New Prescriptions to Start Prescriptions: Height: 1.78 m Weight: 117.027 kg Laboratory Results:: Laboratory Results - last 24 hr 04/17/22 17:25: Vancomycin Trough 20.5 H 04/17/22 17:25: Sodium 135 L, Potassium 3.9, Chloride 99, Carbon Dioxide 30, Anion Gap 9.9, BUN 10, Creatinine 1.00 D, Estimated Creat Clear 118, Estimated GFR 75, Est GFR ( Amer) 90 D, Glucose 109 H, Calcium 8.3 L 04/18/22 10:15: WBC 11.9 H, RBC 3.20 L, Hgb 9.4 L, Hct 29.9 L, MCV 93.3, MCH 29.3, MCHC 31.4 L, RDW 15.1, Plt Count 645 H, MPV 7.8, Neut % (Auto) 76.5, Lymph % (Auto) 9.9 L, [place] % (Auto) 7.4, Eos % (Auto) 5.6, Baso % (Auto) 0.6, Neut # (Auto) 9.1 H, Lymph # (Auto) 1.2, [place] # (Auto) 0.9, Eos # (Auto) 0.7 H, Baso # (Auto) 0.1 Medical History: Medical History (Updated 04/11/22 @ 00:26 by Arash James MD) Anxiety Bilateral knee pain BPH (benign prostatic hyperplasia) Constipation Daytime somnolence Dizziness Edema of both feet History of Hodgkin's lymphoma Hodgkin lymphoma Hyperlipidemia Hypertension Hypothyroidism Low back pain Lumbar disc disease with radiculopathy Lumbar disc disease with radiculopathy Lumbar disc disease with radiculopathy Postherpetic neuralgia Shingles Thyroid goiter Assessment and Plan Assessment and plan (1) Post op infection: Status: Acute Qualifiers: Encounter type: subsequent encounter Postoperative infection type: unspecified type Qualified Code(s): T81.40XD - Infection following a procedure, unspecified, subsequent encounter Category: Medical Code(s): T81.40XA - Infection following a procedure, unspecified, initial encounter (2) Cellulitis: Status: Acute Qualifiers: Laterality: right Site of cellulitis: extremity Site of cellulitis of extremity: lower extremity Qualified Code(s): L03.115 - Cellulitis of right lower limb Category: Medical Code(s): L03.90 - Cellulitis, unspecified Plan VANCOMYCIN TROUGH OBTAINED 04/17/22 AT 17:25 OF 20.5 MCG/ML. [facility] RECOMMENDED HOLDING DOSE UNTIL 21:00 AND RESUMING AT CURRENT DOSE OF VANCOMYCIN 1750 MG IV Q12H.
--- NOTE | 2022-04-18 13:32 | EXP.ORTH.PN ---
Subjective *Date: 04/18/22 *Time: 13:32 Interval history: Pain tolerable. Mobilizing with PT. Ortho Exam (Inpt) Vital signs and Labs for Last 24 Hours: Temp Pulse Resp BP Pulse Ox 98.4 F 76 16 157/70 H 98 04/18/22 08:00 04/18/22 08:00 04/18/22 08:00 04/18/22 08:00 04/18/22 08:00 Laboratory Results - last 24 hr 04/17/22 17:25: Vancomycin Trough 20.5 H 04/17/22 17:25: Sodium 135 L, Potassium 3.9, Chloride 99, Carbon Dioxide 30, Anion Gap 9.9, BUN 10, Creatinine 1.00 D, Estimated Creat Clear 118, Estimated GFR 75, Est GFR ( Amer) 90 D, Glucose 109 H, Calcium 8.3 L 04/18/22 10:15: WBC 11.9 H, RBC 3.20 L, Hgb 9.4 L, Hct 29.9 L, MCV 93.3, MCH 29.3, MCHC 31.4 L, RDW 15.1, Plt Count 645 H, MPV 7.8, Neut % (Auto) 76.5, Lymph % (Auto) 9.9 L, [place] % (Auto) 7.4, Eos % (Auto) 5.6, Baso % (Auto) 0.6, Neut # (Auto) 9.1 H, Lymph # (Auto) 1.2, [place] # (Auto) 0.9, Eos # (Auto) 0.7 H, Baso # (Auto) 0.1 04/18/22 10:15: Sodium 135 L, Potassium 3.7, Chloride 101, Carbon Dioxide 28, Anion Gap 9.7, BUN 9, Creatinine 0.80, Estimated Creat Clear 120, Estimated GFR 97, Est GFR ( Amer) 117 D, Glucose 126 H, Calcium 8.1 L, Total Bilirubin 0.2, AST 44, ALT 29, Alkaline Phosphatase 119, Total Protein 6.2 L, Albumin 3.0 L, Globulin 3.2, Albumin/Globulin Ratio 0.9 L I & O for Labs for Last 24 Hours: Intake & Output 04/15/22 04/16/22 04/17/22 04/18/22 23:59 23:59 23:59 23:59 Intake Total 3870 / 3870 2403 / 2403 3578 / 3578 1870 / 1870 Output Total 4555 / 4555 7525 / 7525 4165 / 5165 3860 / 3860 Balance -685 / -685 -5122 / -5122 -587 / -1587 -1989 / Weight 260 lb 254 lb 1 oz 258 lb Microbiology Reports for the Last 24 Hours: Microbiology 04/14/22 10:15 Knee,Right - Right Gram Stain - Final 04/14/22 10:15 Knee,Right - Right Wound Culture - Preliminary NO GROWTH AFTER 72 HOURS 04/14/22 10:15 Knee,Right Gram Stain - Final 04/14/22 10:15 Knee,Right Wound Culture - Preliminary NO GROWTH AFTER 72 HOURS 04/14/22 10:15 Knee,Right - Right Gram Stain - Final 04/14/22 10:15 Knee,Right - Right Surgical Biopsy Culture - Preliminary NO GROWTH AFTER 72 HOURS Head: normocephalic and atraumatic ENT: mucous membranes moist Neck: normal inspection Respiratory: accessory muscle use, respiratory distress, normal respiratory effort and symmetric chest movement Cardiac: Reg Rate and Rhythm and radial pulses present GI: soft and distention Knee: right: wound (Right knee incision well approximated. Prevena / drains removed. Range of motion 0-85 degrees. Palpable DP/PT pulse. SILT DP/SP/T/Corrigan/Sa. + EHL/FHL/TA/GS. No calf pain. Negative Homans.) Assessment and Plan Assessment and plan all Dx Plan of Treatment: Patient may continue weightbearing as tolerated on the right lower extremity, range of motion as tolerated. VAC/drains removed. Plan to continue antibiotics/follow culture results. Plan for outpatient follow-up with Liu Faustin MD, infectious disease specialist in [place] upon discharge. Follow-up in clinic first Wednesday following discharge. I spoke to Dr. Faustin. Despite negative cultures to date, plan for PICC, vancomycin infusion until follow up with him as an outpatient. Continue PT/OT. Will follow.
[2022-04-18 16:00] VITALS: BP 167/98; PULSE 90; RESP 17; TEMP 37.2; O2SAT 95
--- NOTE | 2022-04-18 17:33 | PC.NURSE ---
pt is aox4, able to make needs known to staff, did tolerate sitting up to chair for about 2 hours this shift. james drains and wound vac removed by surgeon at bed side this shift. he did have one large formed bm this shift. he has not required o2 support. dsg to leg in clean dry and intact.
[2022-04-18 20:00] VITALS: BP 130/78; PULSE 79; RESP 18; TEMP 37.3; O2SAT 92
[2022-04-19 04:00] VITALS: BP 132/67; PULSE 73; RESP 18; TEMP 37.2
[2022-04-19 05:00] VITALS: BMI 36.4
--- NOTE | 2022-04-19 05:13 | PC.NURSE ---
Pt alert and oriented x 4. Pt has c/of pain multiple times this shift - Medicating per MAR. Dressing to R knee is c/d/i. +1 edema to R leg noted, with some redness. Palpable pulses to BLE. Pt wears knee immbolizer when out of bed. Pt has a PICC to JG. PICC drsg was falling off - PICC drsg changed. PICC infusing without issue. IV fluids and ATBX infusing per order. Remains on RA. Pt says he will sit up to chair for breakfast in the AM. No other needs voiced at this time. Call light in reach.
[2022-04-19 07:45] LABS: Basophils # 0.1 K/mm3 (0-0.2); Basophils % 0.6 % (0.1-2.0); Eosinophils # 0.4 K/mm3 (0.0-0.4); Eosinophils % 3.6 % (0.1-12.0); Hematocrit 28.1 % (42.0-52.0); Hemoglobin 9.1 g/dL (14.1-18.0); Lymphocytes # 1.5 K/mm3 (0.7-4.5); Lymphocytes % 13.6 % (10-50); Mean Corpuscular HGB Conc 32.2 g/dL (31.8-35.4); Mean Corpuscular Hemoglobin 30.3 pg (27.0-31.2); Mean Platelet Volume 7.7 fl (7.4-10.4); Monocytes % 9.1 % (1.7-9.3); Neutrophils # 8.1 K/mm3 (1.8-7.8); Neutrophils % 73.1 % (37.0-80.0); Platelet Count 559 K/mm3 (142-424); Red Blood Count 2.99 M/mm3 (4.60-6.20); Red Cell Distribution Width 15.1 % (11.5-17.5); White Blood Count 11.1 K/mm3 (4.8-10.8)
[2022-04-19 07:48] LABS: Alanine Aminotransferase 25 U/L (12-78); Albumin Level 2.8 g/dl (3.5-5.0); Albumin/Globulin Ratio 0.9 (1.1-1.8); Alkaline Phosphatase 111 U/L (38-126); Anion Gap 5.4 mEq/L (5-15); Aspartate Amino Transferase 33 U/L (17-59); Bilirubin,Total 0.3 mg/dl (0.2-1.3); Blood Urea Nitrogen 8 mg/dl (9-20); Carbon Dioxide 30 mmol/L (22.0-30.0); Chloride 100 mmol/L (98-107); Creatinine Clearance Estimated 119 mL/min (50-200); Estimated Glomerular Filt Rate 97 ml/min (>60); GFR (African American) 117 ML/MIN (>60); Globulin 3.1 g/dL (1.3-3.2); Glucose 123 mg/dl (74-100); Potassium 3.4 mmoL/L (3.5-5.1); Sodium 132 mmol/L (136-145); Total Protein,Serum 5.9 g/dl (6.3-8.2)
[2022-04-19 08:00] VITALS: BP 132/84; PULSE 95; RESP 16; TEMP 37.4; O2SAT 95
--- NOTE | 2022-04-19 09:44 | PC.NURSE ---
Pt sitting up in bed watching TV. Pt asked for something to drink and it was provided. Pt has no further requests at this time.
--- NOTE | 2022-04-19 11:55 | EXP.ACUTE.PN ---
Subjective *Date: 04/20/22 *Time: 13:40 Interval history: doing ok but now has lt knee pain also Medical Exam Vital signs and Labs for Last 24 Hours: Temp Pulse Resp BP Pulse Ox 99.4 F 95 H 16 132/84 95 04/19/22 08:00 04/19/22 08:00 04/19/22 08:00 04/19/22 08:00 04/19/22 08:00 Laboratory Results - last 24 hr 04/19/22 07:00: WBC 11.1 H, RBC 2.99 L, Hgb 9.1 L, Hct 28.1 L, MCV 94.0, MCH 30.3, MCHC 32.2, RDW 15.1, Plt Count 559 H, MPV 7.7, Neut % (Auto) 73.1, Lymph % (Auto) 13.6, [place] % (Auto) 9.1, Eos % (Auto) 3.6, Baso % (Auto) 0.6, Neut # (Auto) 8.1 H, Lymph # (Auto) 1.5, [place] # (Auto) 1.0, Eos # (Auto) 0.4, Baso # (Auto) 0.1 04/19/22 07:00: Sodium 132 L, Potassium 3.4 L, Chloride 100, Carbon Dioxide 30, Anion Gap 5.4, BUN 8 L, Creatinine 0.80, Estimated Creat Clear 119, Estimated GFR 97, Est GFR ( Amer) 117, Glucose 123 H, Calcium 8.0 L, Total Bilirubin 0.3, AST 33, ALT 25, Alkaline Phosphatase 111, Total Protein 5.9 L, Albumin 2.8 L, Globulin 3.1, Albumin/Globulin Ratio 0.9 L I & O for Labs for Last 24 Hours: Intake & Output 04/16/22 04/17/22 04/18/22 04/19/22 11:59 11:59 11:59 11:59 Intake Total 2250 / 2250 3999 / 3999 3332 / 3332 4316 / 4316 Output Total 7400 / 7400 6490 / 6690 4710 / 5210 3700 / 3700 Balance -5150 / -5150 -2491 / -2691 -1378 / -1878 616 / 616 Weight 260 lb 254 lb 1 oz 258 lb 254 lb 9 oz Microbiology Reports for the Last 24 Hours: Microbiology 04/14/22 10:15 Knee,Right Gram Stain - Final 04/14/22 10:15 Knee,Right Wound Culture - Preliminary NO GROWTH AFTER 4 DAYS 04/14/22 10:15 Knee,Right - Right Gram Stain - Final 04/14/22 10:15 Knee,Right - Right Surgical Biopsy Culture - Preliminary NO GROWTH AFTER 4 DAYS 04/14/22 10:15 Knee,Right - Right Gram Stain - Final 04/14/22 10:15 Knee,Right - Right Wound Culture - Preliminary NO GROWTH AFTER 4 DAYS Head: atraumatic Eyes: as per HPI ENT: normal exam Neck: normal inspection Respiratory: CTA bilaterally Cardiac: Reg Rate and Rhythm GI: soft Extremities: joint swelling Comment:: lt knee with effusion Skin: intact Neuro: Cranial Nerve 2-12 Intact Assessment and Plan Assessment and plan all Dx Plan of Treatment: Patient may continue weightbearing as tolerated on the right lower extremity, range of motion as tolerated. VAC/drains removed. Plan to continue antibiotics/follow culture results. Plan for outpatient follow-up with Lui Faustin MD, infectious disease specialist in [place] upon discharge. Follow-up in clinic first Wednesday following discharge. I spoke to Dr. Faustin. Despite negative cultures to date, plan for PICC, vancomycin infusion until follow up with him as an outpatient. Under sterile conditions I aspirated the left knee yielding cloudy appearing yellow fluid. Plan to send this for cell count, crystals, gram stain, culture. Continue PT/OT. Will follow.
[2022-04-19 12:00] VITALS: BP 117/71; PULSE 88; RESP 18; TEMP 38.2; O2SAT 92
--- NOTE | 2022-04-19 12:20 | CA_ITS ---
FINAL REPORT TECHNIQUE: Color Doppler, duplex Doppler and compression sonography of the right and left lower extremity venous system was performed. CLINICAL HISTORY: new onset fever,RO DVT.LEFT KNEE PAIN, REDNESS FINDINGS: There is no evidence of deep venous thrombosis from the level of the groin to the calf. The veins are patent and compressible. IMPRESSION: No evidence of deep venous thrombosis right or left lower extremity. Reviewed, Interpreted and Dictated by Westley Marie III, MD Transcribed by Tasia Vivas Authenticated and [facility]
--- NOTE | 2022-04-19 12:22 | PC.NURSE ---
dr schroeder and dr benitez notified of pt fever. dr schroeder ordered bilateral Venous Doppler to rule out DVT as cause of fever. pt medicated with po prn tylenol.
[2022-04-19 16:00] VITALS: BP 128/64; PULSE 73; RESP 18; TEMP 37.6; O2SAT 95
[2022-04-19 20:00] VITALS: BP 132/85; PULSE 81; RESP 17; TEMP 38.2; O2SAT 92
[2022-04-20] VITALS (7 sets, daily range): BP systolic 126–144; BP diastolic 59–97; PULSE 62–78; RESP 16–20; TEMP 36.4–37.4; O2SAT 94–97; BMI 36.4
--- NOTE | 2022-04-20 07:28 | P.PNANES_ITS ---
[facility] Anesthesia Record Part II Anesthesia Record Part II Discharge Time: 12:43 Destination: Surgical Day Care (OP Surgery) PACU nurse assessment reviewed?: Yes Patient Condition:: Good Anesthesia Complications:: None Swallowing reflex intact?: Yes Cyanosis?: No Blood Pressure: 140/59 Pulse Rate: 62 Temperature: 97.5 F Mental Status: Alert & Oriented Pain level:: 8 Nausea and/or vomitting:: None Intake, IV Amount: 0
--- NOTE | 2022-04-20 07:54 | EXP.ORTH.PN ---
Subjective *Date: 04/20/22 *Time: 07:54 Interval history: Low-grade fever yesterday, complains of left knee pain which is hurting worse than his right knee when he is ambulating with physical therapy. Ortho Exam (Inpt) Vital signs and Labs for Last 24 Hours: Temp Pulse Resp BP Pulse Ox 97.5 F L 62 18 140/59 L 96 04/20/22 07:29 04/20/22 07:29 04/20/22 03:16 04/20/22 07:04/20/22 03:16 Laboratory Results - last 24 hr 04/19/22 07:00: Sodium 132 L, Potassium 3.4 L, Chloride 100, Carbon Dioxide 30, Anion Gap 5.4, BUN 8 L, Creatinine 0.80, Estimated Creat Clear 119, Estimated GFR 97, Est GFR ( Amer) 117, Glucose 123 H, Calcium 8.0 L, Total Bilirubin 0.3, AST 33, ALT 25, Alkaline Phosphatase 111, Total Protein 5.9 L, Albumin 2.8 L, Globulin 3.1, Albumin/Globulin Ratio 0.9 L I & O for Labs for Last 24 Hours: Intake & Output 04/17/22 04/18/22 04/19/22 04/20/22 23:59 23:59 23:59 23:59 Intake Total 3578 / 3578 3653 / 3653 3493 / 3493 0 / 0 Output Total 4165 / 5165 5660 / 5660 0910 / 4767 2375 / 2375 Balance -587 / -1587 -2006 / -2006 -1057 / -1232 -2375 / -2375 Weight 254 lb 1 oz 258 lb 254 lb 9 oz 254 lb 7 oz Microbiology Reports for the Last 24 Hours: Microbiology 04/14/22 10:15 Knee,Right - Right Gram Stain - Final 04/14/22 10:15 Knee,Right - Right Wound Culture - Final NO GROWTH AFTER 5 DAYS 04/14/22 10:15 Knee,Right Gram Stain - Final 04/14/22 10:15 Knee,Right Wound Culture - Final NO GROWTH AFTER 5 DAYS 04/14/22 10:15 Knee,Right - Right Gram Stain - Final 04/14/22 10:15 Knee,Right - Right Surgical Biopsy Culture - Final NO GROWTH AFTER 5 DAYS Head: normocephalic and atraumatic ENT: mucous membranes moist Neck: normal inspection Respiratory: accessory muscle use, respiratory distress, normal respiratory effort and symmetric chest movement Cardiac: Reg Rate and Rhythm and radial pulses present GI: soft and distention Additional Findings:: Right knee incision well approximated, no erythema. Range of motion from 0 to 90 degrees. Palpable dorsalis pedis/posterior tibial pulse. Sensation intact to light touch deep peroneal, superficial peroneal, tibial, sural, saphenous nerve distribution. 5/5 motor function intact to extensor hallicus longus, flexor hallicus longus, tibialis anterior, gastroc/soleus, posterior tibialis, foot eversion. Left knee with effusion, mild warmth. No redness. Range of motion from 5 to 20 degrees with pain. Palpable dorsalis pedis/posterior tibial pulse. Sensation intact to light touch deep peroneal, superficial peroneal, tibial, sural, saphenous nerve distribution. 5/5 motor function intact to extensor hallicus longus, flexor hallicus longus, tibialis anterior, gastroc/soleus, posterior tibialis, foot eversion. Assessment and Plan Assessment and plan all Dx Plan of Treatment: Patient may continue weightbearing as tolerated on the right lower extremity, range of motion as tolerated. VAC/drains removed. Plan to continue antibiotics/follow culture results. Plan for outpatient follow-up with Liu Faustin MD, infectious disease specialist in [place] upon discharge. Follow-up in clinic first Wednesday following discharge. I spoke to Dr. Faustin. Despite negative cultures to date, plan for PICC, vancomycin infusion until follow up with him as an outpatient. Under sterile conditions I aspirated the left knee yielding cloudy appearing yellow fluid. Plan to send this for cell count, crystals, gram stain, culture. Continue PT/OT. Will follow.
--- NOTE | 2022-04-20 08:11 | PC.NURSE ---
LATE ENTRY - Pt answering orientation questions, but seems lethargic and confused at times. Dr. James notified of change in mental status. No new orders at this time. Pt did have a temp this shift - Medicated per MAR w/ favorable results. Also medicating per MAR for pain. + pulses to BLE. PICC line dressing c/d/i. Dressings to RLL c/d/i. Pt has slept majority of my shift. Pt seems more alert this AM. IV infusing per order. Call light in reach.
--- NOTE | 2022-04-20 10:44 | DIET.NUTRFU ---
meal intake review, he did not eat well Thursday 04/19, possible d/t new infection. Had fever noted and drained some fluid off knee to determine what kind of infection maybe causing it. ABT tx in place. Todays breakfast shoed improvement with 75% consumed
--- NOTE | 2022-04-20 11:48 | EXP.ACUTE.PN ---
Subjective *Date: 04/20/22 *Time: 11:48 Medical Exam Vital signs and Labs for Last 24 Hours: Temp Pulse Resp BP Pulse Ox 98.9 F 74 18 144/87 H 95 04/20/22 08:00 04/20/22 08:00 04/20/22 08:00 04/20/22 08:00 04/20/22 08:00 I & O for Labs for Last 24 Hours: Intake & Output 04/17/22 04/18/22 04/19/22 04/20/22 23:59 23:59 23:59 23:59 Intake Total 3578 / 3578 3653 / 3653 3493 / 3493 1465 / 1465 Output Total 4165 / 5165 5660 / 5660 4750 / 4925 2375 / 2375 Balance -587 / -1587 -2006 / -2006 -1257 / -1432 -910 / -910 Weight 115.241 kg 117.027 kg 115.468 kg 115.411 kg Microbiology Reports for the Last 24 Hours: Microbiology 04/14/22 10:15 Knee,Right - Right Gram Stain - Final 04/14/22 10:15 Knee,Right - Right Wound Culture - Final NO GROWTH AFTER 5 DAYS 04/14/22 10:15 Knee,Right Gram Stain - Final 04/14/22 10:15 Knee,Right Wound Culture - Final NO GROWTH AFTER 5 DAYS 04/14/22 10:15 Knee,Right - Right Gram Stain - Final 04/14/22 10:15 Knee,Right - Right Surgical Biopsy Culture - Final NO GROWTH AFTER 5 DAYS Assessment and Plan Assessment and plan all Dx Plan of Treatment: Patient may continue weightbearing as tolerated on the right lower extremity, range of motion as tolerated. VAC/drains removed. Plan to continue antibiotics/follow culture results. Plan for outpatient follow-up with Liu Faustin MD, infectious disease specialist in [place] upon discharge. Follow-up in clinic first Wednesday following discharge. I spoke to Dr. Faustin. Despite negative cultures to date, plan for PICC, vancomycin infusion until follow up with him as an outpatient. Under sterile conditions I aspirated the left knee yielding cloudy appearing yellow fluid. Plan to send this for cell count, crystals, gram stain, culture. Continue PT/OT. Will follow. The patient's infection will respond to the chosen ABx?: Yes Is the patient receiving the right drug, dose, and route?: Yes Could a more targeted ABx be ordered?: No (empiric therapy at this time)
--- NOTE | 2022-04-20 15:18 | EXP.ACUTE.PN ---
Subjective *Date: 04/20/22 *Time: 15:18 Medical Exam Vital signs and Labs for Last 24 Hours: Temp Pulse Resp BP Pulse Ox 98.9 F 74 18 144/87 H 95 04/20/22 08:00 04/20/22 08:00 04/20/22 08:00 04/20/22 08:00 04/20/22 08:00 I & O for Labs for Last 24 Hours: Intake & Output 04/17/22 04/18/22 04/19/22 04/20/22 23:59 23:59 23:59 23:59 Intake Total 3578 / 3578 3653 / 3653 3493 / 3493 1465 / 1465 Output Total 4165 / 5165 5660 / 5660 4750 / 4925 2575 / 2575 Balance -587 / -1587 -2006 / -2006 -1257 / -1432 -1110 / -1110 Weight 115.241 kg 117.027 kg 115.468 kg 115.411 kg Microbiology Reports for the Last 24 Hours: Microbiology 04/20/22 07:50 Synovial Fluid - Other Gram Stain - Final 04/14/22 10:15 Knee,Right - Right Gram Stain - Final 04/14/22 10:15 Knee,Right - Right Wound Culture - Final NO GROWTH AFTER 5 DAYS 04/14/22 10:15 Knee,Right Gram Stain - Final 04/14/22 10:15 Knee,Right Wound Culture - Final NO GROWTH AFTER 5 DAYS 04/14/22 10:15 Knee,Right - Right Gram Stain - Final 04/14/22 10:15 Knee,Right - Right Surgical Biopsy Culture - Final NO GROWTH AFTER 5 DAYS The patient's infection will respond to the chosen ABx?: Yes Is the patient receiving the right drug, dose, and route?: Yes Could a more targeted ABx be ordered?: No (empiric therapy)
--- NOTE | 2022-04-20 16:34 | EXP.PN ---
Subjective *Date: 04/20/22 *Time: 18:31 Interval history: febrile to 100.7 ortho note reviewed left knee aspirated continues on vanc Exam Data for Last 24 hours Vital signs and Labs for Last 24 Hours: Temp Pulse Resp BP Pulse Ox 98.9 F 74 18 144/87 H 95 04/20/22 08:00 04/20/22 08:00 04/20/22 08:00 04/20/22 08:00 04/20/22 08:00 I & O for Last 24 hours: Intake & Output 04/17/22 04/18/22 04/19/22 04/20/22 23:59 23:59 23:59 23:59 Intake Total 3578 / 3578 3653 / 3653 3493 / 3493 1465 / 1465 Output Total 4165 / 5165 5660 / 5660 4750 / 4925 2575 / 2575 Balance -587 / -1587 -2007 / -2007 -1257 / -1432 -1110 / -1110 Weight 254 lb 1 oz 258 lb 254 lb 9 oz 254 lb 7 oz Microbiology Reports for the Last 24 Hours: Microbiology 04/20/22 07:50 Synovial Fluid - Other Gram Stain - Final 04/14/22 10:15 Knee,Right - Right Gram Stain - Final 04/14/22 10:15 Knee,Right - Right Wound Culture - Final NO GROWTH AFTER 5 DAYS 04/14/22 10:15 Knee,Right Gram Stain - Final 04/14/22 10:15 Knee,Right Wound Culture - Final NO GROWTH AFTER 5 DAYS 04/14/22 10:15 Knee,Right - Right Gram Stain - Final 04/14/22 10:15 Knee,Right - Right Surgical Biopsy Culture - Final NO GROWTH AFTER 5 DAYS Constitutional Constitutional: no acute distress *Routine HEENT Exam Head: Present normocephalic Eye: Present EOMI ENT: Present mucous membranes moist *Routine Neck Exam Neck: Present supple *Routine Respiratory Exam Respiratory: Present CTA bilaterally; Absent accessory muscle use *Routine Cardiovascular Exam Cardiovascular: Present RRR *Routine Abdominal Exam Abdominal: Present soft Assessment and Plan *Assessment and plan (1) Post op infection: Status: Acute Qualifiers: Encounter type: subsequent encounter Postoperative infection type: unspecified type Qualified Code(s): T81.40XD - Infection following a procedure, unspecified, subsequent encounter Category: Medical Code(s): T81.40XA - Infection following a procedure, unspecified, initial encounter Plan continue iv antibiotics, following with ortho
--- NOTE | 2022-04-20 18:56 | PC.NURSE ---
pt has been occasionally grumpy this shift. he apologizes and then grumpiness resolves. lungs are clear, bowel sounds are active. nad noted. pt has had pain in sav knees and legs all day. meds given frequently when requested. pt was up to the chair for several hours and tolerated this well.
[2022-04-20 20:52] LABS: Anion Gap 7.7 mEq/L (5-15); Blood Urea Nitrogen 14 mg/dl (9-20); Calcium 8.1 mg/dl (8.4-10.2); Carbon Dioxide 29 mmol/L (22.0-30.0); Chloride 96 mmol/L (98-107); Creatinine Clearance Estimated 119 mL/min (50-200); Estimated Glomerular Filt Rate 84 ml/min (>60); GFR (African American) 102 ML/MIN (>60); Glucose 111 mg/dl (74-100); Potassium 3.7 mmoL/L (3.5-5.1); Sodium 129 mmol/L (136-145)
[2022-04-20 20:57] LABS: Vancomycin,Trough 19.6 ug/mL (5.0-10.0)
--- NOTE | 2022-04-21 03:25 | PC.NURSE ---
Patient VSS, c/o pain in B/L knees with greater pain in Right Knee - elevated with pillow, pain medication administered per OCT; Patient had low grade temp with c/o chilling - administered Tylenol per OCT. TEDS contraindicated for right knee & patient refuses TEDS due to swelling in knee and pain where they enedina fluid off. Patient shows no s/s of acute distress, call light in reach, bed at lowest level for safety; will continue to monitor.
[2022-04-21 03:51] VITALS: BP 127/70; PULSE 69; RESP 19; TEMP 37.5; O2SAT 96
[2022-04-21 05:00] VITALS: BMI 36.6
[2022-04-21 05:12] VITALS: BMI 36.6
[2022-04-21 07:00] LABS: Basophils # 0.1 K/mm3 (0-0.2); Basophils % 0.6 % (0.1-2.0); Eosinophils # 0.6 K/mm3 (0.0-0.4); Hematocrit 27.4 % (42.0-52.0); Hemoglobin 8.8 g/dL (14.1-18.0); Lymphocytes # 1.3 K/mm3 (0.7-4.5); Lymphocytes % 9.8 % (10-50); Mean Corpuscular Hemoglobin 29.2 pg (27.0-31.2); Monocytes % 7.9 % (1.7-9.3); Neutrophils # 9.7 K/mm3 (1.8-7.8); Neutrophils % 76.5 % (37.0-80.0); Platelet Count 452 K/mm3 (142-424); Red Blood Count 3.01 M/mm3 (4.60-6.20); Red Cell Distribution Width 14.1 % (11.5-17.5); White Blood Count 12.6 K/mm3 (4.8-10.8)
[2022-04-21 07:15] LABS: Chloride 98 mmol/L (98-107); Potassium 3.7 mmoL/L (3.5-5.1); Sodium 132 mmol/L (136-145)
[2022-04-21 07:18] LABS: Anion Gap 9.7 mEq/L (5-15); Blood Urea Nitrogen 13 mg/dl (9-20); Calcium 8.4 mg/dl (8.4-10.2); Carbon Dioxide 28 mmol/L (22.0-30.0); Creatinine Clearance Estimated 119 mL/min (50-200); Estimated Glomerular Filt Rate 84 ml/min (>60); GFR (African American) 102 ML/MIN (>60); Glucose 131 mg/dl (74-100)
[2022-04-21 08:00] VITALS: BP 120/57; PULSE 82; RESP 19; TEMP 36.7; O2SAT 96
--- NOTE | 2022-04-21 08:50 | P.PN_ITS ---
Subjective *Date: 04/21/22 *Time: 08:49 Interval history: 66 YOM resting in bed, he reports pain is at a tolerable level and is feeling better. MARKY PICC. Discussed benefits of rehab facility versus home when discharged. Medical Exam Vital signs and Labs for Last 24 Hours: Temp Pulse Resp BP Pulse Ox 97.8 F 85 22 132/64 95 04/21/22 16:00 04/21/22 16:00 04/21/22 16:00 04/21/22 16:00 04/21/22 16:00 Laboratory Results - last 24 hr 04/20/22 07:50: Fluid Clarity Hazy A, Fluid Lining Cell TNP, Synovial Color Straw, Synovial RBC 3000, Synovial Tot Nuc Cell 57819 H, Synovial Eosinophils% 0, Synovial Polynuclear % 93, Synovial Lymphocytes % 4, Synovial Macrophages % 3, Synovial Crystal ID Comment, Synovial Fluid Comment TNP 04/20/22 20:06: Vancomycin Trough 19.6 H 04/20/22 20:06: Sodium 129 L, Potassium 3.7, Chloride 96 L, Carbon Dioxide 29, Anion Gap 7.7, BUN 14 D, Creatinine 0.90, Estimated Creat Clear 119, Estimated GFR 84, Est GFR ( Amer) 102, Glucose 111 H, Calcium 8.1 L 04/21/22 06:45: WBC 12.6 H, RBC 3.01 L, Hgb 8.8 L, Hct 27.4 L, MCV 91.0, MCH 29.2, MCHC 32.0, RDW 14.1, Plt Count 452 H, MPV 7.0 L, Neut % (Auto) 76.5, Lymph % (Auto) 9.8 L, [place] % (Auto) 7.9, Eos % (Auto) 5.0, Baso % (Auto) 0.6, Neut # (Auto) 9.7 H, Lymph # (Auto) 1.3, [place] # (Auto) 1.0, Eos # (Auto) 0.6 H, Baso # (Auto) 0.1 04/21/22 06:45: Sodium 132 L, Potassium 3.7, Chloride 98, Carbon Dioxide 28, Anion Gap 9.7, BUN 13, Creatinine 0.90, Estimated Creat Clear 119, Estimated GFR 84, Est GFR ( Amer) 102, Glucose 131 H, Calcium 8.4 I & O for Labs for Last 24 Hours: Intake & Output 04/18/22 04/19/22 04/20/22 04/21/22 23:59 23:59 23:59 23:59 Intake Total 3653 / 3653 3493 / 3493 3811 / 3811 2899 / 2899 Output Total 5660 / 5660 4750 / 4925 5625 / 5625 4150 / 4150 Balance -2006 / -2006 -1257 / -1432 -1814 / -1814 -1251 / -1251 Weight 258 lb 254 lb 9 oz 254 lb 7 oz 255 lb 7 oz Microbiology Reports for the Last 24 Hours: Microbiology 04/20/22 07:50 Synovial Fluid - Other Gram Stain - Final 04/20/22 07:50 Synovial Fluid - Other Body Fluid Culture - Preliminary NO GROWTH AFTER 24 HOURS Constitutional: no acute distress Head: atraumatic ENT: normal exam Neck: normal inspection, full ROM and trachea midline Respiratory: accessory muscle use or CTA bilaterally Cardiac: Reg Rate and Rhythm GI: soft, distention or normal bowel sounds Extremities: edema Comment:: Bilat Knee Drsg C/D/I Skin: cyanosis, erythema, dry, warm and wounds Comment:: Bilat Knee Drsg C/D/I Neuro: Numbness, Motor Function Intact, Sensory Function Intact and oriented x 3 Assessment and Plan Assessment and plan all Dx Plan of Treatment: Patient may continue weightbearing as tolerated on the right lower extremity, range of motion as tolerated. He may discontinue use of the knee immobilizer. Plan to continue antibiotics; follow culture results. Plan for PICC, continue vancomycin until outpatient follow up with Dr. Faustin. Plan for outpatient follow-up with Liu Faustin MD, infectious disease specialist in [place] upon discharge. Follow-up in clinic first Wednesday following discharge. Left knee gram stain negative for organisms; culture and cell count still pending. Continue PT/OT; wll continue to follow. Case Management to begin discharge planning
--- NOTE | 2022-04-21 09:34 | EXP.ORTH.PN ---
Subjective *Date: 04/21/22 *Time: 09:40 Interval history: Patient is a 66 year old male patient who underwent a right knee debridement, irrigation, and polyethylene insert exchange performed Dr. Tao on 04/14/2022. Today the patient is postop day #7. This morning he is lying comfortably in bed. He reports right knee pain as to be expected but states it is well controlled with as needed pain medication and rest. He states that he has been ambulating with the assistance of physical therapy. He states that he is eating and drinking well and denies any episodes of nausea or vomiting. He continues to report left knee pain. No history of any distal tingling/numbness, chills, rigors, or fevers. He denies any other symptoms or concerns at this time. Ortho Exam (Inpt) Vital signs and Labs for Last 24 Hours: Temp Pulse Resp BP Pulse Ox 98.1 F 82 19 120/57 L 96 04/21/22 08:00 04/21/22 08:00 04/21/22 08:00 04/21/22 08:00 04/21/22 08:00 Laboratory Results - last 24 hr 04/20/22 20:06: Vancomycin Trough 19.6 H 04/20/22 20:06: Sodium 129 L, Potassium 3.7, Chloride 96 L, Carbon Dioxide 29, Anion Gap 7.7, BUN 14 D, Creatinine 0.90, Estimated Creat Clear 119, Estimated GFR 84, Est GFR ( Amer) 102, Glucose 111 H, Calcium 8.1 L 04/21/22 06:45: WBC 12.6 H, RBC 3.01 L, Hgb 8.8 L, Hct 27.4 L, MCV 91.0, MCH 29.2, MCHC 32.0, RDW 14.1, Plt Count 452 H, MPV 7.0 L, Neut % (Auto) 76.5, Lymph % (Auto) 9.8 L, [place] % (Auto) 7.9, Eos % (Auto) 5.0, Baso % (Auto) 0.6, Neut # (Auto) 9.7 H, Lymph # (Auto) 1.3, [place] # (Auto) 1.0, Eos # (Auto) 0.6 H, Baso # (Auto) 0.1 04/21/22 06:45: Sodium 132 L, Potassium 3.7, Chloride 98, Carbon Dioxide 28, Anion Gap 9.7, BUN 13, Creatinine 0.90, Estimated Creat Clear 119, Estimated GFR 84, Est GFR ( Amer) 102, Glucose 131 H, Calcium 8.4 I & O for Labs for Last 24 Hours: Intake & Output 04/18/22 04/19/22 04/20/22 04/21/22 23:59 23:59 23:59 23:59 Intake Total 3653 / 3653 3493 / 3493 3811 / 3811 1536 / 1536 Output Total 5660 / 5660 4750 / 4925 5625 / 5625 1800 / 1800 Balance -2006 / -2006 -1257 / -1432 -1814 / -181 -264 / -264 Weight 258 lb 254 lb 9 oz 254 lb 7 oz 255 lb 7 oz Microbiology Reports for the Last 24 Hours: Microbiology 04/20/22 07:50 Synovial Fluid - Other Gram Stain - Final 04/20/22 07:50 Synovial Fluid - Other Body Fluid Culture - Preliminary NO GROWTH AFTER 24 HOURS Head: normocephalic and atraumatic Eyes: as per HPI ENT: normal exam Neck: normal inspection, full ROM, trachea midline and lymphadenopathy Respiratory: accessory muscle use, normal respiratory effort, able to speak in complete sentences and symmetric chest movement Cardiac: Reg Rate and Rhythm GI: soft and tenderness Comment:: Upon examination of the right knee: Dressings present are clean, dry, and intact. No evidence of drainage or bleeding noted. Attempted movements of the right knee are somewhat painful. Range of motion 0-100 degrees. Thigh and calf are soft and nontender; Homans' sign is negative. No clinical evidence of DVT noted. Posterior tibial pulse 2+; capillary refill is brisk. Sensation to light touch is grossly intact throughout. Patient is actively mobilizing the foot, ankle, and toes. Upon examination of the left knee: Dressings present are clean, dry, and intact. No evidence of drainage or bleeding noted. Attempted movements of the left knee are somewhat painful. Range of motion 0-90 degrees. Thigh and calf are soft and nontender; Homans' sign is negative. No clinical evidence of DVT noted. Posterior tibial pulse 2+; capillary refill is brisk. Sensation to light touch is grossly intact throughout. Patient is actively mobilizing the foot, ankle, and toes. Skin: intact, cyanosis, erythema, warm, lesions, jaundice or normal turgor Neuro: Cranial Nerve 2-12 Intact, Numbness, Motor Function Intact, Tingling, Sensory Function Intact, alert, awake, oriented x 3, tone
--- NOTE | 2022-04-21 09:54 | SW/DCPLANNER ---
Addendum entered by Marialuisa Justice 04/23/22 08:00: The plan for this patient is to discharge to [facility] level of care today: patient can admit at [facility] per Nelida. COVID swab has been ordered prior to discharge. Addendum entered by Marialuisa Justice 04/22/22 15:55: Nelida em/ [facility] stated that due to insurance purposes patient can not admit till tomorrow 04/23/22. Addendum entered by Marialuisa Justice 04/21/22 13:14: Nelida em/ [facility] has confirmed that she can accept this patient once medically stable for discharge. Patient stated that he would like to speak with his son prior to making any final decisions. Son should arrive to [facility] shortly per patient. I will continue to follow up. Original Note: I spoke with this patient this AM regarding discharge plans. Patient will need IV antibiotics and PT/OT at time of discharge. Patient originally wanted to discharge home with family to assist but after a lengthy discussion with patient he is agreeable to placement at [facility]. Patient stated that he would like to speak with his family about this plan but is agreeable for me to fax information to [facility] at this time. Nelida em/ [facility] confirmed that she does have male beds available.
--- NOTE | 2022-04-21 10:27 | EXP.PHA.CONS ---
Pharmacy Consult Date: 04/21/22 Time: 10:28 Referring provider: DR. BANSAL Reason for Consult:: VANCOMYCIN LEVEL Allergies Allergy/AdvReac Type Severity Reaction Status Date / Time escitalopram [From Lexapro] Allergy Severe Hallucinati Verified 04/10/22 09:01 ng morphine [MORPHINE] Allergy Unknown RASH ON Verified 04/10/22 09:01 LEGS Home Medications Medication Instructions Recorded Confirmed Type furosemide 40 mg tablet 40 mg PO DAILY diuretic #90 tabs 08/29/21 04/11/22 Rx gabapentin 600 mg tablet 600 mg PO TID Pain #90 tabs 12/30/21 04/10/22 Rx losartan 25 mg tablet 25 mg PO DAILY blood pressure #90 03/02/22 04/10/22 Rx tabs metoprolol succinate 50 mg 50 mg PO DAILY blood pressure #90 03/02/22 04/10/22 Rx tablet,extended release 24 hr tabs levothyroxine 100 mcg tablet 100 mcg PO DAILY hypothyroidism 03/31/22 04/10/22 History levothyroxine 88 mcg tablet 88 mcg PO DAILY hypothyroidism 03/31/22 04/10/22 History omeprazole 40 mg capsule,delayed 40 mg PO DAILY acid reflux 03/31/22 04/10/22 History release potassium chloride 8 mEq 8 meq PO DAILY potassium supplement 03/31/22 04/10/22 History tablet,extended release atorvastatin 10 mg tablet 10 mg PO HS High cholesterol 04/10/22 04/10/22 History cephalexin 500 mg tablet 500 mg PO QID post surgical 04/10/22 04/10/22 History infection diazepam 5 mg tablet 5 mg PO BID PRN Anxiety 04/10/22 04/10/22 History oxycodone 5 mg tablet 5 mg PO Q4-6H PRN pain 04/10/22 04/10/22 History rivaroxaban 10 mg tablet 10 mg PO DAILY dvt prophylaxis 04/10/22 04/10/22 History sulfamethoxazole 800 1 each PO BID post surgical 04/10/22 04/10/22 History mg-trimethoprim 160 mg tablet infection New Prescriptions to Start Prescriptions: Height: 1.78 m Weight: 115.865 kg Laboratory Results:: Laboratory Results - last 24 hr 04/20/22 20:06: Vancomycin Trough 19.6 H 04/20/22 20:06: Sodium 129 L, Potassium 3.7, Chloride 96 L, Carbon Dioxide 29, Anion Gap 7.7, BUN 14 D, Creatinine 0.90, Estimated Creat Clear 119, Estimated GFR 84, Est GFR ( Amer) 102, Glucose 111 H, Calcium 8.1 L 04/21/22 06:45: WBC 12.6 H, RBC 3.01 L, Hgb 8.8 L, Hct 27.4 L, MCV 91.0, MCH 29.2, MCHC 32.0, RDW 14.1, Plt Count 452 H, MPV 7.0 L, Neut % (Auto) 76.5, Lymph % (Auto) 9.8 L, [place] % (Auto) 7.9, Eos % (Auto) 5.0, Baso % (Auto) 0.6, Neut # (Auto) 9.7 H, Lymph # (Auto) 1.3, [place] # (Auto) 1.0, Eos # (Auto) 0.6 H, Baso # (Auto) 0.1 04/21/22 06:45: Sodium 132 L, Potassium 3.7, Chloride 98, Carbon Dioxide 28, Anion Gap 9.7, BUN 13, Creatinine 0.90, Estimated Creat Clear 119, Estimated GFR 84, Est GFR ( Amer) 102, Glucose 131 H, Calcium 8.4 Medical History: Medical History (Updated 04/11/22 @ 00:26 by Arash Bansal MD) Anxiety Bilateral knee pain BPH (benign prostatic hyperplasia) Constipation Daytime somnolence Dizziness Edema of both feet History of Hodgkin's lymphoma Hodgkin lymphoma Hyperlipidemia Hypertension Hypothyroidism Low back pain Lumbar disc disease with radiculopathy Lumbar disc disease with radiculopathy Lumbar disc disease with radiculopathy Postherpetic neuralgia Shingles Thyroid goiter Assessment and Plan Assessment and plan all Dx Assessment and Plan for all problems:: Pharmacokinetic dosing service Patient: Floor: Weight: 119 Kilograms Vancomycin single level analysis: Current dose being given: 1750 mg Current dosing interval: 12 hrs Current infusion time (hrs): 2 Single level Trough Data: Trough level obtained: 19.6 mcg/ml Timing of trough - # of hrs before next dose: 0.5 Hrs Desired peak: 35 mcg/ml Desired trough: 15 mcg/ml Estimated PK Parameters: New rate constant (rudi): 0.058 hr-1 Half-life: 11.95 Hours Vd from levels: 95.20 Liters (0.7 L/kg) CLvanco=?? 5.522 L/hr Estimated New Dose and Interval Recommended dose: 2181.5 mg Recommended interv
--- NOTE | 2022-04-21 10:41 | PC.NURSE ---
Rounded on pt, cleaned and straightened room.Pt up in chair, therapy in room working with pt. No needs voiced at this time.
[2022-04-21 14:11] LABS: Clarity,Fluid Hazy (Clear); Color,Fluid Straw (Yellow); Eosinophils,Fluid 0 % (Not Estab.); Lymphocytes,Fluid 4 % (Not Estab.); Macrophages,Fluid 3 % (Not Estab.); Nucleated cells, Syn. Fluid 25950 cells/uL (0-200); Polys,Fluid 93 % (Not Estab.); RBC,Fluid 3000 /uL (Not Estab.)
--- NOTE | 2022-04-21 15:06 | PC.NURSE ---
extensive conversation with patient. answered questions in regards to follow up and plans at discharge. awaiting precert at [facility]. patient was worried about paying bills but after he talked it out stated he could call his son to bring them to him. stated he planned on having a shower today. spoke about plans for future surgery to other knee. educated on follow up with dr whitley. no other concerns. patient was up to chair. encouraged him to ring out as needed.
[2022-04-21 16:00] VITALS: BP 132/64; PULSE 85; RESP 22; TEMP 36.6; O2SAT 95
--- NOTE | 2022-04-21 18:12 | PC.NURSE ---
PT HAS DONE WELL THIS SHIFT, BEEN UP TO CHAIR SINCE THE AM. TOOK A SHOWER, TOLERATED WELL. C/O'S OF PAIN OF BILAT KNEES AT FREQUENT INTERVALS RELIEVED BY PRESCRIBED PAIN MEDS. PTS BUTTOCKS IS RED AND EXCORIATED DUE TO PT SPILLING URINAL ON HIMSELF AT TIME., CLEANED AREA, APPLIED POWDER AND DSG. PT CURRENTLY UP TO CHAIR WITH FAMILY AT BEDSIDE, CB WITHIN REACH NO CONCERNS AT THIS TIME.
--- NOTE | 2022-04-21 18:46 | PC.WOUNDNOTE ---
REDNESS AND EXCORIATION
--- NOTE | 2022-04-21 19:58 | PC.NURSE ---
SRNA NOTE: Went into room 1999 to get pt. vitals and pt was not in room. Confirmed with RN
[2022-04-21 20:00] VITALS: O2SAT 97
[2022-04-21 20:37] VITALS: BP 109/59; PULSE 82; RESP 20; TEMP 37.5; O2SAT 97
[2022-04-22 03:38] VITALS: BP 123/74; PULSE 66; RESP 16; TEMP 36.9; O2SAT 95; BMI 37.9
--- NOTE | 2022-04-22 05:00 | PC.NURSE ---
pt rested well through the night, pt up to wheelchair with sons at start of shift and went outside and tolerated well, it was noted that pt stated that he smoked one cigarette, pt medicated for pain rated 9-10/10, dressing to right knee CDI; mild swelling noted to RLE, leg warm to touch, + pedal pulses noted bilateratally, picc line intact with dressing CDI, pt is alert and oriented x4, vital signs have been stable, no other issues or concerns at this time, lung sounds diminished and 02 sats 95 on room air. pt currently not on xarelto per physician orders,
[2022-04-22 06:38] LABS: Basophils # 0.1 K/mm3 (0-0.2); Basophils % 0.7 % (0.1-2.0); Eosinophils # 0.5 K/mm3 (0.0-0.4); Eosinophils % 5.6 % (0.1-12.0); Hematocrit 26.3 % (42.0-52.0); Hemoglobin 8.2 g/dL (14.1-18.0); Lymphocytes # 1.2 K/mm3 (0.7-4.5); Lymphocytes % 13.1 % (10-50); Mean Corpuscular HGB Conc 31.3 g/dL (31.8-35.4); Mean Corpuscular Hemoglobin 29.6 pg (27.0-31.2); Mean Corpuscular Volume 94.5 fl (80-94); Monocytes # 0.9 K/mm3 (0.1-1.0); Monocytes % 9.3 % (1.7-9.3); Neutrophils # 6.8 K/mm3 (1.8-7.8); Neutrophils % 71.4 % (37.0-80.0); Platelet Count 422 K/mm3 (142-424); Red Blood Count 2.78 M/mm3 (4.60-6.20); White Blood Count 9.5 K/mm3 (4.8-10.8)
[2022-04-22 06:46] LABS: Chloride 99 mmol/L (98-107); Potassium 3.4 mmoL/L (3.5-5.1)
[2022-04-22 06:49] LABS: Blood Urea Nitrogen 14 mg/dl (9-20); Calcium 8.4 mg/dl (8.4-10.2); Carbon Dioxide 28 mmol/L (22.0-30.0); Creatinine Clearance Estimated 124 mL/min (50-200); Estimated Glomerular Filt Rate 84 ml/min (>60); GFR (African American) 102 ML/MIN (>60); Glucose 111 mg/dl (74-100)
[2022-04-22 07:09] LABS: Anion Gap 8.4 mEq/L (5-15); Sodium 132 mmol/L (136-145)
[2022-04-22 08:00] VITALS: BP 114/65; PULSE 79; RESP 16; TEMP 36.8; O2SAT 96
--- NOTE | 2022-04-22 10:07 | EXP.ORTH.PN ---
Subjective *Date: 04/22/22 *Time: 10:15 Interval history: Patient is a 66 year old male patient who underwent a right knee debridement, irrigation, and polyethylene insert exchange performed Dr. Tao on 04/14/2022. Today the patient is postop day #8. This morning he is sitting comfortably in bed. He reports right knee pain as to be expected but states it is well controlled with as needed pain medication and rest. He states that he has been ambulating with the assistance of physical therapy. He states that he is eating and drinking well and denies any episodes of nausea or vomiting. He continues to report some discomfort in his left knee, but states that it has improved. He reports that he has been ambulating fully weightbearing on the left knee without difficulty using a walker. No history of any distal tingling/numbness, chills, rigors, or fevers. He denies any other symptoms or concerns at this time. Ortho Exam (Inpt) Vital signs and Labs for Last 24 Hours: Temp Pulse Resp BP Pulse Ox 98.2 F 79 16 114/65 96 04/22/22 08:00 04/22/22 08:00 04/22/22 08:00 04/22/22 08:00 04/22/22 08:00 Laboratory Results - last 24 hr 04/20/22 07:50: Fluid Clarity Hazy A, Fluid Lining Cell TNP, Synovial Color Straw, Synovial RBC 3000, Synovial Tot Nuc Cell 95567 H, Synovial Eosinophils% 0, Synovial Polynuclear % 93, Synovial Lymphocytes % 4, Synovial Macrophages % 3, Synovial Crystal ID Comment, Synovial Fluid Comment TNP 04/22/22 05:30: WBC 9.5, RBC 2.78 L, Hgb 8.2 L, Hct 26.3 L, MCV 94.5 H, MCH 29.6, MCHC 31.3 L, RDW 15.0, Plt Count 422, MPV 8.0, Neut % (Auto) 71.4, Lymph % (Auto) 13.1, [place] % (Auto) 9.3, Eos % (Auto) 5.6, Baso % (Auto) 0.7, Neut # (Auto) 6.8, Lymph # (Auto) 1.2, [place] # (Auto) 0.9, Eos # (Auto) 0.5 H, Baso # (Auto) 0.1 04/22/22 05:30: Sodium 132 L, Potassium 3.4 L, Chloride 99, Carbon Dioxide 28, Anion Gap 8.4, BUN 14, Creatinine 0.90, Estimated Creat Clear 124, Estimated GFR 84, Est GFR ( Amer) 102, Glucose 111 H, Calcium 8.4 I & O for Labs for Last 24 Hours: Intake & Output 04/19/22 04/20/22 04/21/22 04/22/22 23:59 23:59 23:59 23:59 Intake Total 3493 / 3493 3811 / 3811 2899 / 3119 1537 / 1537 Output Total 4750 / 4925 5625 / 5625 4450 / 5050 1500 / 1500 Balance -1257 / -1432 -1814 / -1814 -1551 / -1931 37 / 37 Weight 254 lb 9 oz 254 lb 7 oz 255 lb 7 oz 265 lb 3.2 oz Microbiology Reports for the Last 24 Hours: Microbiology 04/20/22 07:50 Synovial Fluid - Other Gram Stain - Final 04/20/22 07:50 Synovial Fluid - Other Body Fluid Culture - Preliminary NO GROWTH AFTER 48 HOURS Head: normocephalic and atraumatic Eyes: as per HPI ENT: normal exam Neck: normal inspection, full ROM, trachea midline and lymphadenopathy Respiratory: accessory muscle use, normal respiratory effort, able to speak in complete sentences and symmetric chest movement Cardiac: Reg Rate and Rhythm GI: soft and tenderness Comment:: Upon examination of the right knee: Dressings present are clean, dry, and intact. No evidence of drainage or bleeding noted. Out of the dressings, the surgical incision appears healthy and is healing well. No erythema, induration, purulent drainage, or bleeding noted. Attempted movements of the right knee are somewhat painful. Range of motion 0-100 degrees. Thigh and calf are soft and nontender; Homans' sign is negative. No clinical evidence of DVT noted. Posterior tibial pulse 2+; capillary refill is brisk. Sensation to light touch is grossly intact throughout. Patient is actively mobilizing the foot, ankle, and toes. Upon examination of the left knee: The skin is intact. No erythema, induration, or warmth noted. 1+ knee effusion present. All 3 compartments are nontender to palpation. Attempted movements of the left knee are somewhat uncomfortable. Range of motion 0-115 degrees. Thigh and calf are soft and nontender; Homans' sign is negative. No clinical evidence
--- NOTE | 2022-04-22 12:37 | EXP.DC.SUM ---
General Admission date:: 04/10/22 Discharge date: 04/22/22 HPI HPI HPI: 66-year-old male 10 days status post right total knee arthroplasty by my partner Dr. Hutchinson, presented to clinic yesterday with redness and drainage from his incision. I had a discussion with him regarding further management. Ultimately, I felt 10 days out from surgery with copious drainage, and minimal him he would benefit from seroma versus hematoma evacuation. He was admitted to the hospital, made NPO. Hospital Course Hospital Course Hospital Course: 04/10/22 Operative note:?hematoma evacuation, debridement, irrigation, wound vacuum-assisted closure placement? Patient was identified in preoperative holding.? Operative site was marked in indelible ink.? History, physical, consent were reviewed and updated.? Patient was surrendered to the anesthesia team, taken to the operative suite, placed supine on a well-padded operative table.? Ipsilateral hip bump was placed as was a nonsterile thigh tourniquet.? Anesthesia was induced.? The operative extremity was prepped and draped in the usual sterile fashion.? The operative team donned sterile gowns and gloves and a timeout was called.? All in attendance agreed regarding the patient's identity, procedure, operative site.? Weight-based dose of antibiotics was given prior to incision.? I elevated the operative extremity and the tourniquet was inflated to 300 mmHg. I opened his previous incision.? There was turbid appearing bloody fluid but no gross purulence in the subcutaneous layer.? I took swab specimens of the prepatellar fluid which I sent for culture.? I sent what appeared to be hematoma for culture as well. I removed all of the subcutaneous suture, evacuated the hematoma, thoroughly irrigated with Pulsavac, Irrisept, and Pulsavac again.? I examined the knee arthrotomy which appeared to be healed.? No fluid could be expressed from the knee arthrotomy.? After copiously irrigating the wound once again, using a 20-gauge spinal needle, I aspirated the right knee, yielding bloody appearing fluid with no purulence.? I sent this for cell count and culture. I closed the wound after leaving a drain exiting superior laterally with 2-0 PDS suture and 2-0 nylon.? An incisional wound VAC was placed.? This was noted to have good seal.? Sterile Sof-Rol and Candido wrap was placed.? The knee was left in extension.? Polar plaque was applied as well as a knee immobilizer.? Counts were correct x2.? There were no apparent complications.? I was present and scrubbed for the entire case. Condition:?stable 04/14/22 Operative note: right knee debridement, irrigation, and polyethylene insert exchange? Patient was identified in preoperative holding.? Operative site was marked in indelible ink.? History, physical, consent were reviewed and updated.? Patient was surrendered to the anesthesia team, taken to the operative suite, placed supine on a well-padded operative table.? Ipsilateral hip bump was placed as was a nonsterile thigh tourniquet.? Anesthesia was induced.? The operative extremity was prepped and draped in the usual sterile fashion.? The operative team donned sterile gowns and gloves and a timeout was called.? All in attendance agreed regarding the patient's identity, procedure, operative site.? Weight-based dose of antibiotics was given prior to incision. Open his midline incision, dissected through skin and subcutaneous tissue.? The subcutaneous tissue appeared healthy with no reaccumulated hematoma and no purulence.? I opened his medial parapatellar arthrotomy, noted dark bloody fluid with associated hematoma, swab specimens and tissue specimens of which I sent for culture.? I remove the polyethylene insert, performed a synovectomy of the knee joint using Bovie electrocautery and a rongeur.? I used Pulsavac lavage to irrigate the wound, then placed Betadine infused saline into the knee joint and superficial wound, let this sit for 3 minutes.? Next, I r
[2022-04-22 15:49] VITALS: BP 140/85; PULSE 70; RESP 16; TEMP 37.1; O2SAT 96
--- NOTE | 2022-04-22 15:52 | PC.NURSE ---
rounded on patient. no needs or concerns this shift. encouraged him to ring out as needed
--- NOTE | 2022-04-22 18:39 | PC.NURSE ---
pt has done well this shift with PT and transferring with staff. c/o pain of R knee t/o shift, iv pain meds given X1 in the am and po since then with relief. possible dc to [facility] tomorrow. cb and personal items within reach, no concerns at this time.
[2022-04-22 19:40] VITALS: BP 103/60; PULSE 74; RESP 18; TEMP 37; O2SAT 96
[2022-04-23 04:00] VITALS: BP 106/65; PULSE 73; RESP 18; TEMP 36.8; O2SAT 95
--- NOTE | 2022-04-23 04:54 | PC.NURSE ---
Pt has rested intermittently this sift. No acute changes since prior assessment. Lung sound are clear bilaterally. Tolerating room air well. Pt has ambulated in the room with the walker. Dressing to bottom changed this shift. Skin is red and excoriated. Pt has c/o pain in the right knee x2 this shift and was medicated per oct. He has also c/o a headache once this shift and was medicated per oct. Ice pack provided to pt for right knee as well. No other complaints or concerns at this time. VSS. Call pitt within reach.
[2022-04-23 05:00] VITALS: BMI 37.3
[2022-04-23 07:38] LABS: Basophils # 0.1 K/mm3 (0-0.2); Basophils % 0.7 % (0.1-2.0); Eosinophils # 0.6 K/mm3 (0.0-0.4); Eosinophils % 5.8 % (0.1-12.0); Hematocrit 25.9 % (42.0-52.0); Hemoglobin 8.2 g/dL (14.1-18.0); Lymphocytes # 1.3 K/mm3 (0.7-4.5); Lymphocytes % 13.1 % (10-50); Mean Corpuscular HGB Conc 31.8 g/dL (31.8-35.4); Mean Corpuscular Hemoglobin 29.6 pg (27.0-31.2); Mean Corpuscular Volume 93.1 fl (80-94); Mean Platelet Volume 7.7 fl (7.4-10.4); Monocytes # 0.7 K/mm3 (0.1-1.0); Monocytes % 6.7 % (1.7-9.3); Neutrophils # 7.5 K/mm3 (1.8-7.8); Neutrophils % 73.7 % (37.0-80.0); Platelet Count 412 K/mm3 (142-424); Red Blood Count 2.78 M/mm3 (4.60-6.20); Red Cell Distribution Width 15.2 % (11.5-17.5); White Blood Count 10.1 K/mm3 (4.8-10.8)
[2022-04-23 07:45] LABS: Anion Gap 9.4 mEq/L (5-15); Blood Urea Nitrogen 14 mg/dl (9-20); Calcium 7.9 mg/dl (8.4-10.2); Carbon Dioxide 25 mmol/L (22.0-30.0); Chloride 101 mmol/L (98-107); Creatinine Clearance Estimated 122 mL/min (50-200); Estimated Glomerular Filt Rate 84 ml/min (>60); GFR (African American) 102 ML/MIN (>60); Glucose 111 mg/dl (74-100); Potassium 3.4 mmoL/L (3.5-5.1); Sodium 132 mmol/L (136-145)
[2022-04-23 08:00] VITALS: BP 121/68; PULSE 68; RESP 18; TEMP 36.8; O2SAT 95
[2022-04-23 08:14] LABS: Coronavirus 19, PCR Not Detected (NotDetected); Influenza A, PCR Not Detected (NotDetected); Influenza B, PCR Not Detected (NotDetected)
--- NOTE | 2022-04-23 09:27 | PC.NURSE ---
received call from lab reporting Vanc level 23. Name and verified. Pharmacy ([facility]) notified.
--- NOTE | 2022-04-23 09:37 | EXP.PHA.CONS ---
Pharmacy Consult Date: 04/23/22 Time: 09:37 Referring provider: DR BANSAL Reason for Consult:: VANCOMYCIN DOSING ADJUSTMENT Allergies Allergy/AdvReac Type Severity Reaction Status Date / Time escitalopram [From Lexapro] Allergy Severe Hallucinati Verified 04/10/22 09:01 ng morphine [MORPHINE] Allergy Unknown RASH ON Verified 04/10/22 09:01 LEGS Home Medications Medication Instructions Recorded Confirmed Type furosemide 40 mg tablet 40 mg PO DAILY diuretic #90 tabs 08/29/21 04/11/22 Rx gabapentin 600 mg tablet 600 mg PO TID Pain #90 tabs 12/30/21 04/10/22 Rx losartan 25 mg tablet 25 mg PO DAILY blood pressure #90 03/02/22 04/10/22 Rx tabs metoprolol succinate 50 mg 50 mg PO DAILY blood pressure #90 03/02/22 04/10/22 Rx tablet,extended release 24 hr tabs levothyroxine 100 mcg tablet 100 mcg PO DAILY hypothyroidism 03/31/22 04/10/22 History levothyroxine 88 mcg tablet 88 mcg PO DAILY hypothyroidism 03/31/22 04/10/22 History omeprazole 40 mg capsule,delayed 40 mg PO DAILY acid reflux 03/31/22 04/10/22 History release potassium chloride 8 mEq 8 meq PO DAILY potassium supplement 03/31/22 04/10/22 History tablet,extended release atorvastatin 10 mg tablet 10 mg PO HS High cholesterol 04/10/22 04/10/22 History diazepam 5 mg tablet 5 mg PO BID PRN Anxiety 04/10/22 04/10/22 History aspirin 325 mg tablet 325 mg PO DAILY #30 tabs 04/23/22 Rx oxycodone 5 mg tablet 5 mg PO Q6H PRN pain #14 tabs 04/23/22 Rx New Prescriptions to Start Prescriptions: Alan Kuhn oxycodone Alan Gaona Height: 1.78 m Weight: 118.252 kg Laboratory Results:: Laboratory Results - last 24 hr 04/23/22 06:17: WBC 10.1, RBC 2.78 L, Hgb 8.2 L, Hct 25.9 L, MCV 93.1, MCH 29.6, MCHC 31.8, RDW 15.2, Plt Count 412, MPV 7.7, Neut % (Auto) 73.7, Lymph % (Auto) 13.1, [place] % (Auto) 6.7, Eos % (Auto) 5.8, Baso % (Auto) 0.7, Neut # (Auto) 7.5, Lymph # (Auto) 1.3, [place] # (Auto) 0.7, Eos # (Auto) 0.6 H, Baso # (Auto) 0.1 04/23/22 06:17: Sodium 132 L, Potassium 3.4 L, Chloride 101, Carbon Dioxide 25, Anion Gap 9.4, BUN 14, Creatinine 0.90, Estimated Creat Clear 122, Estimated GFR 84, Est GFR ( Amer) 102, Glucose 111 H, Calcium 7.9 L 04/23/22 08:08: Vancomycin Trough 23.0 H 04/23/22 08:08: SARS-CoV-2 (PCR) Not detected, Influenza A Untype (PCR) Not detected, Influenza Type B (PCR) Not detected Medical History: Medical History (Updated 04/11/22 @ 00:26 by Arash Bansal MD) Anxiety Bilateral knee pain BPH (benign prostatic hyperplasia) Constipation Daytime somnolence Dizziness Edema of both feet History of Hodgkin's lymphoma Hodgkin lymphoma Hyperlipidemia Hypertension Hypothyroidism Low back pain Lumbar disc disease with radiculopathy Lumbar disc disease with radiculopathy Lumbar disc disease with radiculopathy Postherpetic neuralgia Shingles Thyroid goiter Assessment and Plan Assessment and plan (1) Post op infection: Status: Acute Qualifiers: Encounter type: subsequent encounter Postoperative infection type: unspecified type Qualified Code(s): T81.40XD - Infection following a procedure, unspecified, subsequent encounter Category: Medical Code(s): T81.40XA - Infection following a procedure, unspecified, initial encounter (2) Cellulitis: Status: Acute Qualifiers: Laterality: right Site of cellulitis: extremity Site of cellulitis of extremity: lower extremity Qualified Code(s): L03.115 - Cellulitis of right lower limb Category: Medical Code(s): L03.90 - Cellulitis, unspecified Assessment and plan all Dx Assessment and Plan for all problems:: Pharmacokinetic dosing service Weight: 118.252 Kilograms Vancomycin single level analysis: Current dose being given: 1500 mg Current dosing interval: 12 hrs Current infusion time (hrs): 2 Single level Trough Data: Trough level obtained:
--- NOTE | 2022-04-23 11:00 | PC.NURSE ---
Called report to Geovanna at [facility].
== END 2022-04-23 10:48 | DRG 467 ==
PROVIDERS: Nurse Practitioner Family; Admitting Provider Orthopaedic Surgery; PCP Emergency Medicine; Visit Provider Emergency Medicine
PROC: (CPT 27486; principal; 2022-04-10 07:00)
PROC: 0Y9F00Z Drainage of Right Knee Region with Drainage Device, Open Approach (ICD-10-PCS; CPT 27301; principal; 2022-04-11 14:10)
PROC: 0SPT0JZ Removal of Synthetic Substitute from Right Knee Joint, Femoral Surface, Open Approach (ICD-10-PCS; CPT 27486; principal; 2022-04-14 09:00)
DX: L03.115 Cellulitis of right lower limb; L76.32 Postprocedural hematoma of skin and subcutaneous tissue following other procedure; T81.32XA Disruption of internal operation (surgical) wound, not elsewhere classified, initial encounter; T84.53XA Infection and inflammatory reaction due to internal right knee prosthesis, initial encounter; E03.9 Hypothyroidism, unspecified; I25.10 Atherosclerotic heart disease of native coronary artery without angina pectoris; I10 Essential (primary) hypertension; F41.9 Anxiety disorder, unspecified; E78.5 Hyperlipidemia, unspecified; M19.90 Unspecified osteoarthritis, unspecified site; Y83.1 Surgical operation with implant of artificial internal device as the cause of abnormal reaction of the patient, or of later complication, without mention of misadventure at the time of the procedure; E66.01 Morbid (severe) obesity due to excess calories; Z68.30 Body mass index [BMI] 30.0-30.9, adult
CPT/HCPCS: 27486; 27301; 97605; 36410; 36415; 36569; 71045; 73562; 73701; 80048; 80053; 80202; 85007; 85014; 85018; 85025; 85048; 85049; 85651; 86140; 87040; 87070; 87075; 87205; 88300; 89051; 93970; 97110; 97116; 97161; 97166; 97530; 97535; C1751; C1776; C9803; J2405; Q9967; U0003; U0005

== ENCOUNTER 2022-04-24 13:30 | Outpatient (CLI) | payer MEDICARE, SELFPAY ==
--- NOTE | 2022-04-24 14:05 | EXP.PHA.CONS ---
Pharmacy Consult Date: 04/24/22 Time: 14:05 Referring provider: DR. STOLL Reason for Consult:: VANCOMYCIN DOSING Allergies Allergy/AdvReac Type Severity Reaction Status Date / Time escitalopram [From Lexapro] Allergy Severe Hallucinati Verified 04/24/22 12:39 ng morphine [MORPHINE] Allergy Unknown RASH ON Verified 04/24/22 12:39 LEGS Home Medications Medication Instructions Recorded Confirmed Type furosemide 40 mg tablet 40 mg PO DAILY diuretic #90 tabs 08/29/21 04/24/22 Rx losartan 25 mg tablet 25 mg PO DAILY blood pressure #90 03/02/22 04/24/22 Rx tabs metoprolol succinate 50 mg 50 mg PO DAILY blood pressure #90 03/02/22 04/24/22 Rx tablet,extended release 24 hr tabs levothyroxine 100 mcg tablet 100 mcg PO DAILY hypothyroidism 03/31/22 04/24/22 History levothyroxine 88 mcg tablet 88 mcg PO DAILY hypothyroidism 03/31/22 04/24/22 History omeprazole 40 mg capsule,delayed 40 mg PO DAILY acid reflux 03/31/22 04/24/22 History release potassium chloride 8 mEq 8 meq PO DAILY potassium supplement 03/31/22 04/24/22 History tablet,extended release atorvastatin 10 mg tablet 10 mg PO HS High cholesterol 04/10/22 04/24/22 History oxycodone 5 mg tablet 5 mg PO Q6H PRN pain #14 tabs 04/23/22 04/24/22 Rx aspirin 325 mg tablet 325 mg PO DAILY Blood thinner 04/24/22 04/24/22 History diazepam 5 mg tablet 5 mg PO BID Anxiety #60 tabs 04/24/22 04/24/22 Rx gabapentin 600 mg tablet 600 mg PO TID Pain #90 tabs 04/24/22 04/24/22 Rx New Prescriptions to Start Prescriptions: Height: 1.78 m Weight: 119.8 kg Laboratory Results:: N/A Medical History: Medical History (Updated 04/11/22 @ 00:26 by Arash James MD) Anxiety Bilateral knee pain BPH (benign prostatic hyperplasia) Constipation Daytime somnolence Dizziness Edema of both feet History of Hodgkin's lymphoma Hodgkin lymphoma Hyperlipidemia Hypertension Hypothyroidism Low back pain Lumbar disc disease with radiculopathy Lumbar disc disease with radiculopathy Lumbar disc disease with radiculopathy Postherpetic neuralgia Shingles Thyroid goiter Assessment and Plan Assessment and plan all Dx Assessment and Plan for all problems:: BASED ON PATIENT FACTORS AND VANCOMYCIN LEVELS WHILE PATIENT WAS ADMITTED, RECOMMEND VANCOMYCIN 2,250MG EVERY 24 HOURS. PHARMACY WILL MONITOR AND ADJUST DOSE APPROPRIATE. -SERENA PATTERSON, DIANED
[2022-04-24 14:08] VITALS: BP 123/46; PULSE 72; RESP 18; TEMP 36.2; O2SAT 97
[2022-04-24 14:38] VITALS: BP 118/50; PULSE 78; RESP 18; O2SAT 97
[2022-04-24 15:08] VITALS: BP 110/45; PULSE 75; RESP 18; O2SAT 98
[2022-04-24 15:38] VITALS: BP 111/51; PULSE 73; RESP 18; O2SAT 98
[2022-04-24 15:50] VITALS: BP 114/56; PULSE 78; RESP 18; O2SAT 98
== END 2022-04-24 16:10 | disposition home or self-care (01) ==
LOC: INF 13:31
PROVIDERS: PCP Emergency Medicine; Visit Provider Orthopaedic Surgery
DX: M25.561 Pain in right knee (principal); Z96.651 Presence of right artificial knee joint
CPT/HCPCS: 96365; 96366; J3370

== ENCOUNTER 2022-04-25 13:43 | Outpatient (CLI) | payer MEDICARE, SELFPAY ==
[2022-04-25 13:43] VITALS: BP 120/76; PULSE 82; RESP 18; TEMP 36.8; O2SAT 97
[2022-04-25 14:02] VITALS: BP 129/85; RESP 18; TEMP 36.9; O2SAT 97; BMI 35.5
== END 2022-04-25 16:20 | disposition home or self-care (01) ==
PROVIDERS: PCP Emergency Medicine; Visit Provider Orthopaedic Surgery
DX: M25.561 Pain in right knee (principal); Z96.651 Presence of right artificial knee joint
CPT/HCPCS: 96365; 96366; J3370

== ENCOUNTER 2022-04-26 13:16 | Outpatient (CLI) | payer MEDICARE, SELFPAY ==
[2022-04-26 13:55] VITALS: BP 135/81; PULSE 83; RESP 20; O2SAT 99
== END 2022-04-26 16:00 | disposition home or self-care (01) ==
PROVIDERS: PCP Emergency Medicine; Visit Provider Orthopaedic Surgery
DX: M25.561 Pain in right knee (principal); Z96.651 Presence of right artificial knee joint
CPT/HCPCS: 96365; 96366; J3370

== ENCOUNTER 2022-04-27 14:34 | Outpatient (CLI) | payer MEDICARE, SELFPAY ==
[2022-04-27 14:50] VITALS: BP 164/65; PULSE 81; RESP 18; TEMP 37.6; O2SAT 97; BMI 36.9
--- NOTE | 2022-04-27 15:25 | PC.NURSE ---
PATIENT GIVEN WARM BLANKET AND DIET MT. MACKEY. LIGHTS DIMMED SO PATIENT CAN REST.
--- NOTE | 2022-04-27 15:45 | PC.NURSE ---
PATIENT SITTING UP IN RECLINER ON CELLPHONE. NO NEEDS VOICED AT THIS TIME.
--- NOTE | 2022-04-27 16:00 | PC.NURSE ---
PATIENT AMBULATED TO BATHROOM WITH WALKER AND STANDBY ASSIST. PATIENT VOIDED. PATIENT ASSISTED BACK TO ROOM. SITTING IN RECLINER. NO NEEDS VOICED. INFORMED PATIENT HE HAD ABOUT ANOTHER HOUR LEFT OF HIS INFUSION. PATIENT VERBALIZED UNDERSTANDING.
[2022-04-27 17:02] VITALS: BP 113/71; PULSE 74; RESP 18; TEMP 37.2; O2SAT 98
== END 2022-04-27 17:05 | disposition home or self-care (01) ==
LOC: INF 14:35
PROVIDERS: PCP Emergency Medicine; Visit Provider Orthopaedic Surgery
DX: M25.561 Pain in right knee (principal); Z96.651 Presence of right artificial knee joint
CPT/HCPCS: 96365; 96366; G0463; J3370

== ENCOUNTER → 2022-04-28 12:59 | Outpatient (CLI) | payer MEDICARE, SELFPAY ==
[2022-04-28 13:09] VITALS: BMI 37.3
[2022-04-28 13:35] LABS: Anion Gap 8.5 mEq/L (5-15); Blood Urea Nitrogen 11 mg/dl (9-20); Calcium 7.5 mg/dl (8.4-10.2); Carbon Dioxide 26 mmol/L (22.0-30.0); Chloride 104 mmol/L (98-107); Creatinine Clearance Estimated 93 mL/min (50-200); Estimated Glomerular Filt Rate 55 ml/min (>60); GFR (African American) 67 ML/MIN (>60); Glucose 107 mg/dl (74-100); Potassium 3.5 mmoL/L (3.5-5.1); Sodium 135 mmol/L (136-145)
[2022-04-28 13:54] LABS: Vancomycin,Trough 12.2 ug/mL (5.0-10.0)
[2022-04-28 14:27] VITALS: BP 126/78; PULSE 77; RESP 16; TEMP 36.4; O2SAT 97
--- NOTE | 2022-04-28 15:08 | EXP.PHA.CONS ---
Pharmacy Consult Date: 04/28/22 Time: 15:08 Referring provider: DR. STOLL Reason for Consult:: VANCOMYCIN LEVEL Allergies Allergy/AdvReac Type Severity Reaction Status Date / Time escitalopram [From Lexapro] Allergy Severe Hallucinati Verified 04/24/22 12:39 ng morphine [MORPHINE] Allergy Unknown RASH ON Verified 04/24/22 12:39 LEGS Home Medications Medication Instructions Recorded Confirmed Type furosemide 40 mg tablet 40 mg PO DAILY diuretic #90 tabs 08/29/21 04/24/22 Rx losartan 25 mg tablet 25 mg PO DAILY blood pressure #90 03/02/22 04/24/22 Rx tabs metoprolol succinate 50 mg 50 mg PO DAILY blood pressure #90 03/02/22 04/24/22 Rx tablet,extended release 24 hr tabs levothyroxine 100 mcg tablet 100 mcg PO DAILY hypothyroidism 03/31/22 04/24/22 History levothyroxine 88 mcg tablet 88 mcg PO DAILY hypothyroidism 03/31/22 04/24/22 History omeprazole 40 mg capsule,delayed 40 mg PO DAILY acid reflux 03/31/22 04/24/22 History release potassium chloride 8 mEq 8 meq PO DAILY potassium supplement 03/31/22 04/24/22 History tablet,extended release atorvastatin 10 mg tablet 10 mg PO HS High cholesterol 04/10/22 04/24/22 History oxycodone 5 mg tablet 5 mg PO Q6H PRN pain #14 tabs 04/23/22 04/24/22 Rx aspirin 325 mg tablet 325 mg PO DAILY Blood thinner 04/24/22 04/24/22 History diazepam 5 mg tablet 5 mg PO BID Anxiety #60 tabs 04/24/22 04/24/22 Rx gabapentin 600 mg tablet 600 mg PO TID Pain #90 tabs 04/24/22 04/24/22 Rx vancomycin 2 gram/400 mL in water 2.25 g (450 mL) IV Q24H 6 days 04/24/22 Rx for injection(PEG,[place]) IV #2,700 mL piggyback oxycodone 5 mg tablet 5 mg PO Q8H PRN pain #30 tabs 04/26/22 04/26/22 Rx New Prescriptions to Start Prescriptions: Height: 1.78 m Weight: 117.934 kg Laboratory Results:: Laboratory Results - last 24 hr 04/28/22 13:10: Sodium 135 L, Potassium 3.5, Chloride 104, Carbon Dioxide 26, Anion Gap 8.5, BUN 11, Creatinine 1.30 H, Estimated Creat Clear 93, Estimated GFR 55 L, Est GFR ( Amer) 67, Glucose 107 H, Calcium 7.5 L 04/28/22 13:10: Vancomycin Trough 12.2 H Medical History: Medical History (Updated 04/27/22 @ 00:00 by Background Daemon) Anxiety Bilateral knee pain BPH (benign prostatic hyperplasia) BPV (benign positional vertigo) CAD (coronary artery disease) Chest pain Chest pain, atypical Constipation Daytime somnolence Dizziness Dyspnea Edema of both feet Encounter for management of wound VAC Facial edema History of Hodgkin's lymphoma Hodgkin lymphoma Hyperglycemia Hyperlipidemia Hypertension Hypoglycemia Hypothyroidism Laceration of right little finger Low back pain Lumbar disc disease with radiculopathy Lumbar disc disease with radiculopathy Lumbar disc disease with radiculopathy Malaise Pharyngitis Postherpetic neuralgia Shingles Tendonitis Thyroid goiter Typical angina Visit for suture removal Wrist fracture, right Wrist pain, right Assessment and Plan Assessment and plan all Dx Assessment and Plan for all problems:: SMITH'S VANCOMYCIN TROUGH LEVEL WAS 12.1 MCG/ML TODAY. RECOMMENDED PATIENT CONTINUE WITH VANCOMYCIN 2250 MG Q24H AT THIS TIME.
== END ==
PROVIDERS: PCP Emergency Medicine; Visit Provider Orthopaedic Surgery
DX: M25.561 Pain in right knee (principal); Z96.651 Presence of right artificial knee joint
CPT/HCPCS: 80048; 80202; 96365; J3370

== ENCOUNTER → 2022-04-28 13:20 | Outpatient (CLI) | payer MEDICARE, SELFPAY ==
--- NOTE | 2022-04-10 09:38 | CA_ITS ---
FINAL REPORT TECHNIQUE: Color Doppler, duplex Doppler and compression sonography of the right lower extremity venous system was performed. CLINICAL HISTORY: lower leg pain after knee replacement 03/31/22. cad, htn, hld, smoker, oozing incision on rt knee, leg warm to touch FINDINGS: There is no evidence of deep venous thrombosis from the level of the groin to the calf. The veins are patent and compressible. There is an enlarged lymph node in the right inguinal region that is nonspecific and favor reactive. IMPRESSION: No evidence of deep venous thrombosis right lower extremity. Reviewed, Interpreted and Dictated by Westley Marie III, MD Transcribed by Darlene Esquivel Authenticated and [facility]
== END ==
PROVIDERS: PCP Emergency Medicine; Visit Provider Orthopaedic Surgery
DX: R60.0 Localized edema (principal); M25.561 Pain in right knee; Z96.651 Presence of right artificial knee joint; Z51.81 Encounter for therapeutic drug level monitoring
CPT/HCPCS: 80048; 80202; 93971; J3370

== ENCOUNTER 2022-04-29 12:49 | Outpatient (CLI) | payer MEDICARE, SELFPAY ==
[2022-04-29 13:25] VITALS: BP 138/72; PULSE 84; RESP 18; O2SAT 99
[2022-04-29 14:00] VITALS: BP 141/80; PULSE 82; RESP 18; O2SAT 98
[2022-04-29 14:33] VITALS: BP 136/79; PULSE 78; RESP 18; O2SAT 99
[2022-04-29 15:37] VITALS: BP 130/69; PULSE 81; RESP 18; O2SAT 99
== END 2022-04-29 15:38 | disposition home or self-care (01) ==
LOC: INF 12:51
PROVIDERS: PCP Emergency Medicine; Visit Provider Orthopaedic Surgery
DX: M25.561 Pain in right knee (principal); Z96.651 Presence of right artificial knee joint
CPT/HCPCS: 96365; 96366; J3370

== ENCOUNTER 2022-04-30 12:56 | Outpatient (CLI) | payer MEDICARE, SELFPAY ==
[2022-04-30 13:25] VITALS: BP 132/75; PULSE 74; RESP 18; TEMP 36.4; O2SAT 98
[2022-04-30 14:10] VITALS: BP 133/78; PULSE 64; RESP 16; O2SAT 99
[2022-04-30 14:55] VITALS: BP 141/72; PULSE 65; RESP 16; O2SAT 99
[2022-04-30 15:15] VITALS: BP 131/77; PULSE 69; RESP 18; O2SAT 96
== END 2022-04-30 15:35 | disposition home or self-care (01) ==
LOC: INF 12:57
PROVIDERS: Visit Provider Orthopaedic Surgery
DX: M25.561 Pain in right knee (principal); Z96.651 Presence of right artificial knee joint
CPT/HCPCS: 96365; 96366; J3370

== ENCOUNTER 2022-05-01 12:48 | Outpatient (CLI) | payer MEDICARE, SELFPAY ==
[2022-05-01 13:25] VITALS: BP 118/80; PULSE 66; RESP 18
[2022-05-01 13:32] LABS: Blood Urea Nitrogen 12 mg/dl (9-20); Calcium 7.2 mg/dl (8.4-10.2); Carbon Dioxide 25 mmol/L (22.0-30.0); Chloride 106 mmol/L (98-107); Estimated Glomerular Filt Rate 61 ml/min (>60); GFR (African American) 73 ML/MIN (>60); Glucose 92 mg/dl (74-100); Sodium 135 mmol/L (136-145)
[2022-05-01 14:25] VITALS: BP 130/71; PULSE 63; RESP 16
[2022-05-01 15:12] LABS: Vancomycin,Trough 15.5 ug/mL (5.0-10.0)
[2022-05-01 15:25] VITALS: BP 124/73; PULSE 67; RESP 18
--- NOTE | 2022-05-01 16:37 | EXP.PHA.CONS ---
Pharmacy Consult Date: 05/01/22 Time: 16:37 Referring provider: DR. STOLL Reason for Consult:: VANCOMYCIN LEVEL Allergies Allergy/AdvReac Type Severity Reaction Status Date / Time escitalopram [From Lexapro] Allergy Severe Hallucinati Verified 04/29/22 11:18 ng morphine [MORPHINE] Allergy Unknown RASH ON Verified 04/29/22 11:18 LEGS Home Medications Medication Instructions Recorded Confirmed Type furosemide 40 mg tablet 40 mg PO DAILY diuretic #90 tabs 08/29/21 05/01/22 Rx losartan 25 mg tablet 25 mg PO DAILY blood pressure #90 03/02/22 05/01/22 Rx tabs metoprolol succinate 50 mg 50 mg PO DAILY blood pressure #90 03/02/22 05/01/22 Rx tablet,extended release 24 hr tabs levothyroxine 100 mcg tablet 100 mcg PO DAILY hypothyroidism 03/31/22 05/01/22 History levothyroxine 88 mcg tablet 88 mcg PO DAILY hypothyroidism 03/31/22 05/01/22 History omeprazole 40 mg capsule,delayed 40 mg PO DAILY acid reflux 03/31/22 05/01/22 History release potassium chloride 8 mEq 8 meq PO DAILY potassium supplement 03/31/22 05/01/22 History tablet,extended release atorvastatin 10 mg tablet 10 mg PO HS High cholesterol 04/10/22 05/01/22 History oxycodone 5 mg tablet 5 mg PO Q6H PRN pain #14 tabs 04/23/22 05/01/22 Rx aspirin 325 mg tablet 325 mg PO DAILY Blood thinner 04/24/22 05/01/22 History diazepam 5 mg tablet 5 mg PO BID Anxiety #60 tabs 04/24/22 05/01/22 Rx gabapentin 600 mg tablet 600 mg PO TID Pain #90 tabs 04/24/22 05/01/22 Rx vancomycin 2 gram/400 mL in water 2.25 g IV Q24H Infection 04/30/22 05/01/22 History for injection(PEG,[place]) IV piggyback New Prescriptions to Start Prescriptions: Height: 1.77 m Weight: 117 kg Laboratory Results:: Laboratory Results - last 24 hr 05/01/22 13:05: Vancomycin Trough 15.5 H 05/01/22 13:05: Sodium 135 L, Potassium 4.0, Chloride 106, Carbon Dioxide 25, Anion Gap 8.0, BUN 12, Creatinine 1.20, Estimated GFR 61, Est GFR ( Amer) 73, Glucose 92, Calcium 7.2 L Medical History: Medical History (Updated 04/29/22 @ 17:50 by Med Hutchinson MD) Anxiety Bilateral knee pain BPH (benign prostatic hyperplasia) BPV (benign positional vertigo) CAD (coronary artery disease) Chest pain Chest pain, atypical Constipation Daytime somnolence Dizziness Dyspnea Edema of both feet Encounter for management of wound VAC Facial edema History of Hodgkin's lymphoma Hodgkin lymphoma Hyperglycemia Hyperlipidemia Hypertension Hypoglycemia Hypothyroidism Laceration of right little finger Low back pain Lumbar disc disease with radiculopathy Lumbar disc disease with radiculopathy Lumbar disc disease with radiculopathy Malaise Pharyngitis Post-operative infection Postherpetic neuralgia Shingles Tendonitis Thyroid goiter Typical angina Visit for suture removal Wrist fracture, right Wrist pain, right Assessment and Plan Assessment and plan all Dx Assessment and Plan for all problems:: VANCOMYCIN TROUGH LEVEL 15.1 MCG/ML. RECOMMEND CONTINUING WITH VANCOMYCIN 2250 MG Q24H.
== END 2022-05-01 15:35 | disposition home or self-care (01) ==
LOC: INF 12:48
PROVIDERS: Visit Provider Orthopaedic Surgery
DX: M25.561 Pain in right knee (principal); Z96.651 Presence of right artificial knee joint
CPT/HCPCS: 80048; 80202; 96365; 96366; J3370

== ENCOUNTER 2022-05-02 13:47 | Outpatient (CLI) | payer MEDICARE, SELFPAY ==
[2022-05-02 14:17] VITALS: BMI 37.0
== END 2022-05-02 16:08 | disposition home or self-care (01) ==
LOC: INF 13:48
PROVIDERS: PCP Emergency Medicine; Visit Provider Orthopaedic Surgery
DX: M25.561 Pain in right knee (principal); Z96.651 Presence of right artificial knee joint
CPT/HCPCS: 96365; 96366; J3370

== ENCOUNTER → 2022-05-03 12:58 | Outpatient (CLI) | payer MEDICARE, SELFPAY ==
[2022-05-03 13:21] VITALS: BP 114/64; PULSE 63; RESP 20; TEMP 37.2; O2SAT 97
== END ==
PROVIDERS: PCP Emergency Medicine; Visit Provider Orthopaedic Surgery
DX: M25.561 Pain in right knee (principal); Z96.651 Presence of right artificial knee joint
CPT/HCPCS: 96365; 96366; J3370

== ENCOUNTER 2022-05-04 13:09 | Outpatient (CLI) | payer MEDICARE, SELFPAY ==
[2022-05-04 13:11] VITALS: BMI 37.3
[2022-05-04 13:30] LABS: Chloride 104 mmol/L (98-107); Sodium 140 mmol/L (136-145)
[2022-05-04 13:33] LABS: Blood Urea Nitrogen 12 mg/dl (9-20); Calcium 6.9 mg/dl (8.4-10.2); Carbon Dioxide 27 mmol/L (22.0-30.0); Creatinine Clearance Estimated 87 mL/min (50-200); Estimated Glomerular Filt Rate 51 ml/min (>60); GFR (African American) 61 ML/MIN (>60); Glucose 99 mg/dl (74-100)
[2022-05-04 13:40] VITALS: BP 141/91; PULSE 68; RESP 20; O2SAT 98
[2022-05-04 15:15] VITALS: BP 145/85; PULSE 87; RESP 18
== END 2022-05-04 15:15 | disposition home or self-care (01) ==
LOC: INF 13:10
PROVIDERS: Visit Provider Orthopaedic Surgery
DX: M25.561 Pain in right knee (principal); Z96.651 Presence of right artificial knee joint
CPT/HCPCS: 80048; 96365; J3370

== ENCOUNTER 2022-05-05 12:47 | Outpatient (CLI) | payer MEDICARE, SELFPAY ==
[2022-05-05 12:57] VITALS: BMI 37.3
[2022-05-05 13:02] VITALS: BP 123/62; PULSE 65; RESP 18; TEMP 36.4; O2SAT 99
[2022-05-05 13:19] LABS: Anion Gap 16.5 mEq/L (5-15); Blood Urea Nitrogen 12 mg/dl (9-20); Calcium 7.1 mg/dl (8.4-10.2); Carbon Dioxide 29 mmol/L (22.0-30.0); Chloride 99 mmol/L (98-107); Creatinine Clearance Estimated 71 mL/min (50-200); Estimated Glomerular Filt Rate 41 ml/min (>60); GFR (African American) 49 ML/MIN (>60); Glucose 89 mg/dl (74-100); Potassium 3.5 mmoL/L (3.5-5.1); Sodium 141 mmol/L (136-145)
[2022-05-05 13:32] VITALS: BP 121/67; PULSE 69; RESP 18; O2SAT 99
[2022-05-05 14:02] VITALS: BP 118/66; PULSE 64; RESP 18; O2SAT 98
[2022-05-05 14:31] LABS: Vancomycin,Trough 20.5 ug/mL (5.0-10.0)
--- NOTE | 2022-05-05 14:37 | PC.NURSE ---
Jojo Cano called RN at 1431 to report Vancomycin trough level 20.5. RN repeated and verified pt name, , and lab value. Results called to pharmacy staff Rae Rodriguez as requested per md and pharmacy to follow and adjust dosage as needed. Pharmacy noted to hold dose for tomorrow and return for next dose.
[2022-05-05 14:43] VITALS: BP 120/69; PULSE 62; RESP 18; O2SAT 99
--- NOTE | 2022-05-05 15:02 | EXP.PHA.CONS ---
Pharmacy Consult Date: 05/05/22 Time: 15:02 Referring provider: DR. STOLL Reason for Consult:: VANCOMYCIN LEVEL Allergies Allergy/AdvReac Type Severity Reaction Status Date / Time escitalopram [From Lexapro] Allergy Severe Hallucinati Verified 04/29/22 11:18 ng morphine [MORPHINE] Allergy Unknown RASH ON Verified 04/29/22 11:18 LEGS Home Medications Medication Instructions Recorded Confirmed Type furosemide 40 mg tablet 40 mg PO DAILY diuretic #90 tabs 08/29/21 05/05/22 Rx losartan 25 mg tablet 25 mg PO DAILY blood pressure #90 03/02/22 05/05/22 Rx tabs metoprolol succinate 50 mg 50 mg PO DAILY blood pressure #90 03/02/22 05/05/22 Rx tablet,extended release 24 hr tabs levothyroxine 100 mcg tablet 100 mcg PO DAILY hypothyroidism 03/31/22 05/05/22 History levothyroxine 88 mcg tablet 88 mcg PO DAILY hypothyroidism 03/31/22 05/05/22 History omeprazole 40 mg capsule,delayed 40 mg PO DAILY acid reflux 03/31/22 05/05/22 History release potassium chloride 8 mEq 8 meq PO DAILY potassium supplement 03/31/22 05/05/22 History tablet,extended release atorvastatin 10 mg tablet 10 mg PO HS High cholesterol 04/10/22 05/05/22 History oxycodone 5 mg tablet 5 mg PO Q6H PRN pain #14 tabs 04/23/22 05/05/22 Rx aspirin 325 mg tablet 325 mg PO DAILY Blood thinner 04/24/22 05/05/22 History diazepam 5 mg tablet 5 mg PO BID Anxiety #60 tabs 04/24/22 05/05/22 Rx gabapentin 600 mg tablet 600 mg PO TID Pain #90 tabs 04/24/22 05/05/22 Rx vancomycin 2 gram/400 mL in water 2.25 g IV Q24H Infection 04/30/22 05/05/22 History for injection(PEG,[place]) IV piggyback New Prescriptions to Start Prescriptions: Height: 1.78 m Weight: 117.934 kg Laboratory Results:: Laboratory Results - last 24 hr 05/05/22 12:59: Sodium 141, Potassium 3.5, Chloride 99, Carbon Dioxide 29, Anion Gap 16.5 H, BUN 12, Creatinine 1.70 H D, Estimated Creat Clear 71, Estimated GFR 41 L, Est GFR ( Amer) 49 L, Glucose 89, Calcium 7.1 L 05/05/22 12:59: Vancomycin Trough 20.5 H Medical History: Medical History (Updated 04/29/22 @ 17:50 by Med Hutchinson MD) Anxiety Bilateral knee pain BPH (benign prostatic hyperplasia) BPV (benign positional vertigo) CAD (coronary artery disease) Chest pain Chest pain, atypical Constipation Daytime somnolence Dizziness Dyspnea Edema of both feet Encounter for management of wound VAC Facial edema History of Hodgkin's lymphoma Hodgkin lymphoma Hyperglycemia Hyperlipidemia Hypertension Hypoglycemia Hypothyroidism Laceration of right little finger Low back pain Lumbar disc disease with radiculopathy Lumbar disc disease with radiculopathy Lumbar disc disease with radiculopathy Malaise Pharyngitis Post-operative infection Postherpetic neuralgia Shingles Tendonitis Thyroid goiter Typical angina Visit for suture removal Wrist fracture, right Wrist pain, right Assessment and Plan Assessment and plan all Dx Assessment and Plan for all problems:: PATIENT'S VANCOMYCIN TROUGH LEVEL WAS 20.5 MCG/ML AND SRCR WAS 1.7 MG/DL. PATIENT SRCR WAS 1.4 MG/DL YESTERDAY. PATIENT RECEIVED VANCOMYCIN 2000 MG TODAY X1 DOSE. HAVING PATIENT HOLD DOSE TOMORROW AND THEN RESTART ON 05/07/22 WITH VANCOMYCIN 1750 MG Q24H.
[2022-05-05 15:21] VITALS: BP 127/61; PULSE 63; RESP 18; O2SAT 98
== END 2022-05-05 15:29 | disposition home or self-care (01) ==
LOC: INF 12:48
PROVIDERS: Visit Provider Orthopaedic Surgery
DX: M25.561 Pain in right knee (principal); Z96.651 Presence of right artificial knee joint
CPT/HCPCS: 80048; 80202; 96365; 96366; 96375; J3370

== ENCOUNTER 2022-05-07 12:43 | Outpatient (CLI) | payer MEDICARE, SELFPAY ==
[2022-05-07 12:54] VITALS: BP 148/76; PULSE 57; RESP 16; TEMP 36.6; O2SAT 98
[2022-05-07 13:50] VITALS: BP 129/69; PULSE 59; RESP 18; O2SAT 98
[2022-05-07 14:50] VITALS: BP 132/74; PULSE 59; RESP 16; O2SAT 97
[2022-05-07 15:23] VITALS: BP 115/65; PULSE 59; RESP 16; TEMP 36.6; O2SAT 98
== END 2022-05-07 15:36 | disposition home or self-care (01) ==
PROVIDERS: Visit Provider Orthopaedic Surgery
DX: Z45.2 Encounter for adjustment and management of vascular access device (principal); M25.561 Pain in right knee; Z96.651 Presence of right artificial knee joint
CPT/HCPCS: 96365; 96366

== ENCOUNTER 2022-05-08 12:54 | Outpatient (CLI) | payer MEDICARE, SELFPAY ==
[2022-05-08 13:12] VITALS: BP 126/72; PULSE 78; RESP 18; TEMP 36.6; O2SAT 99
[2022-05-08 15:18] VITALS: BP 136/75; PULSE 72; RESP 18; TEMP 36.3; O2SAT 99
== END 2022-05-08 15:18 | disposition home or self-care (01) ==
LOC: INF 12:55
PROVIDERS: Visit Provider Orthopaedic Surgery
DX: M25.561 Pain in right knee (principal); Z96.651 Presence of right artificial knee joint
CPT/HCPCS: 96365; 96366

== ENCOUNTER → 2022-05-09 13:15 | Outpatient (CLI) | payer MEDICARE, SELFPAY ==
[2022-05-09 14:27] LABS: Anion Gap 16.5 mEq/L (5-15); Blood Urea Nitrogen 13 mg/dl (9-20); Calcium 7.2 mg/dl (8.4-10.2); Carbon Dioxide 22 mmol/L (22.0-30.0); Chloride 102 mmol/L (98-107); Estimated Glomerular Filt Rate 51 ml/min (>60); GFR (African American) 61 ML/MIN (>60); Glucose 116 mg/dl (74-100); Potassium 4.5 mmoL/L (3.5-5.1); Sodium 136 mmol/L (136-145)
[2022-05-09 14:33] LABS: Vancomycin,Trough 17.6 ug/mL (5.0-10.0)
== END ==
PROVIDERS: PCP Emergency Medicine; Visit Provider Orthopaedic Surgery
DX: M25.561 Pain in right knee (principal); Z96.651 Presence of right artificial knee joint
CPT/HCPCS: 80048; 80202

== ENCOUNTER 2022-05-10 13:35 | Outpatient (CLI) | payer MEDICARE, SELFPAY | END 2022-05-10 16:30 | disposition home or self-care (01) | PROVIDERS: PCP Emergency Medicine; Visit Provider Orthopaedic Surgery | DX: M25.561 Pain in right knee (principal); Z96.651 Presence of right artificial knee joint | CPT/HCPCS: 96365 ==

== ENCOUNTER → 2022-05-11 12:42 | Outpatient (CLI) | payer MEDICARE, SELFPAY ==
[2022-05-11 12:50] VITALS: BP 131/66; PULSE 64; RESP 16; TEMP 36.6; O2SAT 96
[2022-05-11 15:00] VITALS: BP 139/88; PULSE 70; RESP 16; TEMP 36.6; O2SAT 96
== END ==
PROVIDERS: Visit Provider Orthopaedic Surgery
DX: M25.561 Pain in right knee (principal); Z96.651 Presence of right artificial knee joint; T84.53XA Infection and inflammatory reaction due to internal right knee prosthesis, initial encounter
CPT/HCPCS: 96365

== ENCOUNTER 2022-05-12 13:00 | Outpatient (CLI) | payer MEDICARE, SELFPAY ==
[2022-05-12 13:30] VITALS: BP 133/70; PULSE 79; RESP 18; TEMP 36.4; O2SAT 99
[2022-05-12 14:30] VITALS: BP 136/73; PULSE 82; RESP 18; O2SAT 99
[2022-05-12 15:34] VITALS: BP 143/76; PULSE 80; RESP 18; O2SAT 98
== END 2022-05-12 15:34 | disposition home or self-care (01) ==
LOC: INF 13:01
PROVIDERS: Visit Provider Orthopaedic Surgery
DX: M25.561 Pain in right knee (principal); Z96.651 Presence of right artificial knee joint; T84.53XA Infection and inflammatory reaction due to internal right knee prosthesis, initial encounter
CPT/HCPCS: 96365; 96366

== ENCOUNTER 2022-05-13 12:44 | Outpatient (CLI) | payer MEDICARE, SELFPAY ==
--- NOTE | 2022-05-13 14:29 | PC.NURSE ---
on pt arrival he complained of a rash on his torso. upon inspection, pt had a large, widespread, flat and red rash expanding from the upper chest to the groin area and covering his back. He stated it had been there for 3 days and was very itchy and burned. Pt also stated he had fallen several times in the last few days from being dizzy. Dr Tao's office was contacted, MD ordered to stop Vancomycin and to contact PCP for further orders. Dr Castano office is trying to get pt into infectious disease at [facility] at this time. Talked to monique from Dr Jeffery' office, she said she would update him about the pts condition and call us with any new orders.
== END 2022-05-13 12:52 | disposition home or self-care (01) ==
LOC: INF 12:44
PROVIDERS: PCP Emergency Medicine; Visit Provider Orthopaedic Surgery
DX: M25.561 Pain in right knee (principal)

== ENCOUNTER → 2022-05-14 16:45 | Outpatient (CLI) | payer MEDICARE, SELFPAY ==
[2022-05-15 09:04] LABS: Microscopic, Urine URINE MICROSCOPIC (MICROSCOPIC)
[2022-05-15 09:56] LABS: Appearance,Urine CLOUDY (Clear); Bilirubin,Urine Negative (Negative); Blood, Urine Negative (Negative); Color,Urine YELLOW (Yellow); Glucose,Urine (UA) Negative (Negative); Ketones,Urine Negative (Negative); Leukocyte Esterase,Urine Negative (Negative); Nitrate,Urine Negative (Negative); PH,Urine 5.5 (5.0-8.5); Protein,Urine Negative (Negative); Specific Gravity, Urine 1.025 (1.005-1.030); Urobilinogen,Urine 0.2 EU/dl (0.2)
[2022-05-15 10:24] LABS: Amorphous Sediment,Urine 1+ /lpf; Squamous Epithelial Cell,Urine Occasional #/hpf (0-5)
== END ==
PROVIDERS: Family Medicine; Visit Provider Internal Medicine
DX: N32.9 Bladder disorder, unspecified (principal); N23 Unspecified renal colic
CPT/HCPCS: 81001; 87086

== ENCOUNTER 2022-05-20 11:59 | Outpatient (CLI) | payer MEDICARE, SELFPAY ==
[2022-05-20 12:04] VITALS: BMI 37.3
[2022-05-20 12:20] VITALS: BP 136/74; PULSE 76; RESP 18; TEMP 36.4; O2SAT 99
[2022-05-20 12:32] LABS: Chloride 104 mmol/L (98-107); Potassium 4.1 mmoL/L (3.5-5.1); Sodium 139 mmol/L (136-145)
[2022-05-20 12:35] LABS: Anion Gap 16.1 mEq/L (5-15); Blood Urea Nitrogen 19 mg/dl (9-20); Calcium 8.4 mg/dl (8.4-10.2); Carbon Dioxide 23 mmol/L (22.0-30.0); Creatine Kinase 33 U/L (55-170); Creatinine Clearance Estimated 76 mL/min (50-200); Estimated Glomerular Filt Rate 43 ml/min (>60); GFR (African American) 53 ML/MIN (>60); Glucose 129 mg/dl (74-100)
[2022-05-20 13:00] VITALS: BP 138/76; PULSE 76; RESP 19; O2SAT 99
== END 2022-05-20 13:00 | disposition home or self-care (01) ==
LOC: INF 11:59
PROVIDERS: PCP Family Medicine; Visit Provider Family Medicine
DX: M25.561 Pain in right knee (principal); T84.53XA Infection and inflammatory reaction due to internal right knee prosthesis, initial encounter; Z96.651 Presence of right artificial knee joint
CPT/HCPCS: 80048; 82550; 96365; J0878

== ENCOUNTER 2022-05-21 13:13 | Outpatient (CLI) | payer MEDICARE, SELFPAY ==
[2022-05-21 13:41] VITALS: BP 153/103; PULSE 56; RESP 20; O2SAT 96
[2022-05-21 14:29] VITALS: BP 127/68; PULSE 54; RESP 18
== END 2022-05-21 14:29 | disposition home or self-care (01) ==
LOC: INF 13:14
PROVIDERS: PCP Family Medicine; Visit Provider Family Medicine
DX: T84.53XA Infection and inflammatory reaction due to internal right knee prosthesis, initial encounter (principal); M25.561 Pain in right knee; Z96.651 Presence of right artificial knee joint
CPT/HCPCS: 96365; J0878

== ENCOUNTER 2022-05-22 12:58 | Outpatient (CLI) | payer MEDICARE, SELFPAY ==
[2022-05-22 13:35] VITALS: BP 155/87; PULSE 67; RESP 18; O2SAT 99
[2022-05-22 14:20] VITALS: BP 144/64; PULSE 68; RESP 18
== END 2022-05-22 14:20 | disposition home or self-care (01) ==
PROVIDERS: Visit Provider Family Medicine
DX: M25.561 Pain in right knee (principal); T84.53XA Infection and inflammatory reaction due to internal right knee prosthesis, initial encounter; Z96.651 Presence of right artificial knee joint
CPT/HCPCS: 96365; J0878

== ENCOUNTER → 2022-05-23 12:54 | Outpatient (CLI) | payer MEDICARE, SELFPAY ==
[2022-05-23 13:07] VITALS: BP 181/84; PULSE 65; RESP 20; TEMP 36.6; O2SAT 99
== END ==
PROVIDERS: PCP Emergency Medicine; Visit Provider Family Medicine
DX: M25.561 Pain in right knee (principal); T84.53XA Infection and inflammatory reaction due to internal right knee prosthesis, initial encounter; Z96.651 Presence of right artificial knee joint
CPT/HCPCS: 96365; J0878

== ENCOUNTER → 2022-05-24 12:23 | Outpatient (CLI) | payer MEDICARE, SELFPAY ==
[2022-05-24 12:46] VITALS: BP 109/77; PULSE 58; RESP 18; TEMP 36.9; O2SAT 98
== END ==
PROVIDERS: PCP Emergency Medicine; Visit Provider Family Medicine
DX: M25.561 Pain in right knee (principal); T84.53XA Infection and inflammatory reaction due to internal right knee prosthesis, initial encounter; Z96.651 Presence of right artificial knee joint
CPT/HCPCS: 96365

== ENCOUNTER → 2022-05-25 12:29 | Outpatient (CLI) | payer MEDICARE, SELFPAY ==
[2022-05-25 12:38] VITALS: BMI 37.3
[2022-05-25 13:05] LABS: MANUAL DIFFERENTIAL MANUAL DIFFERENTIAL (MANUAL DIFF)
[2022-05-25 13:07] VITALS: BP 131/75; PULSE 68; RESP 18; O2SAT 99
[2022-05-25 13:08] LABS: Basophils # 0.1 K/mm3 (0-0.2); Basophils % 0.6 % (0.1-2.0); Eosinophils # 0.6 K/mm3 (0.0-0.4); Hematocrit 32.2 % (42.0-52.0); Hemoglobin 10.6 g/dL (14.1-18.0); Lymphocytes # 0.9 K/mm3 (0.7-4.5); Lymphocytes % 10.6 % (10-50); Mean Corpuscular HGB Conc 32.9 g/dL (31.8-35.4); Mean Corpuscular Hemoglobin 30.4 pg (27.0-31.2); Mean Corpuscular Volume 92.4 fl (80-94); Monocytes # 0.4 K/mm3 (0.1-1.0); Monocytes % 4.4 % (1.7-9.3); Neutrophils # 6.9 K/mm3 (1.8-7.8); Neutrophils % 77.5 % (37.0-80.0); Platelet Count 240 K/mm3 (142-424); Red Blood Count 3.48 M/mm3 (4.60-6.20); Red Cell Distribution Width 17.2 % (11.5-17.5); White Blood Count 8.9 K/mm3 (4.8-10.8)
[2022-05-25 13:12] LABS: Chloride 101 mmol/L (98-107)
[2022-05-25 13:13] LABS: Potassium 3.7 mmoL/L (3.5-5.1); Sodium 138 mmol/L (136-145)
[2022-05-25 13:15] LABS: Alanine Aminotransferase 13 U/L (12-78); Alkaline Phosphatase 102 U/L (38-126); Anion Gap 16.7 mEq/L (5-15); Aspartate Amino Transferase 27 U/L (17-59); Blood Urea Nitrogen 16 mg/dl (9-20); Carbon Dioxide 24 mmol/L (22.0-30.0); Creatine Kinase 107 U/L (55-170); Creatinine Clearance Estimated 58 mL/min (50-200); Estimated Glomerular Filt Rate 32 ml/min (>60); GFR (African American) 38 ML/MIN (>60)
[2022-05-25 13:16] LABS: Albumin Level 3.7 g/dl (3.5-5.0); Albumin/Globulin Ratio 1.1 (1.1-1.8); Bilirubin,Total < 0.1 mg/dl (0.2-1.3); Calcium 7.8 mg/dl (8.4-10.2); Globulin 3.5 g/dL (1.3-3.2); Glucose 94 mg/dl (74-100); Total Protein,Serum 7.2 g/dl (6.3-8.2)
[2022-05-25 13:21] LABS: C-Reactive Protein 8.5 mg/L (0-4)
[2022-05-25 13:39] LABS: Erythrocyte Sedimentation Rate 90 mm/hr (0-20)
[2022-05-25 13:48] LABS: Eosinophils % 9 % (0-3); Lymphocytes % 6 % (10-50); Monocytes % 13 % (2-9); Neutrophils % 72 % (42-76); Total Cells Counted 100
[2022-05-25 13:49] LABS: Platelet Estimate Normal; RBC Morphology Normal
== END ==
PROVIDERS: PCP Internal Medicine Infectious Disease; Visit Provider Family Medicine
DX: M25.561 Pain in right knee (principal); T84.53XA Infection and inflammatory reaction due to internal right knee prosthesis, initial encounter; Z96.651 Presence of right artificial knee joint
CPT/HCPCS: 80053; 82550; 85007; 85014; 85018; 85048; 85049; 85651; 86140; 96365; J0878

== ENCOUNTER 2022-05-26 12:51 | Outpatient (CLI) | payer MEDICARE, SELFPAY ==
[2022-05-26 13:09] VITALS: BP 139/61; PULSE 62; RESP 18; TEMP 36.1; O2SAT 99
[2022-05-26 13:50] VITALS: BP 131/68; PULSE 65; RESP 18; O2SAT 99
== END 2022-05-26 13:57 | disposition home or self-care (01) ==
PROVIDERS: Visit Provider Internal Medicine Infectious Disease
DX: M25.561 Pain in right knee (principal); T84.53XA Infection and inflammatory reaction due to internal right knee prosthesis, initial encounter; Z96.651 Presence of right artificial knee joint
CPT/HCPCS: 96365; J0878

== ENCOUNTER 2022-05-27 10:04 | Outpatient (CLI) | payer MEDICARE, SELFPAY ==
--- NOTE | 2022-05-27 10:15 | XR_ITS ---
FINAL REPORT CLINICAL HISTORY: rt TKA COMPARISON: 04/14/2022 FINDINGS: Right knee Three views were obtained. There is no acute fracture or dislocation. The patient is status post right knee arthroplasty. There is a moderate joint effusion. Soft tissue calcifications are seen posteriorly. There is mild vascular calcification. IMPRESSION: Postsurgical and chronic appearing findings as above. Reviewed, Interpreted and Dictated by Westley Marie III, MD Transcribed by Katina Sweet Authenticated and [facility]
--- NOTE | 2022-05-27 10:15 | XR_ITS ---
FINAL REPORT CLINICAL HISTORY: lt knee pain FINDINGS: Left knee Three views were obtained. There is no acute fracture or dislocation. Moderate degenerative changes are present. There is narrowing of the medial compartment. Small joint effusion is seen. There is vascular calcification. IMPRESSION: Degenerative changes with no acute process. Reviewed, Interpreted and Dictated by Westley Marie III, MD Transcribed by Katina Sweet Authenticated and [facility]
[2022-05-27 13:15] VITALS: BP 142/84; PULSE 77; RESP 18; TEMP 36.6; O2SAT 99
[2022-05-27 14:00] VITALS: BP 138/79; PULSE 76; RESP 18; O2SAT 99
== END 2022-05-27 14:05 | disposition home or self-care (01) ==
PROVIDERS: PCP Physician Assistant; Visit Provider Internal Medicine Infectious Disease
DX: Z96.651 Presence of right artificial knee joint (principal); T84.53XA Infection and inflammatory reaction due to internal right knee prosthesis, initial encounter; M25.561 Pain in right knee
CPT/HCPCS: 73562; 96365; J0878

== ENCOUNTER 2022-05-28 12:38 | Outpatient (CLI) | payer MEDICARE, SELFPAY ==
[2022-05-28 12:49] VITALS: BP 135/57; PULSE 63; RESP 16; TEMP 36.6; O2SAT 98
[2022-05-28 13:55] VITALS: BP 139/74; PULSE 69; RESP 16; TEMP 36.6; O2SAT 98
== END 2022-05-28 13:55 | disposition home or self-care (01) ==
LOC: INF 12:39
PROVIDERS: PCP Emergency Medicine; Visit Provider Internal Medicine Infectious Disease
DX: M25.561 Pain in right knee (principal); T84.53XA Infection and inflammatory reaction due to internal right knee prosthesis, initial encounter; Z96.651 Presence of right artificial knee joint
CPT/HCPCS: 96365; J0878

== ENCOUNTER 2022-06-02 15:00 | Outpatient (RCR) | payer MEDICARE, SELFPAY ==
--- NOTE | 2022-04-28 18:16 | HMH.PTOPEV ---
PT Outpatient Evaluation Rehab PT Outpatient Evaluation Start: 04/28/22 18:00 Freq: Status: Active Protocol: Document 04/28/22 18:00 MEAGHAN (Rec: 04/28/22 18:16 MEAGHAN [id number]) E-signed By Kristopher Gallegos, PT Outpatient Therapy Subjective History Subjective History Patient is a 66 year old male presenting to outpatient PT with reports of R knee pain S/ P R TKA and R TKA revision. Initial sx date was 03/31/22, followed by revision on secondary to infection. Comorbidities include hx of LS sx x 2, LS pain pump placement, non-hodgkins lymphoma, HTN, HL, CTR B and L knee scope. Chief Complaint Pain,Stiff,Swelling Symptom Type Sharp Symptoms Relieved By Rest/Positioning,Prescription Meds Symptoms Aggravated By Standing,Physical Activity, Walking Prior Functional Limitations None Current Functional Limitations Housework,Driving,Standing, Recreation Activity,Walking, Stairs,Balance,Bending/ Stooping Symptom Description Constant but Variable Level of pain today (0-10) 7 Pain scale - at its best (0-10) 7 Pain scale - at its worst (0-10) 10 Hip/Knee Eval Gait Observation General Gait Pattern Observation Antalgic Gait,Decrease Weight Bear (R) Assistive Device Assistive Devices Rolling / Wheeled Walker Palpation Tenderness right Knee Palpation Finding Tenderness Knee Palpation Overall Comment L medial femoral condyle/joint line 3/4 MMT Hip Strength Reason Not Measured Orthopedic Precautions Knee Strength Reason Not Measured Orthopedic Precautions ROM Hip ROM Reason Not Measured Within Functional Limits Knee Extension Active Range of Motion ( -7 degrees) Knee Flexion Active Range of Motion ( 87 degrees) Special Tests Knee Valgus Stress Test Negative Right Knee Varus Stress Test Negative Right Outpatient Therapy Assessment Impairments Problems/Impairmments Palpation Tenderness,Impaired Range of Motion,Impaired Strength,Impaired Endurance, Impaired Transfers,Impaired Gait Pattern,Impaired Walking, Impaired Standing,Impaired
== END 2022-06-02 15:05 | disposition home or self-care (01) ==
LOC: PT 15:00
PROVIDERS: Visit Provider Orthopaedic Surgery
DX: M17.11 Unilateral primary osteoarthritis, right knee (principal); Z96.652 Presence of left artificial knee joint
CPT/HCPCS: 97110; 97163

== ENCOUNTER → 2022-07-29 09:06 | Outpatient (CLI) | payer MEDICARE, SELFPAY ==
--- NOTE | 2022-07-29 09:10 | XR_ITS ---
FINAL REPORT CLINICAL HISTORY: s/p total knee replacement COMPARISON: May 2022 FINDINGS: 3 views of the right knee were obtained. There is no acute fracture or dislocation. There has been knee arthroplasty. There is a calcification superior and medial to the patella. There are posterior soft tissue calcifications. A moderate joint effusion is present. IMPRESSION: Knee arthroplasty in stable alignment. Moderate joint effusion. Soft tissue calcifications. Reviewed, Interpreted and Dictated by Westley Marie III, MD Transcribed by Israel De La Cruz Authenticated and [facility]
== END ==
PROVIDERS: PCP Emergency Medicine; Visit Provider Orthopaedic Surgery
DX: Z47.1 Aftercare following joint replacement surgery (principal); Z96.651 Presence of right artificial knee joint; M25.561 Pain in right knee
CPT/HCPCS: 73562

== ENCOUNTER → 2023-03-02 17:02 | Outpatient (CLI) | payer MEDICARE, SELFPAY ==
[2023-03-02 12:21] LABS: Basophils # 0.1 K/mm3 (0-0.2); Basophils % 0.9 % (0.1-2.0); Eosinophils # 0.5 K/mm3 (0.0-0.4); Eosinophils % 6.4 % (0.1-12.0); Hematocrit 41.2 % (42.0-52.0); Lymphocytes # 1.8 K/mm3 (0.7-4.5); Mean Corpuscular HGB Conc 31.6 g/dL (31.8-35.4); Mean Corpuscular Hemoglobin 28.9 pg (27.0-31.2); Mean Corpuscular Volume 91.6 fl (80-94); Mean Platelet Volume 8.8 fl (7.4-10.4); Monocytes # 0.7 K/mm3 (0.1-1.0); Monocytes % 9.2 % (1.7-9.3); Neutrophils # 4.8 K/mm3 (1.8-7.8); Neutrophils % 60.6 % (37.0-80.0); Platelet Count 267 K/mm3 (142-424); Red Cell Distribution Width 16.2 % (11.5-17.5); White Blood Count 7.9 K/mm3 (4.8-10.8)
[2023-03-02 13:19] LABS: Alanine Aminotransferase 19 U/L (12-78); Albumin Level 4.3 g/dl (3.5-5.0); Albumin/Globulin Ratio 1.4 (1.1-1.8); Alkaline Phosphatase 100 U/L (38-126); Anion Gap 14.2 mEq/L (5-15); Aspartate Amino Transferase 38 U/L (17-59); Bilirubin,Total 0.3 mg/dl (0.2-1.3); Blood Urea Nitrogen 23 mg/dl (9-20); Calcium 7.8 mg/dl (8.4-10.2); Carbon Dioxide 24 mmol/L (22.0-30.0); Chloride 107 mmol/L (98-107); Chol/HDL Ratio 6.7 (1-3.5); Cholesterol 253 mg/dl (140-200); Estimated Glomerular Filt Rate 60 ml/min (>60); GFR (African American) 73 ML/MIN (>60); Glucose 73 mg/dl (74-100); HDL Cholesterol 38 mg/dl (40-60); Potassium 4.2 mmoL/L (3.5-5.1); Sodium 141 mmol/L (136-145); Total Protein,Serum 7.3 g/dl (6.3-8.2); Triglycerides 128 mg/dl (30-150); VLDL Cholesterol 26 mg/dL (0-40)
[2023-03-02 13:30] LABS: Direct LDL Cholesterol 157.98 mg/dL (100-129)
[2023-03-02 13:34] LABS: 25-OH Vitamin D, Total 30.3 ng/mL (30-100)
[2023-03-02 13:47] LABS: Prostate Specific Ag Screen 0.8 ng/ml (0.0-4.0)
[2023-03-02 17:48] LABS: Amphetamine/Metha Screen,Urine Negative ng/ml (<1000); Phencyclidine Screen,Urine Negative ng/ml (<25)
[2023-03-02 17:49] LABS: Barbiturates Screen,Urine Negative ng/ml (<200)
[2023-03-02 17:50] LABS: Benzodiazepines Screen,Urine Negative ng/ml (<200); Cannabinoid Screen,Urine Negative ng/ml (<50)
[2023-03-02 17:51] LABS: Cocaine Screen,Urine Negative ng/ml (<300); Methadone Screen,Urine Negative ng/ml (<300)
[2023-03-02 17:52] LABS: Opiate Screen,Urine Negative ng/ml (<300)
== END ==
PROVIDERS: PCP Physician Assistant; Visit Provider Physician Assistant
DX: Z12.5 Encounter for screening for malignant neoplasm of prostate (principal); I10 Essential (primary) hypertension; E55.9 Vitamin D deficiency, unspecified; M51.16 Intervertebral disc disorders with radiculopathy, lumbar region
CPT/HCPCS: 80053; 80061; 80305; 82306; 84443; 85025; G0103

== ENCOUNTER → 2023-03-03 13:43 | Outpatient (POV) | payer MEDICARE, SELFPAY ==
[2023-03-03 14:17] VITALS: BP 162/106; PULSE 73; RESP 18; O2SAT 95; BMI 36.8
--- NOTE | 2023-03-03 14:46 | EXP.PAIN.SOA ---
[facility] Pain Management SOAP Note Subjective:: Patient is a pleasant 67-year-old male who presents today for follow-up. We are currently treating the patient for degenerative osteoarthritis of bilateral knees. Today he rates his pain a 9 out of 10. Patient states his pain is all in his left knee as well as on the lateral posterior aspect and describes it as an aching, throbbing sensation that is worse with increased activity. Patient does state that the pain interferes with his ability perform activities of daily life such as cooking and cleaning or even simple ambulation. Patient has previously had his right knee replaced by Dr. Robertson in the past and then had 2 additional replacements done by Dr. Tao. He does state that the second replacement cause significant infection. Patient has had previous intra-articular and genicular nerve blocks for his left knee that did provide significant relief and improvement. He is interested in repeating injections at today's visit. Patient is currently managed with clonazepam 0.5 mg twice a day, Percocet 5 mg twice a day and diazepam 5 mg twice a day from his primary care doctor. His Dakotah is [phone]. Its been reviewed and appropriate. Review of Systems: General: No recent weight changes, no fever, no sleep disturbances Respiratory: No cough, no shortness of air, no recurring pulmonary infections Cardiovascular/peripheral vascular: No chest pain, no palpitations, no edema, no shortness of breath Gastrointestinal: No new onset incontinence, normal bowel movements reported Genitourinary: No new onset incontinence Musculoskeletal: Left knee pain Psychiatric: [Normal mood/affect] Neurological: [Denies weakness in extremities], [denies balance issues] Objective:: Physical Exam: General: Alert and oriented x3, no acute distress, pleasant and cooperative Lungs: Respirations even and unlabored, symmetrical chest expansion Eyes: PERRL Musculoskeletal: Flexion and extension of left knee somewhat guarded secondary to pain, [antalgic gait noted] Neurological: Speech clear, no gross sensory deficit Assessment:: Osteoarthritis bilateral knees, bilateral knee pain Plan:: Patient is experiencing significant pain in his left knee with limited range of motion. I have discussed with the patient that he may benefit from a left injury articular knee injection. Risk and benefits were discussed with the patient and he would like to proceed forward with this plan of care. I have also counseled the patient that in the future if he needs us to send additional orthopedic referrals for possible left knee replacement to let our office know. Patient will be scheduled for a left intra-articular knee injection. Patient has been instructed to contact the clinic with any concerns before the next appointment. Dr. Parsons has reviewed this note and agrees with this plan of care. This note was dictated using voice recognition software and make contain errors or omissions. [facility] Disclaimer: The information contained in this section may have been updated after the patient was seen, as this information can be updated by other users. Medical History (Updated 03/02/23 @ 13:00 by ARLETTE Fair) Anxiety Bilateral knee pain BPH (benign prostatic hyperplasia) BPV (benign positional vertigo) CAD (coronary artery disease) Chest pain Chest pain, atypical Constipation Daytime somnolence Dizziness Dyspnea Edema of both feet Encounter for management of wound VAC Facial edema History of Hodgkin's lymphoma Hodgkin lymphoma Hyperglycemia Hyperlipidemia Hypertension Hypoglycemia Hypothyroidism Laceration of right little finger Low back pain Lumbar disc disease with radiculopathy Lumbar disc disease with radiculopathy Lumbar disc disease with radiculopathy Malaise Panic anxiety syndrome Pharyngitis Post-operative infection Postherpetic neuralgia Shingles Tendonitis Thyroid goiter Typical angina Visit for suture removal
== END ==
PROVIDERS: PCP Emergency Medicine; Visit Provider Nurse Practitioner Family
DX: M17.0 Bilateral primary osteoarthritis of knee (principal)
CPT/HCPCS: 99212; G0463

== ENCOUNTER → 2023-03-12 12:46 | Outpatient (CLI) | payer MEDICARE, SELFPAY ==
--- NOTE | 2023-03-12 13:13 | MR_ITS ---
FINAL REPORT TECHNIQUE: Multiplanar and multisequence imaging of the lumbar spine was obtained without contrast. CLINICAL HISTORY: low back pain bilateral leg pain , back and groin pt had pain pump but removed 3 years ago COMPARISON: None FINDINGS: There is normal alignment of the lumbar vertebral bodies. Vertebral body height is preserved. The spinal cord ends at the level of L2. There is normal signal intensity within the substance of the distal spinal cord. No acute bone marrow edema or pathologic marrow replacement. There is a fluid collection in the subcutaneous soft tissues of the right flank at the L3-4 level which measures 5.1 cm in size. This may have been the site of the prior pain pump reservoir. This collection was also present in 2020 and is unchanged since that time. L1-2: An annular bulge is present with no central or foraminal narrowing. L2-3: An annular bulge is present with degenerative endplate change and facet osteoarthropathy. There is mild central canal narrowing present as well as mild right and moderate left neural foraminal narrowing. This is unchanged since the MRI of 2020. L3-4: There is bilateral facet osteoarthropathy, with mild to moderate bilateral foraminal narrowing, slightly worse than seen on the prior MRI. L4-5: An annular bulge is present with degenerative endplate change and bilateral facet osteoarthropathy. There is a small round T2 hyperintensity in the posterior central portion of the canal, measuring 8 mm in size. This may be related to the patient's prior pain pump. There is also moderate left greater than right neuroforaminal narrowing. L5-S1: An annular bulge is present. There is severe right and left neural foraminal narrowing present. IMPRESSION: Mild degenerative disc disease as described above, stable since 2020. Fluid collection in the subcutaneous tissues of the right flank at the L3-4 level, measuring 5.1 cm, likely the site for the prior pump reservoir. This was also present in 2020. Small focus of abnormal signal in the posterior central spinal canal at the L4-5 level, of uncertain etiology but favor related to prior indwelling pain pump. Reviewed, Interpreted and Dictated by Azra Rowell MD Transcribed by Carmen Prado Authenticated and [facility]
== END ==
LOC: RAD 12:48
PROVIDERS: PCP Emergency Medicine; Visit Provider Physician Assistant
DX: M51.16 Intervertebral disc disorders with radiculopathy, lumbar region (principal); M54.50 Low back pain, unspecified
CPT/HCPCS: 72148; 76376

== ENCOUNTER → 2023-03-16 09:57 | Day surgery (SDC) | payer MEDICARE, SELFPAY ==
[2023-03-16 10:06] VITALS: BP 170/83; PULSE 74; RESP 20; TEMP 36.5; O2SAT 99; BMI 36.9
[2023-03-16 10:51] VITALS: BP 150/100; PULSE 76; RESP 20
[2023-03-16 10:54] VITALS: BP 146/75; PULSE 64; RESP 18
--- NOTE | 2023-03-16 11:03 | EXP.PAIN.PRO ---
Procedure Date: 03/16/23 Time: 10:55 Anesthesiologist:: Gerson Terry CRNA Complications:: None Pre-procedure Diagnosis:: Osteoarthritis left knee. Chronic left knee pain. Post-procedure Diagnosis:: Same. Indications for Procedure:: Patient is a very pleasant 67-year-old male that comes our clinic today for intra-articular left knee injection. Patient complains of left knee pain is chronic, dull, aching. Patient has had left intra-articular knee injection in the past with significant improvement terms of his overall left knee joint pain. He rates his pain today 7/10. Procedure Details:: . Procedure Details: Left intra-articular knee injection Informed consent was obtained risk and benefits of the procedure were explained to the patient. Patient was taken the procedure room the left knee was prepped using ChloraPrep. A 25-gauge needle was used to inject 10 mL bupivacaine 0.25% and Depo-Medrol 40 mg into the left knee. The patient tolerated the procedure well with no complications. Plan and Disposition:: Patient was discharged without incident.
== END | disposition home or self-care (01) ==
PROVIDERS: PCP Emergency Medicine; Visit Provider Nurse Anesthetist, Certified Registered
DX: M17.12 Unilateral primary osteoarthritis, left knee (principal); M25.562 Pain in left knee; G89.29 Other chronic pain
CPT/HCPCS: 20610; J1040

== ENCOUNTER → 2023-03-24 09:50 | Outpatient (CLI) | payer MEDICARE, SELFPAY ==
--- NOTE | 2023-03-24 09:56 | XR_ITS ---
FINAL REPORT CLINICAL HISTORY: f/u knee replacement COMPARISON: 07/29/2020 FINDINGS: RIGHT KNEE SERIES Three views of the right knee were obtained. There is no acute fracture or dislocation. There are postoperative changes from a right knee arthroplasty. There is lateral patellar tilt, which is slightly increased. There are chronic calcifications medial to the patella. IMPRESSION: Postoperative changes as stated above. Lateral patellar tilt, which is slightly increased. Reviewed, Interpreted and Dictated by Westley Marie III, MD Transcribed by Jackelin Mcallister Authenticated and [facility]
== END ==
PROVIDERS: PCP Emergency Medicine; Visit Provider Orthopaedic Surgery
DX: M25.561 Pain in right knee (principal)
CPT/HCPCS: 73562

== ENCOUNTER → 2023-03-31 12:38 | Outpatient (POV) | payer MEDICARE, SELFPAY ==
[2023-03-31 13:13] VITALS: BP 187/90; PULSE 81; RESP 20; BMI 37.5
--- NOTE | 2023-03-31 13:15 | EXP.PAIN.SOA ---
[facility] Pain Management SOAP Note Subjective:: Patient is a pleasant 67-year-old male who presents today for follow-up of left intra-articular knee injection on 03/16/2023. We are currently treating the patient for degenerative osteoarthritis of bilateral knees, degenerative disc disease of lumbar spine with lumbar radiculopathy symptoms. Today he rates his pain a 8 out of 10. Patient denies any new trauma or injury. He denies any change to location or type of pain he experiences. He does state that he had 0 relief following this injection. He states he continues to have pain in his knee as well as his low back with some pains into his groin that is more prominent along the left side however he does have pain into his right leg as well. Patient does state the pain interferes with his ability to perform activities of daily living such as cooking and cleaning and that he also has difficulty even walking due to the pain. He states he feels like occasionally he will have a locking up sensation from his hip into his groin. Patient has had his right knee replaced as well as 2 additional replacements done by Dr. Tao. Patient is currently managed with clonazepam 0.5 mg twice a day, Percocet 5 mg twice a day and diazepam 5 mg twice a day from his primary care doctor. His Dakotah is [phone]. It has been reviewed and appropriate. Review of Systems: General: No recent weight changes, no fever, no sleep disturbances Respiratory: No cough, no shortness of air, no recurring pulmonary infections Cardiovascular/peripheral vascular: No chest pain, no palpitations, no edema, no shortness of breath Gastrointestinal: No new onset incontinence, normal bowel movements reported Genitourinary: No new onset incontinence Musculoskeletal: Low back pain, bilateral leg pain, left knee pain Psychiatric: [Normal mood/affect] Neurological: [Denies weakness in extremities], [denies balance issues] Objective:: Physical Exam: General: Alert and oriented x3, no acute distress, pleasant and cooperative Lungs: Respirations even and unlabored, symmetrical chest expansion Eyes: PERRL Musculoskeletal: Flexion and extension of lumbar [spine] somewhat guarded secondary to pain, [antalgic gait noted] Neurological: Speech clear, no gross sensory deficit FINDINGS: There is normal alignment of the lumbar vertebral bodies. Vertebral body height is preserved. The spinal cord ends at the level of L2. There is normal signal intensity within the substance of the distal spinal cord. No acute bone marrow edema or pathologic marrow replacement. There is a fluid collection in the subcutaneous soft tissues of the right flank at the L3-4 level which measures 5.1 cm in size. This may have been the site of the prior pain pump reservoir. This collection was also present in 2020 and is unchanged since that time. L1-2: An annular bulge is present with no central or foraminal narrowing. L2-3: An annular bulge is present with degenerative endplate change and facet osteoarthropathy. There is mild central canal narrowing present as well as mild right and moderate left neural foraminal narrowing. This is unchanged since the MRI of 2020. L3-4: There is bilateral facet osteoarthropathy, with mild to moderate bilateral foraminal narrowing, slightly worse than seen on the prior MRI. L4-5: An annular bulge is present with degenerative endplate change and bilateral facet osteoarthropathy. There is a small round T2 hyperintensity in the posterior central portion of the canal, measuring 8 mm in size. This may be related to the patient's prior pain pump. There is also moderate left greater than right neuroforaminal narrowing. L5-S1: An annular bulge is present. There is severe right and left neural foraminal narrowing present. IMPRESSION: Mild degenerative disc disease as described above, stable since 2020. Fluid collection in the subcutaneous tissues of the right flank at the L3-4 level, measuring 5.1 cm, lik
== END ==
PROVIDERS: PCP Emergency Medicine; Visit Provider Nurse Practitioner Family
DX: M17.0 Bilateral primary osteoarthritis of knee (principal); M51.16 Intervertebral disc disorders with radiculopathy, lumbar region; M48.061 Spinal stenosis, lumbar region without neurogenic claudication
CPT/HCPCS: 99212; G0463

== ENCOUNTER 2023-04-13 10:59 | Day surgery (SDC) | payer MEDICARE, SELFPAY ==
[2023-04-13 11:37] VITALS: BP 152/93; PULSE 78; RESP 18; TEMP 36.5; O2SAT 99; BMI 36.5
--- NOTE | 2023-04-13 11:51 | EXP.PAIN.PRO ---
Procedure Date: 04/13/23 Time: 11:50 Anesthesiologist:: Gerson Terry CRNA Complications:: None Pre-procedure Diagnosis:: Degenerative disc lumbar spine multilevels. Lumbar radiculopathy. Lumbar spondylosis. Lumbar postlaminectomy syndrome. Post-procedure Diagnosis:: Same. Indications for Procedure:: Patient is a very pleasant 67-year-old male that comes our clinic today for lumbar epidural steroid injection at the L4-5 level. Patient has had this in the past with moderate improvement in his overall low back pain as well as bilateral hip and leg radicular symptoms. Patient rates his pain 7/10 today. Procedure Details:: Procedure: Lumbar epidural steroid injection under fluoroscopy Informed consent was obtained and the risks and benefits of the procedure were explained to the patient. The patient was taken to the procedure room and noninvasive monitors placed, including noninvasive blood pressure cuff and pulse oximeter. The back was viewed using C-arm Fluoroscopy and prepped using Chloraprep as a cleansing solution and the L4-L5 interspace was palpated. Skin and subcutaneous tissues were anesthetized using lidocaine 1.5% and a 25-gauge needle. After this, an 18-gauge Touhy epidural needle was placed into the L4-L5 interspace and advanced using fluoroscopic guidance and loss of resistance to air until the epidural space was encountered. After confirmation of needle placement in the epidural space, with dye, a solution containing normal saline, 3 mL and Depo-Medrol 80 mg were incrementally injected into the lumbar epidural space. The patient tolerated the procedure well with no complications. The patient was observed in the Pain Clinic and then discharged home neurologically intact. Plan and Disposition:: Patient was discharged without incident.
[2023-04-13 11:55] VITALS: BP 147/84; PULSE 69; RESP 18; O2SAT 96
[2023-04-13 11:56] VITALS: BP 147/84; PULSE 65; RESP 18; O2SAT 95
[2023-04-13 12:00] VITALS: BP 143/77; PULSE 71; RESP 18; O2SAT 99
== END 2023-04-13 12:00 | disposition home or self-care (01) ==
PROVIDERS: PCP Emergency Medicine; Visit Provider Nurse Anesthetist, Certified Registered
DX: M51.16 Intervertebral disc disorders with radiculopathy, lumbar region (principal); M47.26 Other spondylosis with radiculopathy, lumbar region; M96.1 Postlaminectomy syndrome, not elsewhere classified
CPT/HCPCS: 62323; J1040

== ENCOUNTER → 2023-04-27 13:10 | Outpatient (CLI) | payer MEDICARE, SELFPAY ==
[2023-04-27 12:27] LABS: Alanine Aminotransferase 24 U/L (12-78); Albumin Level 4.3 g/dl (3.5-5.0); Albumin/Globulin Ratio 1.3 (1.1-1.8); Alkaline Phosphatase 134 U/L (38-126); Anion Gap 15.2 mEq/L (5-15); Aspartate Amino Transferase 30 U/L (17-59); Basophils # 0.1 K/mm3 (0-0.2); Basophils % 0.5 % (0.1-2.0); Bilirubin,Total 0.5 mg/dl (0.2-1.3); Blood Urea Nitrogen 23 mg/dl (9-20); Calcium 8.3 mg/dl (8.4-10.2); Carbon Dioxide 26 mmol/L (22.0-30.0); Chloride 106 mmol/L (98-107); Eosinophils # 0.5 K/mm3 (0.0-0.4); Eosinophils % 3.8 % (0.1-12.0); Estimated Glomerular Filt Rate 67 ml/min (>60); GFR (African American) 81 ML/MIN (>60); Globulin 3.2 g/dL (1.3-3.2); Glucose 95 mg/dl (74-100); Hematocrit 42.1 % (42.0-52.0); Hemoglobin 14.1 g/dL (14.1-18.0); Lymphocytes # 1.9 K/mm3 (0.7-4.5); Lymphocytes % 16.2 % (10-50); Magnesium 1.9 mg/dl (1.6-2.3); Mean Corpuscular HGB Conc 33.5 g/dL (31.8-35.4); Mean Corpuscular Volume 92.6 fl (80-94); Mean Platelet Volume 9.2 fl (7.4-10.4); Monocytes # 0.9 K/mm3 (0.1-1.0); Monocytes % 7.4 % (1.7-9.3); Neutrophils # 8.5 K/mm3 (1.8-7.8); Platelet Count 250 K/mm3 (142-424); Potassium 4.2 mmoL/L (3.5-5.1); Red Blood Count 4.55 M/mm3 (4.60-6.20); Red Cell Distribution Width 15.4 % (11.5-17.5); Sodium 143 mmol/L (136-145); Total Protein,Serum 7.5 g/dl (6.3-8.2); White Blood Count 11.8 K/mm3 (4.8-10.8)
[2023-04-27 12:39] LABS: Intact Parathyroid Hormone 39.5 pg/mL (7.5-53.5)
[2023-04-27 12:45] LABS: 25-OH Vitamin D, Total 40.4 ng/mL (30-100)
[2023-04-27 13:17] LABS: Vitamin B12 229 pg/mL (239-931)
[2023-04-29 12:15] LABS: Peripheral Smear Review Scanned Result
== END ==
PROVIDERS: PCP Physician Assistant; Visit Provider Physician Assistant
DX: E83.51 Hypocalcemia (principal); R25.2 Cramp and spasm; E66.9 Obesity, unspecified; Z68.37 Body mass index [BMI] 37.0-37.9, adult
CPT/HCPCS: 80053; 82306; 82607; 83735; 83970; 84443; 85025

== ENCOUNTER → 2023-04-28 10:17 | Outpatient (CLI) | payer MEDICARE, SELFPAY ==
--- NOTE | 2023-04-28 10:22 | XR_ITS ---
FINAL REPORT CLINICAL HISTORY: rt knee pain FINDINGS: Right knee Three views were obtained. There is no acute fracture or dislocation. There are postoperative changes from knee arthroplasty. Vascular calcification is identified. There are posterior soft tissue calcifications. Moderate joint effusion is identified. IMPRESSION: Moderate joint effusion. Degenerative and chronic appearing findings. Reviewed, Interpreted and Dictated by Westley Marie III, MD Transcribed by Katina Sweet Authenticated and [facility]
== END ==
LOC: RAD 10:18
PROVIDERS: PCP Emergency Medicine; Visit Provider Orthopaedic Surgery
DX: M25.561 Pain in right knee (principal); M25.562 Pain in left knee
CPT/HCPCS: 73562

== ENCOUNTER → 2023-06-14 10:16 | Outpatient (POV) | payer MEDICARE, SELFPAY ==
--- NOTE | 2023-06-14 12:53 | EXP.PAIN.SOA ---
[facility] Pain Management SOAP Note Subjective:: This patient is a pleasant 67-year-old male that comes our clinic today with complaint of severe left knee pain. Patient describes the left knee pain as constant, sharp, stabbing. Patient having difficulty ambulating short distance secondary to pain intensity. Patient using a cane to help with ambulation. Patient reports having 3 separate surgeries on the right knee including replacement. Patient does not want to proceed with any type of left knee surgery. Patient reports his last left intra-articular knee injection February 2023 was of minimal relief. Patient had lumbar epidural steroid injection to the L4-5 level on 04/13/2023 and reports continued relief in terms of his low back pain. I discussed in detail with the patient regarding left genicular nerve block. He wishes to proceed. Patient has a chronic non-Hodgkin's lymphoma patient for the last 10 years. He has cancer treatment intermittently from the [facility]. Patient takes clonazepam 0.5 mg 1 p.o. twice daily. Oxycodone 5 mg 1 p.o. 3 times daily. Lyrica 7.5 mg 1 p.o. twice daily from his PCP. The patient's Dakotah #[id number] has been reviewed and appropriate. Objective:: Patient is awake alert [place] x3. In no acute distress. Flexion-extension lumbar spine somewhat guarded secondary to pain. Deep tendon reflexes upper and lower extremities normal. Motor strength upper and lower extremities normal. There is no gross sensory deficit. Gait is antalgic. Assessment:: DJD left knee. Chronic left knee pain. Degenerative disc lumbar spine multilevels. Lumbar radiculopathy Chronic pain secondary to non-Hodgkin's lymphoma. Plan:: Discussed in detail with the patient regarding left genicular nerve block. He wishes to proceed. [facility] Disclaimer: The information contained in this section may have been updated after the patient was seen, as this information can be updated by other users. Medical History Anxiety Bilateral knee pain BPH (benign prostatic hyperplasia) BPV (benign positional vertigo) CAD (coronary artery disease) Chest pain Chest pain, atypical Constipation Daytime somnolence Dizziness Dyspnea Edema of both feet Encounter for management of wound VAC Facial edema History of Hodgkin's lymphoma Hodgkin lymphoma Hyperglycemia Hyperlipidemia Hypertension Hypoglycemia Hypothyroidism Laceration of right little finger Low back pain Lumbar disc disease with radiculopathy Lumbar disc disease with radiculopathy Lumbar disc disease with radiculopathy Malaise Neural foraminal stenosis of lumbar spine Panic anxiety syndrome Pharyngitis Post-operative infection Postherpetic neuralgia Shingles Tendonitis Thyroid goiter Typical angina Visit for suture removal Wrist fracture, right Wrist pain, right Surgical History History of knee replacement Family History Other No significant family history Social History Smoking Status: Current every day smoker tobacco type: cigarettes packs per day: 1 second hand exposure: Yes alcohol intake: former substance use type: former substance user current occupational status: other Travel in the last 8 weeks: None household members: none housing: apartment lives independently: Yes marital status: number of children: 2 service: No fdc: No 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
[2023-06-14 12:54] VITALS: BP 136/61; PULSE 76; RESP 18; O2SAT 97; BMI 38.7
== END ==
PROVIDERS: Visit Provider Nurse Anesthetist, Certified Registered
DX: M17.12 Unilateral primary osteoarthritis, left knee (principal); M25.562 Pain in left knee; G89.29 Other chronic pain; M51.16 Intervertebral disc disorders with radiculopathy, lumbar region; C85.90 Non-Hodgkin lymphoma, unspecified, unspecified site
CPT/HCPCS: 99212; G0463

== ENCOUNTER 2023-06-22 14:05 | Day surgery (SDC) | payer MEDICARE, SELFPAY ==
[2023-06-22 14:23] VITALS: BP 150/91; PULSE 80; RESP 18; TEMP 36.3; O2SAT 98; BMI 37.9
[2023-06-22 14:35] VITALS: BP 163/82; PULSE 73; RESP 18; O2SAT 98
[2023-06-22 14:47] VITALS: BP 169/100; PULSE 87; RESP 20; O2SAT 95
[2023-06-22 14:51] VITALS: BP 169/100; PULSE 87; RESP 18; O2SAT 95
--- NOTE | 2023-06-22 14:55 | EXP.PAIN.PRO ---
Procedure Date: 06/22/23 Time: 14:50 Anesthesiologist:: Gerson Terry CRNA Complications:: None Pre-procedure Diagnosis:: Osteoarthritis left knee. Chronic left knee pain. Myofascial pain left distal quadriceps tendon. Myofascial pain proximal patellar tendon. Post-procedure Diagnosis:: Same. Indications for Procedure:: Patient is a pleasant 67-year-old male that comes our clinic today for a left distal quadriceps trigger point injection as well as proximal patellar tendon trigger point injection. Patient has chronic left knee pain he describes as constant, dull, aching. He rates pain 9/10. Patient has difficulty ambulating. Difficulty standing. Essentially, patient reports he is not able to do stairs. Procedure Details:: Details of the procedure explained to the patient. The patient taken the procedure room placed in the supine position. The area over the left knee was cleaned using chlorhexidine as a cleansing solution. Using a 22-gauge inch and a half needle to separate areas of the distal quadriceps tendon was injected with 1% lidocaine and 20 mg of Depo-Medrol at each location. The same procedure was carried out at the proximal patellar tendon of the left knee. Patient tolerated procedure without difficulty. There are no complications. Plan and Disposition:: Patient was discharged out incident.
== END 2023-06-22 14:35 | disposition home or self-care (01) ==
LOC: SC.PAINP 14:05
PROVIDERS: PCP Emergency Medicine; Visit Provider Nurse Anesthetist, Certified Registered
DX: M17.11 Unilateral primary osteoarthritis, right knee (principal); M25.562 Pain in left knee; G89.29 Other chronic pain; M79.18 Myalgia, other site
CPT/HCPCS: 20552; J1040

== ENCOUNTER → 2023-07-05 14:13 | Outpatient (POV) | payer MEDICARE, SELFPAY ==
[2023-07-05 14:47] VITALS: BP 147/90; PULSE 78; RESP 18; O2SAT 97; BMI 36.9
--- NOTE | 2023-07-05 14:54 | EXP.PAIN.SOA ---
[facility] Pain Management SOAP Note Subjective:: Patient is a pleasant 67-year-old male who presents today for follow-up of left distal quadriceps trigger point injection and proximal patellar tendon trigger point injection on 06/22/2023. We are currently treating the patient for degenerative disc disease of lumbar spine with lumbar radiculopathy symptoms, bilateral knee pain, chronic pain syndrome related to non-Hodgkin's lymphoma. Patient denies any new trauma or injury. He does state that the injection did take about 5 days for it to kick in and provide relief. He does state that it is continuing to provide additional improvement. Patient rates his improvement of 50% or more. He does state his pain is a 9 out of 10 today and that it is more related to his low back and leg pain. Patient does describe this as a constant aching, throbbing sensation with numbness and tingling into his lower extremities. Patient does state the pain interferes with his ability perform activities of daily living such as cooking or cleaning or even simple ambulation. Patient has had lumbar epidurals in the past with his last injection of L4-L5 back in March that did provide significant relief lasting a couple of months. Patient states that the last appointment for his back pain had to be canceled due to following up with his cancer doctor. He does state that this is gone well and he has still a couple of spots that showed up on the most current PET scan so they have told him that they we will see him back in 3 months for repeat scan. Patient is currently managed with clonazepam 0.5 mg twice a day, Percocet 5 mg 3 times a day and Lyrica 75 mg twice a day from his primary care provider. Patient denies any side effects from these medications. His [place]otah has been reviewed and is appropriate. Review of Systems: General: No recent weight changes, no fever, no sleep disturbances Respiratory: No cough, no shortness of air, no recurring pulmonary infections Cardiovascular/peripheral vascular: No chest pain, no palpitations, no edema, no shortness of breath Gastrointestinal: No new onset incontinence, normal bowel movements reported Genitourinary: No new onset incontinence Musculoskeletal: Low back pain, bilateral leg pain Psychiatric: [Normal mood/affect] Neurological: [Denies weakness in extremities], [denies balance issues] Objective:: Physical Exam: General: Alert and oriented x3, no acute distress, pleasant and cooperative Lungs: Respirations even and unlabored, symmetrical chest expansion Eyes: PERRL Musculoskeletal: Flexion and extension of lumbar [spine] somewhat guarded secondary to pain, [antalgic gait noted] Neurological: Speech clear, no gross sensory deficit Assessment:: Degenerative disc disease of lumbar spine with lumbar radiculopathy symptoms, bilateral knee pain, chronic pain syndrome related to non-Hodgkin's lymphoma Plan:: Patient is experiencing worsening pain in his low back with radiating symptoms into his lower extremities. Patient had limited range of motion of his lumbar spine during today's visit. I have discussed with the patient that he may benefit from repeat lumbar epidural steroid injection. Risk and benefits were discussed with the patient and he would like to proceed forward with this plan of care. Patient is not on any blood thinners. We will schedule patient for an LESI L4-L5 under fluoroscopic guidance. Patient has been instructed to contact the clinic with any concerns before the next appointment. Dr. Parsons has reviewed this note and agrees with this plan of care. This note was dictated using voice recognition software and make contain errors or omissions. [facility] Disclaimer: The information contained in this section may have been updated after the patient was seen, as this information can be updated by other users. Medical History Anxiety Bilateral knee pain BPH (benign prostatic hyperplasia
== END ==
LOC: SC.PAIN 14:14
PROVIDERS: PCP Emergency Medicine; Visit Provider Nurse Practitioner Family
DX: M51.16 Intervertebral disc disorders with radiculopathy, lumbar region (principal); M25.561 Pain in right knee; M25.562 Pain in left knee; G89.4 Chronic pain syndrome; C85.90 Non-Hodgkin lymphoma, unspecified, unspecified site
CPT/HCPCS: 99212; G0463

== ENCOUNTER 2023-07-20 10:05 | Day surgery (SDC) | payer MEDICARE, SELFPAY ==
[2023-07-20 10:15] VITALS: BP 147/95; PULSE 81; RESP 16; TEMP 36.6; O2SAT 98; BMI 36.9
[2023-07-20 10:25] VITALS: BP 156/93; PULSE 74; RESP 18; O2SAT 97
[2023-07-20 10:26] VITALS: BP 156/93; PULSE 71; RESP 18; O2SAT 97
[2023-07-20 10:32] VITALS: BP 171/83; PULSE 72; RESP 16; O2SAT 98
--- NOTE | 2023-07-20 11:08 | EXP.PAIN.PRO ---
Procedure Date: 07/20/23 Time: 10:30 Anesthesiologist:: Gerson Terry CRNA Complications:: None Pre-procedure Diagnosis:: Degenerative disc lumbar spine multilevels. Lumbar radiculopathy. Lumbar postlaminectomy syndrome. Post-procedure Diagnosis:: Same. Indications for Procedure:: Patient is a very pleasant 67-year-old male comes our clinic today for a lumbar epidural steroid injection at the L4-5 level. Patient describes low back pain as constant, dull, aching. Patient also reporting bilateral leg radicular symptoms at times. He rates his pain 8/10. Procedure Details:: Procedure: Lumbar epidural steroid injection under fluoroscopy Informed consent was obtained and the risks and benefits of the procedure were explained to the patient. The patient was taken to the procedure room and noninvasive monitors placed, including noninvasive blood pressure cuff and pulse oximeter. The back was viewed using C-arm Fluoroscopy and prepped using Chloraprep as a cleansing solution and the L4-L5 interspace was palpated. Skin and subcutaneous tissues were anesthetized using lidocaine 1.5% and a 25-gauge needle. After this, an 18-gauge Touhy epidural needle was placed into the L4-L5 interspace and advanced using fluoroscopic guidance and loss of resistance to air until the epidural space was encountered. After confirmation of needle placement in the epidural space, with dye, a solution containing normal saline, 3 mL and Depo-Medrol 80 mg were incrementally injected into the lumbar epidural space. The patient tolerated the procedure well with no complications. The patient was observed in the Pain Clinic and then discharged home neurologically intact. Plan and Disposition:: Patient was discharged without incident.
== END 2023-07-20 10:32 | disposition home or self-care (01) ==
LOC: SC.PAINP 10:06
PROVIDERS: PCP Emergency Medicine; Visit Provider Nurse Anesthetist, Certified Registered
DX: M51.16 Intervertebral disc disorders with radiculopathy, lumbar region (principal); M96.1 Postlaminectomy syndrome, not elsewhere classified
CPT/HCPCS: 62323; J1040

== ENCOUNTER → 2023-08-04 09:54 | Outpatient (POV) | payer MEDICARE, SELFPAY ==
[2023-08-04 10:12] VITALS: BP 137/79; PULSE 74; RESP 18; O2SAT 98; BMI 37.8
--- NOTE | 2023-08-04 10:27 | EXP.PAIN.SOA ---
[facility] Pain Management SOAP Note Subjective:: Patient is a pleasant 67-year-old male who presents today for follow-up of lumbar epidural steroid injection L4-L5 on 07/20/2023. We are currently treating the patient for degenerative disc disease of lumbar spine with lumbar radiculopathy symptoms, bilateral knee pain, chronic pain syndrome related to non-Hodgkin's lymphoma. Today he rates his pain a 5 out of 10. Patient denies any new trauma or injury. He does state that he had at least 50% improvement following this injection. He states he was able to increase his activity with decreased pain and felt more functional. He does state today that he is starting to go back towards his baseline. He is experiencing more aching, throbbing with numbness and tingling into his lower extremities. Patient does state the worsening pain affects his ability perform activities of daily living such as cooking and cleaning. Patient states he is interested in proceeding forward with a repeat injection if possible. He is currently managed with clonazepam 0.5 mg twice a day, Percocet 5 mg 3 times a day and Lyrica 75 mg twice a day from his PCP. He denies any side effects from this medication. Patient is scheduled for a repeat PET scan around September for his non-Hodgkin's lymphoma follow-up. His [place] has been reviewed and is appropriate. Review of Systems: General: No recent weight changes, no fever, no sleep disturbances Respiratory: No cough, no shortness of air, no recurring pulmonary infections Cardiovascular/peripheral vascular: No chest pain, no palpitations, no edema, no shortness of breath Gastrointestinal: No new onset incontinence, normal bowel movements reported Genitourinary: No new onset incontinence Musculoskeletal: Low back pain, bilateral leg pain Psychiatric: [Normal mood/affect] Neurological: [Denies weakness in extremities], [denies balance issues] Objective:: Physical Exam: General: Alert and oriented x3, no acute distress, pleasant and cooperative Lungs: Respirations even and unlabored, symmetrical chest expansion Eyes: PERRL Musculoskeletal: Flexion and extension of lumbar [spine] somewhat guarded secondary to pain, [antalgic gait noted] Neurological: Speech clear, no gross sensory deficit Assessment:: Degenerative disc disease of lumbar spine with lumbar radiculopathy symptoms, bilateral knee pain, chronic pain syndrome related to non-Hodgkin's lymphoma Plan:: Patient did have significant relief following his lumbar epidural steroid injection of more than 50% however he is starting to experience worsening pain in his low back and legs. Patient did have limited range of motion of his lumbar spine during today's visit. I have discussed with the patient that he may benefit from a repeat lumbar epidural steroid injection. Risk and benefits were discussed with the patient like to proceed forward with this plan of care. Patient has tried and failed conservative therapy such as oral medications, heat and ice, topicals, at home exercising and stretching for longer than 12 weeks. We will schedule the patient for a repeat LESI L4-L5 under fluoroscopic guidance. Patient has been instructed to contact the clinic with any concerns before the next appointment. Dr. Parsons has reviewed this note and agrees with this plan of care. This note was dictated using voice recognition software and make contain errors or omissions. [facility] Disclaimer: The information contained in this section may have been updated after the patient was seen, as this information can be updated by other users. Medical History Anxiety Bilateral knee pain BPH (benign prostatic hyperplasia) BPV (benign positional vertigo) CAD (coronary artery disease) Chest pain Chest pain, atypical Constipation Daytime somnolence Dizziness Dyspnea Edema of both feet Encounter for management of wound VAC Facial edema History of Hodgkin's lymphoma John
== END ==
LOC: SC.PAIN 09:55
PROVIDERS: PCP Emergency Medicine; Visit Provider Nurse Practitioner Family
DX: M51.16 Intervertebral disc disorders with radiculopathy, lumbar region (principal); M25.561 Pain in right knee; M25.562 Pain in left knee; G89.4 Chronic pain syndrome; C85.90 Non-Hodgkin lymphoma, unspecified, unspecified site
CPT/HCPCS: 99212; G0463

== ENCOUNTER → 2023-08-18 23:10 | Outpatient (CLI) | payer MEDICARE, SELFPAY ==
[2023-08-18 16:50] LABS: Basophils % 0.5 % (0.1-2.0); Eosinophils # 0.3 K/mm3 (0.0-0.4); Hematocrit 44.4 % (42.0-52.0); Hemoglobin 15.1 g/dL (14.1-18.0); Lymphocytes # 1.5 K/mm3 (0.7-4.5); Lymphocytes % 16.2 % (10-50); Mean Corpuscular Hemoglobin 30.7 pg (27.0-31.2); Mean Corpuscular Volume 90.4 fl (80-94); Monocytes # 0.7 K/mm3 (0.1-1.0); Monocytes % 7.2 % (1.7-9.3); Neutrophils # 6.7 K/mm3 (1.8-7.8); Neutrophils % 73.2 % (37.0-80.0); Platelet Count 224 K/mm3 (142-424); Red Blood Count 4.91 M/mm3 (4.60-6.20); Red Cell Distribution Width 14.9 % (11.5-17.5); White Blood Count 9.2 K/mm3 (4.8-10.8)
[2023-08-18 17:39] LABS: Alanine Aminotransferase 21 U/L (12-78); Albumin Level 4.3 g/dl (3.5-5.0); Albumin/Globulin Ratio 1.3 (1.1-1.8); Alkaline Phosphatase 111 U/L (38-126); Anion Gap 10.9 mEq/L (5-15); Aspartate Amino Transferase 30 U/L (17-59); Bilirubin,Total 0.8 mg/dl (0.2-1.3); Blood Urea Nitrogen 18 mg/dl (9-20); Calcium 8.6 mg/dl (8.4-10.2); Carbon Dioxide 24 mmol/L (22.0-30.0); Chloride 106 mmol/L (98-107); Chol/HDL Ratio 5.6 (1-3.5); Cholesterol 186 mg/dl (140-200); Estimated Glomerular Filt Rate 75 ml/min (>60); GFR (African American) 90 ML/MIN (>60); Globulin 3.3 g/dL (1.3-3.2); Glucose 100 mg/dl (74-100); HDL Cholesterol 33 mg/dl (40-60); Potassium 3.9 mmoL/L (3.5-5.1); Sodium 137 mmol/L (136-145); Total Protein,Serum 7.6 g/dl (6.3-8.2); Triglycerides 158 mg/dl (30-150); VLDL Cholesterol 32 mg/dL (0-40)
[2023-08-18 17:50] LABS: Direct LDL Cholesterol 116.47 mg/dL (100-129)
[2023-08-18 18:06] LABS: Amphetamine/Metha Screen,Urine Negative ng/ml (<1000); Barbiturates Screen,Urine Negative ng/ml (<200)
[2023-08-18 18:07] LABS: Benzodiazepines Screen,Urine Negative ng/ml (<200); Cannabinoid Screen,Urine Negative ng/ml (<50)
[2023-08-18 18:08] LABS: Cocaine Screen,Urine Negative ng/ml (<300)
[2023-08-18 18:09] LABS: Methadone Screen,Urine Negative ng/ml (<300); Opiate Screen,Urine Negative ng/ml (<300)
[2023-08-18 18:10] LABS: Phencyclidine Screen,Urine Negative ng/ml (<25)
[2023-08-18 18:11] LABS: Thyroid Stimulating Hormone 3.62 uIU/mL (0.465-4.68)
[2023-09-08 08:24] LABS: 7-Aminoclonazepam Negative
== END ==
LOC: LAB.DROPOF 23:12
PROVIDERS: PCP Physician Assistant; Visit Provider Physician Assistant
DX: E78.5 Hyperlipidemia, unspecified (principal); E03.9 Hypothyroidism, unspecified; I10 Essential (primary) hypertension; F41.9 Anxiety disorder, unspecified; M51.16 Intervertebral disc disorders with radiculopathy, lumbar region; E55.9 Vitamin D deficiency, unspecified; Z79.899 Other long term (current) drug therapy
CPT/HCPCS: 80053; 80061; 80307; 80346; 82306; 84443; 85025

== ENCOUNTER 2023-08-20 08:43 | Day surgery (SDC) | payer MEDICARE, SELFPAY ==
[2023-08-20 08:52] VITALS: BP 125/90; PULSE 88; PULSE 90; RESP 18; O2SAT 97; O2SAT 98
[2023-08-20] MEDS: methylPREDNISolone ACETATE 80MG/ML VIAL 80 MG (08:53)
[2023-08-20 08:55] VITALS: BP 187/93; PULSE 86; RESP 16; TEMP 36.5; O2SAT 99; BMI 38.2
[2023-08-20 09:05] VITALS: BP 142/82; PULSE 88; RESP 16; O2SAT 99
--- NOTE | 2023-08-20 09:05 | P.PCN_ITS ---
Procedure Date: 08/20/23 Time: 08:50 Anesthesiologist:: Gerson Terry CRNA Complications:: None Pre-procedure Diagnosis:: Degenerative disc lumbar spine multilevels. Lumbar radiculopathy. Post-procedure Diagnosis:: Same. Indications for Procedure:: This patient is a pleasant six 77-year-old male comes our clinic today for a lumbar epidural steroid injection at L4-5 level. Patient has had significant proved in terms of his overall low back pain and bilateral hip and leg radicular symptoms with previous injection same level. Patient describes his low back pain as constant, dull, aching. He also reports bilateral hip and leg radiculopathy. Procedure Details:: Procedure: Lumbar epidural steroid injection under fluoroscopy Informed consent was obtained and the risks and benefits of the procedure were explained to the patient. The patient was taken to the procedure room and noninvasive monitors placed, including noninvasive blood pressure cuff and pulse oximeter. The back was viewed using C-arm Fluoroscopy and prepped using Chl oraprep as a cleansing solution and the L4-L5 interspace was palpated. Skin and subcutaneous tissues were anesthetized using lidocaine 1.5% and a 25-gauge needle. After this, an 18-gauge Touhy epidural needle was placed into the L4-L5 interspace and advanced using fluoroscopic guidance and loss of resistance to air until the epidural space was encountered. After confirmation of needle placement in the epidural space, with dye, a solution containing normal saline, 3 mL and Depo-Medrol 80 mg were incrementally injected into the lumbar epidural space. The patient tolerated the procedure well with no complications. The patient was observed in the Pain Clinic and then discharged home neurologically intact. Plan and Disposition:: Patient was discharged without incident.
== END 2023-08-20 09:05 | disposition home or self-care (01) ==
PROVIDERS: PCP Emergency Medicine; Visit Provider Nurse Anesthetist, Certified Registered
DX: M51.16 Intervertebral disc disorders with radiculopathy, lumbar region (principal)
CPT/HCPCS: 62323; J1040

== ENCOUNTER → 2023-09-01 09:06 | Outpatient (POV) | payer MEDICARE, SELFPAY ==
--- NOTE | 2023-09-01 09:28 | A.OFFVIS_ITS ---
[facility] Pain Management SOAP Note Subjective:: Patient is a pleasant 67-year-old male who presents today for follow-up of lumbar epidural steroid injection L4-L5 on 08/20/2023. We are currently treating the patient for degenerative disc disease of lumbar spine with lumbar radiculopathy symptoms, bilateral knee pain, chronic pain syndrome related to non-Hodgkin's lymphoma. Today he rates his pain a 5 out of 10. Patient denies any new trauma or injury. Patient does state that he still had at least 50% improvement and that he was able to increase his activity with decreased pain symptoms and felt more functional however he does feel like it is going back towards his baseline today. Patient does state that he really does get improv ement from these injections and is interested in repeating this procedure. Patient does state that the pain interferes with his ability perform activities of daily living such as cooking and cleaning. Patient also states that his right knee continues to be a source of pain as well. Patient had a previous knee replacement back in March 2020 however ended up with a blood clot and they ended up having to go back into additional surgeries and now he has chronic pain at this site. He does state that he has not had any injections in the right knee. He is currently managed with clonazepam 0.5 mg twice a day, Percocet 5 mg 3 times a day and Lyrica 75 mg twice a day from his PCP. He denies any side effects from this medication. He is prescribed compounded cream from our office. His [place] has been reviewed and is appropriate. Review of Systems: General: No recent weight changes, no fever, no sleep disturbances Respiratory: No cough, no shortness of air, no recurring pulmonary infections Cardiovascular/peripheral vascular: No chest pain, no palpitations, no edema, no shortness of breath Gastrointestinal: No new onset incontinence, normal bowel movements reported Genitourinary: No new onset incontinence Musculoskeletal: Low back pain, bilateral leg pain Psychiatric: [Normal mood/affect] Neurological: [Denies weakness in extremities], [denies balance issues] Objective:: Physical Exam: General: Alert and oriented x3, no acute distress, pleasant and cooperative Lungs: Respirations even and unlabored, symmetrical chest expansion Eyes: PERRL Musculoskeletal: Flexion and extension of lumbar [spine] somewhat guarded secondary to pain, [antalgic gait noted] positive bilateral leg raise Neurological: Speech clear, no gross sensory deficit Assessment:: Degenerative disc disease of lumbar spine with lumbar radiculopathy symptoms, bilateral knee pain, chronic pain syndrome related to non-Hodgkin's lymphoma Plan:: Patient is starting to experience worsening pain in his low back and legs with limited range of motion. Patient did have positive bilateral leg raises and limited range of motion of his lumbar spine during today's visit. I have discussed the risk and benefits of repeat lumbar epidural steroid injection. Patient would like to proceed forward with this plan of care. Patient is currently on any blood thinners. We will schedule him for LESI at L4-L5. All epidurals are done under fluoroscopic guidance to confirm placement. Patient has been counseled to contact our office with any questions or concerns before their next appointment date. This note has been dictated using voice recognition software and may contain errors or omissions. Dr. Parsons has read this note and agrees with this plan of care. [facility] Disclaimer: The information contained in this section may have been updated after the patient was seen, as this information can be updated by other users. Medical History Anxiety Bilateral knee pain BPH (benign prostatic hyperplasia) BPV (benign positional vertigo) CAD (coronary artery disease) Chest pain Chest pain, atypical Constipation Daytime somnolence Dizziness Dyspnea Edema of both feet Encounter for management of wound VAC Facial edema History of Hodgkin's lymphoma Hodgkin lymphoma Hyperglycemia Hyperlipidemia Hypertension Hypoglycemia Hypothyroidism Laceration of right little finger Low back pain Lumbar disc disease with radiculopathy Lumbar disc disease with radiculopathy Lumbar disc disease with radiculopathy Malaise Neural foraminal stenosis of lumbar spine Panic anxiety syndrome Pharyngitis Post-operative infection Postherpetic neuralgia Shingles Tendonitis Thyroid goiter Typical angina Visit for suture removal Wrist fracture, right Wrist pain, right Surgical History History of knee replacement Family History Other No significant family history Social History Smoking Status: Current every day smoker tobacco type: cigarettes packs per day: 1 second hand exposure: Yes alcohol intake: former substance use type: former substance user current occupational status: retired Travel in the last 8 weeks: None household members: none housing: apartment lives independently: Yes marital status: number of children: 2 service: No intermediate: No 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
[2023-09-01 09:31] VITALS: BP 138/81; PULSE 56; RESP 18; O2SAT 97; BMI 37.3
== END ==
LOC: SC.PAIN 09:07
PROVIDERS: PCP Physician Assistant; Visit Provider Nurse Practitioner Family
DX: M51.16 Intervertebral disc disorders with radiculopathy, lumbar region (principal); M25.561 Pain in right knee; M25.562 Pain in left knee; G89.4 Chronic pain syndrome; C85.90 Non-Hodgkin lymphoma, unspecified, unspecified site
CPT/HCPCS: 99212; G0463

== ENCOUNTER 2023-09-13 18:11 | Outpatient (CLI) | payer MEDICARE, SELFPAY ==
[2023-09-13 20:11] LABS: Amphetamine/Metha Screen,Urine Negative ng/ml (<1000); Barbiturates Screen,Urine Negative ng/ml (<200); Cannabinoid Screen,Urine Negative ng/ml (<50)
[2023-09-13 22:17] LABS: Benzodiazepines Screen,Urine Negative ng/ml (<200)
[2023-09-13 22:18] LABS: Methadone Screen,Urine Negative ng/ml (<300); Opiate Screen,Urine Negative ng/ml (<300)
[2023-09-13 22:19] LABS: Phencyclidine Screen,Urine Negative ng/ml (<25)
[2023-09-13 22:23] LABS: Cocaine Screen,Urine Negative ng/ml (<300)
== END 2023-09-13 23:59 ==
LOC: LAB.DROPOF 18:12
PROVIDERS: PCP Physician Assistant; Visit Provider Physician Assistant
DX: Z79.899 Other long term (current) drug therapy (principal)
CPT/HCPCS: 80307

== ENCOUNTER 2023-12-16 13:25 | Outpatient (CLI) | payer MEDICARE, SELFPAY ==
[2023-12-16 18:49] LABS: Basophils # 0.1 K/mm3 (0-0.2); Basophils % 0.9 % (0.1-2.0); Eosinophils # 0.4 K/mm3 (0.0-0.4); Eosinophils % 4.7 % (0.1-12.0); Hematocrit 47.4 % (42.0-52.0); Lymphocytes # 1.4 K/mm3 (0.7-4.5); Lymphocytes % 15.8 % (10-50); Mean Corpuscular HGB Conc 31.8 g/dL (31.8-35.4); Mean Corpuscular Hemoglobin 30.1 pg (27.0-31.2); Mean Corpuscular Volume 94.7 fl (80-94); Mean Platelet Volume 10.5 fl (7.4-10.4); Monocytes # 0.6 K/mm3 (0.1-1.0); Monocytes % 7.1 % (1.7-9.3); Neutrophils # 6.4 K/mm3 (1.8-7.8); Neutrophils % 71.5 % (37.0-80.0); Platelet Count 219 K/mm3 (142-424); Red Cell Distribution Width 15.1 % (11.5-17.5)
[2023-12-16 18:53] LABS: Alanine Aminotransferase 23 U/L (12-78); Albumin Level 4.2 g/dl (3.5-5.0); Albumin/Globulin Ratio 1.4 (1.1-1.8); Alkaline Phosphatase 105 U/L (38-126); Anion Gap 13.1 mEq/L (5-15); Aspartate Amino Transferase 32 U/L (17-59); Bilirubin,Total 0.6 mg/dl (0.2-1.3); Blood Urea Nitrogen 20 mg/dl (9-20); Calcium 8.7 mg/dl (8.4-10.2); Carbon Dioxide 22 mmol/L (22.0-30.0); Chloride 109 mmol/L (98-107); Chol/HDL Ratio 6.7 (1-3.5); Cholesterol 188 mg/dl (140-200); Estimated Glomerular Filt Rate 55 ml/min (>60); GFR (African American) 66 ML/MIN (>60); Globulin 2.9 g/dL (1.3-3.2); Glucose 128 mg/dl (74-100); HDL Cholesterol 28 mg/dl (40-60); Potassium 4.1 mmoL/L (3.5-5.1); Sodium 140 mmol/L (136-145); Total Protein,Serum 7.1 g/dl (6.3-8.2); Triglycerides 170 mg/dl (30-150); VLDL Cholesterol 34 mg/dL (0-40)
[2023-12-16 19:04] LABS: Direct LDL Cholesterol 113.23 mg/dL (100-129)
[2023-12-16 19:07] LABS: 25-OH Vitamin D, Total 33.8 ng/mL (30-100)
== END 2023-12-16 23:59 | disposition home or self-care (01) ==
LOC: LAB.DROPOF 12-17 13:25
PROVIDERS: PCP Physician Assistant; Visit Provider Physician Assistant
DX: E78.5 Hyperlipidemia, unspecified (principal); I10 Essential (primary) hypertension; R53.83 Other fatigue; E55.9 Vitamin D deficiency, unspecified; Z79.899 Other long term (current) drug therapy
CPT/HCPCS: 80053; 80061; 82306; 84443; 85025

== ENCOUNTER 2024-01-03 10:10 | Outpatient (POV) | payer MEDICARE, SELFPAY ==
[2024-01-03 10:49] VITALS: BP 123/87; PULSE 63; RESP 20; O2SAT 96; BMI 36.8
--- NOTE | 2024-01-03 11:01 | EXP.PAIN.SOA ---
[facility] Pain Management SOAP Note Subjective:: Patient is a pleasant 68-year-old male who presents today for follow-up. Today he rates his pain a 9 out of 10. Patient denies any new trauma or injury. He states he is having increased pain in his low back and down his left extremity. Patient states this is an aching, throbbing sensation with numbness and tingling. He states the pain does interfere with his ability perform activities of daily living such as cooking and cleaning. Patient has previously had lumbar epidurals with his last one back in July that did provide 50% relief lasting about a month. Patient states he is interested in repeating this injection. He is currently managed with clonazepam, Percocet and Lyrica from his PCP. He denies any side effects from this medication. He was prescribed compounded cream from our office and states that he is not really using this any longer than he ran out but is not requesting refills. His [place]otah has been reviewed and is appropriate. Review of Systems: General: No recent weight changes, no fever, no sleep disturbances Respiratory: No cough, no shortness of air, no recurring pulmonary infections Cardiovascular/peripheral vascular: No chest pain, no palpitations, no edema, no shortness of breath Gastrointestinal: No new onset incontinence, normal bowel movements reported Genitourinary: No new onset incontinence Musculoskeletal: Low back pain, bilateral leg pain Psychiatric: [Normal mood/affect] Neurological: [Denies weakness in extremities], [denies balance issues] Objective:: Physical Exam: General: Alert and oriented x3, no acute distress, pleasant and cooperative Lungs: Respirations even and unlabored, symmetrical chest expansion Eyes: PERRL Musculoskeletal: Flexion and extension of lumbar [spine] somewhat guarded secondary to pain, [antalgic gait noted] Neurological: Speech clear, no gross sensory deficit Assessment:: Degenerative disc disease of lumbar spine with lumbar radiculopathy symptoms, bilateral knee pain, chronic pain syndrome due to Hodgkin's lymphoma Plan:: Patient is experiencing worsening pain in his low back and left leg with limited range of motion. I discussed with patient that he may benefit from repeat lumbar epidural steroid injection. Risk and benefits were discussed with patient and he would like to proceed forward with this plan of care. Patient is not on any blood thinners. Patient has tried and failed conservative therapy including continued at home exercising and stretching between injections. We will schedule the patient for a lumbar epidural steroid injection L4-L5 under fluoroscopy. Patient has previously had 50% improvement following this injection in the past lasting approximately 1 month. Patient has been instructed to contact the clinic with any concerns before the next appointment. Dr. Parsons has reviewed this note and agrees with this plan of care. This note was dictated using voice recognition software and make contain errors or omissions. [facility] Disclaimer: The information contained in this section may have been updated after the patient was seen, as this information can be updated by other users. Medical History Anxiety Bilateral knee pain BPH (benign prostatic hyperplasia) BPV (benign positional vertigo) CAD (coronary artery disease) Chest pain Chest pain, atypical Constipation Daytime somnolence Dizziness Dyspnea Edema of both feet Encounter for management of wound VAC Facial edema History of Hodgkin's lymphoma Hodgkin lymphoma Hyperglycemia Hyperlipidemia Hypertension Hypoglycemia Hypothyroidism Laceration of right little finger Low back pain Lumbar disc disease with radiculopathy Lumbar disc disease with radiculopathy Lumbar disc disease with radiculopathy Malaise Neural foraminal stenosis of lumbar spine Panic anxiety syndrome Pharyngitis Post-operative infection Postherpetic neuralgia Shingles Tendonitis Thyroid goiter Typical angina Visit for suture removal Wrist fracture, right Wrist pain, right Surgical History History of knee replacement Family History Other No significant family history Social History Smoking Status: Current every day smoker tobacco type: cigarettes packs per day: 1 second hand exposure: Yes alcohol intake: former substance use type: former substance user current occupational status: retired Travel in the last 8 weeks: None household members: none housing: apartment lives independently: Yes marital status: number of children: 2 service: No retirement: No 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
== END 2024-01-03 23:59 | disposition home or self-care (01) ==
LOC: SC.PAIN 10:11
PROVIDERS: PCP Physician Assistant; Visit Provider Nurse Practitioner Family
DX: M51.16 Intervertebral disc disorders with radiculopathy, lumbar region (principal); M25.561 Pain in right knee; M25.562 Pain in left knee; G89.4 Chronic pain syndrome; C81.90 Hodgkin lymphoma, unspecified, unspecified site
CPT/HCPCS: 99212; G0463

== ENCOUNTER 2024-01-06 10:27 | Outpatient (CLI) | payer MEDICARE, SELFPAY ==
[2024-01-06 10:51] LABS: Basophils # 0.1 K/mm3 (0-0.2); Basophils % 0.9 % (0.1-2.0); Eosinophils # 0.3 K/mm3 (0.0-0.4); Eosinophils % 3.6 % (0.1-12.0); Hematocrit 47.1 % (42.0-52.0); Hemoglobin 15.4 g/dL (14.1-18.0); Lymphocytes # 1.3 K/mm3 (0.7-4.5); Lymphocytes % 13.9 % (10-50); Mean Corpuscular HGB Conc 32.6 g/dL (31.8-35.4); Mean Corpuscular Hemoglobin 29.9 pg (27.0-31.2); Mean Corpuscular Volume 91.8 fl (80-94); Monocytes # 0.6 K/mm3 (0.1-1.0); Monocytes % 6.6 % (1.7-9.3); Neutrophils # 7.2 K/mm3 (1.8-7.8); Neutrophils % 74.9 % (37.0-80.0); Platelet Count 224 K/mm3 (142-424); Red Blood Count 5.13 M/mm3 (4.60-6.20); White Blood Count 9.6 K/mm3 (4.8-10.8)
[2024-01-06 11:19] LABS: Alanine Aminotransferase 24 U/L (12-78); Albumin Level 4.2 g/dl (3.5-5.0); Alkaline Phosphatase 104 U/L (38-126); Anion Gap 15.2 mEq/L (5-15); Aspartate Amino Transferase 29 U/L (17-59); Bilirubin,Direct 0.1 mg/dl (0.0-0.4); Bilirubin,Indirect 0.6 mg/dL (0.0-0.9); Bilirubin,Total 0.7 mg/dl (0.2-1.3); Bilirubin,Unconjugated 0.6 mg/dL (0.0-1.1); Blood Urea Nitrogen 23 mg/dl (9-20); Carbon Dioxide 26 mmol/L (22.0-30.0); Chloride 102 mmol/L (98-107); Cholesterol 200 mg/dl (140-200); Estimated Glomerular Filt Rate 55 ml/min (>60); GFR (African American) 66 ML/MIN (>60); Glucose 115 mg/dl (74-100); HDL Cholesterol 40 mg/dl (40-60); Potassium 4.2 mmoL/L (3.5-5.1); Sodium 139 mmol/L (136-145); Total Protein,Serum 7.3 g/dl (6.3-8.2); Triglycerides 173 mg/dl (30-150); VLDL Cholesterol 35 mg/dL (0-40)
[2024-01-06 11:30] LABS: Direct LDL Cholesterol 125.34 mg/dL (100-129)
[2024-01-06 11:34] LABS: Free T4 (Free Thyroxine) 1.48 ng/dl (0.78-2.19)
[2024-01-06 11:49] LABS: Thyroid Stimulating Hormone 5.92 uIU/mL (0.465-4.68)
== END 2024-01-06 23:59 | disposition home or self-care (01) ==
LOC: LAB 10:28
PROVIDERS: PCP Internal Medicine; Visit Provider Nurse Practitioner
DX: I25.10 Atherosclerotic heart disease of native coronary artery without angina pectoris (principal); R07.9 Chest pain, unspecified; R06.00 Dyspnea, unspecified; F17.210 Nicotine dependence, cigarettes, uncomplicated
CPT/HCPCS: 80048; 80061; 80076; 83735; 84439; 84443; 85025

== ENCOUNTER 2024-01-16 09:59 | Emergency (ER) | payer MEDICARE, SELFPAY ==
[2024-01-16 10:00] VITALS: BP 137/78; PULSE 77; RESP 20; TEMP 37.1; O2SAT 96; BMI 36.9
[2024-01-16 10:15] VITALS: PULSE 73; O2SAT 96
--- NOTE | 2024-01-16 10:24 | ED_ITS ---
Discharge Plan Disposition Patient Disposition: Home, Self-Care Condition: Good Prescriptions Prescriptions: No Action furosemide 20 mg tablet 20 mg PO QDAY Qty: 90 0RF losartan 50 mg tablet 50 mg PO DAILY Qty: 90 3RF omeprazole 40 mg capsule,delayed release(DR/EC) 40 mg PO DAILY Qty: 90 3RF metoprolol succinate 50 mg tablet extended release 24 hr 50 mg PO DAILY cyanocobalamin (vitamin B-12) [Vitamin B-12] 5,000 mcg tablet, sublingual 5,000 mcg PO DIRECTED aripiprazole [Abilify] 15 mg tablet 15 mg PO HS Qty: 90 3RF buspirone 5 mg tablet 5 mg PO BID Qty: 180 3RF desvenlafaxine succinate [Pristiq] 50 mg tablet extended release 24 hr 50 mg PO DAILY Qty: 30 2RF cyanocobalamin (vitamin B-12) 5,000 mcg tablet,disintegrating 5,000 mcg PO DAILY Qty: 90 3RF levothyroxine 150 mcg tablet 150 mcg PO DAILY Qty: 90 3RF atorvastatin 20 mg tablet See Rx Instructions .ROUTE .COMPLEX Qty: 90 3RF Dose Instruction: TAKE ONE TABLET BY MOUTH AT BEDTIME Rx Instructions: TAKE ONE TABLET BY MOUTH AT BEDTIME amlodipine 5 mg tablet See Rx Instructions .ROUTE .COMPLEX Qty: 90 0RF Dose Instruction: TAKE ONE TABLET BY MOUTH ONCE A DAY FOR BLOOD PRESSURE Rx Instructions: TAKE ONE TABLET BY MOUTH ONCE A DAY FOR BLOOD PRESSURE Referrals Follow up/Referrals: King Smith DO [Primary Care Provider] - See instructions Activity Restrictions/Add. Instructions Additional Instructions/Restrictions: As we discussed, we have performed a trigger point injection in the muscle where you are hurting. This included some numbing medication and a low-dose of steroid medication. Please follow-up with your pain medicine doctor. Please return with any new or worsening symptoms. Clinical Impressions Clinical Impression: Sacroiliac joint pain Discharge ED Provider: Edgar Good Adult [facility] General Chief complaint: PAIN Stated complaint: lower back pain Time Seen by Provider: 01/16/24 10:24 Mode of Arrival: Ambulatory Source of Information: Patient Limitations: No Limitations Description of Symptoms (Recalled from ER Triage Doc. by RN): Patient presents to ED with lower back pain that started this morning. Patient states he mowed yesterday and thinks he hurt it then. Patient states he has a history of x6 back surgeries. Patient rates pain 8/10 at this time. History of Present Illness HPI narrative: The patient presents with right-sided lower back pain.. He reports that the pain has been exacerbated by yard work he was doing in preparation for , suggesting that physical activity may have aggravated his condition. The pain radiates down his right gluteal region, and he also mentions having an artificial knee, which normally experiences some numbness. He has a history of back issues, including four back surgeries, and the pain pump that was once in place has been removed. He typically manages his back pain with cortisone and steroid injections administered by Dr. Hernandez, whom he is scheduled to see next month. However, he expresses that he cannot wait until then due to the severity of his current pain. He also notes that he does not take oral pain medications as he is allergic to morphine. He does not have diabetes. Please note that above description of symptoms, in this electronic medical record under categorization of recalled from ER triage doctor by RN are reflective of an initial nursing assessment, however, is not reflective of my full history and physical exam that was personally taken and clarified. Consequentially, this preceding description of symptoms, which may include the patient's categorized chief complaint in the EMR, do not reflect my personal clinical impression, and the ultimate description of history of present illness and patient stated complaints should be deferred to this section of the note. Unless stated otherwise or congruent with this section of the note, additional signs, symptoms, or incongruence should be interpreted as inaccurate with my clinical impression. Related Data Home Medications Medication Instructions Recorded Confirmed metoprolol succinate 50 mg 50 mg PO DAILY BLOOD PRESSURE 09/23/23 01/06/24 tablet,extended release 24 hr cyanocobalamin (vitamin B-12) 5,000 mcg PO DIRECTED SUPPLIMENT 12/16/23 01/06/24 5,000 mcg sublingual tablet (Vitamin B-12) Previous Rx's Medication Instructions Recorded omeprazole 40 mg capsule,delayed 40 mg PO DAILY acid reflux #90 caps 04/01/23 release cyanocobalamin (vitamin B-12) 5,000 mcg PO DAILY #90 tabs 04/30/23 5,000 mcg disintegrating tablet levothyroxine 150 mcg tablet 150 mcg PO DAILY #90 tabs 04/30/23 furosemide 20 mg tablet 20 mg PO QDAY Fluid #90 tabs 06/23/23 aripiprazole 15 mg tablet (Abilify) 15 mg PO HS #90 tabs 12/16/23 buspirone 5 mg tablet 5 mg PO BID #180 tabs 12/16/23 desvenlafaxine succinate 50 mg 50 mg PO DAILY #30 tabs 12/16/23 tablet,extended release 24 hr (Pristiq) atorvastatin 20 mg tablet See Rx Instructions .Route 12/23/23 .COMPLEX #90 tabs losartan 50 mg tablet 50 mg PO DAILY blood pressure #90 01/06/24 tabs amlodipine 5 mg tablet See Rx Instructions .Route 01/13/24 .COMPLEX #90 tabs Allergies Allergy/AdvReac Type Severity Reaction Status Date / Time escitalopram [From Lexapro] Allergy Severe Hallucinati Verified 01/06/24 09:58 ng morphine [MORPHINE] Allergy Unknown RASH ON Verified 01/06/24 09:58 LEGS metoprolol AdvReac Intermediate Swelling Verified 01/06/24 09:58 of legs/feet PFSH [facility] Disclaimer: The information contained in this section may have been updated after the patient was seen, as this information can be updated by other users. Medical History (Updated 01/16/24 @ 11:49 by Edgar Good MD) Dyspnea Chest pain Neural foraminal stenosis of lumbar spine Panic anxiety syndrome Post-operative infection Visit for suture removal Laceration of right little finger BPV (benign positional vertigo) History of Hodgkin's lymphoma Daytime somnolence Dizziness Typical angina CAD (coronary artery disease) Lumbar disc disease with radiculopathy Encounter for management of wound VAC Lumbar disc disease with radiculopathy Wrist fracture, right Wrist pain, right Bilateral knee pain Tendonitis Postherpetic neuralgia Shingles Facial edema Constipation Edema of both feet Hyperglycemia Lumbar disc disease with radiculopathy Hypertension BPH (benign prostatic hyperplasia) Hyperlipidemia Hypothyroidism Thyroid goiter Hypoglycemia Hodgkin lymphoma Chest pain, atypical Pharyngitis Malaise Low back pain Anxiety Surgical History History of knee replacement Family History Other No significant family history Social History Smoking Status: Current every day smoker tobacco type: cigarettes packs per day: 1 second hand exposure: Yes alcohol intake: former substance use type: former substance user current occupational status: retired Travel in the last 8 weeks: None household members: none housing: apartment lives independently: Yes marital status: number of children: 2 service: No care home: No 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 current occupational exposures/hazards: No caffeine: Yes ROS Obtained: Yes other As per HPI Physical Exam General General appearance: alert and in no apparent distress Head Head exam: atraumatic and normocephalic Eye Eye exam: Present normal appearance Neck Neck exam: Present normal inspection Chest Chest inspection: Present normal inspection and symmetric chest wall rise Respiratory Respiratory exam: Present normal lung sounds bilaterally; Absent respiratory distress Cardiovascular Cardiovascular exam: Present regular rate and normal rhythm Abdominal Exam Abdominal exam: Present soft Neurological Exam Neurological exam: Present alert and oriented X3 Psychiatric Psychiatric exam: Present normal affect and normal mood Skin Skin exam: Present warm and dry Other Other exam information: Right-sided paraspinal tenderness to palpation, most pronounced over sacroiliac joint, no midline spinal tenderness to palpation, no palpable step-offs or deformities, distally neurovascularly intact Medical Decision Making Medical Records Medical records reviewed: Yes I reviewed the patient's medical records. [place] Inquiry Pt receiving controlled substance: No Vital Signs: 01/16/24 10:00 01/16/24 10:15 01/16/24 11:54 Temperature 98.8 F 98.8 F Temperature Source Oral Pulse Rate 73 75 Pulse Rate [Right Radial] 77 Respiratory Rate 20 18 Blood Pressure 137/78 Blood Pressure [Right Arm] 137/78 Blood Pressure Mean [Right Arm] 97 Blood Pressure Source Automatic Cuff Blood Pressure Source [Right Arm] Automatic Cuff Blood Pressure Position Sitting Blood Pressure Position [Right Arm] Sitting 02 Sat by Pulse Oximetry 96 96 Oxygen Delivery Method Room Air Room Air Orders (Tests/Meds): ED MEDICATIONS Discontinued Medications Generic Name Dose Route Start Last Admin Trade Name Freq PRN Reason Stop Dose Admin Bupivacaine HCl 15 mg 01/16/24 10:56 01/16/24 11:03 Bupivacaine 0.5% 30ml Vial IJ 01/16/24 10:57 15 mg ONCE ONE Administration Dexamethasone Sodium Phosphate 4 mg 01/16/24 10:56 01/16/24 11:05 Dexamethasone 4mg/Ml 1ml Vial IM 01/16/24 10:57 4 mg ONCE ONE Administration Medical Decision Narrative: Patient with history and exam per above presenting for evaluation of right-sided back pain, acute on chronic Diagnoses considered include SI dysfunction, sciatica, no clinical features to warrant testing for cauda equina syndrome, spinal epidural abscess, or acute other surgical pathology At patient's request, trigger point injection was performed. He had improvement of symptoms upon repeat evaluation. My clinical impression at this time is most consistent with acute on chronic sacroiliac joint swelling I discussed my clinical impression with patient and answered all questions. At this time, the evidence for any other entities in the differential is insufficient to warrant any further testing or ED observation. This was explained to the patient. The patient was advised that persistent or worsening symptoms require further evaluation. I confirmed the patient's understanding of this discussion. Procedures Miscellaneous Procedure Procedure Performed: Trigger point injection was performed in sacroiliac region after discussion of risks and benefits including infection, pain, vascular injury, nerve damage. He was injected with 10 mg dexamethasone as well as 10 cc bupivacaine. This was just injected intramuscularly into his spot of most tenderness in paraspinal area of his right lumbar spine. The area was prepped and draped in usual sterile fashion. He tolerated the procedure well without complication. Critical Care Critical Care Time Critical Care Time: No
[2024-01-16] MEDS: BUPIVACAINE 0.5% 30ML VIAL 15 MG IJ (11:03)
[2024-01-16] MEDS: DEXAMETHASONE 4MG/ML 1ML VIAL 4 MG IM (11:05)
[2024-01-16 11:54] VITALS: BP 137/78; PULSE 75; RESP 18; TEMP 37.1; O2SAT 96
== END 2024-01-16 11:57 | disposition home or self-care (01) ==
PROVIDERS: Emergency Provider Emergency Medicine; PCP Internal Medicine
DX: M46.1 Sacroiliitis, not elsewhere classified (principal)
CPT/HCPCS: 96372; 99283

== ENCOUNTER 2024-01-19 06:22 | Outpatient (CLI) | payer MEDICARE, SELFPAY ==
--- NOTE | 2024-01-19 | CA_ITS ---
APPROVED REPORT Exam: Pharmacologic Technologist: Mikala Riley, Ht: 5 ft 11 in Wt: 267 lbs BSA: 2.38 m2 HR: 65 bpm BP: 144/80 mmHg Rhythm: NSR, low voltage QRS Medical History Medications: Amlodipine,,,,, Omeprazole,,,,, Levothyroxine,,,,, Metoprolol,,,,, Losartan,,,,, Atorvastatin,,,,, Pristiq,,,,, Buspirone,,,,, Abilify,,,,, Vit B12,,,,, Furosemide,,,,, Cardiac Risk Factors: HTN, Hyperlipidemia, Smoking Stress Test Details Test: LEXISCAN HR Resting HR: 62 bpm Max Heart Rate (APMHR): 152 bpm Max HR Achieved: 75 bpm Target HR (85% APMHR): 129 bpm % of APMHR: 49 Recovery HR: 67 bpm BP Resting BP: 144/80 mmHg Max BP: 147/78 mmHg Recovery BP: 147.0/78.0 mmHg ECG Resting ECG: NSR, low voltage QRS, non specific T wave changes in inferolateral leads Stress ECG: None Clinical Exercise duration: 04:00 min Highest Stage Achieved: Exercise capacity: 1.0 METs Stress ECG Conclusion During lexiscan pt experinced SOA, mild increase in pretest CP, and headache. No significant ST changes. Conclusion: Unremarkable lexiscan stress. Myoview images reported separately. Test Summary REST . . . . . . . Sitting REST . . . . . . . Sitting REST 04:19 . . 62 . 144/ 80 . . Stage 1 01:00 . . 64 . . . . Stage 2 01:00 . . 73 . . . . Stage 3 01:00 . . 73 . 125/ 66 . . Stage 4 01:00 . . 73 . 129/ 76 . Stop exercise at 04:00 RECOVERY 01:00 . . 65 . 133/ 78 . . RECOVERY 02:00 . . 67 . 133/ 78 . . RECOVERY 03:00 . . 66 . 147/ 78 . . RECOVERY 04:00 . . 67 . 143/ 78 . . RECOVERY 04:04 . . 67 . 143/ 78 . . Electronically signed by : Rachelle Alvarenga MD 01/25/2024 14:31:26
--- NOTE | 2024-01-19 06:23 | CA_ITS ---
APPROVED REPORT EXAM: Comprehensive 2D, Doppler, and color-flow Echocardiogram Location Man: Tanya Ohara RVT Ht: 5 ft 11 in Wt: 267lbs BSA: 2.38 BP: 173/96 mmHg Indications: CP,SOA,CAD,HTN,HLD,SMOKER,PALPS,HX LYMPHOMA 2D Dimensions IVSd 0.87 cm M: 0.6-1.2 LVEF (Visual) 57.60 % PWd 1.08 cm M: 0.6 - 1.2 LA Volume 57.50 mL LVDd 6.11 cm M: 4.2 - 5.9 LA Volume Index 24.06 mL/m2 (M/F) 16-34 LVDs 4.22 cm M: 2.5 - 4.0 M-Mode Dimensions LA Diam 4.49 cm (1.9-4.0) TAPSE 2.52 (<1.7) LV Diastology E Decel Time 307 (160-240 msec) E/A Ratio 0.6 Aortic Valve MING Index 1.44 cm2/m2 AoV Peak Carlos Manuel. 129.0 (50-130 cm/s) AO Peak GR. 6.60 mmHg AO Mean GR. 3.40 (<5 mmHg) AO VTI 29.1 (18-25 cm) MING (VTI) 3.52 (2.5-4.5 cm2) Mitral Valve MV E Max Carlos Manuel. 63.0 (40-130 cm/s) MV A Velocity 109.0 (40-130 cm/s) E/A Ratio 0.58 MV PHT 90.0 ms Pulmonary Valve PV Peak Velocity 66.0 (50-150 cm/s) Left Ventricle The left ventricle is normal size. The left ventricular systolic function is low normal. There is normal left ventricular wall thickness. There is normal LV segmental wall motion. The left ventricular diastolic function is normal. LVEF is 50%. Right Ventricle The right ventricle is normal size. The right ventricular systolic function is normal. Atria The left atrium size is normal. The right atrium size is normal. There is no Doppler evidence of interatrial shunt. Aortic Valve The aortic valve is mildly thickened. Trace aortic regurgitation. There is no aortic valvular stenosis. Mitral Valve The mitral valve is normal in structure. No evidence of mitral valve stenosis. There is no mitral valve regurgitation noted. Tricuspid Valve The tricuspid valve leaflets are thin and pliable. Trace tricuspid regurgitation. There is insufficient TR jet to estimate RVSP. Pulmonic Valve The pulmonary valve is normal in structure. Trace pulmonic regurgitation. Great Vessels The aortic root is normal in size. The ascending aorta is not well-visualized. IVC is normal in size and collapses >50% with inspiration. Pericardium There is no pericardial effusion. Other Information Study Quality: Technically Difficult Conclusion Technically difficult study due to poor acoustic windows. Low normal LV systolic function (LVEF 50%). No significant valvular stenosis or regurgitation. Electronically signed by : Rachelle Alvarenga MD 01/24/2024 12:13:59
--- NOTE | 2024-01-19 06:26 | NM_ITS ---
APPROVED REPORT Exam: Nuclear Stress Test Indication: HTN, HYPERLIPIDEMIA, TOB USE, FM HX, C.P., SOB, PALPITATIONS, FATIGUE Patient Location: Outpatient Stress Tech: Mikala ROSALES Tech:HTN, Ht: 5 ft 11 in Wt: 267 lbs HR: 62 bpm BP: 144/80 mmHg BSA: 2.38 m2 Rhythm: NSR TID: 1.13 BMI: 37.2 History: HTN, HYPERLIPIDEMIA, TOB USE, FM HX, C.P., SOB, PALPITATIONS, FATIGUE Procedure: Patient received 0.4 mg of intravenous Lexiscan, resting heart rate 62 bpm, resting blood pressure 144/80 mmHg, with Lexiscan maximum heart rate achieved was 75 bpm which is % of the maximum predicted heart rate and blood pressure was 147/78 mmHg. With Lexiscan, patient denied any complaint of chest pain. Cardiac Stress and Resting SPECT Images: Cardiac Stress and Resting SPECT images were obtained using technetium 99m Myoview 31.2 mCi stress and 10.43 mCi at rest. Raw images demonstrate significant diaphragmatic overlap with the inferior border of the LV wall. This may affect the diagnostic interpretation of the study findings. Resting and stress imaging in supine and prone positions demonstrate a large sized, moderate, fixed perfusion defect in the inferior LV wall. This is no longer visualized with prone stress imaging. Findings are suggestive of diaphragmatic attenuation. Gated imaging demonstrates normal global and regional LV systolic function. LVEF is calculated at 51%. Conclusion: Diaphragmatic attenuation is present. Technically difficult study. No definite evidence of fixed or reversible perfusion defect. Gated imaging demonstrates normal global and regional LV systolic function. LVEF is calculated at 51%. In the setting of technically difficult study and significant diaphragmatic attenuation, further ischemic evaluation with alternative moninvasive testing (i.e. CCTA) is recommended. Electronically signed by : Rachelle Alvarenga MD 01/25/2024 14:34:14
[2024-01-19] MEDS: SODIUM CHLORIDE 0.9% 10ML SYR (RAD ONLY) 10 ML IV ×2 (08:19)
[2024-01-19] MEDS: ISOTOPE MYOVIEW (PER STUDY) 1 DOSE IV (08:19)
[2024-01-19] MEDS: REGADENOSON 0.4MG/5ML SYRINGE 0.400000000000000022 MG IV (08:19)
== END 2024-01-19 23:59 | disposition home or self-care (01) ==
LOC: RAD 06:23
PROVIDERS: PCP Physician Assistant; Visit Provider Nurse Practitioner
DX: I25.10 Atherosclerotic heart disease of native coronary artery without angina pectoris (principal); R07.9 Chest pain, unspecified; R06.00 Dyspnea, unspecified
CPT/HCPCS: 78452; 93017; 93018; 93306; A9502; J2785

== ENCOUNTER 2024-02-10 11:05 | Outpatient (POV) | payer MEDICARE, SELFPAY ==
--- NOTE | 2024-02-10 11:18 | A.OFFVIS_ITS ---
[facility] Pain Management SOAP Note Subjective:: Patient is a pleasant 68-year-old male who presents today for denial of lumbar epidural steroid injection. Today he rates his pain a 4 out of 10. Patient denies any new trauma or injury. He does state he continues to have the low back and left leg pain however he is experiencing worsening pain in his right shoulder. He describes it as an aching, burning sensation that does interfere with his ability perform activities of daily living such as cooking and cleaning. He states that this has been going on for years and progressively worsened. Patient states he does believe a lot of it is where entire and arthritis. Patient is interested in injection therapy. Patient denies any prior shoulder surgery. He is currently managed with clonazepam, Percocet and Lyrica from his PCP. He denies any side effects from this medication. Patient also states about a month ago he did have some trigger point injections around where his pump site had been on the right lower lumbar area in the ER and states that this did significantly help some of his overall back pain. He states in future that may be an injection that he would like to try again. His Dakotah has been reviewed and is appropriate. Review of Systems: General: No recent weight changes, no fever, no sleep disturbances Respiratory: No cough, no shortness of air, no recurring pulmonary infections Cardiovascular/peripheral vascular: No chest pain, no palpitations, no edema, no shortness of breath Gastrointestinal: No new onset incontinence, normal bowel movements reported Genitourinary: No new onset incontinence Musculoskeletal: Right shoulder pain Psychiatric: [Normal mood/affect] Neurological: [Denies weakness in extremities], [denies balance issues] Objective:: Physical Exam: General: Alert and oriented x3, no acute distress, pleasant and cooperative Lungs: Respirations even and unlabored, symmetrical chest expansion Eyes: PERRL Musculoskeletal: Flexion and extension of right shoulder somewhat guarded secondary to pain, [antalgic gait noted] Neurological: Speech clear, no gross sensory deficit Assessment:: Degenerative disc disease of lumbar spine lumbar radiculopathy symptoms, bilateral knee pain, right shoulder pain, chronic pain syndrome, myofascial pain Plan:: Patient is experiencing worsening pain in his right shoulder with limited range of motion. I have discussed with patient that he may benefit from right shoulder intra-articular injection. Risk and benefits were discussed with the patient and he would like to proceed forward with this plan of care. Patient has tried and failed conservative therapies including oral medications, heat and ice, compounded cream, prior physical therapy and continued at home exercise and stretching between injections. I did also review over the insurance denial reason stating that he did not get 3 months of relief. I have counseled the patient that he has had 2 injections both providing 50% relief and he continues to get longer relief with each of these injections. His first 1 he had approximately 2 weeks in the last 1 provided over a month. I have discussed with the patient in future we can try and do a peer to peer with insurance to see if we can get another one approved. Patient is agreeable to this plan of care. I have also discussed with patient in future we can also do trigger point injections around his prior pump site. Patient will be scheduled for a right shoulder intra-articular injection. Patient has been instructed to contact the clinic with any concerns before the next appointment. Dr. Parsons has reviewed this note and agrees with this plan of care. This note was dictated using voice recognition software and make contain errors or omissions. [facility] Disclaimer: The information contained in this section may have been updated after the patient was seen, as this information can be updated by other users. Medical History (Updated 02/09/24 @ 11:15 by Roxane Martinez APRN) Angina pectoris Equivocal stress test Dyspnea Chest pain Neural foraminal stenosis of lumbar spine Panic anxiety syndrome Post-operative infection Visit for suture removal Laceration of right little finger BPV (benign positional vertigo) History of Hodgkin's lymphoma Daytime somnolence Dizziness Typical angina Lumbar disc disease with radiculopathy Encounter for management of wound VAC Lumbar disc disease with radiculopathy Wrist fracture, right Wrist pain, right Bilateral knee pain Tendonitis Postherpetic neuralgia Shingles Facial edema Constipation Edema of both feet Hyperglycemia Lumbar disc disease with radiculopathy Hypertension BPH (benign prostatic hyperplasia) Hyperlipidemia Hypothyroidism Thyroid goiter Hypoglycemia Hodgkin lymphoma Chest pain, atypical Pharyngitis Malaise Low back pain Anxiety Surgical History History of knee replacement Family History Other No significant family history Social History Smoking Status: Current every day smoker tobacco type: cigarettes packs per day: 1 second hand exposure: Yes alcohol intake: former substance use type: former substance user current occupational status: retired Travel in the last 8 weeks: None household members: none housing: apartment lives independently: Yes marital status: number of children: 2 service: No half-way: No 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
[2024-02-10 11:26] VITALS: BP 140/86; PULSE 75; RESP 18; O2SAT 97; BMI 36.5
== END 2024-02-10 23:59 | disposition home or self-care (01) ==
LOC: SC.PAIN 11:06
PROVIDERS: PCP Physician Assistant; Visit Provider Nurse Practitioner Family
DX: M51.16 Intervertebral disc disorders with radiculopathy, lumbar region (principal); M25.511 Pain in right shoulder; M25.561 Pain in right knee; M25.562 Pain in left knee; G89.4 Chronic pain syndrome; M79.10 Myalgia, unspecified site
CPT/HCPCS: 99212; G0463

== ENCOUNTER 2024-02-22 15:08 | Outpatient (CLI) | payer MEDICARE, SELFPAY ==
[2024-02-22 14:51] LABS: Basophils # 0.1 K/mm3 (0-0.2); Eosinophils # 0.3 K/mm3 (0.0-0.4); Eosinophils % 2.8 % (0.1-12.0); Hematocrit 44.4 % (42.0-52.0); Hemoglobin 14.9 g/dL (14.1-18.0); Lymphocytes # 1.5 K/mm3 (0.7-4.5); Lymphocytes % 14.8 % (10-50); Mean Corpuscular HGB Conc 33.5 g/dL (31.8-35.4); Mean Corpuscular Hemoglobin 30.6 pg (27.0-31.2); Mean Corpuscular Volume 91.5 fl (80-94); Mean Platelet Volume 9.1 fl (7.4-10.4); Monocytes # 0.7 K/mm3 (0.1-1.0); Monocytes % 6.9 % (1.7-9.3); Neutrophils # 7.5 K/mm3 (1.8-7.8); Neutrophils % 74.6 % (37.0-80.0); Platelet Count 246 K/mm3 (142-424); Red Blood Count 4.86 M/mm3 (4.60-6.20); Red Cell Distribution Width 15.1 % (11.5-17.5)
[2024-02-22 16:17] LABS: Alanine Aminotransferase 21 U/L (12-78); Albumin Level 4.2 g/dl (3.5-5.0); Albumin/Globulin Ratio 1.4 (1.1-1.8); Alkaline Phosphatase 108 U/L (38-126); Anion Gap 11.4 mEq/L (5-15); Aspartate Amino Transferase 25 U/L (17-59); Bilirubin,Total 0.7 mg/dl (0.2-1.3); Blood Urea Nitrogen 25 mg/dl (9-20); Calcium 9.2 mg/dl (8.4-10.2); Carbon Dioxide 22 mmol/L (22.0-30.0); Chloride 111 mmol/L (98-107); Chol/HDL Ratio 6.2 (1-3.5); Cholesterol 205 mg/dl (140-200); Estimated Glomerular Filt Rate 50 ml/min (>60); GFR (African American) 61 ML/MIN (>60); Globulin 3.1 g/dL (1.3-3.2); Glucose 98 mg/dl (74-100); HDL Cholesterol 33 mg/dl (40-60); Potassium 4.4 mmoL/L (3.5-5.1); Sodium 140 mmol/L (136-145); Total Protein,Serum 7.3 g/dl (6.3-8.2); Triglycerides 164 mg/dl (30-150); VLDL Cholesterol 33 mg/dL (0-40)
[2024-02-22 16:27] LABS: Direct LDL Cholesterol 131.87 mg/dL (100-129)
[2024-02-22 16:34] LABS: 25-OH Vitamin D, Total 43.8 ng/mL (30-100)
== END 2024-02-22 23:59 | disposition home or self-care (01) ==
LOC: LAB.DROPOF 15:08
PROVIDERS: PCP Physician Assistant; Visit Provider Physician Assistant
DX: R53.83 Other fatigue (principal); I10 Essential (primary) hypertension; E03.9 Hypothyroidism, unspecified; E55.9 Vitamin D deficiency, unspecified; E78.5 Hyperlipidemia, unspecified; Z68.35 Body mass index [BMI] 35.0-35.9, adult; E66.9 Obesity, unspecified; F17.210 Nicotine dependence, cigarettes, uncomplicated
CPT/HCPCS: 80050; 80053; 80061; 82306; 82607; 84443; 85025

== ENCOUNTER 2024-02-28 07:28 | Outpatient (CLI) | payer MEDICARE, SELFPAY ==
--- NOTE | 2024-02-28 07:30 | CT_ITS ---
APPROVED REPORT Networking Administrator: CLINICAL INDICATION Chest Pain TECHNIQUE Image Acquisition: A 128 slice MDCT scanner (The [employer] Te[employer] View) was used for data acquisition. A noncontrast coronary calcium scan was performed. A CT attenuation threshold of 130 Hounsfield units (HU) was used for the detection of calcium in contiguous voxels of 1 sq mm in area to be counted as individual lesions. Bolus tracking in the ascending aorta with a threshold of 180 HU was performed. Immediately afterwards, ECG synchronized cardiac CT was then performed from the cardiac base to apex using retrospective gating with ECG tube current modulation. A total of 85 mL of Isovue 370 mg/mL contrast medium was administered at 5 mL/sec followed by a saline flush using a biphasic injection protocol. A tube voltage of 120 KVp was used. The patient received the following medications prior to the cardiac CT. 0.8 mg of sublingual nitroglycerin The average heart rate at the time of acquisition was 50 bpm and regular. Image Reconstruction Transaxial images were reconstructed at 0.67 mm slide thickness. Data was reviewed interactively on an advanced workstation capable of 2 and 3-dimensional displays in all conventional reconstruction formats, including multiplanar reformations, maximum intensity projections, curved multiplanar reformations, and volume rendered reconstructions. When applicable, selected routine images describing the relevant coronary anatomy and pathology were saved and sent to PACS. Complications None Technical Quality Overall image quality was good. Coronary artery opacification was adequate. Total DLP (Dose-Length Product) is 1793.5 mGy-cm. The reported value represents the total of one or more individual components during the CT acquisition of this date and at this time, and as such, the same value may appear in more than one CT report depending on the interpreting/reporting physicians. COMPARISON None FINDINGS CT Coronary Calcium Scoring LMA (Left Main Artery) = 107 LAD (Left Anterior Descending) = 194 LCX (Left Coronary Circumflex) = 15 RCA (Right Coronary Artery) = 0 Total Calcium Score = 316 using the AJ-130 method. The observed calcium score of 316 is at 68th percentile for subjects of the same age, sex, and race/ethnicity. The interpretation of the calcium heart score is based on the following continuum*: 0 = no calcified plaque detected (risk of coronary artery disease is very low ??? less than 5%) 1-10 = calcium detected in extremely minimal levels (risk of coronary diseases is still low ??? less than 10%) 11-100 = mild levels of plaque detected with certainty (mild or minimal narrowing of heart arteries is likely) 101-400 = definite,at least moderate levels of plaque detected (relatively high risk of a heart attack within 3-5 years) >401-999 = extensive levels of plaque detected (high risk of heart attack, high levels of vascular disease are present, high likelihood of at least one significant coronary narrowing) *The calcium heart score quantifies the burden of coronary calcification/plaque in the coronary arteries. The calcium heart score is not able to evaluate the presence or burden of non-calcified (i.e. soft) plaque. There is also identifiable calcification in the aortic valve and ascending and descending thoracic aorta. Coronary CT Angiography The coronary arterial system is left dominant. Quantitative Stenosis Grading: Left Main (LM): The left main originates normally from the left sinus of Valsalva. The LM bifurcates into the left anterior descending artery and left circumflex artery. There is mixed calcified/noncalcified plaque in the LM with up to 50-70% luminal stenosis of the ostial LM. Left Anterior Descending (LAD) and Diagonal Branches: The LAD gives off 3 diagonal branch(es). There is mixed calcified/noncalcified plaque in the proximal and mid LAD segments, as well as the first diagonal branch, with up to 50-70% luminal stenosis at the bifurcation with the first diagonal branch. There is no evidence of LAD-myocardial bridge. Left Circumflex (LCX) and Obtuse Marginals (OM): The LCX gives off 2 Obtuse Marginal (OM) branch(es). The LCX and its branches are patent with no evidence of atherosclerosis. Right Coronary Artery (RCA): The RCA originates normally from the right sinus of Valsalva. The RCA is a small caliber vessel. There is mild calcification and along the RCA but with no significant luminal stenosis. Non-Coronary Cardiac Findings: Analysis of the left ventricular (LV) structure and function was performed after 3-D reconstruction of the LV from axial images, with user-corrected automatic contouring for assessment of LV volumes and user-defined reconstruction from oblique planes for measurement of 3-D cardiac structure and function. -The left ventricle systolic function is normal. There is mild hypokinesis of the septal and anteroseptal LV rodríguez. -There is no left atrial appendage filling defect. Two right pulmonary veins and two left pulmonary veins drain normally into the left atrium. -No pericardial thickening or calcification. -Central and branch pulmonary arteries in the [id number] are unremarkable. -Thoracic aorta within the visualized thoracic aortic-branches in the [id number] is unremarkable. Extracardiac Structures No significant extra-cardiac findings. Note, however, that this study is focused on the cardiac findings. IMPRESSION -Presence of coronary calcification with an Agatston score = 316 using the AJ-130 method. -The observed calcium score of 316 is at 68th percentile for subjects of the same age, sex, and race/ethnicity. -Presence of multivessel atherosclerotic plaque present, including 50-70% ostial LM stenosis and moderate 50-70% luminal in the proximal and mid LAD segments. -The left ventricle systolic function is normal. There is mild hypokinesis of the septal and anteroseptal LV rodríguez. -CAD-RADS 4B. Management recommendations per ACC/AHA guidelines*, as clinically appropriate. *Recommendations: CAD RADS 0: Reassurance. Consider non-atherosclerotic causes of chest pain. CAD RADS 1: Consider non-atherosclerotic causes of chest pain. Consider preventive therapy and risk factor modification. CAD RADS 2: Consider non-atherosclerotic causes of chest pain. Consider preventive therapy and risk factor modification, particularly for patients with nonobstructive plaque in multiple segments. CAD RADS 3: Consider further functional testing. Consider symptom-guided anti-ischemic and preventive pharmacotherapy as well as risk factor modification per published guideline statements. CAD RADS 4A: Consider further functional testing or invasive coronary angiography with revascularization per published guideline statements. Consider symptom-guided anti-ischemic and preventive pharmacotherapy as well as risk factor modification per published guideline statements. CAD RADS 4B: Invasive coronary angiography recommended with revascularization per published guideline statements. Consider symptom-guided anti-ischemic and preventive pharmacotherapy as well as risk factor modification per published guideline statements. CAD RADS 5: Consider invasive angiography and/or viability assessment with revascularization per published guideline statements. Consider symptom-guided anti-ischemic and preventive pharmacotherapy as well as risk factor modification per published guideline statements. CRITICAL RESULT None COMMUNICATION Per this written report The coronary and cardiac findings of this CCTA were reviewed, reported, and signed by Bhaskar Alvarenga MD (Supervisor [employer]) Conclusion Electronically signed by : Rachelle Alvarenga MD 03/01/2024 12:55:41
[2024-02-28 07:54] VITALS: BMI 35.1
[2024-02-28 08:00] VITALS: BP 159/85; PULSE 52; RESP 18; TEMP 36.3; O2SAT 100
[2024-02-28 08:20] VITALS: BP 137/73; PULSE 54; RESP 18; O2SAT 98
[2024-02-28 08:25] VITALS: BP 118/74; PULSE 63; RESP 18; O2SAT 97
[2024-02-28 08:30] VITALS: BP 105/64; PULSE 60; RESP 18; O2SAT 97
[2024-02-28] MEDS: 0.9 % SODIUM CHLORIDE 50 ML VIAL IV (08:30)
[2024-02-28 08:45] VITALS: BP 122/72; PULSE 64; RESP 18; O2SAT 97
[2024-02-28] MEDS: SODIUM CHLORIDE 0.9% 10ML SYR (RAD ONLY) 10 ML IV (08:45)
[2024-02-28] MEDS: IOPAMIDOL-370 (76%);100ML BOTTLE 85 ML IV (08:45)
[2024-02-28] MEDS: NITROGLYCERIN 0.4MG SL TABLET 0.8 MG SL (08:54)
== END 2024-02-28 23:59 | disposition home or self-care (01) ==
PROVIDERS: PCP Physician Assistant; Visit Provider Nurse Practitioner Family
DX: R94.39 Abnormal result of other cardiovascular function study (principal); R94.31 Abnormal electrocardiogram [ECG] [EKG]; R06.00 Dyspnea, unspecified; R07.9 Chest pain, unspecified; I11.9 Hypertensive heart disease without heart failure; I25.10 Atherosclerotic heart disease of native coronary artery without angina pectoris; F17.210 Nicotine dependence, cigarettes, uncomplicated
CPT/HCPCS: 75574; Q9967

== ENCOUNTER 2024-02-29 13:39 | Day surgery (SDC) | payer MEDICARE, SELFPAY ==
[2024-02-29 14:00] VITALS: BP 160/71; PULSE 75; RESP 18; TEMP 36.9; O2SAT 97; BMI 35.9
[2024-02-29] MEDS: BUPIVACAINE 0.25% 10ML INJ 25 MG IJ (14:06)
[2024-02-29 14:07] VITALS: BP 141/92; PULSE 78; RESP 18; O2SAT 98
[2024-02-29] MEDS: methylPREDNISolone ACETATE 80MG/ML VIAL 80 MG (14:07)
[2024-02-29] MEDS: LIDOCAINE 1% 5ML PF VIAL 5 ML (14:07)
[2024-02-29 14:08] VITALS: BP 141/92; PULSE 78; RESP 18; O2SAT 98
[2024-02-29 14:11] VITALS: BP 129/79; PULSE 70; RESP 18; O2SAT 97
--- NOTE | 2024-02-29 14:13 | P.PCN_ITS ---
Procedure Date: 02/29/24 Time: 14:00 Anesthesiologist:: Gerson Terry CRNA Complications:: None Pre-procedure Diagnosis:: DJD right shoulder. Chronic right shoulder pain. Post-procedure Diagnosis:: Same. Indications for Procedure:: Patient is a pleasant 68-year-old male comes our clinic today for right intra- articular shoulder injection of cortisone. Patient has 5/5 strength in the right arm. However, he demonstrates limited range of motion of the right arm secondary to right shoulder pain. He rates his pain 6/10. Patient reports pain is more intense at night causing him not to be able to sleep very well. Procedure Details:: Procedure Details: Right shoulder intra-articular injection Informed consent was obtained risk and benefits of the procedure were explained to the patient. Patient was taken to the procedure room. The right shoulder was prepped using ChloraPrep. A 25-gauge needle was used first anteriorly, laterally, and then posteriorly to inject 10 mL bupivacaine 0.25% and Depo- Medrol 40 mg. Patient tolerated procedure well with no complications. Plan and Disposition:: Patient was discharged without incident.
== END 2024-02-29 14:11 | disposition home or self-care (01) ==
LOC: SC.PAINP 13:40
PROVIDERS: PCP Physician Assistant; Visit Provider Nurse Anesthetist, Certified Registered
DX: M25.511 Pain in right shoulder (principal); M19.011 Primary osteoarthritis, right shoulder
CPT/HCPCS: 20610; J1010

== ENCOUNTER 2024-03-22 11:00 | Outpatient (POV) | payer MEDICARE, SELFPAY ==
[2024-03-22 11:44] VITALS: BP 130/89; PULSE 82; RESP 18; O2SAT 95; BMI 35.8
--- NOTE | 2024-03-22 11:53 | A.OFFVIS_ITS ---
[facility] Disclaimer: The information contained in this section may have been updated after the patient was seen, as this information can be updated by other users. Medical History (Updated 03/22/24 @ 11:58 by Nelida Vital APRN) Abnormal findings on diagnostic imaging of heart and coronary circulation Angina pectoris Equivocal stress test Neural foraminal stenosis of lumbar spine Panic anxiety syndrome Post-operative infection Visit for suture removal Laceration of right little finger BPV (benign positional vertigo) History of Hodgkin's lymphoma Daytime somnolence Dizziness Typical angina Dyspnea Chest pain Lumbar disc disease with radiculopathy Encounter for management of wound VAC Lumbar disc disease with radiculopathy Wrist fracture, right Wrist pain, right Bilateral knee pain Tendonitis Postherpetic neuralgia Shingles Facial edema Constipation Edema of both feet Hyperglycemia Lumbar disc disease with radiculopathy Hypertension BPH (benign prostatic hyperplasia) Hyperlipidemia Hypothyroidism Thyroid goiter Hypoglycemia Hodgkin lymphoma Chest pain, atypical Pharyngitis Malaise Low back pain Anxiety Surgical History History of back surgery History of knee replacement Family History Other Family history of cancer Family history of heart disease Social History Smoking Status: Current every day smoker tobacco type: cigarettes packs per day: 1 second hand exposure: Yes alcohol intake: never substance use type: former substance user current occupational status: retired Travel in the last 8 weeks: None household members: none housing: apartment lives independently: Yes marital status: number of children: 2 service: No group home: No 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 Today he rates his pain a 4 out of 10 currently and states that he did have at least 80% improvement lasting 5 days with this injection. At he does state that the pain is now back to his baseline and is an aching, throbbing sensation. He does state the pain will go much worse such as a 6 out of 10 and he does complain today of it being in both his shoulders. Patient does believe a lot of it is more related to arthritis and denies any new injuries or falls. Patient does state the pain interferes with his ability perform activities of daily living such as cooking and cleaning. Patient does state that he would like to repeat these prior injections because they did help so well on his overall function. Patient is prescribed clonazepam, Percocet and Lyrica from his PCP. His Dakotah has been reviewed and is appropriate. Review of Systems: General: No recent weight changes, no fever, no sleep disturbances Respiratory: No cough, no shortness of air, no recurring pulmonary infections Cardiovascular/peripheral vascular: No chest pain, no palpitations, no edema, no shortness of breath Gastrointestinal: No new onset incontinence, normal bowel movements reported Genitourinary: No new onset incontinence Musculoskeletal: Bilateral shoulder pain Psychiatric: [Normal mood/affect] Neurological: [Denies weakness in extremities], [denies balance issues] Pain at rest (0-10 scale): 6 Objective Objective:: Physical Exam: General: Alert and oriented x3, no acute distress, pleasant and cooperative Lungs: Respirations even and unlabored, symmetrical chest expansion Eyes: PERRL Musculoskeletal: Flexion and extension of bilateral shoulders somewhat guarded secondary to pain, [antalgic gait noted] Neurological: Speech clear, no gross sensory deficit Has patient had previous pain injection?: Yes Percent improvement in pain since last injection: 80% Conservative treatment options previously tried: Home exercise plan Length of treatment: Longer than 6 weeks and Prescription medications Length of treatment: Longer than 6 weeks Meds Home Medications and Allergies Home Medications ?Medication ?Instructions ?Recorded ?Confirmed ?Type omeprazole 40 mg capsule,delayed 40 mg PO DAILY acid reflux #90 caps 04/01/23 03/22/24 Rx release furosemide 20 mg tablet 20 mg PO QDAY Fluid #90 tabs 06/23/23 03/22/24 Rx aripiprazole 15 mg tablet (Abilify) 15 mg PO HS #90 tabs 12/16/23 03/22/24 Rx buspirone 5 mg tablet 5 mg PO BID #180 tabs 12/16/23 03/22/24 Rx cyanocobalamin (vitamin B-12) 5,000 mcg PO DIRECTED SUPPLIMENT 12/16/23 03/22/24 History 5,000 mcg sublingual tablet (Vitamin B-12) atorvastatin 20 mg tablet See Rx Instructions .Route 12/23/23 03/22/24 Rx .COMPLEX #90 tabs losartan 50 mg tablet 50 mg PO DAILY blood pressure #90 01/06/24 03/22/24 Rx tabs amlodipine 5 mg tablet See Rx Instructions .Route 01/13/24 03/22/24 Rx .COMPLEX #90 tabs metoprolol succinate 50 mg 50 mg PO DAILY BLOOD PRESSURE #90 02/22/24 03/22/24 Rx tablet,extended release 24 hr tabs moxifloxacin 0.5 % eye drops 1 drp ophthalmic (eye) TID 7 days 02/22/24 03/22/24 Rx (Vigamox) #3 mL sulfasalazine 500 mg 0.5 g PO BID #180 tabs 02/22/24 03/22/24 Rx tablet,delayed release levothyroxine 175 mcg tablet 175 mcg PO DAILY #90 tabs 02/29/24 03/22/24 Rx (Synthroid) desvenlafaxine succinate 50 mg 50 mg PO DAILY #90 tabs 03/18/24 03/22/24 Rx tablet,extended release 24 hr (Pristiq) aspirin 81 mg tablet,delayed 81 mg PO DAILY #30 tabs 03/22/24 03/22/24 Rx release (Adult Low Dose Aspirin) New Prescriptions to Start Prescriptions: Allergies Allergy/AdvReac Type Severity Reaction Status Date / Time escitalopram [From Lexapro] Allergy Severe Hallucinati Verified 03/22/24 08:53 ng morphine [MORPHINE] Allergy Unknown RASH ON Verified 03/22/24 08:53 LEGS Assessment and Plan *Assessment and plan (1) Bilateral shoulder pain: Status: Acute Qualifiers: Chronicity: chronic Qualified Code(s): M25.511 - Pain in right shoulder; M25.512 - Pain in left shoulder; G89.29 - Other chronic pain Category: Medical Code(s): M25.511 - Pain in right shoulder; M25.512 - Pain in left shoulder Plan Patient is experiencing worsening pain in his bilateral shoulders with limited range of motion. Patient did previously get 80% relief with his first intra- articular injection. I have discussed with the patient that he may benefit from repeat intra-articular injection. Risk and benefits were discussed with patient and he would like to proceed forward with this plan of care. Patient did state that he recently had a visit with his counter sales person and they are thinking possibly that he has got a blockage of 70%. He did state that they are talking possibly on stents however they have not given any timeframe or any restrictions. I have counseled the patient to please let our office know with any updates and that if we need to we might have to postpone these injections. Patient has tried and failed conservative therapy including oral medications, heat and ice, topicals, continued at home stretching exercise for longer than 6 weeks. Patient will be scheduled for bilateral shoulder intra-articular injections. Patient has been instructed to contact the clinic with any concerns before the next appointment. Dr. Parsons has reviewed this note and agrees with this plan of care. This note was dictated using voice recognition software and make contain errors or omissions. All injections are used with Lidocaine or Bupivacaine and Depo Medrol.
== END 2024-03-22 23:59 | disposition home or self-care (01) ==
LOC: SC.PAIN 11:00
PROVIDERS: PCP Physician Assistant; Visit Provider Nurse Practitioner Family
DX: M25.511 Pain in right shoulder (principal); M25.512 Pain in left shoulder; G89.29 Other chronic pain; F17.210 Nicotine dependence, cigarettes, uncomplicated; Z73.89 Other problems related to life management difficulty; Z79.899 Other long term (current) drug therapy; Z96.659 Presence of unspecified artificial knee joint
CPT/HCPCS: 99212; G0463

== ENCOUNTER 2024-04-04 09:49 | Day surgery (SDC) | payer MEDICARE, SELFPAY ==
[2024-04-04 10:11] VITALS: BP 156/91; PULSE 78; RESP 16; TEMP 36.5; O2SAT 93; BMI 35.9
--- NOTE | 2024-04-04 10:47 | P.PCN_ITS ---
Procedure Date: 04/04/24 Time: 10:40 Anesthesiologist:: Gerson Terry CRNA Complications:: None Pre-procedure Diagnosis:: DJD bilateral shoulder joint. Chronic bilateral shoulder pain. Post-procedure Diagnosis:: Same. Indications for Procedure:: Patient is a pleasant 68-year-old male who comes our clinic today for bilateral intra-articular shoulder injections of cortisone and local anesthetic. Patient has responded well to this injection in the past. Patient has 5/5 strength in bilateral arms. However, patient has limited range of motion secondary to bilateral shoulder pain. He rates his pain today 6/10. Procedure Details:: Procedure Details: Bilateral shoulder intra-articular injection Informed consent was obtained risk and benefits of the procedure were explained to the patient. Patient was taken to the procedure room. The bilateral shoulder was prepped using ChloraPrep. A 25-gauge needle was used first anteriorly, laterally, and then posteriorly to inject 10 mL bupivacaine 0.25% and Depo- Medrol 40 mg. Patient tolerated procedure well with no complications. Plan and Disposition:: Patient was discharged without incident.
[2024-04-04 10:50] VITALS: BP 139/80; PULSE 66; RESP 16; O2SAT 98
[2024-04-04] MEDS: LIDOCAINE 1% 5ML PF VIAL 5 ML (11:05)
[2024-04-04 11:13] VITALS: BP 167/94; PULSE 73; RESP 18; O2SAT 98
[2024-04-04] MEDS: BUPIVACAINE 0.25% 10ML INJ 25 MG IJ (11:13)
[2024-04-04] MEDS: methylPREDNISolone ACETATE 80MG/ML VIAL 80 MG (11:13)
[2024-04-04 11:19] VITALS: BP 167/94; PULSE 73; RESP 18; O2SAT 98
== END 2024-04-04 10:50 | disposition home or self-care (01) ==
PROVIDERS: PCP Physician Assistant; Visit Provider Nurse Anesthetist, Certified Registered
DX: M19.011 Primary osteoarthritis, right shoulder (principal); M19.012 Primary osteoarthritis, left shoulder; M25.511 Pain in right shoulder; M25.512 Pain in left shoulder; G89.29 Other chronic pain
CPT/HCPCS: 20610; J1010

== ENCOUNTER 2024-04-05 08:13 | Day surgery (SDC) | payer MEDICARE, SELFPAY ==
[2024-04-05] VITALS (12 sets, daily range): BP systolic 102–159; BP diastolic 61–89; PULSE 50–64; RESP 16–18; TEMP 36.6; O2SAT 94–99; BMI 35.5
--- NOTE | 2024-04-05 | IR_ITS ---
APPROVED REPORT Patient Location: Outpatient Technical Services Assistant: RC Bhatti RT (R) PROCEDURES Left heart catheterization Left ventriculogram Selective coronary angiogram Intravascular ultrasound to the left main artery and LAD INDICATION Abnormal CCTA, Angina pectoris, Coronary artery disease with angiographic ambiguity, Informed consent was obtained prior to the procedure. COMPLICATIONS None Estimated Blood Loss: Less than 10 mls TECHNIQUE One percent lidocaine used to anesthetize the right anterior aspect of the wrist. The right radial artery was accessed via the Seldinger technique. A 6 Yi sheath was placed in the right radial artery. 2.5 mg of Verapamil, 800 mcg of nitroglycerin, 1mg Lidocaine and 5000 U Heparin were given through the arterial sheath. The papa catheter was also used to perform left heart catheterization, left ventriculogram and selective coronary angiogram. At the end the diagnostic angiogram therapeutic heparin was administered giving a therapeutic ACT and the guide catheter was placed in the left main artery followed by Choice PT export wire placed down the LAD. Intravascular ultrasound probe was advanced and interrogation was performed. There was moderate plaque in the ostial proximal LAD with an MLA greater than 8 mm???. The mid LAD tapers to a small caliber vessel and further interrogation was not performed with IVUS. Upon pullback there was mild to moderate plaque in the left main artery with an MLA greater than 10 mm???. At the end of the procedure the apparatus was removed the sheath was removed and hemostasis was achieved using TR banding patient was transferred to the postop putting in stable condition ANGIOGRAPHIC RESULTS The left main artery Has 20 to 30% stenosis The left anterior descending artery Has an ostial proximal 50% plaque stenosis based on intravascular ultrasound with a mid vessel calcified 50 to 60% stenosis and a 2.25 to 2.5 mm vessel The circumflex artery Large dominant with proximal 10% luminal regularities. The third obtuse marginal artery is 2 mm in diameter and has a proximal concentric 70 to 80% stenosis with a mid vessel 40% stenosis The right coronary artery Nondominant subtotally occluded at mid segment The TEJEDA ventriculogram reveals Normal 65% The left ventricular end-diastolic pressure 10 mmHg IMPRESSION Moderate plaque in the ostial proximal LAD which is best managed medically Moderate to severe disease in the mid LAD which is best managed medically based on the small diameter of the mid LAD Moderate to severe plaque in the third obtuse marginal artery which is best managed medically. The stenosis is close to the bifurcation and would require bifurcating stenting. These lesions are best managed medically Subtotally occluded nondominant right coronary artery Normal ejection fraction Normal left ventricular end-diastolic pressure PLAN 1. Aggressive risk factor modification with an LDL less than 55 2. Maximize antianginal medications 3. At this point I am much in favor of treating the mid LAD stenosis medically. While this could be stented this particular lesion should respond favorably to medicine. Should patient continue with recalcitrant angina consideration can be given to revascularize this vessel 4. The obtuse marginal artery is also best managed medically. The caliber of the vessels rather small and would not require stenting across another obtuse marginal artery. Bifurcating stenting in these distal vessels is ill-advised. Electronically signed by : Cheng Burleson MD 04/05/2024 10:24:22
[2024-04-05 08:48] LABS: Basophils # 0.1 K/mm3 (0-0.2); Basophils % 0.6 % (0.1-2.0); Eosinophils # 0.2 K/mm3 (0.0-0.4); Eosinophils % 1.8 % (0.1-12.0); Hematocrit 44.9 % (42.0-52.0); Hemoglobin 14.7 g/dL (14.1-18.0); Lymphocytes # 1.4 K/mm3 (0.7-4.5); Lymphocytes % 11.2 % (10-50); Mean Corpuscular HGB Conc 32.8 g/dL (31.8-35.4); Mean Corpuscular Hemoglobin 30.7 pg (27.0-31.2); Mean Corpuscular Volume 93.7 fl (80-94); Monocytes # 0.6 K/mm3 (0.1-1.0); Monocytes % 4.5 % (1.7-9.3); Neutrophils # 10.2 K/mm3 (1.8-7.8); Neutrophils % 81.9 % (37.0-80.0); Platelet Count 282 K/mm3 (142-424); Red Blood Count 4.79 M/mm3 (4.60-6.20); Red Cell Distribution Width 15.2 % (11.5-17.5); White Blood Count 12.4 K/mm3 (4.8-10.8)
[2024-04-05 08:58] LABS: Chloride 111 mmol/L (98-107); Sodium 140 mmol/L (136-145)
[2024-04-05 08:59] LABS: Potassium 4.2 mmoL/L (3.5-5.1)
[2024-04-05 09:01] LABS: Blood Urea Nitrogen 23 mg/dl (9-20); Creatinine Clearance Estimated 116 mL/min (50-200); Estimated Glomerular Filt Rate 74 ml/min (>60); GFR (African American) 90 ML/MIN (>60)
[2024-04-05 09:02] LABS: Anion Gap 10.2 mEq/L (5-15); Calcium 8.4 mg/dl (8.4-10.2); Carbon Dioxide 23 mmol/L (22.0-30.0); Glucose 107 mg/dl (74-100)
[2024-04-05] MEDS: VERAPAMIL 2.5MG/ML 2ML VIAL 2.5 MG IV (09:48)
[2024-04-05] MEDS: diphenhydrAMINE 50MG/ML VIAL 50 MG IV (09:48)
[2024-04-05] MEDS: LIDOCAINE 1% 10ML MDV 20 ML IJ (09:48)
[2024-04-05] MEDS: HEPARIN 1,000 UNITS/ML 10ML VIAL (CATH LAB) 10000 UNIT IV ×2 (09:48→10:09)
[2024-04-05] MEDS: NITROGLYCERIN 800MCG/8ML SYR (CATH LAB) 800 MCG IA (09:49)
[2024-04-05] MEDS: 0.9 % SODIUM CHLORIDE 500 ML 25 ML IV (09:49)
[2024-04-05] MEDS: HEPARIN 1,000 UNITS/500ML NS (CATH LAB) 3000 UNIT IV (09:49)
[2024-04-05] MEDS: MIDAZOLAM HCL 1MG/1ML 5ML VIAL 1 MG IV ×2 (10:03→10:10)
[2024-04-05] MEDS: FENTANYL 100MCG/2ML VIAL 50 MCG IV (10:04)
[2024-04-05] MEDS: FENTANYL 100MCG/2ML VIAL 25 MCG IV (10:10)
[2024-04-05] MEDS: IOPAMIDOL-370 (76%);100ML BOTTLE 90 ML IV (11:17)
== END 2024-04-05 13:24 | disposition home or self-care (01) ==
PROVIDERS: PCP Physician Assistant; Visit Provider Internal Medicine
DX: I25.118 Atherosclerotic heart disease of native coronary artery with other forms of angina pectoris (principal); Z79.899 Other long term (current) drug therapy; F17.210 Nicotine dependence, cigarettes, uncomplicated; I10 Essential (primary) hypertension; E03.9 Hypothyroidism, unspecified; C85.90 Non-Hodgkin lymphoma, unspecified, unspecified site
CPT/HCPCS: 80048; 85025; 92978; 92979; 93458; 99152; C1725; C1769; J1200; J1644; J2250; J3010; Q9967

== ENCOUNTER 2024-04-20 11:00 | Outpatient (POV) | payer MEDICARE, SELFPAY ==
[2024-04-20 11:18] VITALS: BP 126/63; PULSE 70; RESP 16; O2SAT 96; BMI 35.4
--- NOTE | 2024-04-20 11:34 | EXP.PAIN.SOA ---
[facility] Disclaimer: The information contained in this section may have been updated after the patient was seen, as this information can be updated by other users. Medical History (Updated 04/19/24 @ 11:37 by Kamala Sandy RN) Coronary artery disease Abnormal findings on diagnostic imaging of heart and coronary circulation Angina pectoris Equivocal stress test Neural foraminal stenosis of lumbar spine Panic anxiety syndrome Post-operative infection Visit for suture removal Laceration of right little finger BPV (benign positional vertigo) History of Hodgkin's lymphoma Daytime somnolence Dizziness Typical angina Dyspnea Chest pain Lumbar disc disease with radiculopathy Encounter for management of wound VAC Lumbar disc disease with radiculopathy Wrist fracture, right Wrist pain, right Bilateral knee pain Tendonitis Postherpetic neuralgia Shingles Facial edema Constipation Edema of both feet Hyperglycemia Lumbar disc disease with radiculopathy Hypertension BPH (benign prostatic hyperplasia) Hyperlipidemia Hypothyroidism Thyroid goiter Hypoglycemia Hodgkin lymphoma Chest pain, atypical Pharyngitis Malaise Low back pain Anxiety Surgical History (Updated 04/19/24 @ 11:26 by Monique Monte) History of cardiac cath History of back surgery History of knee replacement Family History Other Family history of cancer Family history of heart disease Social History Smoking Status: Current every day smoker tobacco type: cigarettes packs per day: 1 second hand exposure: Yes alcohol intake: never substance use type: former substance user current occupational status: unemployed Travel in the last 8 weeks: None household members: none housing: apartment lives independently: Yes marital status: number of children: 2 service: No group home: No 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 Today he rates his pain a 6 out of 10. He does state that he feels like he has gotten more than 50% relief following these injections. He does state that he feels like they are still helping. He does however state that his left shoulder is bothering him a little bit more than the right. Patient states that he has only had 1 injection in the left side and feels like this might be playing a role. He denies any new trauma or injury. Patient does state that they are still trying medications for his heart related issues. Patient states that he is supposed to stop smoking. Patient has been tried on compounded cream in the past however states that it only gave minimal improvement. He does state that he will use blue ice and that seems to help overall. His Dakotah has been reviewed and is appropriate. Review of Systems: General: No recent weight changes, no fever, no sleep disturbances Respiratory: No cough, no shortness of air, no recurring pulmonary infections Cardiovascular/peripheral vascular: No chest pain, no palpitations, no edema, no shortness of breath Gastrointestinal: No new onset incontinence, normal bowel movements reported Genitourinary: No new onset incontinence Musculoskeletal: Bilateral shoulder pain Psychiatric: [Normal mood/affect] Neurological: [Denies weakness in extremities], [denies balance issues] Pain at rest (0-10 scale): 6 Objective Objective:: Physical Exam: General: Alert and oriented x3, no acute distress, pleasant and cooperative Lungs: Respirations even and unlabored, symmetrical chest expansion Eyes: PERRL Musculoskeletal: Flexion and extension of bilateral shoulders somewhat guarded secondary to pain, [antalgic gait noted] Neurological: Speech clear, no gross sensory deficit Has patient had previous pain injection?: Yes Percent improvement in pain since last injection: 50% Conservative treatment options previously tried: Home exercise plan Length of treatment: Longer than 6 weeks Meds Home Medications and Allergies Home Medications ?Medication ?Instructions ?Recorded ?Confirmed ?Type furosemide 20 mg tablet 20 mg PO QDAY Fluid #90 tabs 06/23/23 04/20/24 Rx aripiprazole 15 mg tablet (Abilify) 15 mg PO HS #90 tabs 12/16/23 04/20/24 Rx buspirone 5 mg tablet 5 mg PO BID #180 tabs 12/16/23 04/20/24 Rx cyanocobalamin (vitamin B-12) 5,000 mcg PO DIRECTED SUPPLIMENT 12/16/23 04/20/24 History 5,000 mcg sublingual tablet (Vitamin B-12) atorvastatin 20 mg tablet See Rx Instructions .Route 12/23/23 04/20/24 Rx .COMPLEX #90 tabs losartan 50 mg tablet 50 mg PO DAILY blood pressure #90 01/06/24 04/20/24 Rx tabs metoprolol succinate 50 mg 50 mg PO DAILY BLOOD PRESSURE #90 02/22/24 04/20/24 Rx tablet,extended release 24 hr tabs moxifloxacin 0.5 % eye drops 1 drp ophthalmic (eye) TID 7 days 02/22/24 04/20/24 Rx (Vigamox) #3 mL sulfasalazine 500 mg 0.5 g PO BID #180 tabs 02/22/24 04/20/24 Rx tablet,delayed release levothyroxine 175 mcg tablet 175 mcg PO DAILY #90 tabs 02/29/24 04/20/24 Rx (Synthroid) desvenlafaxine succinate 50 mg 50 mg PO DAILY #90 tabs 03/18/24 04/20/24 Rx tablet,extended release 24 hr (Pristiq) aspirin 81 mg tablet,delayed 81 mg PO DAILY #30 tabs 03/22/24 04/20/24 Rx release (Adult Low Dose Aspirin) omeprazole 40 mg capsule,delayed See Rx Instructions .Route 04/18/24 04/20/24 Rx release .COMPLEX #30 caps amlodipine 10 mg tablet 10 mg PO DAILY #90 tabs 04/19/24 04/20/24 Rx isosorbide mononitrate 60 mg 60 mg PO DAILY #30 tabs 04/19/24 04/20/24 Rx tablet,extended release 24 hr varenicline 0.5 mg (11)-1 mg (42) See Rx Instructions PO PER PKG DIR 04/19/24 04/20/24 Rx tablets in a dose pack (Chantix #53 tabs Starting Month Box) varenicline 1 mg tablet (Chantix 1 mg PO BID 12 weeks #168 tabs 04/19/24 04/20/24 Rx Continuing Month Box) New Prescriptions to Start Prescriptions: Allergies Allergy/AdvReac Type Severity Reaction Status Date / Time escitalopram [From Lexapro] Allergy Severe Hallucinati Verified 04/19/24 11:25 ng morphine [MORPHINE] Allergy Unknown RASH ON Verified 04/19/24 11:25 LEGS Assessment and Plan *Assessment and plan (1) Bilateral shoulder pain: Status: Acute Qualifiers: Chronicity: chronic Qualified Code(s): M25.511 - Pain in right shoulder; M25.512 - Pain in left shoulder; G89.29 - Other chronic pain Category: Medical Code(s): M25.511 - Pain in right shoulder; M25.512 - Pain in left shoulder Plan Patient has had significant improvement following his intra-articular shoulder injections and does not require any additional injection therapy at this time. Patient will return to clinic in 2 months for reevaluation of symptoms and plan of care. Patient has been instructed to contact the clinic with any concerns before the next appointment. Dr. Parsons has reviewed this note and agrees with this plan of care. This note was dictated using voice recognition software and make contain errors or omissions. All injections are used with Lidocaine or Bupivacaine and Depo Medrol.
== END 2024-04-20 23:59 | disposition home or self-care (01) ==
LOC: SC.PAIN 11:01
PROVIDERS: PCP Physician Assistant; Visit Provider Nurse Practitioner Family
DX: M25.511 Pain in right shoulder (principal); M25.512 Pain in left shoulder; G89.29 Other chronic pain; F17.210 Nicotine dependence, cigarettes, uncomplicated; Z79.899 Other long term (current) drug therapy
CPT/HCPCS: 99212; G0463

== ENCOUNTER 2024-06-28 13:40 | Outpatient (POV) | payer MEDICARE, SELFPAY ==
[2024-06-28 14:07] VITALS: BP 145/83; PULSE 70; RESP 16; O2SAT 99; BMI 35.8
--- NOTE | 2024-06-28 14:39 | EXP.PAIN.SOA ---
[facility] Disclaimer: The information contained in this section may have been updated after the patient was seen, as this information can be updated by other users. Medical History (Updated 04/19/24 @ 11:37 by Kamala Sandy RN) Coronary artery disease Abnormal findings on diagnostic imaging of heart and coronary circulation Angina pectoris Equivocal stress test Neural foraminal stenosis of lumbar spine Panic anxiety syndrome Post-operative infection Visit for suture removal Laceration of right little finger BPV (benign positional vertigo) History of Hodgkin's lymphoma Daytime somnolence Dizziness Typical angina Dyspnea Chest pain Lumbar disc disease with radiculopathy Encounter for management of wound VAC Lumbar disc disease with radiculopathy Wrist fracture, right Wrist pain, right Bilateral knee pain Tendonitis Postherpetic neuralgia Shingles Facial edema Constipation Edema of both feet Hyperglycemia Lumbar disc disease with radiculopathy Hypertension BPH (benign prostatic hyperplasia) Hyperlipidemia Hypothyroidism Thyroid goiter Hypoglycemia Hodgkin lymphoma Chest pain, atypical Pharyngitis Malaise Low back pain Anxiety Surgical History (Updated 04/19/24 @ 11:26 by Monique Monte) History of cardiac cath History of back surgery History of knee replacement Family History Other Family history of cancer Family history of heart disease Social History Smoking Status: Current every day smoker tobacco type: cigarettes packs per day: 1 second hand exposure: Yes alcohol intake: never substance use type: former substance user current occupational status: other Travel in the last 8 weeks: None household members: none housing: apartment lives independently: Yes marital status: number of children: 2 service: No group home: No 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 Today he rates his pain at 8 out of 10. He denies any new trauma or injury. He does state that his shoulders are starting to bother him a lot more. Patient states that he has noticed this progressively worsening over the last 3 weeks. He describes it as an aching, throbbing sensation with limited range of motion and does interfere with his ability perform activities of daily living such as cooking and cleaning. Patient did previously get bilateral shoulder intra-articular injections back in March that did provide more than 50% improvement and have lasted up until the last 2 to 3 weeks. Patient does state he would like to see about getting these rescheduled. Patient is also prescribed compounded cream however did get better relief with blue ice in the past. His Dakotah has been reviewed and is appropriate. Review of Systems: General: No recent weight changes, no fever, no sleep disturbances Respiratory: No cough, no shortness of air, no recurring pulmonary infections Cardiovascular/peripheral vascular: No chest pain, no palpitations, no edema, no shortness of breath Gastrointestinal: No new onset incontinence, normal bowel movements reported Genitourinary: No new onset incontinence Musculoskeletal: Bilateral shoulder pain Psychiatric: [Normal mood/affect] Neurological: [Denies weakness in extremities], [denies balance issues] Pain at rest (0-10 scale): 8 Objective Objective:: Physical Exam: General: Alert and oriented x3, no acute distress, pleasant and cooperative Lungs: Respirations even and unlabored, symmetrical chest expansion Eyes: PERRL Musculoskeletal: Flexion and extension of bilateral shoulders somewhat guarded secondary to pain, [antalgic gait noted] Neurological: Speech clear, no gross sensory deficit Has patient had previous pain injection?: No Conservative treatment options previously tried: Home exercise plan Length of treatment: Longer than 12 weeks Meds Home Medications and Allergies Home Medications ?Medication ?Instructions ?Recorded ?Confirmed ?Type furosemide 20 mg tablet 20 mg PO QDAY Fluid #90 tabs 06/23/23 06/28/24 Rx aripiprazole 15 mg tablet (Abilify) 15 mg PO HS #90 tabs 12/16/23 06/28/24 Rx buspirone 5 mg tablet 5 mg PO BID #180 tabs 12/16/23 06/28/24 Rx atorvastatin 20 mg tablet See Rx Instructions .Route 12/23/23 06/28/24 Rx .COMPLEX #90 tabs losartan 50 mg tablet 50 mg PO DAILY blood pressure #90 01/06/24 06/28/24 Rx tabs metoprolol succinate 50 mg 50 mg PO DAILY BLOOD PRESSURE #90 02/22/24 06/28/24 Rx tablet,extended release 24 hr tabs moxifloxacin 0.5 % eye drops 1 drp ophthalmic (eye) TID 7 days 02/22/24 06/28/24 Rx (Vigamox) #3 mL sulfasalazine 500 mg 0.5 g PO BID #180 tabs 02/22/24 06/28/24 Rx tablet,delayed release levothyroxine 175 mcg tablet 175 mcg PO DAILY #90 tabs 02/29/24 06/28/24 Rx (Synthroid) desvenlafaxine succinate 50 mg 50 mg PO DAILY #90 tabs 03/18/24 06/28/24 Rx tablet,extended release 24 hr (Pristiq) aspirin 81 mg tablet,delayed 81 mg PO DAILY #30 tabs 03/22/24 06/28/24 Rx release (Adult Low Dose Aspirin) omeprazole 40 mg capsule,delayed See Rx Instructions .Route 04/18/24 06/28/24 Rx release .COMPLEX #30 caps amlodipine 10 mg tablet 10 mg PO DAILY #90 tabs 04/19/24 06/28/24 Rx isosorbide mononitrate 60 mg 60 mg PO DAILY #30 tabs 04/19/24 06/28/24 Rx tablet,extended release 24 hr varenicline 0.5 mg (11)-1 mg (42) See Rx Instructions PO PER PKG DIR 04/19/24 06/28/24 Rx tablets in a dose pack (Chantix #53 tabs Starting Month Box) varenicline 1 mg tablet (Chantix 1 mg PO BID 12 weeks #168 tabs 04/19/24 06/28/24 Rx Continuing Month Box) cyanocobalamin (vitamin B-12) See Rx Instructions .Route 05/02/24 06/28/24 Rx 5,000 mcg sublingual tablet .COMPLEX #90 tabs (Vitamin B-12) New Prescriptions to Start Prescriptions: Allergies Allergy/AdvReac Type Severity Reaction Status Date / Time escitalopram [From Lexapro] Allergy Severe Hallucinati Verified 04/19/24 11:25 ng morphine [MORPHINE] Allergy Unknown RASH ON Verified 04/19/24 11:25 LEGS Assessment and Plan *Assessment and plan (1) Bilateral shoulder pain: Status: Acute Qualifiers: Chronicity: chronic Qualified Code(s): M25.511 - Pain in right shoulder; M25.512 - Pain in left shoulder; G89.29 - Other chronic pain Category: Medical Code(s): M25.511 - Pain in right shoulder; M25.512 - Pain in left shoulder Plan Patient is experiencing worsening pain in his bilateral shoulders with limited range of motion. Patient did previously have more than 50% relief with his last intra-articular shoulder injections back in March. I did discuss with the patient that I do believe he would benefit from repeat intra-articular shoulder injections. Risk and benefits were discussed with the patient and he would like to proceed forward with this plan of care. Patient has tried and failed conservative therapy including continued at home stretching exercise for longer than 12 weeks. Patient did have improved function with these last injections lasting nearly 3 months. He will be scheduled for bilateral shoulder intra-articular injections. These will be done without ultrasound or fluoroscopic guidance. Patient has been instructed to contact the clinic with any concerns before the next appointment. Dr. Parsons has reviewed this note and agrees with this plan of care. This note was dictated using voice recognition software and make contain errors or omissions. All injections are used with Lidocaine or Bupivacaine and Depo Medrol.
== END 2024-06-28 23:59 | disposition home or self-care (01) ==
LOC: SC.PAIN 13:41
PROVIDERS: Visit Provider Nurse Practitioner Family
DX: M25.511 Pain in right shoulder (principal); M25.512 Pain in left shoulder; G89.29 Other chronic pain; F17.210 Nicotine dependence, cigarettes, uncomplicated; Z96.659 Presence of unspecified artificial knee joint; Z73.89 Other problems related to life management difficulty; Z79.899 Other long term (current) drug therapy
CPT/HCPCS: 99212; G0463

== ENCOUNTER 2024-07-25 08:43 | Day surgery (SDC) | payer MEDICARE, SELFPAY ==
[2024-07-25 08:53] VITALS: BP 149/80; PULSE 73; RESP 16; TEMP 36.5; O2SAT 98; BMI 35.5
[2024-07-25 09:16] VITALS: BP 140/79; PULSE 66; RESP 18; O2SAT 97
[2024-07-25] MEDS: LIDOCAINE 1% 5ML PF VIAL 5 ML (09:16)
[2024-07-25] MEDS: BUPIVACAINE 0.25% 10ML INJ 25 MG IJ (09:16)
[2024-07-25] MEDS: methylPREDNISolone ACETATE 80MG/ML VIAL 80 MG (09:16)
[2024-07-25 09:18] VITALS: BP 140/79; PULSE 66; RESP 18; O2SAT 97
[2024-07-25 09:24] VITALS: BP 143/85; PULSE 63; RESP 16; O2SAT 98
--- NOTE | 2024-07-25 09:32 | EXP.PAIN.PRO ---
Procedure Date: 07/25/24 Time: 09:15 Anesthesiologist:: Gerson Terry CRNA Complications:: None Pre-procedure Diagnosis:: DJD bilateral shoulder. Chronic bilateral shoulder pain. Post-procedure Diagnosis:: Same. Indications for Procedure:: Patient is a pleasant 68-year-old male who comes our clinic today for bilateral intra-articular shoulder injections of cortisone and local anesthetic. Patient describes bilateral shoulder pain as constant, dull, aching. Patient has 5/5 strength in bilateral arms. However, limited range of motion in bilateral arms due to shoulder pain. He rates his pain 8/10. Procedure Details:: Procedure Details: Left shoulder intra-articular injection Informed consent was obtained risk and benefits of the procedure were explained to the patient. Patient was taken to the procedure room. The Left shoulder was prepped using ChloraPrep. A 25-gauge needle was used posteriorly to inject 10 mL bupivacaine 0.25% and Depo-Medrol 40 mg. Patient tolerated procedure well with no complications. Procedure Details: Right shoulder intra-articular injection Informed consent was obtained risk and benefits of the procedure were explained to the patient. Patient was taken to the procedure room. The right shoulder was prepped using ChloraPrep. A 25-gauge needle was used posteriorly to inject 10 mL bupivacaine 0.25% and Depo-Medrol 40 mg. Patient tolerated procedure well with no complications. Plan and Disposition:: Patient was discharged without incident.
== END 2024-07-25 09:24 | disposition home or self-care (01) ==
LOC: SC.PAINP 08:44
PROVIDERS: Visit Provider Nurse Anesthetist, Certified Registered
DX: M19.012 Primary osteoarthritis, left shoulder (principal); M19.011 Primary osteoarthritis, right shoulder; M25.511 Pain in right shoulder; M25.512 Pain in left shoulder; G89.29 Other chronic pain
CPT/HCPCS: 20610; J1010

== ENCOUNTER 2024-08-09 13:18 | Outpatient (POV) | payer MEDICARE, SELFPAY ==
[2024-08-09 13:33] VITALS: BP 150/94; PULSE 68; RESP 16; O2SAT 68; BMI 35.6
--- NOTE | 2024-08-09 14:14 | A.OFFVIS_ITS ---
[facility] Disclaimer: The information contained in this section may have been updated after the patient was seen, as this information can be updated by other users. Medical History (Updated 08/09/24 @ 14:47 by Nelida Vital APRN) Coronary artery disease Abnormal findings on diagnostic imaging of heart and coronary circulation Angina pectoris Equivocal stress test Neural foraminal stenosis of lumbar spine Panic anxiety syndrome Post-operative infection Visit for suture removal Laceration of right little finger BPV (benign positional vertigo) History of Hodgkin's lymphoma Daytime somnolence Dizziness Typical angina Dyspnea Chest pain Lumbar disc disease with radiculopathy Encounter for management of wound VAC Lumbar disc disease with radiculopathy Wrist fracture, right Wrist pain, right Bilateral knee pain Tendonitis Postherpetic neuralgia Shingles Facial edema Constipation Edema of both feet Hyperglycemia Lumbar disc disease with radiculopathy Hypertension BPH (benign prostatic hyperplasia) Hyperlipidemia Hypothyroidism Thyroid goiter Hypoglycemia Hodgkin lymphoma Chest pain, atypical Pharyngitis Malaise Low back pain Anxiety Surgical History History of cardiac cath History of back surgery History of knee replacement Family History Other Family history of cancer Family history of heart disease Social History Smoking Status: Current every day smoker tobacco type: cigarettes packs per day: 1 second hand exposure: Yes alcohol intake: never substance use type: former substance user current occupational status: other Travel in the last 8 weeks: None household members: none housing: apartment lives independently: Yes marital status: number of children: 2 service: No mcc: No 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 Today he rates his pain a 5 out of 10. He states he has had at least 50% improvement following these injections and that his right shoulder is doing great however his left shoulder is still causing some additional pain. He does state that he has been able to increase his activity in the shoulder joints and that he was even able to raise his arm up above his head however the left side does cause significant pain. He states the pain is interfering with his ability perform activities of daily living such as cooking and cleaning. Patient has tried and failed conservative therapy including continued oral medications, heat and ice, topicals, at home stretching exercise for longer than 12 weeks. His Dakotah has been reviewed and is appropriate. Review of Systems: General: No recent weight changes, no fever, no sleep disturbances Respiratory: No cough, no shortness of air, no recurring pulmonary infections Cardiovascular/peripheral vascular: No chest pain, no palpitations, no edema, no shortness of breath Gastrointestinal: No new onset incontinence, normal bowel movements reported Genitourinary: No new onset incontinence Musculoskeletal: Left shoulder pain Psychiatric: [Normal mood/affect] Neurological: [Denies weakness in extremities], [denies balance issues] Pain at rest (0-10 scale): 5 Objective Objective:: Physical Exam: General: Alert and oriented x3, no acute distress, pleasant and cooperative Lungs: Respirations even and unlabored, symmetrical chest expansion Eyes: PERRL Musculoskeletal: Flexion and extension of left shoulder somewhat guarded secondary to pain, [antalgic gait noted] Neurological: Speech clear, no gross sensory deficit Has patient had previous pain injection?: Yes Percent improvement in pain since last injection: 50% Conservative treatment options previously tried: Home exercise plan Length of treatment: Longer than 12 weeks Meds Home Medications and Allergies Home Medications ?Medication ?Instructions ?Recorded ?Confirmed ?Type furosemide 20 mg tablet 20 mg PO QDAY Fluid #90 tabs 06/23/23 08/09/24 Rx aripiprazole 15 mg tablet (Abilify) 15 mg PO HS #90 tabs 12/16/23 08/09/24 Rx buspirone 5 mg tablet 5 mg PO BID #180 tabs 12/16/23 08/09/24 Rx atorvastatin 20 mg tablet See Rx Instructions .Route 12/23/23 08/09/24 Rx .COMPLEX #90 tabs losartan 50 mg tablet 50 mg PO DAILY blood pressure #90 01/06/24 08/09/24 Rx tabs metoprolol succinate 50 mg 50 mg PO DAILY BLOOD PRESSURE #90 02/22/24 08/09/24 Rx tablet,extended release 24 hr tabs moxifloxacin 0.5 % eye drops 1 drp ophthalmic (eye) TID 7 days 02/22/24 08/09/24 Rx (Vigamox) #3 mL sulfasalazine 500 mg 0.5 g PO BID #180 tabs 02/22/24 08/09/24 Rx tablet,delayed release levothyroxine 175 mcg tablet 175 mcg PO DAILY #90 tabs 02/29/24 08/09/24 Rx (Synthroid) desvenlafaxine succinate 50 mg 50 mg PO DAILY #90 tabs 03/18/24 08/09/24 Rx tablet,extended release 24 hr (Pristiq) aspirin 81 mg tablet,delayed 81 mg PO DAILY #30 tabs 03/22/24 08/09/24 Rx release (Adult Low Dose Aspirin) omeprazole 40 mg capsule,delayed See Rx Instructions .Route 04/18/24 08/09/24 Rx release .COMPLEX #30 caps amlodipine 10 mg tablet 10 mg PO DAILY #90 tabs 04/19/24 08/09/24 Rx isosorbide mononitrate 60 mg 60 mg PO DAILY #30 tabs 04/19/24 08/09/24 Rx tablet,extended release 24 hr varenicline 0.5 mg (11)-1 mg (42) See Rx Instructions PO PER PKG DIR 04/19/24 08/09/24 Rx tablets in a dose pack (Chantix #53 tabs Starting Month Box) varenicline 1 mg tablet (Chantix 1 mg PO BID 12 weeks #168 tabs 04/19/24 08/09/24 Rx Continuing Month Box) cyanocobalamin (vitamin B-12) See Rx Instructions .Route 05/02/24 08/09/24 Rx 5,000 mcg sublingual tablet .COMPLEX #90 tabs (Vitamin B-12) New Prescriptions to Start Prescriptions: Allergies Allergy/AdvReac Type Severity Reaction Status Date / Time escitalopram (From Lexapro) Allergy Severe Hallucinati Verified 04/19/24 11:25 ng morphine (MORPHINE) Allergy Unknown RASH ON Verified 04/19/24 11:25 LEGS Assessment and Plan *Assessment and plan (1) Left shoulder pain: Status: Acute Category: Medical Code(s): M25.512 - Pain in left shoulder Plan Patient has had significant improvement following his shoulder intra-articular injections however is still having increased pain with movement of his left shoulder. Patient did have limited range of motion during her visit today. I did discuss with the patient that he may also benefit from a suprascapular nerve block. Risk and benefits were discussed with the patient and he would like to proceed forward with this plan of care. Patient has tried and failed conservative therapy including at home stretching exercise for longer than 12 weeks as well as this pain has been going on for years. Patient does state that this all started from his neck surgery and after that he started experiencing worsening left shoulder pain. Patient denies any true injury. Patient will be scheduled for a left suprascapular nerve block. Patient has been instructed to contact the clinic with any concerns before the next appointment. Dr. Parsons has reviewed this note and agrees with this plan of care. This note was dictated using voice recognition software and make contain errors or omissions. All injections are used with Lidocaine, Bupivacaine and Depo Medrol. Occasionally urine drug screen is needed to verify patient's compliance with our office pain contract. This is ordered based off specific treatments related to chronic pain with the potential to abuse certain medications.
== END 2024-08-09 23:59 | disposition home or self-care (01) ==
LOC: SC.PAIN 13:19
PROVIDERS: Visit Provider Nurse Practitioner Family
DX: M25.512 Pain in left shoulder (principal); Z96.659 Presence of unspecified artificial knee joint; F17.210 Nicotine dependence, cigarettes, uncomplicated; Z73.89 Other problems related to life management difficulty; Z79.899 Other long term (current) drug therapy
CPT/HCPCS: 99212; G0463

== ENCOUNTER 2024-09-05 11:08 | Day surgery (SDC) | payer MEDICARE, SELFPAY ==
[2024-09-05 11:21] VITALS: BP 154/96; PULSE 79; RESP 16; TEMP 36.4; O2SAT 98; BMI 36.5
[2024-09-05 11:41] VITALS: BP 140/73; PULSE 86; RESP 18; O2SAT 94
[2024-09-05] MEDS: LIDOCAINE 1% 5ML PF VIAL 5 ML (11:41)
[2024-09-05] MEDS: BUPIVACAINE 0.25% 10ML INJ 25 MG IJ (11:41)
[2024-09-05 11:42] VITALS: BP 137/85; PULSE 72; RESP 18; O2SAT 97
[2024-09-05] MEDS: methylPREDNISolone ACETATE 80MG/ML VIAL 80 MG (11:42)
--- NOTE | 2024-09-05 11:44 | P.PCN_ITS ---
Procedure Date: 09/05/24 Time: 11:30 Anesthesiologist:: Gerson Terry CRNA Complications:: None Pre-procedure Diagnosis:: DJD left shoulder. Chronic left shoulder pain. Post-procedure Diagnosis:: Same. Indications for Procedure:: RangePatient is a very pleasant 68-year-old male who comes our clinic today for a left suprascapular nerve block. Patient describes left shoulder pain as constant, dull, aching. Patient has 5/5 strength in the left arm. However, limited range of motion due to left shoulder pain. Patient has received left intra-articular shoulder injections in the past. Procedure Details:: Details of procedure explained to the patient. The patient taken procedure room placed in sitting position. The over the left scapula was cleansed using chlorhexidine as a cleansing solution. Using a 25-gauge inch and half needle of the left suprascapular notch was found. After negative aspiration 10 cc of a solution containing 5 mL of 0.25% Marcaine +5 mL 1% lidocaine and 40 mg of Depo- Medrol was injected incrementally. Patient tolerated procedure without difficulty. No complications. Plan and Disposition:: Patient was discharged without incident.
[2024-09-05 11:46] VITALS: BP 137/85; PULSE 72; RESP 18; O2SAT 97
== END 2024-09-05 11:45 | disposition home or self-care (01) ==
LOC: SC.PAINP 11:09
PROVIDERS: Visit Provider Nurse Anesthetist, Certified Registered
DX: M19.012 Primary osteoarthritis, left shoulder (principal); M25.512 Pain in left shoulder; G89.29 Other chronic pain
CPT/HCPCS: 64418; J1010

== ENCOUNTER 2024-09-12 10:30 | Outpatient (CLI) | payer MEDICARE, SELFPAY ==
[2024-09-12 18:53] LABS: Alanine Aminotransferase 22 U/L (12-78); Albumin Level 4.7 g/dl (3.5-5.0); Albumin/Globulin Ratio 1.7 (1.1-1.8); Alkaline Phosphatase 101 U/L (38-126); Anion Gap 17.5 mEq/L (5-15); Aspartate Amino Transferase 25 U/L (17-59); Bilirubin,Total 0.5 mg/dl (0.2-1.3); Blood Urea Nitrogen 25 mg/dl (9-20); Calcium 9.4 mg/dl (8.4-10.2); Carbon Dioxide 24 mmol/L (22.0-30.0); Chloride 104 mmol/L (98-107); Chol/HDL Ratio 5.7 (1-3.5); Cholesterol 205 mg/dl (140-200); Estimated Glomerular Filt Rate 74 ml/min (>60); GFR (African American) 90 ML/MIN (>60); Globulin 2.7 g/dL (1.3-3.2); Glucose 92 mg/dl (74-100); HDL Cholesterol 36 mg/dl (40-60); Potassium 4.5 mmoL/L (3.5-5.1); Sodium 141 mmol/L (136-145); Total Protein,Serum 7.4 g/dl (6.3-8.2); Triglycerides 143 mg/dl (30-150); VLDL Cholesterol 29 mg/dL (0-40)
[2024-09-12 19:04] LABS: Direct LDL Cholesterol 140.13 mg/dL (100-129)
[2024-09-12 19:08] LABS: Free T4 (Free Thyroxine) 1.68 ng/dl (0.78-2.19)
[2024-09-12 19:22] LABS: Thyroid Stimulating Hormone 4.83 uIU/mL (0.465-4.68)
[2024-09-12 19:41] LABS: Vitamin B12 888 pg/mL (239-931)
== END 2024-09-12 23:59 | disposition home or self-care (01) ==
LOC: LAB.DROPOF 09-13 12:14
PROVIDERS: PCP Family Medicine; Visit Provider Family Medicine
DX: E78.5 Hyperlipidemia, unspecified (principal); E03.9 Hypothyroidism, unspecified; E53.8 Deficiency of other specified B group vitamins; I10 Essential (primary) hypertension; F17.210 Nicotine dependence, cigarettes, uncomplicated
CPT/HCPCS: 80053; 80061; 82607; 84439; 84443

== ENCOUNTER 2024-09-20 07:13 | Outpatient (CLI) | payer MEDICARE, SELFPAY ==
--- NOTE | 2024-09-20 07:15 | CT_ITS ---
FINAL REPORT TECHNIQUE: Axial CT images of the chest were obtained without contrast. Low-dose protocol was utilized. This study was performed with techniques to keep radiation doses as low as reasonably achievable (ALARA). Individualized dose reduction techniques using automated exposure control or adjustment of mA and/or kV according to the patient's size were employed. CLINICAL HISTORY: lung cancer screening current smoker 1ppd x30 years COMPARISON: 10/06/2017 FINDINGS: CT CHEST WITHOUT, LOW DOSE SCREENING CT Di Vol: 2.90 mGy DLP: 103.68 mGy*cm No significant mediastinal mass or adenopathy. There are calcified left hilar lymph nodes. The heart size is normal. There is no pleural or pericardial effusion. The lung windows show no suspicious mass or nodule. There is a calcified granuloma in the left upper lobe. Limited images of the upper abdomen demonstrate no acute findings. IMPRESSION: LR Category 2: 12 month follow-up low-dose chest CT is recommended per Fleischner criteria. Reviewed, Interpreted and Dictated by Jovanni Broderick MD Transcribed by Maureen Gordon Authenticated and . [facility]
== END 2024-09-20 23:59 | disposition home or self-care (01) ==
LOC: RAD 07:14
PROVIDERS: PCP Family Medicine; Visit Provider Family Medicine
DX: F17.210 Nicotine dependence, cigarettes, uncomplicated (principal)
CPT/HCPCS: 71271

== ENCOUNTER 2024-09-20 07:14 | Outpatient (POV) | payer MEDICARE, SELFPAY ==
--- NOTE | 2024-09-20 08:52 | EXP.PAIN.SOA ---
[facility] Disclaimer: The information contained in this section may have been updated after the patient was seen, as this information can be updated by other users. Medical History (Updated 09/20/24 @ 08:54 by Nelida Vital APRN) Colonic polyp Cigarette smoker Coronary artery disease Abnormal findings on diagnostic imaging of heart and coronary circulation Angina pectoris Equivocal stress test Neural foraminal stenosis of lumbar spine Panic anxiety syndrome Post-operative infection Visit for suture removal Laceration of right little finger BPV (benign positional vertigo) History of Hodgkin's lymphoma Daytime somnolence Dizziness Typical angina Dyspnea Chest pain Lumbar disc disease with radiculopathy Encounter for management of wound VAC Lumbar disc disease with radiculopathy Wrist fracture, right Wrist pain, right Bilateral knee pain Tendonitis Postherpetic neuralgia Shingles Facial edema Constipation Edema of both feet Hyperglycemia Lumbar disc disease with radiculopathy Hypertension BPH (benign prostatic hyperplasia) Hyperlipidemia Hypothyroidism Thyroid goiter Hypoglycemia Hodgkin lymphoma Chest pain, atypical Pharyngitis Malaise Low back pain Anxiety Surgical History History of cardiac cath History of back surgery History of knee replacement Family History Other Family history of cancer Family history of heart disease Social History Smoking Status: Current every day smoker tobacco type: cigarettes packs per day: 1 second hand exposure: Yes alcohol intake: never substance use type: former substance user current occupational status: other Travel in the last 8 weeks: None household members: none housing: apartment lives independently: Yes marital status: number of children: 2 service: No detention: No 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 current occupational exposures/hazards: No caffeine: Yes Have you lived/traveled outside [place] in past 30 days?: No Contact w/someone who lives/traveled outside [place] past 30 days?: No Exposure to someone with infectious disease in past 14 days?: No Do you have a fever (greater than 100.4 F or 38 C)?: No Have you tested positive for COVID-19: No Exposed to someone with COVID-19 in past 14 days?: No Do you have a sore throat?: No Do you have a cough?: No Do you have any weakness?: No Do you have any diarrhea?: No Are you experiencing any unusual bleeding?: No Do you have any muscle aches/pain?: No Do you have any abdominal pain?: No Are you experiencing loss of taste or smell?: No PM Subjective & Objective Subjective Subjective:: Patient is a pleasant 69-year-old male who presents today for follow-up of left suprascapular nerve block on 09/05/2024. Today he rates his pain a 6 out of 10. He states all of that pain is related to his right shoulder. He states that he has had at least 80% improvement following this injection and feels like it still working wonderful for his left shoulder. He states he has been able to increase his activity with overall decreased pain and feels much more functional. Patient does state that he would like to see about trying the same injection and he is right side as this is causing significant pain with inability to perform activities of daily living such as cooking and cleaning. Patient states it is a constant aching, throbbing sensation. He states the pain is much worse anytime he goes to use that shoulder. Patient did have intra-articular injections in July that did provide 50% improvement. His [place] has been reviewed and is appropriate. Review of Systems: General: No recent weight changes, no fever, no sleep disturbances Respiratory: No cough, no shortness of air, no recurring pulmonary infections Cardiovascular/peripheral vascular: No chest pain, no palpitations, no edema, no shortness of breath Gastrointestinal: No new onset incontinence, normal bowel movements reported Genitourinary: No new onset incontinence Musculoskeletal: Right shoulder pain Psychiatric: [Normal mood/affect] Neurological: [Denies weakness in extremities], [denies balance issues] Pain at rest (0-10 scale): 6 Objective Objective:: Physical Exam: General: Alert and oriented x3, no acute distress, pleasant and cooperative Lungs: Respirations even and unlabored, symmetrical chest expansion Eyes: PERRL Musculoskeletal: Flexion and extension of right shoulder somewhat guarded secondary to pain, [antalgic gait noted] Neurological: Speech clear, no gross sensory deficit Has patient had previous pain injection?: Yes Percent improvement in pain since last injection: 80% Conservative treatment options previously tried: Home exercise plan Length of treatment: Longer than 12 weeks Meds Home Medications and Allergies Home Medications ?Medication ?Instructions ?Recorded ?Confirmed ?Type buspirone 5 mg tablet 5 mg PO BID #180 tabs 12/16/23 09/12/24 Rx losartan 50 mg tablet 50 mg PO DAILY blood pressure #90 01/06/24 09/12/24 Rx tabs metoprolol succinate 50 mg 50 mg PO DAILY BLOOD PRESSURE #90 02/22/24 09/12/24 Rx tablet,extended release 24 hr tabs sulfasalazine 500 mg 0.5 g PO BID #180 tabs 02/22/24 09/12/24 Rx tablet,delayed release desvenlafaxine succinate 50 mg 50 mg PO DAILY #90 tabs 03/18/24 09/12/24 Rx tablet,extended release 24 hr (Pristiq) aspirin 81 mg tablet,delayed 81 mg PO DAILY #30 tabs 03/22/24 09/12/24 Rx release (Adult Low Dose Aspirin) omeprazole 40 mg capsule,delayed See Rx Instructions .Route 04/18/24 09/12/24 Rx release .COMPLEX #30 caps amlodipine 10 mg tablet 10 mg PO DAILY #90 tabs 04/19/24 09/12/24 Rx isosorbide mononitrate 60 mg 60 mg PO DAILY #30 tabs 04/19/24 09/12/24 Rx tablet,extended release 24 hr varenicline tartrate 0.5 mg (11)-1 See Rx Instructions PO PER PKG DIR 04/19/24 09/12/24 Rx mg (42) tablets in a dose pack #53 tabs (Chantix Starting Month Box) varenicline tartrate 1 mg tablet 1 mg PO BID 12 weeks #168 tabs 04/19/24 09/12/24 Rx (Chantix Continuing Month Box) cyanocobalamin (vitamin B-12) See Rx Instructions .Route 05/02/24 09/05/24 Rx 5,000 mcg sublingual tablet .COMPLEX #90 tabs (Vitamin B-12) doxycycline hyclate 100 mg capsule 100 mg PO BID #30 caps 09/12/24 09/12/24 Rx erythromycin 5 mg/gram (0.5 %) eye 0.5 inch ophthalmic (eye) TID #3.5 09/12/24 09/12/24 Rx ointment grams levothyroxine 175 mcg tablet 175 mcg PO DAILY #90 tabs 09/12/24 09/12/24 Rx (Synthroid) atorvastatin 40 mg tablet 40 mg PO DAILY #90 tabs 09/15/24 Rx New Prescriptions to Start Prescriptions: Allergies Allergy/AdvReac Type Severity Reaction Status Date / Time escitalopram (From Lexapro) Allergy Severe Hallucinati Verified 09/12/24 10:09 ng morphine (MORPHINE) Allergy Unknown RASH ON Verified 09/12/24 10:09 LEGS Assessment and Plan *Assessment and plan (1) Right shoulder pain: Status: Acute Category: Medical Code(s): M25.511 - Pain in right shoulder Plan Patient is experiencing worsening pain in his right shoulder with limited range of motion. Patient was counseled that he may benefit from a suprascapular nerve block along the right shoulder. Risk and benefits were discussed with the patient and he would like to proceed forward with this plan of care. Patient has tried and failed conservative therapy including continued at home stretching exercise for longer than 12 weeks between injections. Patient has not had a suprascapular nerve block on the right side before however did get 80% with the left shoulder. Patient will be scheduled for a right suprascapular nerve block. This will be done without fluoroscopic or ultrasound guidance. Patient has been instructed to contact the clinic with any concerns before the next appointment. Dr. Parsons has reviewed this note and agrees with this plan of care. This note was dictated using voice recognition software and make contain errors or omissions. All injections are used with Lidocaine, Bupivacaine and Depo Medrol. Occasionally urine drug screen is needed to verify patient's compliance with our office pain contract. This is ordered based off specific treatments related to chronic pain with the potential to abuse certain medications.
[2024-09-20 11:20] VITALS: BP 129/81; PULSE 70; RESP 18; O2SAT 96; BMI 36.5
== END 2024-09-20 23:59 | disposition home or self-care (01) ==
LOC: SC.PAIN 07:15
PROVIDERS: PCP Family Medicine; Visit Provider Nurse Practitioner Family
DX: M25.511 Pain in right shoulder (principal); F17.210 Nicotine dependence, cigarettes, uncomplicated; Z73.89 Other problems related to life management difficulty; Z79.899 Other long term (current) drug therapy
CPT/HCPCS: 99212; G0463

== ENCOUNTER 2024-10-03 09:02 | Day surgery (SDC) | payer MEDICARE, SELFPAY ==
[2024-10-03 09:11] VITALS: BP 144/86; PULSE 86; RESP 16; TEMP 36.9; O2SAT 98; BMI 36.5
--- NOTE | 2024-10-03 09:14 | P.PCN_ITS ---
Procedure Date: 10/03/24 Time: 09:00 Anesthesiologist:: Gerson Terry CRNA Complications:: None Pre-procedure Diagnosis:: DJD right shoulder. Chronic right shoulder pain. Post-procedure Diagnosis:: Same. Indications for Procedure:: Patient is a pleasant 69-year-old male who comes our clinic today for right suprascapular nerve block. Patient describes right shoulder pain as constant, dull, aching. Patient has 5/5 strength in the right arm. However, limited range of motion secondary to right shoulder pain. He rates his pain 7/10. Procedure Details:: Details of procedure explained to the patient. The patient taken procedure room placed in sitting position. The over the right scapula was cleansed using chlorhexidine as a cleansing solution. Using a 25-gauge inch and half needle of the right suprascapular notch was found. After negative aspiration 10 cc of a solution containing 5 mL of 0.25% Marcaine +5 mL 1% lidocaine and 40 mg of Depo- Medrol was injected incrementally. Patient tolerated procedure without difficulty. No complications. Plan and Disposition:: Patient was discharged without incident.
[2024-10-03] MEDS: methylPREDNISolone ACETATE 80MG/ML VIAL 80 MG (09:20)
[2024-10-03] MEDS: BUPIVACAINE 0.25% 10ML INJ 25 MG IJ (09:20)
[2024-10-03] MEDS: LIDOCAINE 1% 5ML PF VIAL 5 ML (09:20)
[2024-10-03 09:21] VITALS: BP 135/93; PULSE 81; RESP 18; O2SAT 96
[2024-10-03 09:22] VITALS: BP 135/93; PULSE 81; RESP 18; O2SAT 96
[2024-10-03 09:27] VITALS: BP 141/84; PULSE 74; RESP 16; O2SAT 98
== END 2024-10-03 09:27 | disposition home or self-care (01) ==
PROVIDERS: PCP Family Medicine; Visit Provider Nurse Anesthetist, Certified Registered
DX: M19.011 Primary osteoarthritis, right shoulder (principal); M25.511 Pain in right shoulder; G89.29 Other chronic pain
CPT/HCPCS: 64418; J1010

== ENCOUNTER 2024-10-16 11:23 | Outpatient (POV) | payer MEDICARE, SELFPAY ==
[2024-10-16 11:44] VITALS: BP 111/68; PULSE 65; RESP 14; O2SAT 97; BMI 36.5
--- NOTE | 2024-10-16 11:45 | A.OFFVIS_ITS ---
[facility] Disclaimer: The information contained in this section may have been updated after the patient was seen, as this information can be updated by other users. Medical History Colonic polyp Cigarette smoker Coronary artery disease Abnormal findings on diagnostic imaging of heart and coronary circulation Angina pectoris Equivocal stress test Neural foraminal stenosis of lumbar spine Panic anxiety syndrome Post-operative infection Visit for suture removal Laceration of right little finger BPV (benign positional vertigo) History of Hodgkin's lymphoma Daytime somnolence Dizziness Typical angina Dyspnea Chest pain Lumbar disc disease with radiculopathy Encounter for management of wound VAC Lumbar disc disease with radiculopathy Wrist fracture, right Wrist pain, right Bilateral knee pain Tendonitis Postherpetic neuralgia Shingles Facial edema Constipation Edema of both feet Hyperglycemia Lumbar disc disease with radiculopathy Hypertension BPH (benign prostatic hyperplasia) Hyperlipidemia Hypothyroidism Thyroid goiter Hypoglycemia Hodgkin lymphoma Chest pain, atypical Pharyngitis Malaise Low back pain Anxiety Surgical History History of cardiac cath History of back surgery History of knee replacement Family History Other Family history of cancer Family history of heart disease Social History Smoking Status: Current every day smoker tobacco type: cigarettes packs per day: 1 second hand exposure: Yes alcohol intake: never substance use type: former substance user current occupational status: other Travel in the last 8 weeks: None household members: none housing: apartment lives independently: Yes marital status: number of children: 2 service: No intermediate: No 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 He does rate his pain in that shoulder a 0 out of 10 and states he had 100% relief with that injection and feels like it is still helping. He does right his left shoulder pain though a 5 out of 10. He denies any new trauma or injury. He does state that he feels like the last intra-articular injection has officially worn off and he would like to see about getting repeat injection. He states that the pain does interfere with his ability to perform activities of daily living such as cooking and cleaning. Patient states between the intra-articular and suprascapular nerve blocks he does get significant relief with improved function overall. His Dakotah has been reviewed and is appropriate. Review of Systems: General: No recent weight changes, no fever, no sleep disturbances Respiratory: No cough, no shortness of air, no recurring pulmonary infections Cardiovascular/peripheral vascular: No chest pain, no palpitations, no edema, no shortness of breath Gastrointestinal: No new onset incontinence, normal bowel movements reported Genitourinary: No new onset incontinence Musculoskeletal: Left shoulder pain Psychiatric: [Normal mood/affect] Neurological: [Denies weakness in extremities], [denies balance issues] Pain at rest (0-10 scale): 5 Objective Objective:: Physical Exam: General: Alert and oriented x3, no acute distress, pleasant and cooperative Lungs: Respirations even and unlabored, symmetrical chest expansion Eyes: PERRL Musculoskeletal: Flexion and extension of left shoulder somewhat guarded secondary to pain, [antalgic gait noted] Neurological: Speech clear, no gross sensory deficit Has patient had previous pain injection?: Yes Percent improvement in pain since last injection: 100% Conservative treatment options previously tried: Home exercise plan Length of treatment: Longer than 12 weeks Meds Home Medications and Allergies Home Medications ?Medication ?Instructions ?Recorded ?Confirmed ?Type buspirone 5 mg tablet 5 mg PO BID #180 tabs 12/16/23 10/03/24 Rx losartan 50 mg tablet 50 mg PO DAILY blood pressure #90 01/06/24 10/03/24 Rx tabs metoprolol succinate 50 mg 50 mg PO DAILY BLOOD PRESSURE #90 02/22/24 10/03/24 Rx tablet,extended release 24 hr tabs desvenlafaxine succinate 50 mg 50 mg PO DAILY #90 tabs 03/18/24 10/03/24 Rx tablet,extended release 24 hr (Pristiq) aspirin 81 mg tablet,delayed 81 mg PO DAILY #30 tabs 03/22/24 10/03/24 Rx release (Adult Low Dose Aspirin) omeprazole 40 mg capsule,delayed See Rx Instructions .Route 04/18/24 10/03/24 Rx release .COMPLEX #30 caps amlodipine 10 mg tablet 10 mg PO DAILY #90 tabs 04/19/24 10/03/24 Rx isosorbide mononitrate 60 mg 60 mg PO DAILY #30 tabs 04/19/24 10/03/24 Rx tablet,extended release 24 hr varenicline tartrate 0.5 mg (11)-1 See Rx Instructions PO PER PKG DIR 04/19/24 10/03/24 Rx mg (42) tablets in a dose pack #53 tabs (Chantix Starting Month Box) varenicline tartrate 1 mg tablet 1 mg PO BID 12 weeks #168 tabs 04/19/24 10/03/24 Rx (Chantix Continuing Month Box) cyanocobalamin (vitamin B-12) See Rx Instructions .Route 05/02/24 10/03/24 Rx 5,000 mcg sublingual tablet .COMPLEX #90 tabs (Vitamin B-12) levothyroxine 175 mcg tablet 175 mcg PO DAILY #90 tabs 09/12/24 10/03/24 Rx (Synthroid) atorvastatin 40 mg tablet 40 mg PO DAILY #90 tabs 09/15/24 10/03/24 Rx New Prescriptions to Start Prescriptions: Allergies Allergy/AdvReac Type Severity Reaction Status Date / Time escitalopram (From Lexapro) Allergy Severe Hallucinati Verified 10/03/24 09:10 ng morphine (MORPHINE) Allergy Unknown RASH ON Verified 10/03/24 09:10 LEGS Assessment and Plan *Assessment and plan (1) Left shoulder pain: Status: Acute Category: Medical Code(s): M25.512 - Pain in left shoulder Plan Patient is experiencing worsening pain in his left shoulder with limited range of motion. Patient has gotten significant relief with the intra-articular and suprascapular nerve blocks in the past. Patient has just had 100% relief along the right side and does not need any injections in this joint space however is having limited range of motion of his left shoulder. I did review over risk and benefits of the repeat intra-articular injection and he would like to proceed forward with this plan of care. Patient had his last intra-articular injection in July that did provide 50% improvement. Patient has tried and failed conservative therapy including continued at home stretching exercise for longer than 12 weeks in between injections. Patient does have chronic shoulder pain that is gone on for longer than 6 months. Patient will be scheduled for a intra-articular left shoulder injection. This will be done without fluoroscopic guidance or ultrasound. Patient has been instructed to contact the clinic with any concerns before the next appointment. Dr. Parsons has reviewed this note and agrees with this plan of care. This note was dictated using voice recognition software and make contain errors or omissions. All injections are used with Lidocaine, Bupivacaine and Depo Medrol. Occasionally urine drug screen is needed to verify patient's compliance with our office pain contract. This is ordered based off specific treatments related to chronic pain with the potential to abuse certain medications.
== END 2024-10-16 23:59 | disposition home or self-care (01) ==
LOC: SC.PAIN 11:24
PROVIDERS: PCP Family Medicine; Visit Provider Nurse Practitioner Family
DX: M25.512 Pain in left shoulder (principal); Z96.659 Presence of unspecified artificial knee joint; F17.210 Nicotine dependence, cigarettes, uncomplicated; Z73.89 Other problems related to life management difficulty
CPT/HCPCS: 99212; G0463

== ENCOUNTER 2024-11-07 09:37 | Day surgery (SDC) | payer MEDICARE, SELFPAY ==
[2024-11-07 09:51] VITALS: BP 130/86; PULSE 67; RESP 16; TEMP 36.4; O2SAT 97; BMI 37.9
[2024-11-07] MEDS: methylPREDNISolone ACETATE 80MG/ML VIAL 80 MG (09:59)
[2024-11-07] MEDS: LIDOCAINE 1% 5ML PF VIAL 5 ML (09:59)
[2024-11-07] MEDS: BUPIVACAINE 0.25% 10ML INJ 25 MG IJ (10:00)
[2024-11-07 10:01] VITALS: BP 123/84; PULSE 64; RESP 18; O2SAT 95
[2024-11-07 10:02] VITALS: BP 123/84; PULSE 64; RESP 18; O2SAT 95
[2024-11-07 10:12] VITALS: BP 116/71; PULSE 73; RESP 16; O2SAT 97
--- NOTE | 2024-11-07 11:22 | EXP.PAIN.PRO ---
Procedure Date: 11/07/24 Time: 10:40 Anesthesiologist:: Gerson Terry CRNA Complications:: None Pre-procedure Diagnosis:: DJD left shoulder. Chronic left shoulder pain. Post-procedure Diagnosis:: Same. Indications for Procedure:: Patient is a very pleasant 69-year-old male who comes our clinic today for a left intra-articular shoulder injection of cortisone and local anesthetic. Patient describes left shoulder pain as constant, dull, aching. Patient has 5/5 strength in the left shoulder. However, difficulty with range of motion secondary to left shoulder pain. He rates his pain 8/10. Procedure Details:: Procedure Details: Left shoulder intra-articular injection Informed consent was obtained risk and benefits of the procedure were explained to the patient. Patient was taken to the procedure room. The Left shoulder was prepped using ChloraPrep. A 25-gauge needle was used posteriorly to inject 10 mL bupivacaine 0.25% and Depo-Medrol 40 mg. Patient tolerated procedure well with no complications. Plan and Disposition:: Patient was discharged without incident.
== END 2024-11-07 10:12 | disposition home or self-care (01) ==
LOC: SC.PAINP 09:39
PROVIDERS: PCP Family Medicine; Visit Provider Nurse Anesthetist, Certified Registered
DX: M19.012 Primary osteoarthritis, left shoulder (principal); M25.512 Pain in left shoulder; G89.29 Other chronic pain
CPT/HCPCS: 20610; J1010

== ENCOUNTER 2024-11-20 13:04 | Outpatient (POV) | payer MEDICARE, SELFPAY ==
--- NOTE | 2024-11-20 13:13 | EXP.PAIN.SOA ---
[facility] Disclaimer: The information contained in this section may have been updated after the patient was seen, as this information can be updated by other users. Medical History Colonic polyp Next colonoscopy due, Aug 2025 Cigarette smoker Coronary artery disease Abnormal findings on diagnostic imaging of heart and coronary circulation Angina pectoris Equivocal stress test Neural foraminal stenosis of lumbar spine Panic anxiety syndrome Post-operative infection Visit for suture removal Laceration of right little finger BPV (benign positional vertigo) History of Hodgkin's lymphoma Daytime somnolence Dizziness Typical angina Dyspnea Chest pain Lumbar disc disease with radiculopathy Encounter for management of wound VAC Lumbar disc disease with radiculopathy Wrist fracture, right Wrist pain, right Bilateral knee pain Tendonitis Postherpetic neuralgia Shingles Facial edema Constipation Edema of both feet Hyperglycemia Lumbar disc disease with radiculopathy Hypertension BPH (benign prostatic hyperplasia) Hyperlipidemia Hypothyroidism Thyroid goiter Hypoglycemia Hodgkin lymphoma Chest pain, atypical Pharyngitis Malaise Low back pain Anxiety Surgical History History of cardiac cath History of back surgery History of knee replacement Family History Other Family history of cancer Family history of heart disease Social History Smoking Status: Current every day smoker tobacco type: cigarettes packs per day: 1 second hand exposure: Yes alcohol intake: never substance use type: former substance user current occupational status: other Travel in the last 8 weeks: None household members: none housing: apartment lives independently: Yes marital status: number of children: 2 service: No half-way: No 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 Today he rates his pain a 5 out of 10. He denies any new trauma or injury. He does states that the injection is working well. He does rate at least 50% improvement and feels like this is still working. Patient has been doing a combination between intra-articular and suprascapular nerve block for his shoulder pain. Patient had his last right suprascapular nerve block on October 03 that did provide 100% relief. His [place]otah has been reviewed and is appropriate. Review of Systems: General: No recent weight changes, no fever, no sleep disturbances Respiratory: No cough, no shortness of air, no recurring pulmonary infections Cardiovascular/peripheral vascular: No chest pain, no palpitations, no edema, no shortness of breath Gastrointestinal: No new onset incontinence, normal bowel movements reported Genitourinary: No new onset incontinence Musculoskeletal: Left shoulder pain Psychiatric: [Normal mood/affect] Neurological: [Denies weakness in extremities], [denies balance issues] Pain at rest (0-10 scale): 5 Objective Objective:: Physical Exam: General: Alert and oriented x3, no acute distress, pleasant and cooperative Lungs: Respirations even and unlabored, symmetrical chest expansion Eyes: PERRL Musculoskeletal: Flexion and extension of left shoulder somewhat guarded secondary to pain, [antalgic gait noted] Has patient had previous pain injection?: Yes Percent improvement in pain since last injection: 50% Conservative treatment options previously tried: Home exercise plan Length of treatment: Longer than 12 weeks Meds Home Medications and Allergies Home Medications ?Medication ?Instructions ?Recorded ?Confirmed ?Type buspirone 5 mg tablet 5 mg PO BID #180 tabs 12/16/23 11/15/24 Rx metoprolol succinate 50 mg 50 mg PO DAILY BLOOD PRESSURE #90 02/22/24 11/15/24 Rx tablet,extended release 24 hr tabs desvenlafaxine succinate 50 mg 50 mg PO DAILY #90 tabs 03/18/24 11/15/24 Rx tablet,extended release 24 hr (Pristiq) amlodipine 10 mg tablet 10 mg PO DAILY #90 tabs 04/19/24 11/15/24 Rx isosorbide mononitrate 60 mg 60 mg PO DAILY #30 tabs 04/19/24 11/15/24 Rx tablet,extended release 24 hr cyanocobalamin (vitamin B-12) See Rx Instructions .Route 05/02/24 11/15/24 Rx 5,000 mcg sublingual tablet .COMPLEX #90 tabs (Vitamin B-12) levothyroxine 175 mcg tablet 175 mcg PO DAILY #90 tabs 09/12/24 11/15/24 Rx (Synthroid) aripiprazole 15 mg tablet 15 mg PO DAILY 10/18/24 11/15/24 History aspirin 81 mg tablet,delayed 81 mg PO DAILY #30 tabs 10/18/24 11/15/24 Rx release (Adult Low Dose Aspirin) losartan 100 mg tablet 100 mg PO DAILY #30 tabs 10/18/24 11/15/24 Rx ranolazine 500 mg tablet,extended 500 mg PO BID #60 tabs 10/18/24 11/15/24 Rx release,12 hr erythromycin 5 mg/gram (0.5 %) eye 5 mg Eye-Both . 10/26/24 11/15/24 History ointment omeprazole 40 mg capsule,delayed See Rx Instructions .Route 10/26/24 11/15/24 Rx release .COMPLEX #30 caps atorvastatin 80 mg tablet 80 mg PO DAILY #90 tabs 11/15/24 11/15/24 Rx New Prescriptions to Start Prescriptions: Allergies Allergy/AdvReac Type Severity Reaction Status Date / Time escitalopram (From Lexapro) Allergy Severe Hallucinati Verified 11/15/24 13:08 ng morphine (MORPHINE) Allergy Unknown RASH ON Verified 11/15/24 13:08 LEGS Assessment and Plan *Assessment and plan (1) Right shoulder pain: Status: Acute Category: Medical Code(s): M25.511 - Pain in right shoulder (2) Left shoulder pain: Status: Acute Category: Medical Code(s): M25.512 - Pain in left shoulder Plan Patient is doing wonderful following his intra-articular shoulder injection on the left side and his right shoulder is still maintaining from the suprascapular nerve block. Patient will return to clinic in 1 month for reevaluation of symptoms and plan of care. Patient has been instructed to contact the clinic with any concerns before the next appointment. Dr. Parsons has reviewed this note and agrees with this plan of care. This note was dictated using voice recognition software and make contain errors or omissions. All injections are used with Lidocaine, Bupivacaine and Depo Medrol. Occasionally urine drug screen is needed to verify patient's compliance with our office pain contract. This is ordered based off specific treatments related to chronic pain with the potential to abuse certain medications.
[2024-11-20 14:00] VITALS: BP 117/87; PULSE 70; RESP 16; O2SAT 95; BMI 36.5
== END 2024-11-20 23:59 | disposition home or self-care (01) ==
LOC: SC.PAIN 13:05
PROVIDERS: PCP Family Medicine; Visit Provider Nurse Practitioner Family
DX: M25.511 Pain in right shoulder (principal); M25.512 Pain in left shoulder; F17.210 Nicotine dependence, cigarettes, uncomplicated; Z96.659 Presence of unspecified artificial knee joint
CPT/HCPCS: 99212; G0463

== ENCOUNTER 2025-01-29 09:25 | Outpatient (CLI) | payer MEDICARE, SELFPAY ==
[2025-01-29 20:08] LABS: Albumin Level 3.9 g/dl (3.5-5.0); Chloride 110 mmol/L (98-107)
[2025-01-29 20:09] LABS: Potassium 3.7 mmoL/L (3.5-5.1); Sodium 138 mmol/L (136-145)
[2025-01-29 20:11] LABS: Alanine Aminotransferase 33 U/L (12-78); Albumin/Globulin Ratio 1.2 (1.1-1.8); Alkaline Phosphatase 117 U/L (38-126); Anion Gap 10.7 mEq/L (5-15); Aspartate Amino Transferase 34 U/L (17-59); Bilirubin,Total 0.9 mg/dl (0.2-1.3); Blood Urea Nitrogen 26 mg/dl (9-20); Carbon Dioxide 21 mmol/L (22.0-30.0); Estimated Glomerular Filt Rate 66 ml/min (>60); GFR (African American) 80 ML/MIN (>60); Globulin 3.2 g/dL (1.3-3.2); Total Protein,Serum 7.1 g/dl (6.3-8.2)
[2025-01-29 20:12] LABS: Calcium 7.8 mg/dl (8.4-10.2); Chol/HDL Ratio 5.9 (1-3.5); Cholesterol 178 mg/dl (140-200); Glucose 111 mg/dl (74-100); HDL Cholesterol 30 mg/dl (40-60); Triglycerides 157 mg/dl (30-150); VLDL Cholesterol 31 mg/dL (0-40)
[2025-01-29 20:23] LABS: Direct LDL Cholesterol 103.13 mg/dL (100-129)
--- OUTSIDE RECORDS SUMMARY | 2025-01-30 14:05 | XMS_ITS | Data Portability ---
Author Organization [place] [facility] [place] [facility] [place] & KEVIN Chery ADMIN Address [address] [place] [id number] Assessment No assessment recorded. Plan of Treatment Reminders Order Date Submit Date Provider Last Modified By Organization Details Last Modified Time Details Appointments None recorded. Lab C-reactive protein, quantitativ e, serum or plasma 2022 023 [place] [address] [facility], [address], [address], [place], [address], 3 07:13:35 ESR (erythrocyt e sedimentati on rate), blood 2022 023 ELLIS [facility], [address], [address], [place], [address], 3 13:10:15 C reactive protein, QN, serum or plasma 2022 023 ELLIS [facility], [address], [address], [place], [address], 3 11:13:05 ESR (erythrocyt e sedimentati on rate), blood 2022 023 ELLIS [facility], [address], [address], [place], [address], 3 11:13:04 Referral None recorded. Procedures None recorded. Surgeries None recorded. Imaging None recorded. Medication Orders None recorded. Patient TargetsNo targets recorded. Patient InstructionsNo instructions recorded. Reason for Referral None Reported. Results Created Date Observation Date Name Description Value Unit Range Abnormal Flag Note LastModifiedBy Organization Detail LastModifiedTime 12/30/1912/30/2022 SEDIM ENTAT ION RATE- WESTE RGREN sedimentatio n rate-westerg bela 15 mm/HR 0-30 Not Available [facility] ([facility]) [address] [place], [address], 12/30/2022 11:13:03 12/30/19 23 12/30/2022 C-MOON CTIVE PROTE IN, QUANT C-reactive protein, quant 6 mg/L 0-10 Not Available [facility] ([facility]) [address] [place], [address], 12/30/2022 11:13:05 12/30/19 23 12/29/2022 KRYSTYNA Edgar NOTE please note Commen t The date and/o r time of colle ction was not indic ated on the requi sitio n as requi red by state and nara al law. The date of recei pt of the speci men was used as the colle ction date if not suppl ied. Not Available [facility] ([facility]) [address] [place], [address], 12/30/2022 11:13:06 03/30/20 23 03/31/2023 SEDIM ENTAT ION RATE- WESTE RGREN sedimentatio n rate-westerg bela 12 mm/HR 0-30 Not Available [facility] ([facility]) [address] [place], [address], 03/31/2023 13:10:15 03/30/2003/31/2023 C-MOON CTIVE PROTE IN, QUANT C-reactive protein, quant 5 mg/L 0-10 Not Available [facility] ([facility]) [address] [place], [address], 03/31/2023 13:10:16 Result Notes None recorded. Medical Equipment None Reported. Allergies Allergen ID Allergen Name Allergen Category Reaction Reaction Severity Criticality Documentation Date Start Date Code Code System Note Provider Name and Address Organization Details Recorded Time 33370 morphine medicatio n Not available Not available Not available 12/29/2022 7052 RxNorm Muriel Russell [facility], [place] - [place] - [place] & [place] 3 09:30:07 Medications Name Sig Start Date Stop Date Status Note LastModified by Organization Details LastModified Time fluconazole 100 mg tablet active Not Available Not Available No t Available gabapentin 600 mg tablet 12/29 completed Not Available Not Available Not Available atorvastatin 20 mg tablet active Not Available Not Available No t Available potassium chloride ER 8 mEq capsule,extende d release active Not Available Not Available No t Available atorvastatin 10 mg tablet active Not Available Not Available No t Available metoprolol succinate ER 50 mg tablet,extended release 24 hr active Not Available Not Availabl e Not Available minocycline 100 mg capsule active Not Available Not Available N ot Available clonazepam 0.5 mg tablet active Not Available Not Available No t Available gabapentin 400 mg capsule 12/29 completed Not Available Not Available Not Available amlodipine 5 mg tablet active Not Available Not Available Not Available omeprazole 40 mg capsule,delayed release active Not Available Not Available Not Available doxycycline monohydrate 100 mg tablet active Not Available Not Available No t Available tramadol 50 mg tablet active Not Available Not Available Not Available nystatin-triamc inolone 100,000 unit/gram-0.1 % topical ointment active Not Available Not Available Not Available levothyroxine 100 mcg tablet active Not Available Not Availab le Not Available oxycodone-aceta minophen 5 mg-325 mg tablet active Not Available Not Available Not Available levothyroxine 88 mcg tablet active Not Available Not Availabl e Not Available aspirin 325 mg tablet,delayed release 12/29 completed Not Available Not Available Not Available nystatin 100,000 unit/gram topical cream active Not Available Not Availabl e Not Available losartan 25 mg tablet active Not Available Not Available Not Available mupirocin 2 % topical ointment active Not Available Not Available Not Available furosemide 20 mg tablet active Not Available Not Available No t Available diazepam 5 mg tablet active Not Available Not Available Not Available oxycodone 5 mg tablet active Not Available Not Available Not Available aripiprazole 10 mg tablet active Not Available Not Available No t Available aripiprazole 5 mg tablet active Not Available Not Available No t Available pregabalin 75 mg capsule active Not Available Not Available N ot Available Pro Fe 180 mg iron capsule active Not Available Not Available Not Available oxycodone 10 mg tablet active Not Available Not Available Not Available diclofenac 1 % topical gel active Not Available Not Available Not Available iron ER 159 mg (45 mg iron) tablet,extended release active Not Available Not Available Not Available Xarelto 10 mg tablet active Not Available Not Available Not Available Vitals Date Recorded Body weight Body mass index (BMI) Body height Body temperature Oxygen saturation Oxygen saturation in Arterial blood by Pulse oximetry Heart rate Systolic blood pressure Diastolic blood pressure Provider Name and Address Organization Details Last Updated DateTime 3 791157. 95 g 33.9 kg/m2 180.34 cm 97.9 [degF] 97 % 97 % 64 /min 158 mm[Hg] 98 mm[Hg] Muriel Yvonne [facility] & [place] 09:33:11 Date Recorded Body height Oxygen saturation Oxygen saturation in Arterial blood by Pulse oximetry Heart rate Body temperature Body mass index (BMI) Body weight Systolic blood pressure Diastolic blood pressure Provider Name and Address Organization Details Last Updated DateTime 3 180.34 cm 96 % 96 % 76 /min 98.1 [degF] 37.5 kg/m2 909200. 35 g 148 mm[Hg] 76 mm[Hg] Muriel Yvonne [facility] & [place] 3 08:50:30 Social History Question Answer Notes LastModified by Organizat ion Details LastModified Time Tobacco Smoking Status Current Every Day Smoker Muriel Russell [facility] & [place] 12/29/2022 09:31:12 What Is Your Current Pack Years? 10-19packdelphine s Information not available 12/29/2022 How Much Tobacco Do You Smoke? 2 PPW Information not available 12/29/2022 Sex: Unknown Functional Status None recorded. Mental Status None recorded. Family History Nothing Reported. Medical History No medical history recorded. 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 Cultures were negative due to antibiotic exposure. The patient completed several weeks of intravenou s induction therapy and was briefly on consolidat ion tetracycli ne therapy due to the retained prosthesis . However, he did not tolerate doxycyclin e or minocyclin e. Consequent ly, he has been off all antibiotic s for the past 3 months. Based on his history and exam from today, there is no evidence of persistent or recurrent infection. He will remain off antibiotic s. I will repeat inflammato ry markers today. Given the retained prosthesis , there is always a risk of infection recurrence . Consequent ly, I will continue to monitor him periodical ly. 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 Cultures were negative due to antibiotic exposure. The patient completed several weeks of intravenou s induction therapy and was briefly on consolidat ion tetracycli ne therapy due to the retained prosthesis . However, he did not tolerate doxycyclin e or minocyclin e. Consequent ly, he has been off all antibiotic s for the past 6 months. Despite this, he continues without any obvious signs of persisting infection in the knee. I will repeat his inflammato ry markers today. They were normal last visit. If the inflammato ry markers are normal from today and he continues to do well, he will follow up with me as needed. I did go over with him the signs and symptoms of recurrent infection in the knee. Health Concerns Section Related Observation LastModified by Organization Erwin ls LastModified Time None Recorded Concern Status LastModified by Organization Details LastModified Time None Recorded Advance Directives Directive None Recorded Payers Insurance Date Sequence Insurance Name Policy Number Policy Larsen Covered Member ID Larsen Member ID Guarantor Name 11/23/2022 1 [place] (MEDICARE REPLACEMENT HMO) [id number] Sean Pierson [id number] Sean Pierson 10/07/2023 2 [employer] (MEDICARE REPLACEMENT/AD VANTAGE - HMO) Sean Pierson [id number] Sean Pierson 03/27/2023 1 [place] Sean Pierson [id number] Sean Hooverhop 11/23/2022 3 [employer] (MEDICARE REPLACEMENT/AD VANTAGE - PPO) Sean Pierson [id number] Sean Pierson 12/29/2022 1 *SELF PAY* Ro kortney Pierson 11/23/2022 1 [place] Sean Hooverhop [id number] Sean Hooverhop 11/23/2022 2 [employer] (MEDICARE REPLACEMENT/AD VANTAGE - HMO) Sean Naqvi Pierson [id number] Sean Hooverhop 12/29/2022 [employer] (MEDICARE REPLACEMENT/AD VANTAGE - PPO) Sean Hooverhop [id number] Sean Hooverhop Notes Date Note Type Note Provider Name and Address Organization Details Recorded Time 12/29/2022 text/html This is a 67-year-old white male following up with al for a 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 The patient previously underwent a debridement with prosthesis retention. Cultures were negative due to prior antibiotic exposure; however, the Gram stain revealed Gram-positive cocci in clusters suggestive of Staphylococcus species. He completed 6+ weeks of intravenous induction therapy. I then placed him on consolidation/suppre ssive tetracycline therapy. He did not tolerate minocycline or doxycycline. Consequently, he is off all suppressive therapy and just here for monitoring.. He has no complaints today. His knee pain is relatively minimal. He is ambulating well. The Surgical incision remains healed. No fever or other issues. 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 The patient previously underwent a debridement with prosthesis retention. Cultures were negative due to prior antibiotic exposure; however, the Gram stain revealed Gram-positive cocci in clusters suggestive of Staphylococcus species. He completed 6+ weeks of intravenous induction therapy. I then placed him on consolidation/suppre ssive tetracycline therapy. He did not tolerate minocycline or doxycycline. Consequently, he is off all suppressive therapy and just here for monitoring. He has been off suppressive therapy for 6 months. Other than intermittent pain with ambulation, he denies any complaints. The pain is stable. His surgical incision remains healed. No redness or warmth about the knee. Venkat Faustin MD [address], [place], [address], [facility] - [place] - [place] & [place] 03/30/2023 09:14:56
--- OUTSIDE RECORDS SUMMARY | 2025-01-30 14:05 | XMS_ITS ---
Author Organization [facility] Address [address] 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 The pathology from the tonsillectomy was non-diagnostic, but there were atypical lymphoid collections concerning for Hodgkin's Lymphoma -05/04/2017 PET scan: Two moderately hypermetabolic right consecutive level 2A cervical lymph nodes with maxSUV 5.5, measuring 13 x 12 mm and 11 x 10 mm receptively. No other suspicious hypermetabolic yoko or extranodal disease throughout the chest, abdomen and pelvis. -06/11/2017: lymph node excisional biopsy, right neck level 2 and 3. Classical Hodgkin lymphoma, lymphocyte rich subtype -07/13/17: Consented for ABVD therapy; cardiac and pulmonary work-up satisfactory. -08/18/2017: cycle 1 of ABVD -09/15/2017: cycle 2 0f ABVD -10/08/2017: Post cycle 2 PET scan - No definitive new suspicious lesions -10/14/2017: had initial consultation with Radiation Oncology -10/27/2017 - 11/26/2017: Underwent XRT to right tonsil and involved at risk neck. Received 36 Gy in 18 fractions. -07/09/2021 PET scan: Asymmetric FDG activity in the left lingual tonsil with corresponding soft tissue thickening. A small hypermetabolic left cervical level 2 lymph node is unchanged in size since 2018, however, with new metabolic activity, therefore neoplastic involvement cannot be entirely excluded. Current Treatment and Therapy Plans No current plan information found. Past Treatment and Therapy Plans No past plan information found. Lifetime Dose Tracking * Chemical Lifetime Dose Automatic Entry Manual Entr y DOXOrubicin 100 mg/m2 (240 mg) 0 mg/m2 (0 mg) 100 mg/ m2 (240 mg) Bleomycin 96 Units 0 Units 96 Units Fluoro Time 1.067 minutes 1.067 minutes 0 minutes Air Kerma 11.8 mGy 11.8 mGy 0 mGy
--- OUTSIDE RECORDS SUMMARY | 2025-01-30 14:05 | XMS_ITS | Clinical Summary ---
Author Organization [facility] [place] [address] Care Team Providers Care Telephone Maintainer Name Role Phone Unavailable Primary Care Provider Unavailabl e Social History Tobacco Use Types Packs/Day Years Used Date Smoking Tobacco: Never Assessed Sex and Gender Information Value Date Recorded Sex Assigned at Not on file Legal Sex Male 8:36 PM EDT Gender Identity Not on file Sexual Orientation Not on file Plan of Treatment Health Maintenance Due Date Last Done Comments Annual Wellness Exam 1958 Hepatitis C Screening 1973 DTaP/TDaP/Td (1 - Tdap) 1974 Cologuard 2000 Colon Cancer Screening 2000 Colonoscopy 2000 FIT 2000 Sigmoidoscopy 2000 Virtual Colonography 2000 Pneumococcal Vaccine 50+ (1 of 1 - PCV) 2005 Zoster (1 of 2) 2005 COVID-19 Vaccine (2023-2 5 season) 2024 Influenza Vaccine (Season Ended) 2025 Hepatitis B Vaccine Aged Out No longe r eligible based on patient's age to complete this topic Meningococcal B Vaccine Aged Out No l onger eligible based on patient's age to complete this topic
--- OUTSIDE RECORDS SUMMARY | 2025-01-30 14:05 | XMS_ITS | Encounter Summary ---
Author Organization Healthcare Address [address] [place] [address] Care Team Providers Care Cash Clerk Name Role Phone Arash James MD Primary Care Provider [phone] Encounter Details Date Type Department Care Team (Late st Contact Info) Description 04/13/2017 Abstract [facility] [id number] [place] [address] Clary Vivas, RN [facility] Social History Tobacco Use Types Packs/Day Years Used Date Smoking Tobacco: Never Assessed Sex and Gender Information Value Date Recorded Sex Assigned at Not on file Legal Sex Male 6:51 PM EDT Gender Identity Not on file Sexual Orientation Not on file documented as of this encounter Plan of Treatment Not on file documented as of this encounter Visit Diagnoses Not on filedocumented in this encounter Care Teams Cash Clerk Relationship Specialty Start Date End Date Arash James MD [address] [place] [address] PCP - General 01/03/21 documented as of this encounter
--- OUTSIDE RECORDS SUMMARY | 2025-01-30 14:05 | XMS_ITS | Clinical Summary ---
Author Organization [facility] Address [address] [place] [address] Care Team Providers Care Bilingual Sales Assistant Name Role Phone Arash James MD Primary Care Provider + [phone] Allergies Active Allergy Reactions Criticality Noted Date Comments Escitalopram Hallucinations High 05/27/2022 Morphine Shortness of breath, Hives,Unknown - Patient states they do not know rxn details High 05/19/2017 Medications levothyroxine (Synthroid, Levoxyl) 100 MCG tablet Take 1 tablet (100 mcg) by mouth 1 (one) time each day. 05/20/2021 Active metoprolol succinate XL (Toprol-XL) 50 MG 24 hr tablet Take 1 tablet (50 mg) by mouth 1 (one) time each day. 07/24/2021 Active oxyCODONE-aceta minophen (Percocet) 5-325 MG tablet Take 1 tablet by mouth 2 (two) times a day. 02/01/2023 Active clonazePAM (KlonoPIN) 0.5 MG tablet Take 1 tablet (0.5 mg) by mouth 2 (two) times a day. 02/01/2023 Active atorvastatin (Lipitor) 20 MG tablet Take 1 tablet (20 mg) by mouth 1 (one) time each day. 03/04/2023 Active ARIPiprazole (Abilify) 10 MG tablet Take 1 tablet (10 mg) by mouth 1 (one) time each day. 03/02/2023 Active amLODIPine (Norvasc) 5 MG tablet Take 1 tablet (5 mg) by mouth 1 (one) time each day. 03/02/2023 Active pregabalin (Lyrica) 75 MG capsule Take 1 capsule (75 mg) by mouth 2 (two) times a day. 03/02/2023 Active omeprazole (PriLOSEC) [address] capsule Take 1 capsule (40 mg) by mouth 1 (one) time each day. Do not crush or chew. Active furosemide (Lasix) 20 MG tablet Take 1 tablet (20 mg) by mouth 1 (one) time each day. Active Vitamin B-12 [address] 50,000 mcg under the tongue 1 (one) time each day. 05/31/2023 Active levothyroxine (Synthroid, Levoxyl) 150 MCG tablet Take 1 tablet (150 mcg) by mouth 1 (one) time each day. 05/31/2023 Active losartan (Cozaar) 25 MG tablet Take 1 tablet (25 mg) by mouth 1 (one) time each day. 06/23/2023 Active Active Problems Problem Noted Date Diagnosed Date [...] therefore neoplastic involvement cannot be entirely excluded. Immunizations Immunization Administration Dates Next Due Influenza, injectable, quadrivalent, preservativ e free 05/24/2018 Family History Medical History Relation Name Comments Cardiac disorder Father Family hist ory of cardiac disorder Hypertension Father Diabetes Mother Family history of diabetes mellitus Cardiac disorder Other 1 Hypertension Other 2 Anesthesia problems Neg Hx Malig Hyperthermia Neg Hx Relation Name Status Comments Father Mother Other 1 Other 2 Social History Tobacco Use Types Packs/Day Years Used Date Smoking Tobacco: Every Day Cigarettes 1.5 26 Smokeless Tobacco: Never Tobacco Cessation:Ready to Q uit: Not Asked; Counseling Given: Not Answered Alcohol Use Standard Drinks/Week Comments No 0 (1 standard drink = 0.6 oz pur e alcohol) PHQ-2 Answer Date Recorded Patient Health Questionnaire-2 Score 2 09/04/2021 Sex and Gender Information Value Date Recorded Sex Assigned at Not on file Legal Sex Male 6:51 PM EDT Gender Identity Not on file Sexual Orientation Not on file Last Filed Vital Signs Vital Sign Reading Time Taken Comments Blood Pressure 143/90 06/28/2023 10:13 AM EST did not take bp meds today Pulse 78 06/28/2023 10:13 AM EST Temperature 36.2 C (97.1 F) 06/28/2023 10:10 AM EST Respiratory Rate 20 06/28/2023 10:1 0 AM EST Oxygen Saturation 98% 06/28/2023 10: 10 AM EST Inhaled Oxygen Concentration - - Weight 120 kg (264 lb 15.9 oz) 06/28/2023 10:10 AM EST Height 180.3 cm (5' 10.98 ) 06/28/2023 10:10 AM EST Body Mass Index 36.98 06/28/2023 10:10 AM EST Plan of Treatment Health Maintenance Due Date Last Done Comments UKY-Medicare Annual Wellness (AWV) 1955 UKY-/Child/Adol SDOH Screenings 1955 UKY-Obesity Intervention 1961 UKY- SDOH Screenings 1973 UKY-Adult SDOH Screenings 1973 UKY-Zoster Vaccines (1 of 2) 1974 CT Colonography 2000 Colonoscopy 2000 FIT-DNA 2000 FIT 2000 FOBT 2000 Sigmoidoscopy 2000 UKY-Colorectal Cancer Screening 2000 [id number] Vaccine (3 - Moderna risk series) 02/05/2021 01/08/2021, 12/11/2020 UKY-Depression Screening 09/04/2022 09/04/2021 UKY-Influenza Vaccine (Season Ended) 2025 05/20/2021, 06/11/2020, 05/24/2018, Additional history exists UKY-DTaP,Tdap,and Td Vaccines (2 - Td or Tdap) 12/05/2031 12/04/2021, 10/26/1996 UKY-Hepatitis C Screening Completed 07/13/2017 UKY-Lung Cancer Screening Discontinued 02/18/2018, UKY-Hepatitis A Vaccines Aged Out 09/27/2018 No longer eligible based on patient's age to complete this topic UKY-Pneumococcal Vaccine: 50+ Years Completed 06/23/2023, 05/20/2021, 09/26/2020 UKY-RSV Vaccine: 60+ Years or Completed 08/30/2023 HPV Vaccines Aged Out No longer eligi ble based on patient's age to complete this topic UKY-HIB Vaccines Aged Out No longer e ligible based on patient's age to complete this topic UKY-IPV Vaccines Aged Out No longer e ligible based on patient's age to complete this topic UKY-Rotavirus Vaccines Aged Out No lo nger eligible based on patient's age to complete this topic Medical Devices Implanted Type Area Hospice Executive Director Device Identifier Shelf Expiration Date Model / Serial / Lot Knee Knee Right: Knee Procedures Procedure Name Priority Date/Time Associated Diagnosis Comments CT CHEST W IV CONTRAST Routine 02/18/2018 10:19 AM EDT HEPATITIS C ANTIBODY W/REFLEX TO HCV QUANT PCR Routine 07/13/2017 9:55 AM EST from Last 3 Months or Most Recently Relevant to Health Maintenance Results * CT Chest w IV Contrast (02/18/2018 10:19 AM EDT) Anatomical Region Laterality Modality Chest Computed Tomogra phy Narrative 02/18/2018 10:36 AM EDT REQUESTING PHYSICIAN: ANNMARIE ESPINOSA REASON FOR EXAMINATION/PROCEDURE: hodgkins lyphoma EXAMINATION / PROCEDURE: CT Chest W IVCON Feb 18 2018 - 10:19; CLINICAL INDICATION: Hodgkin's lymphoma. TECHNIQUE: Multiple CT helical image s were obtained from thoracic inlet through upper abdomen with administration of IV contrast. 100 mL of Omnipaque-300 were administered intravenously. Total DLP (Dose-Length Product): 1822.13 mGy.cm. Please note: The reported value represen ts the total of one or more individual components during the CT acquisition on this date and at this time, and as such, the same value may appear in more than one CT report depending on the interpreting/reporting physicians. COMPARISON: [facility] [id number] FINDINGS: Mediastinum and Pleura: No mediastinal or hilar adenopathy. No pleural or pericardial effusion. Lungs: No suspicious pulmonary nodules. Upper Abdomen: No suspicious lesions in the partially visualized upper abdome n. Musculoskeletal: No suspicious lytic or sclerotic lesion. IMPRESSION: No evidence of thoracic progression. CRITICAL RESULT: No. COMMUNICATION: Per this written report. Verified by: ALCIDES CRAWFORD M.D. on Feb 18 2018 10:35 A Transcribed by: [facility] on Feb 18 2018 10:35A Dictated by: ALCIDES CRAWFORD M.D. on Feb 18 2018 10:33A Procedure Note Alcides Crawford - 12/16/2020 REQUESTING PHYSICIAN: ANNMARIE ESPINOSA REASON FOR EXAMINATION/PROCEDURE: hodgkins lyphoma EXAMINATION / PROCEDURE: CT Chest W IVCON Feb 18 2018 - 10:19; CLINICAL INDICATION: Hodgkin's lymphoma. TECHNIQUE: Multiple CT helical image s were obtained from thoracic inlet through upper abdomen with administration of IV contrast. 100 mL of Omnipaque-300 were administered intravenously. Total DLP (Dose-Length Product): 1822.13 mGy.cm. Please note: The reported value represen ts the total of one or more individual components during the CT acquisition on this date and at this time, and as such, the same value may appear in more than one CT report depending on the interpreting/reporting physicians. COMPARISON: [facility]ce [facility] 2016 FINDINGS: Mediastinum and Pleura: No mediastinal or hilar adenopathy. No pleural or pericardial effusion. Lungs: No suspicious pulmonary nodules. Upper Abdomen: No suspicious lesions in the partially visualized upper abdome n. Musculoskeletal: No suspicious lytic or sclerotic lesion. IMPRESSION: No evidence of thoracic progression. CRITICAL RESULT: No. COMMUNICATION: Per this written report. Verified by: ALCIDES CRAWFORD M.D. on Feb 18 2018 10:35 A Transcribed by: [facility] on Feb 18 2018 10:35A Dictated by: ALCIDES CRAWFORD M.D. on Feb 18 2018 10:33A us Annmarie Espinosa MD IMG CT PROCEDURES Final Re sult * Hepatitis C Antibody (07/13/2017 9:55 AM EST) Hepatitis C Antibody NEGATIVE Reference Range: Negative SUNQUEST 07/13/2017 9:55 AM EST 07/13/2017 10:16 AM EST Amrita Garcia MD LAB BLOOD ORDERABLES Final Resu lt SUNQUEST from Last 3 Months or Most Recently Relevant to Health Maintenance Insurance [facility] MEDICARE Care Teams Bilingual Sales Assistant Relationship Specialty Start Date End Date Arash James MD [address] [place] [address] PCP - General 01/03/21
[2025-01-31 13:40] LABS: Intact Parathyroid Hormone 37.3 pg/mL (7.5-53.5)
== END 2025-01-29 23:59 | disposition home or self-care (01) ==
LOC: LAB.DROPOF 01-30 14:01
PROVIDERS: PCP Family Medicine; Visit Provider Family Medicine
DX: E78.5 Hyperlipidemia, unspecified (principal); E03.9 Hypothyroidism, unspecified
CPT/HCPCS: 80053; 80061; 84443

== ENCOUNTER 2025-02-09 18:01 | Outpatient (CLI) | payer MEDICARE, SELFPAY ==
--- OUTSIDE RECORDS SUMMARY | 2025-02-09 18:03 | XMS_ITS | Encounter Summary ---
Author Organization [facility] Address [address] [place] [address] Care Team Providers Care Blank Driller Name Role Phone Arash James MD Primary Care Provider [phone] Encounter Details Date Type Department Care Team (Late st Contact Info) Description 04/13/2017 Abstract [facility] Radiation [id number] [place] [address] Clary Vivas, RN [facility] Social [...] on filedocumented in this encounter Care Teams Blank Driller Relationship Specialty Start Date End Date Arash James MD [address] [place] [address] PCP - General 01/03/21 documented as of this encounter
--- OUTSIDE RECORDS SUMMARY | 2025-02-09 18:04 | XMS_ITS | Data Portability ---
Author Organization [place] [facility] [place] [facility] [place] [facility] Address [address] [place] [id number] Assessment No assessment recorded. Plan of Treatment Reminders Order Date Submit Date Provider Last Modified By Organization Details Last Modified Time Details Appointments None recorded. Lab C-reactive protein, quantitativ e, serum or plasma 2022 023 [place] [address] [facility], [address], [address], [place], [address], 3 07:13:35 ESR (erythrocyt e sedimentati on rate), blood 2022 023 [place] [facility], [address], [address], [place], [address], 3 13:10:15 C reactive protein, QN, serum or plasma 2022 023 [place] [facility], [address], [address], [place], [address], 3 11:13:05 ESR (erythrocyt e sedimentati on rate), blood 2022 023 [place] [facility], [address], [address], [place], [address], 3 11:13:04 Referral None recorded. Procedures None recorded. Surgeries None recorded. Imaging None recorded. Medication Orders None recorded. Patient TargetsNo targets recorded. Patient InstructionsNo instructions recorded. Reason for Referral None Reported. Results Created Date Observation Date Name Description Value Unit Range Abnormal Flag Note LastModifiedBy Organization Detail LastModifiedTime 12/30/19 23 12/30/2022 SEDIM ENTAT ION RATE- WESTE RGREN sedimentatio n rate-westerg bela 15 mm/HR 0-30 Not Available [facility] ([facility]) [address] [facility] [place], [address], 12/30/2022 11:13:03 12/30/19 23 12/30/2022 C-MOON CTIVE PROTE IN, QUANT C-reactive protein, quant 6 mg/L 0-10 Not Available [facility] ([facility]) [address] [facility] [place], [address], 12/30/2022 11:13:05 12/30/19 23 12/29/2022 KRYSTYNA Edgar NOTE please note Commen t The date and/o r time of colle ction was not indic ated on the requi sitio n as requi red by state and nara al law. The date of recei pt of the speci men was used as the colle ction date if not suppl ied. Not Available [facility] ([facility]) [address] [facility] [place], [address], 12/30/2022 11:13:06 03/30/20 23 03/31/2023 SEDIM ENTAT ION RATE- WESTE RGREN sedimentatio n rate-westerg bela 12 mm/HR 0-30 Not Available [facility] ([facility]) [address] [facility] [place], [address], 03/31/2023 13:10:15 03/30/2003/31/2023 C-MOON CTIVE PROTE IN, QUANT C-reactive protein, quant 5 mg/L 0-10 Not Available [facility] ([facility]) [address] [facility] [place], [address], 03/31/2023 13:10:16 Result Notes None recorded. Medical Equipment None Reported. Allergies Allergen ID Allergen Name Allergen Category Reaction Reaction Severity Criticality Documentation Date Start Date Code Code System Note Provider Name and Address Organization Details Recorded Time 83171 morphine medicatio n Not available Not available Not available 12/29/2022 7052 RxNorm Muriel Russell [facility], [place] - [place] - [place] & [place] 3 09:30:07 Medications Name Sig Start Date [...] Address Organization Details Last Updated DateTime 3 850742. 95 g 33.9 kg/m2 180.34 cm 97.9 [degF] 97 % 97 % 64 /min 158 mm[Hg] 98 mm[Hg] Muriel Yvonne [facility] & [place] 09:33:11 Date Recorded Body height Oxygen saturation Oxygen saturation in Arterial blood by Pulse oximetry Heart rate Body temperature Body mass index (BMI) Body weight Systolic blood pressure Diastolic blood pressure Provider Name and Address Organization Details Last Updated DateTime 3 180.34 cm 96 % 96 % 76 /min 98.1 [degF] 37.5 kg/m2 435967. 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 [id number] 6777680 T84.53XD Right knee prosthetic joint infection most [...] PLUS (MEDICARE REPLACEMENT HMO) [id number] Sean Pierson [id number] Sean Pierson 10/07/2023 2 [employer] (MEDICARE REPLACEMENT/AD VANTAGE - HMO) Sean Pierson [id number] Sean Pierson 03/27/2023 1 [place]ICARE[place] Sean Pierson [id number] Sean Hooverhop 11/23/2022 3 [employer] (MEDICARE REPLACEMENT/AD VANTAGE - PPO) Sean Pierson [id number] 1 Sean Pierson 12/29/2022 1 *SELF PAY* Ro kortney Pierson 11/23/2022 1 [place] Sean Hooverhop [id number] 1 [id number] Sean Hooverhop 11/23/2022 2 [employer] (MEDICARE REPLACEMENT/AD VANTAGE - HMO) Sean Naqvi Pierson [id number] Sean Hooverhop 12/29/2022 [employer] (MEDICARE REPLACEMENT/AD VANTAGE - PPO) Sean Hooverhop [id number] Sean Hooverhop Notes Date Note Type Note Provider Name and Address Organization Details Recorded Time 12/29/2022 text/html This is a 67-year-old white male following up with sc for a right knee prosthetic joint infection [...] fever or other issues. Venkat Faustin MD [address], [place], [address], [place] - [place] - [place] 12/29/2022 09:48:32 03/30/2023 text/html This is a 67-year-old white male following up with sc for a right knee prosthetic joint infection [...] warmth about the knee. Venkat Faustin MD [address], [place], [address], [facility] - [place] - [place] 03/30/2023 09:14:56
--- OUTSIDE RECORDS SUMMARY | 2025-02-09 18:04 | XMS_ITS ---
Author Organization [facility] Address [address] [place] [address] Care Team Providers Care Edger Tailer Name Role Phone Arash James MD Primary Care Provider + [phone] Active Problems Problem Noted Date Diagnosed Date [...]
--- OUTSIDE RECORDS SUMMARY | 2025-02-09 18:04 | XMS_ITS | Clinical Summary ---
Author Organization [facility] [place] [address] Care Team Providers Care Manager Graphic Name Role Phone Unavailable Primary Care Provider [...]
--- OUTSIDE RECORDS SUMMARY | 2025-02-09 18:04 | XMS_ITS | Clinical Summary ---
Author Organization [facility] Address [address] [place] [address] Care Team Providers Care Scene And Lighting Design Lecturer Name Role Phone Arash James MD Primary Care Provider + [phone] Allergies Active Allergy Reactions Criticality Noted Date [...] 2000 Sigmoidoscopy 2000 [facility]Y-Colorectal Cancer Screening 2000 [id number] Vaccine (3 - Moderna risk series) 02/05/2021 [...] this topic Medical Devices Implanted Type Area Building Maintenance Supervisor Device Identifier Shelf Expiration Date Model / [...] depending on the interpreting/reporting physicians. COMPARISON: Dece [facility] [id number] FINDINGS: Mediastinum and Pleura: No mediastinal [...] Feb 18 2018 10:35 A Transcribed by: [facility] on Feb 18 2018 10:35A Dictated by: [...] depending on the interpreting/reporting physicians. COMPARISON: Dece er 2016 FINDINGS: Mediastinum and Pleura: No mediastinal [...] 10:35 A Transcribed by: [facility] on Feb 18 2018 10:35A Dictated by: ALCIDES CRAWFORD M.D. on Feb 18 2018 10:33A Annmarie Espinosa MD IMG CT PROCEDURES Final Re sult * Hepatitis C Antibody (07/13/2017 9:55 AM EST) Hepatitis C Antibody NEGATIVE Reference Range: Negative SUNQUEST 07/13/2017 9:5 5 AM EST 07/13/2017 10:16 AM EST Amrita Garcia MD LAB BLOOD ORDERABLES Final Resu lt SUNQUEST from Last 3 Months or Most Recently Relevant to Health Maintenance Insurance [employer] Care Teams Scene And Lighting Design Lecturer Relationship Specialty Start Date End Date Arash James MD [address] [place] [address] PCP - General 01/03/21
[2025-02-09 19:20] LABS: Albumin Level 3.9 g/dl (3.5-5.0); Chloride 110 mmol/L (98-107); Potassium 3.6 mmoL/L (3.5-5.1); Sodium 141 mmol/L (136-145)
[2025-02-09 19:23] LABS: Alanine Aminotransferase 25 U/L (12-78); Albumin/Globulin Ratio 1.2 (1.1-1.8); Alkaline Phosphatase 112 U/L (38-126); Anion Gap 10.6 mEq/L (5-15); Aspartate Amino Transferase 35 U/L (17-59); Blood Urea Nitrogen 18 mg/dl (9-20); Calcium 7.1 mg/dl (8.4-10.2); Carbon Dioxide 24 mmol/L (22.0-30.0); Estimated Glomerular Filt Rate 55 ml/min (>60); GFR (African American) 66 ML/MIN (>60); Globulin 3.3 g/dL (1.3-3.2); Glucose 103 mg/dl (74-100); Total Protein,Serum 7.2 g/dl (6.3-8.2)
== END 2025-02-09 23:59 | disposition home or self-care (01) ==
LOC: LAB 18:02
PROVIDERS: PCP Family Medicine; Visit Provider Family Medicine
DX: E83.51 Hypocalcemia (principal)
CPT/HCPCS: 80053

== ENCOUNTER 2025-02-16 10:28 | Outpatient (CLI) | payer MEDICARE, SELFPAY ==
--- OUTSIDE RECORDS SUMMARY | 2025-02-16 10:31 | XMS_ITS | Clinical Summary ---
Author Organization [facility] Address [address] [place] [address] Care Team Providers Care Lettuce Cutter Name Role Phone Arash James MD Primary Care Provider + [phone] Allergies Active Allergy Reactions Criticality Noted Date [...] 2000 Sigmoidoscopy 2000 UKY-Colorectal Cancer Screening 2000 [id number] Vaccine (3 - Moderna risk series) 02/05/2021 [...] this topic Medical Devices Implanted Type Area Business Control Manager Device Identifier Shelf Expiration Date Model / [...] depending on the interpreting/reporting physicians. COMPARISON: Dece [facility] [id number] FINDINGS: Mediastinum and Pleura: No mediastinal [...] Feb 18 2018 10:35 A Transcribed by: [facility] on Feb 18 2018 10:35A Dictated [...] Feb 18 2018 10:35 A Transcribed by: [facility] on Feb 18 2018 10:35A Dictated by: ALCIDES CRAWFORD M.D. on Feb 18 2018 10:33A Annmarie Espinosa MD IMG CT PROCEDURES Final Re sult * Hepatitis C Antibody (07/13/2017 9:55 AM EST) Hepatitis C Antibody NEGATIVE Reference Range: Negative SUNQUEST 07/13/2017 9:5 5 AM EST 07/13/2017 10:16 AM EST mArita Garcia MD LAB BLOOD ORDERABLES Final Resu lt SUNQUEST from Last 3 Months or Most Recently Relevant to Health Maintenance Insurance [employer] Care Teams Lettuce Cutter Relationship Specialty Start Date End Date Arash James MD [address] [place] [address] PCP - General 01/03/21
--- OUTSIDE RECORDS SUMMARY | 2025-02-16 10:31 | XMS_ITS | Encounter Summary ---
Author Organization Healthcare Address [address] [place] [address] Care Team Providers Care Home Care And Home Health Aides Teacher Name Role Phone Arash James MD Primary Care Provider [phone] Encounter Details Date Type Department Care Team (Late st Contact Info) Description 04/13/2017 Abstract [facility] Radiation [id number] [place] [address] Clary Vivas, RN [facility] Social [...] on filedocumented in this encounter Care Teams Home Care And Home Health Aides Teacher Relationship Specialty Start Date End Date Arash James MD [address] [place] [address] PCP - General 01/03/21 documented as of this encounter
--- OUTSIDE RECORDS SUMMARY | 2025-02-16 10:31 | XMS_ITS | Clinical Summary ---
Author Organization [facility] [address] Care Team Providers Care Sample Carrier Name Role Phone Unavailable Primary Care Provider [...]
--- OUTSIDE RECORDS SUMMARY | 2025-02-16 10:31 | XMS_ITS ---
Author Organization [facility] Address [address] [place] [address] Care Team Providers Care Commercial Stripper Name Role Phone Arash James MD Primary Care Provider + [phone] Active Problems Problem Noted Date Diagnosed Date [...]
[2025-02-16 10:57] LABS: Basophils # 0.1 K/mm3 (0-0.2); Basophils % 0.9 % (0.1-2.0); Eosinophils # 0.5 Kmm3 (0.0-0.4); Eosinophils % 5.6 % (0.1-12.0); Hematocrit 39.5 % (42.0-52.0); Hemoglobin 13.2 g/dL (14.1-18.0); Immature Granulocytes # 0.09 10^3uL; Lymphocytes # 1.4 K/mm3 (0.7-4.5); Lymphocytes % 15.9 % (10-50); Mean Corpuscular HGB Conc 33.4 g/dL (31.8-35.4); Mean Corpuscular Hemoglobin 29.6 pg (27.0-31.2); Mean Corpuscular Volume 88.6 fl (80-94); Mean Platelet Volume 11.5 fl (7.4-10.4); Monocytes # 0.7 K/mm3 (0.1-1.0); Monocytes % 8.5 % (1.7-9.3); Neutrophils # 5.9 K/mm3 (1.8-7.8); Neutrophils % 68.1 % (37.0-80.0); Nucleated Red Blood Cells # 0 10^3/uL; Nucleated Red Blood Cells % 0 %; Platelet Count 271 K/mm3 (142-424); Red Blood Count 4.46 M/mm3 (4.60-6.20); Red Cell Distribution Width 13.9 % (11.5-17.5); White Blood Count 8.7 K/mm3 (4.8-10.8)
[2025-02-16 11:36] LABS: Alanine Aminotransferase 23 U/L (12-78); Albumin Level 3.7 g/dl (3.5-5.0); Albumin/Globulin Ratio 1.2 (1.1-1.8); Alkaline Phosphatase 108 U/L (38-126); Aspartate Amino Transferase 33 U/L (17-59); Bilirubin,Total 0.8 mg/dl (0.2-1.3); Blood Urea Nitrogen 19 mg/dl (9-20); Calcium 7.4 mg/dl (8.4-10.2); Carbon Dioxide 25 mmol/L (22.0-30.0); Chloride 104 mmol/L (98-107); Estimated Glomerular Filt Rate 60 ml/min (>60); GFR (African American) 73 ML/MIN (>60); Glucose 116 mg/dl (74-100); Magnesium 1.8 mg/dl (1.6-2.3); Phosphorous 3.7 mg/dl (2.5-4.5); Sodium 138 mmol/L (136-145); Total Protein,Serum 6.7 g/dl (6.3-8.2)
[2025-02-16 11:47] LABS: Intact Parathyroid Hormone 45.4 pg/mL (7.5-53.5)
[2025-02-16 11:52] LABS: 25-OH Vitamin D, Total 34.8 ng/mL (30-100)
== END 2025-02-16 23:59 | disposition home or self-care (01) ==
LOC: LAB 10:29
PROVIDERS: PCP Family Medicine; Visit Provider Family Medicine
DX: E83.51 Hypocalcemia (principal)
CPT/HCPCS: 36415; 80053; 82306; 82330; 83735; 83970; 84100; 85025

== ENCOUNTER 2025-03-02 10:51 | Outpatient (CLI) | payer MEDICARE, SELFPAY ==
[2025-03-02 14:56] LABS: Alanine Aminotransferase 25 U/L (12-78); Albumin Level 4.3 g/dl (3.5-5.0); Albumin/Globulin Ratio 1.3 (1.1-1.8); Alkaline Phosphatase 115 U/L (38-126); Anion Gap 16.9 mEq/L (5-15); Aspartate Amino Transferase 35 U/L (17-59); Bilirubin,Total 1.0 mg/dl (0.2-1.3); Blood Urea Nitrogen 22 mg/dl (9-20); Calcium 9.0 mg/dl (8.4-10.2); Carbon Dioxide 26 mmol/L (22.0-30.0); Chloride 101 mmol/L (98-107); Creatinine,Serum 1.10 mg/dl (0.66-1.25); Estimated Glomerular Filt Rate 66 ml/min (>60); GFR (African American) 80 ML/MIN (>60); Globulin 3.3 g/dL (1.3-3.2); Glucose 95 mg/dl (74-100); Potassium 3.9 mmoL/L (3.5-5.1); Sodium 140 mmol/L (136-145); Total Protein,Serum 7.6 g/dl (6.3-8.2)
[2025-03-02 16:28] LABS: Hepatitis C Ab Qual. W/ RFX NEGATIVE (Negative)
[2025-03-03 05:57] LABS: Hepatitis B Surface Antigen Negative (Negative)
--- OUTSIDE RECORDS SUMMARY | 2025-03-05 10:55 | XMS_ITS | Clinical Summary ---
Author Organization [facility] Address [address] [place] [address] Care Team Providers Care Headend Technician Name Role Phone Arash James MD Primary Care Provider + [phone] Allergies Active Allergy Reactions Criticality Noted Date [...] 2000 Sigmoidoscopy 2000 [facility]Y-Colorectal Cancer Screening 2000 [id number] Vaccine (3 - Moderna risk series) 02/05/2021 01/08/2021, 12/11/2020 UKY-Depression Screening 09/04/2022 09/04/2021 UKY-Influenza Vaccine (#1) 04/23/202505/20, 06/11/2020, 05/24/2018, Additional history exists UKY-DTaP,Tdap,and Td [...] this topic Medical Devices Implanted Type Area Information Technology Analyst Device Identifier Shelf Expiration Date Model / [...] depending on the interpreting/reporting physicians. COMPARISON: Dece [facility] [id number] FINDINGS: Mediastinum and Pleura: [...] Feb 18 2018 10:35 A Transcribed by: [facility] on Feb 18 2018 [...] depending on the interpreting/reporting physicians. COMPARISON: Dece [facility] 2016 FINDINGS: Mediastinum and Pleura: [...] Feb 18 2018 10:35 A Transcribed by: [facility] on Feb 18 2018 10:35A Dictated by: [...] Most Recently Relevant to Health Maintenance Insurance [facility] MEDICARE Care Teams Headend Technician Relationship Specialty Start Date End Date Arash James MD [address] [place] [address] PCP - General 01/03/21
--- OUTSIDE RECORDS SUMMARY | 2025-03-05 10:55 | XMS_ITS | Clinical Summary ---
Author Organization [facility] [place] [address] Care Team Providers Care Plate Stacker Hand Name Role Phone Unavailable Primary Care Provider [...] Vaccine (2023-2 5 season) 2024 Influenza Vaccine (#1) 2025 Hepatitis B Vaccine Aged Out No longe r eligible based on patient's age to complete this topic Meningococcal B Vaccine Aged Out No l onger eligible based on patient's age to complete this topic
--- OUTSIDE RECORDS SUMMARY | 2025-03-05 10:55 | XMS_ITS | Encounter Summary ---
Author Organization [facility] Address [address] [place] [address] Care Team Providers Care Heat Treat Furnace Operator Name Role Phone Arash James MD Primary Care Provider [phone] Encounter Details Date Type Department Care Team (Late st Contact Info) Description 04/13/2017 Abstract [facility] Radiation [id number] [place] [address] Clary Vivas, RN [facility] Social [...] on filedocumented in this encounter Care Teams Heat Treat Furnace Operator Relationship Specialty Start Date End Date Arash James MD [address] [place] [address] PCP - General 01/03/21 documented as of this encounter
--- OUTSIDE RECORDS SUMMARY | 2025-03-05 10:55 | XMS_ITS ---
Author Organization [facility] Address [address] [place] [address] Care Team Providers Care Salesperson New Cars Name Role Phone Arash James MD Primary Care Provider + [phone] Active Problems Problem Noted Date Diagnosed Date [...]
== END 2025-03-02 23:59 | disposition home or self-care (01) ==
LOC: LAB.DROPOF 03-05 10:52
PROVIDERS: PCP Family Medicine; Visit Provider Family Medicine
DX: E83.51 Hypocalcemia (principal); Z11.59 Encounter for screening for other viral diseases
CPT/HCPCS: 80053; 86803; 87340

== ENCOUNTER 2025-03-29 13:36 | Outpatient (CLI) | payer MEDICARE, SELFPAY ==
[2025-03-29 20:23] LABS: Albumin Level 4.1 g/dl (3.5-5.0); Chloride 106 mmol/L (98-107); Sodium 138 mmol/L (136-145)
[2025-03-29 20:24] LABS: Potassium 3.8 mmoL/L (3.5-5.1)
[2025-03-29 20:26] LABS: Alanine Aminotransferase 20 U/L (12-78); Aspartate Amino Transferase 29 U/L (17-59); Blood Urea Nitrogen 16 mg/dl (9-20); Creatinine,Serum 1.10 mg/dl (0.66-1.25); Estimated Glomerular Filt Rate 66 ml/min (>60); GFR (African American) 80 ML/MIN (>60)
[2025-03-29 20:27] LABS: Albumin/Globulin Ratio 1.4 (1.1-1.8); Alkaline Phosphatase 122 U/L (38-126); Anion Gap 13.8 mEq/L (5-15); Bilirubin,Total 0.8 mg/dl (0.2-1.3); Calcium 8.1 mg/dl (8.4-10.2); Carbon Dioxide 22 mmol/L (22.0-30.0); Globulin 3.0 g/dL (1.3-3.2); Glucose 111 mg/dl (74-100); Magnesium 1.7 mg/dl (1.6-2.3); Total Protein,Serum 7.1 g/dl (6.3-8.2)
--- OUTSIDE RECORDS SUMMARY | 2025-03-30 10:05 | XMS_ITS | Encounter Summary ---
Author Organization Healthcare Address [address] [place] [address] Care Team Providers Care Sales And Service Engineer Name Role Phone Arash James MD Primary Care Provider [phone] Encounter Details Date Type Department Care Team (Late st Contact Info) Description 04/13/2017 Abstract [facility] [id number] [place] [address] Clary Vivas, RN [facility] Social [...] on filedocumented in this encounter Care Teams Sales And Service Engineer Relationship Specialty Start Date End Date Arash James MD [address] [place] [address] PCP - General 01/03/21 documented as of this encounter
--- OUTSIDE RECORDS SUMMARY | 2025-03-30 10:05 | XMS_ITS ---
Author Organization [facility] Address [address] [place] [address] Care Team Providers Care Telephone Lineman Name Role Phone Arash James MD Primary Care Provider + [phone] Active Problems Problem Noted Date Diagnosed Date [...]
--- OUTSIDE RECORDS SUMMARY | 2025-03-30 10:06 | XMS_ITS | Clinical Summary ---
Author Organization [facility] [place] [address] Care Team Providers Care Fiber Picker Name Role Phone Unavailable Primary Care Provider [...]
--- OUTSIDE RECORDS SUMMARY | 2025-03-30 10:06 | XMS_ITS | Clinical Summary ---
Author Organization [facility] Address [address] [place] [address] Care Team Providers Care Director Pharmacovigilance Name Role Phone Arash James MD Primary Care Provider + [phone] Allergies Active Allergy Reactions Criticality Noted Date [...] 2000 Sigmoidoscopy 2000 UKY-Colorectal Cancer Screening 2000 [id number] Vaccine (3 - Moderna risk series) 02/05/2021 [...] this topic Medical Devices Implanted Type Area Public Improvement Inspector Device Identifier Shelf Expiration Date Model / [...] depending on the interpreting/reporting physicians. COMPARISON: [facility] [place] [id number] FINDINGS: Mediastinum and Pleura: No mediastinal [...] Feb 18 2018 10:35 A Transcribed by: [facility] on Feb 18 2018 10:35A Dictated [...] depending on the interpreting/reporting physicians. COMPARISON: [facility] [place] 2016 FINDINGS: Mediastinum and Pleura: No mediastinal [...] Feb 18 2018 10:35 A Transcribed by: [facility] on Feb 18 2018 10:35A Dictated [...] Most Recently Relevant to Health Maintenance Insurance [facility] MEDICARE Care Teams Director Pharmacovigilance Relationship Specialty Start Date End Date Arash James MD [address] [place] [address] PCP - General 01/03/21
== END 2025-03-29 23:59 | disposition home or self-care (01) ==
LOC: LAB.DROPOF 03-30 10:03
PROVIDERS: PCP Family Medicine; Visit Provider Family Medicine
DX: E83.51 Hypocalcemia (principal)
CPT/HCPCS: 80053; 83735

== ENCOUNTER 2025-05-17 10:32 | Outpatient (CLI) | payer MEDICARE, SELFPAY ==
[2025-05-17 16:16] LABS: Alanine Aminotransferase 16 U/L (12-78); Albumin Level 3.9 g/dl (3.5-5.0); Albumin/Globulin Ratio 1.4 (1.1-1.8); Alkaline Phosphatase 105 U/L (38-126); Anion Gap 9.0 mEq/L (5-15); Aspartate Amino Transferase 26 U/L (17-59); Bilirubin,Total 1.0 mg/dl (0.2-1.3); Blood Urea Nitrogen 21 mg/dl (9-20); Calcium 8.8 mg/dl (8.4-10.2); Carbon Dioxide 25 mmol/L (22.0-30.0); Chloride 106 mmol/L (98-107); Cholesterol 204 mg/dl (140-200); Creatinine,Serum 1.20 mg/dl (0.66-1.25); Estimated Glomerular Filt Rate 60 ml/min (>60); GFR (African American) 73 ML/MIN (>60); Globulin 2.8 g/dL (1.3-3.2); Glucose 104 mg/dl (74-100); HDL Cholesterol 35 mg/dl (40-60); Potassium 4.0 mmoL/L (3.5-5.1); Sodium 136 mmol/L (136-145); Total Protein,Serum 6.7 g/dl (6.3-8.2); Triglycerides 153 mg/dl (30-150)
[2025-05-17 16:40] LABS: Free T4 (Free Thyroxine) 1.10 ng/dl (0.78-2.19)
[2025-05-17 16:53] LABS: Thyroid Stimulating Hormone 31.30 uIU/mL (0.465-4.68)
--- OUTSIDE RECORDS SUMMARY | 2025-05-21 09:37 | XMS_ITS | Clinical Summary ---
Author Organization [facility] [place] [address] Care Team Providers Care Underlay Stitcher Name Role Phone Unavailable Primary Care Provider [...] 2) 2005 COVID-19 Vaccine (2023-2 5 season) 2025 Influenza Vaccine (#1) 2025 Hepatitis B Vaccine Aged Out No longe r eligible based on patient's age to complete this topic Meningococcal B Vaccine Aged Out No l onger eligible based on patient's age to complete this topic
--- OUTSIDE RECORDS SUMMARY | 2025-05-21 09:37 | XMS_ITS ---
Author Organization [facility] Address [address] 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
--- OUTSIDE RECORDS SUMMARY | 2025-05-21 09:37 | XMS_ITS | Clinical Summary ---
Author Organization [facility] Address [address] [place] [address] Care Team Providers Care Forging Die Finisher Name Role Phone Arash James MD Primary Care Provider + [phone] Allergies Active Allergy Reactions Criticality Noted Date [...] therefore neoplastic involvement cannot be entirely excluded. Resolved Problems Problem Noted Date Diagnosed Date Resolved Date Second hand smoke exposure 01/25/2023 0 05/13/2025 Dysphonia 09/02/2021 05/13/2025 Immunizations Immunization Administration Dates Next Due Influenza, [...] 2000 Sigmoidoscopy 2000 [facility]-Colorectal Cancer Screening 2000 [id number] Vaccine (3 - Moderna risk series) 02/05/2021 [...] this topic Medical Devices Implanted Type Area Community Relations Police Lieutenant Device Identifier Shelf Expiration Date Model / [...] 10:35 A Transcribed by: [facility] on Feb 18 2018 10:35A Dictated [...] depending on the interpreting/reporting physicians. COMPARISON: [facility] 2016 FINDINGS: Mediastinum and Pleura: [...] 10:35 A Transcribed by: [facility] on Feb 18 2018 10:35A Dictated by: ALCIDES CRAWFORD M.D. on Feb 18 2018 10:33A us Annmarie Espinosa MD IMG CT PROCEDURES Final Re sult * Hepatitis C Antibody (07/13/2017 9:55 AM EST) Hepatitis C Antibody NEGATIVE Reference Range: Negative SUNQUEST 07/13/2017 9:55 AM EST 07/13/2017 10:16 AM EST us Amrita Garcia MD LAB BLOOD ORDERABLES Final Resu lt SUNQUEST from Last 3 Months or Most Recently Relevant to Health Maintenance Insurance [facility] MEDICARE Care Teams Forging Die Finisher Relationship Specialty Start Date End Date Arash James MD [address] [place] [address] PCP - General 01/03/21
--- OUTSIDE RECORDS SUMMARY | 2025-05-21 09:37 | XMS_ITS | Encounter Summary ---
Author Organization Healthcare Address [address] [place] [address] Care Team Providers Care Fitter/Welder Name Role Phone Arash James MD Primary Care Provider [phone] Encounter Details Date Type Department Care Team (Late st Contact Info) Description 04/13/2017 Abstract [facility] Radiation [id number] [place] [address] Clary Vivas, RN [facility] Social [...] on filedocumented in this encounter Care Teams Fitter/Welder Relationship Specialty Start Date End Date Arash James MD [address] [place] [address] PCP - General 01/03/21 documented as of this encounter
== END 2025-05-17 23:59 ==
LOC: LAB.DROPOF 05-21 09:33
PROVIDERS: PCP Family Medicine; Visit Provider Family Medicine
DX: E78.5 Hyperlipidemia, unspecified (principal); I10 Essential (primary) hypertension; E03.9 Hypothyroidism, unspecified; E83.52 Hypercalcemia
CPT/HCPCS: 80053; 80061; 84439; 84443; G0103

== ENCOUNTER 2025-06-15 09:30 | Outpatient (CLI) | payer MEDICARE, SELFPAY ==
[2025-06-15 15:39] LABS: Cholesterol 161 mg/dl (140-200); Triglycerides 175 mg/dl (30-150)
[2025-06-15 15:40] LABS: HDL Cholesterol 27 mg/dl (40-60)
[2025-06-15 15:56] LABS: Free T4 (Free Thyroxine) 1.72 ng/dl (0.78-2.19)
[2025-06-15 16:11] LABS: Thyroid Stimulating Hormone 4.43 uIU/mL (0.465-4.68)
--- OUTSIDE RECORDS SUMMARY | 2025-06-18 09:43 | XMS_ITS | Clinical Summary ---
Author Organization [facility] [place] [address] Care Team Providers Care Rip Saw Operator Name Role Phone Unavailable Primary Care Provider [...] Zoster (1 of 2) 2005 COVID-19 Vaccine (2024-2 6 season) 2025 Influenza Vaccine (#1) 2025 Hepatitis B Vaccine Aged Out No longe r eligible based on patient's age to complete this topic Meningococcal B Vaccine Aged Out No l onger eligible based on patient's age to complete this topic
--- OUTSIDE RECORDS SUMMARY | 2025-06-18 09:43 | XMS_ITS ---
Author Organization Unknown TREATMENT PLAN [facility] Start Date Provider Encounter for Check-up [id number] [facility]
--- OUTSIDE RECORDS SUMMARY | 2025-06-18 09:43 | XMS_ITS | Data Portability ---
Author Organization [facility] [place] [facility] KEVIN Chery ADMIN Address [address] [place] [address] Assessment No assessment recorded. Plan of Treatment Reminders Order Date Submit Date Provider Last Modified By Organization Details Last Modified Time Details Appointments None recorded. Lab C-reactive protein, quantitativ e, serum or plasma 2022 023 [email or web address] [facility], [address], [address], [place], [address], 3 07:13:35 ESR (erythrocyt e sedimentati on rate), blood 2022 023 ELLIS [facility], [address], [address], [place], [address], 3 13:10:15 C reactive protein, QN, serum or plasma 2022 023 ELLIS [facility], [address], [address], [place], [address], 3 11:13:05 ESR (erythrocyt e sedimentati on rate), blood 2022 023 ELLIS [facility], [address], [address], [place], [address], 3 11:13:04 Referral None recorded. Procedures None [...] Available [facility] ([facility]) [address] [place], [address], 12/30/2022 11:13:03 12/30/19 23 12/30/2022 C-MOON CTIVE PROTE IN, QUANT C-reactive protein, quant 6 mg/L 0-10 Not Available [facility] ([facility]) [address] [place], [address], 12/30/2022 11:13:05 12/30/19 23 12/29/2022 KRYSTYNA Edgar [...] Not Available [facility] ([facility]) [address] [place], [address], 12/30/2022 11:13:06 03/30/20 23 03/31/2023 SEDIM ENTAT ION RATE- WESTE RGREN sedimentatio n rate-westerg bela 12 mm/HR 0-30 Not Available [facility] ([facility]) [address] [place], [address], 03/31/2023 13:10:15 03/30/20 23 03/31/2023 C-MOON CTIVE PROTE IN, QUANT C-reactive protein, quant 5 mg/L 0-10 Not Available [facility] ([facility]) [address] [place], [address], 03/31/2023 13:10:16 Result Notes None recorded. Medical Equipment None Reported. Allergies Allergen ID Allergen Name Allergen Category Reaction Reaction Severity Criticality Documentation Date Start Date Code Code System Note Provider Name and Address Organization Details Recorded Time 52184 morphine medicatio n Not available Not available Not available 12/29/2022 7052 RxNorm Muriel Russell null, [place] - [facility] [place] [facility] [place] 3 09:30:07 Medications Name Sig Start Date [...] blood by Pulse oximetry Heart rate Systolic And Diastolic Provider Name and Address Organization Details Last Updated DateTime 3 499659. 95 g 33.9 kg/m2 180.34 cm 97.9 [degF] 97 % 97 % 64 /min 158/98 mm[Hg] Muriel Mathisle [facility] & [place] 3 09:33:11 Date Recorded Body height Oxygen saturation Oxygen saturation in Arterial blood by Pulse oximetry Heart rate Body temperature Body mass index (BMI) Body weight Systolic And Diastolic Provider Name and Address Organization Details Last Updated DateTime 3 180.34 cm 96 % 96 % 76 /min 98.1 [degF] 37.5 kg/m2 522058. 35 g 148/76 mm[Hg] Muriel Mathisle [facility] & [place] 3 08:50:30 Social History Question Answer Notes LastModified by Organizat ion Details LastModified Time Tobacco Smoking Status Current Every Day Smoker Muriel Yvonne [facility] & [place] 12/29/2022 09:31:12 What Is Your Current Pack Years? 10-19packdelphine womack Information not available 12/29/2022 How Much Tobacco Do You Smoke? 2 PPW april6 Information not available 12/29/2022 Sex: Unknown Functional Status None recorded. Mental Status None recorded. Family History Nothing Reported. Medical History No medical history recorded. 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 [id number] T84.53XD Right knee prosthetic joint infection most [...] PLUS (MEDICARE REPLACEMENT HMO) [id number] Sean Pierson [id number] Sean Pierson 10/07/2023 2 [employer] (MEDICARE REPLACEMENT/AD VANTAGE - HMO) Sean Pierson [id number] Sean Pierson 03/27/2023 1 [place] Sean Pierson [id number] Sean Hooverhop 11/23/2022 3 [employer] (MEDICARE REPLACEMENT/AD VANTAGE - PPO) Sean Pierson [id number] Sean Pierson 12/29/2022 1 *SELF PAY* Ro kortney Pierson 11/23/2022 1 [place] Sean Hooverhop [id number] Sean Hooverhop 11/23/2022 2 [employer] (MEDICARE REPLACEMENT/AD VANTAGE - HMO) Sean Naqvi Pierson [id number] Sean Hooverhop 12/29/2022 [employer] (MEDICARE REPLACEMENT/AD VANTAGE - PPO) Sean Hooverhop [id number] Sean Pierson Notes Date Note Type Note Provider Name and Address Organization Details Recorded Time 12/29/2022 text/html This is a 67-year-old white male following up with [place] for a right knee prosthetic joint infection [...] fever or other issues. Venkat Faustin MD [address], [place], [address], [place] [facility] [place] [facility] [place] 12/29/2022 09:48:32 03/30/2023 text/html ROS as noted in the HPI This is a 67-year-old white male following up [place] for a right knee prosthetic joint infection [...] warmth about the knee. Venkat Faustin MD [address] [facility], [place], [address], [facility] [place] [facility] [place] [facility] [place] 03/30/2023 09:14:56
== END 2025-06-15 23:59 ==
LOC: LAB.DROPOF 06-18 09:31
PROVIDERS: PCP Family Medicine; Visit Provider Family Medicine
DX: E03.9 Hypothyroidism, unspecified (principal); E78.5 Hyperlipidemia, unspecified
CPT/HCPCS: 80061; 84439; 84443